=== PATIENT | female | born 1960 | race Caucasian/White ===

== ENCOUNTER 2016-09-13 13:18 | Inpatient (IN) | payer OTHER ==
[2016-09-13 14:16] VITALS: BMI 49.7
--- NOTE | 2016-09-13 15:18 | HP ---
Admission [facility] - [facility] Chief Complaint: mY PO mandated me to come to rehab for drinking beer . Allergies/Adverse Reactions: Allergies Allergy/AdvReac Type Severity Reaction Status Date / Time No Known Allergies Allergy Verified 09/13/16 14:47 History of Present Illness: 56 y/o f pt on MMTP has h/o chronic alcoholism and cocaine abuse seeking rehab. Exam Limitations: No Limitations - Ebola screening Have you traveled outside of the country in the last 21 days: No Have you had contact with anyone from an Ebola affected area: Yes Have you been sick,other than usual withdrawal symptoms: No - Review of Systems Constitutional: No Symptoms Reported EENT: reports: Other (hoarseness) Respiratory: reports: Shortness of Breath Cardiac: reports: No Symptoms Reported GI: reports: No Symptoms Reported : reports: Frequency Musculoskeletal: reports: Back Pain, Muscle Pain, Other (ambulates with a cane 2nd to back pain) Integumentary: reports: No Symptoms Reported Neuro: reports: Seizure (last sz . 5 m ago) Endocrine: reports: Intolerance to Cold, Intolerance to Heat, Increased Thirst, Increased Urine, Unexplained Weight Gain Psychiatric: reports: Agitated, Depressed Other Systems: Reviewed and Negative Patient History - Patient Medical History Hx Anemia: No Hx Asthma: Yes Hx Chronic Obstructive Pulmonary Disease (COPD): Yes Hx Cancer: No Hx Cardiac Disorders: No Hx Congestive Heart Failure: No Hx Hypertension: Yes Hx Hypercholesterolemia: Yes Hx Pacemaker: No HX Cerebrovascular Accident: No Hx Seizures: Yes Hx Dementia: No Hx Diabetes: Yes Hx Gastrointestinal Disorders: No Hx Liver Disease: No Hx Genitourinary Disorders: No Hx Sexually Transmitted Disorders: No Hx Renal Disease (ESRD): No Hx Thyroid Disease: Yes Hx Human Immunodeficiency Virus (HIV): No Hx Hepatitis C: Yes Hx Depression: Yes Hx Suicide Attempt: Yes (1994) Hx Bipolar Disorder: Yes Hx Schizophrenia: No - Patient Surgical History Past Surgical History: Yes - PPD History Documented Results: Negative w/o proof PPD to be Administered?: Yes - Reproductive History Patient is a Female of Child Bearing Age (11 -55 yrs old): Yes Last Menstrual Period: 07/04/10 Patient : No - Smoking Cessation Smoking history: Current every day smoker Have you smoked in the past 12 months: Yes Aproximately how many cigarettes per day: 5 Cigars Per Day: 0 Hx Chewing Tobacco Use: No Initiated information on smoking cessation: Yes 'Breaking Loose' booklet given: 09/13/16 - Substance & Tx. History Hx Alcohol Use: Yes Substance Use Type: Alcohol, Cocaine - Substances Abused Alcohol Route: Oral Amount used: beer 2- 16 oz/d Age of first use: 21 Date of Last Use: 09/13/16 Cocaine Frequency: 1-2 times per week Amount used: $10./d Age of first use: 22 Date of Last Use: 09/10/16 Family Disease History - Family Disease History Family Disease History: Diabetes: Brother, Heart Disease: Mother (HTN, colon cancer), Brother, CA: Mother, Other: Sister (drug) Admission Physical Exam [facility] - Vital Signs Vital Signs: Vital Signs - 24 hr 09/13/16 14:12 Temperature 96.8 F L Pulse Rate 80 Respiratory 18 Rate Blood Pressure 105/75 obese f. pt aox3 with mild sob ,cooperative with exam ambulating with cane - Physical General Appearance: Yes: Disheveled, Obese HEENTM: Yes: EOMI, Hearing grossly Normal, Normocephalic, Normal Voice, CALLY, Muffled/Hoarse Voice Respiratory: Yes: Wheezing Neck: Yes: Supple, Trachea in good position Breast: Yes: Breast Exam Deferred Cardiology: Yes: Regular Rhythm, Regular Rate, S1, S2 Abdominal: Yes: Non Tender, Soft, Increased Bowel Sounds, Protuberent Genitourinary: Yes: Frequency Back: Yes: Decreased Range of Motion Musculoskeletal: Yes: Back pain Extremities: Yes: Swelling (pedal edema +1 ave.) Neurological: 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: 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 NML intact, Fully Oriented, Alert, Normal Response Integumentary: Yes: Moist Lymphatic: Yes: Within Normal Limits - Diagnostic (1) Alcohol abuse Current Visit: Yes Status: Chronic (2) Bipolar 1 disorder Current Visit: No Status: Chronic Comment: on meds, psych at [facility] (3) Chronic low back pain Current Visit: No Status: Chronic Comment: followed by pain mgmtJudy NP (4) Diabetes Current Visit: Yes Status: Chronic Qualifiers: Diabetes mellitus type: type 2 Comment: on meds, f/u with pcp (5) Essential hypertension Current Visit: Yes Status: Chronic Comment: on meds, stable, sees primary (6) Hepatitis C carrier Current Visit: Yes Status: Chronic Comment: Draw labs to day, RTC in 4 weeks (7) Methadone maintenance therapy patient Current Visit: Yes Status: Chronic Comment: meds counted in program, graduated new focus (8) Nicotine dependence Current Visit: Yes Status: Chronic Qualifiers: Nicotine product type: cigarettes Substance use status: uncomplicated Qualified Code(s): F17.210 - Nicotine dependence, cigarettes, uncomplicated Comment: smoking cessation advised (9) Obesity, Class III, BMI 40-49.9 (morbid obesity) Current Visit: Yes Status: Chronic Comment: considering bariatric surgery - plans gastric sleeve - [facility] - in process of clearance using meal replacement shakes (10) Osteoarthritis Current Visit: Yes Status: Chronic Comment: antiinflammatory diet, counseled wt loss, gentle ROM (11) Seizure disorder Current Visit: Yes Status: Chronic Comment: on meds, stable Cleared for Admission [facility] - Detox or Rehab Claeared for Rehab Admission: Yes [facility] Breath Alcohol Content Breath Alcohol Content: 0 Urine Pregancy Test - Result Urine Test Results: Negative- NO Line Present Urine Drug Screen - Results Drug Screen Negative: No Urine Drug Screen Results: KAREN-Cocaine, OPI-Opiates, MTD-Methadone
[2016-09-13] MEDS ORDERED: guaiFENesin/D-METHORPHAN HB 10 ML UNIT-DOSE CUPS PO PRN (15:38)
[2016-09-13] MEDS ORDERED: MAGNESIUM HYDROX 2400MG/30ML ORAL SUSPENSION 30 ML CUP PO PRN (15:38)
[2016-09-13] MEDS ORDERED: MAG HYDROX/AL HYDROX/SIMETH 30 ML UNIT-DOSE CUP PO PRN (15:38)
[2016-09-13] MEDS ORDERED: LOPERAMIDE HCL 2 MG CAPSULE PO PRN (15:38)
[2016-09-13] MEDS ORDERED: diphenhydrAMINE HCL 50 MG CAPSULE PO PRN (15:38)
[2016-09-13] MEDS ORDERED: NICOTINE POLACRILEX 4 MG GUM BUC PRN (15:38)
[2016-09-13] MEDS ORDERED: P-EPHED 60MG/TRIPROLIDI 2.5MG TABLET PO PRN (15:38)
[2016-09-13] MEDS ORDERED: ACETAMINOPHEN 325 MG TABLET (FP) PO PRN (15:38)
[2016-09-13] MEDS ORDERED: MAGNESIUM CITRATE 300 ML BOTTLE PO PRN (15:38)
[2016-09-13] MEDS ORDERED: IBUPROFEN 400 MG TABLET (FP) PO PRN (15:38)
[2016-09-13] MEDS ORDERED: ALBUTEROL SO4 6.7 GM HFA INHALER IH PRN (15:40)
[2016-09-13] MEDS ORDERED: ALBUTEROL SO4 2.5/IPRATROPIUM 0.5 INH SOL 3 ML VIAL.NEB. NEB PRN (15:52)
[2016-09-13] MEDS: metFORMIN HCL 500 MG TABLET (FP) PO SCH (18:35)
[2016-09-13] MEDS: GABAPENTIN 300 MG CAPSULE (FP) PO SCH ×2 (18:35→23:10)
[2016-09-13] MEDS: INSULIN SLIDING SCALE (NOVOLOG) 1 VIAL SQ SCH (18:36)
[2016-09-13] MEDS ORDERED: PT OWN MED DRAWER 7, Y5N ONE (22:54)
[2016-09-13] MEDS ORDERED: INSULIN (NOVOLOG) ASPART 100 UNITS/ML 10ML VIAL ONE (22:57)
[2016-09-13 23:09] LABS: URINE APPEARANCE CLEAR; URINE BILIRUBIN NEGATIVE (NEGATIVE); URINE BLOOD NEGATIVE (NEGATIVE); URINE COLOR LTYELLOW; URINE GLUCOSE (UA) NEGATIVE (NEGATIVE); URINE KETONE NEGATIVE (NEGATIVE); URINE NITRITE NEGATIVE (NEGATIVE); URINE PROTEIN NEGATIVE (NEGATIVE); URINE UROBILINOGEN NEGATIVE E.U./dl (0.2-1.0)
[2016-09-13] MEDS: ATORVASTATIN CA 20 MG TABLET (FP) PO SCH (23:10)
[2016-09-13] MEDS: DIVALPROEX SODIUM 500 MG TABLET E.C. PO SCH (23:10)
[2016-09-13] MEDS: THIAMINE HCL 100 MG TABLET (FP) PO SCH (23:11)
[2016-09-13] MEDS: ACLIDINIUM BROMIDE 400 MCG/INH AERO.POWD IH SCH (23:11)
[2016-09-13] MEDS: MONTELUKAST NA 10 MG TABLET PO SCH (23:11)
[2016-09-13] MEDS: LIRAGLUTIDE 0.6 MG/0.1 ML PEN.INJCTR SQ SCH (23:11)
[2016-09-13 23:16] LABS: URINE LEUK ESTERASE TRACE (NEGATIVE)
[2016-09-13 23:27] LABS: URINE BACTERIA RARE /hpf (NONE SEEN); URINE MUCUS RARE; URINE RBC <1 /hpf (0-3); URINE WBC <1 /hpf (3-5)
[2016-09-14] MEDS ORDERED: METHADONE HCL 40 MG DISPERSABLE TABLET PO SCH (06:30)
[2016-09-14] MEDS ORDERED: METHADONE HCL 40 MG DISPERSABLE TABLET ONE (06:37)
[2016-09-14] MEDS ORDERED: METHADONE HCL 10 MG TABLET ONE (06:37)
[2016-09-14] MEDS: METHADONE 80 MG, METHADONE 10 MG PO SCH (06:59)
[2016-09-14] MEDS: INSULIN SLIDING SCALE (NOVOLOG) 1 VIAL SQ SCH ×2 (07:00→17:02)
[2016-09-14] MEDS: GABAPENTIN 300 MG CAPSULE (FP) PO SCH ×3 (07:00→21:52)
[2016-09-14] MEDS: metFORMIN HCL 500 MG TABLET (FP) PO SCH ×2 (07:01→17:01)
[2016-09-14] MEDS ORDERED: PT OWN MED DRAWER 7, Y5N ONE ×5 (09:35→22:07)
[2016-09-14] MEDS ORDERED: ERGOCALCIFEROL (VITAMIN D2) 50,000 UNIT CAPSULE (FP) PO SCH (10:00)
[2016-09-14] MEDS: PRENATAL VITAMINS W/ FOLIC ACID TABLET (FP) PO SCH (10:24)
[2016-09-14] MEDS: DIVALPROEX SODIUM 500 MG TABLET E.C. PO SCH ×2 (10:24→21:52)
[2016-09-14] MEDS: ASPIRIN COATED 81 MG TABLET.EC PO SCH (10:24)
[2016-09-14] MEDS: HYDROCHLOROTHIAZIDE 12.5 MG CAPSULE (FP) PO SCH (10:24)
[2016-09-14] MEDS: NICOTINE 14 MG/24 HOURS TOPICAL PATCH TD SCH (10:25)
[2016-09-14] MEDS: ACLIDINIUM BROMIDE 400 MCG/INH AERO.POWD IH SCH ×2 (10:25→21:53)
[2016-09-14] MEDS: SERTRALINE HCL 25 MG TABLET (FP) PO SCH (10:26)
[2016-09-14] MEDS: LOSARTAN POTASSIUM 50 MG TABLET (FP) PO SCH (10:28)
[2016-09-14 11:53] LABS: HIV 1 & 2 AB NEGATIVE; HIV 1 AGp24 NEGATIVE
--- NOTE | 2016-09-14 17:16 | EKG ---
Test Reason : Blood Pressure : / mmHG Vent. Rate : 081 BPM Atrial Rate : 081 BPM P-R Int : 172 ms QRS Dur : 084 ms QT Int : 398 ms P-R-T Axes : 059 045 055 degrees QTc Int : 462 ms NORMAL SINUS RHYTHM NORMAL ECG WHEN COMPARED WITH ECG OF 08-DEC-2008 10:47, NO SIGNIFICANT CHANGE WAS FOUND Confirmed by DENZEL ALVAREZ MD ([id number]) on 09/14/2016 5:16:17 PM Referred By: Confirmed By:DENZEL ALVAREZ MD
[2016-09-14] MEDS: ATORVASTATIN CA 20 MG TABLET (FP) PO SCH (21:52)
[2016-09-14] MEDS: MONTELUKAST NA 10 MG TABLET PO SCH (21:52)
[2016-09-14] MEDS: THIAMINE HCL 100 MG TABLET (FP) PO SCH (21:52)
[2016-09-14] MEDS: LIRAGLUTIDE 0.6 MG/0.1 ML PEN.INJCTR SQ SCH (21:57)
[2016-09-14] MEDS ORDERED: INSULIN (NOVOLOG) ASPART 100 UNITS/ML 10ML VIAL ONE (22:06)
[2016-09-14] MEDS ORDERED: TUBERCULIN PPD 5 TU/0.1ML VIAL ID ONE (22:07)
[2016-09-15] MEDS ORDERED: METHADONE HCL 40 MG DISPERSABLE TABLET ONE (06:04)
[2016-09-15] MEDS ORDERED: METHADONE HCL 10 MG TABLET ONE (06:04)
[2016-09-15] MEDS: METHADONE 80 MG, METHADONE 10 MG PO SCH (06:28)
[2016-09-15] MEDS: metFORMIN HCL 500 MG TABLET (FP) PO SCH ×2 (06:28→17:08)
[2016-09-15] MEDS: GABAPENTIN 300 MG CAPSULE (FP) PO SCH ×3 (06:28→21:49)
[2016-09-15] MEDS: INSULIN SLIDING SCALE (NOVOLOG) 1 VIAL SQ SCH ×2 (06:30→17:08)
[2016-09-15] MEDS ORDERED: PT OWN MED DRAWER 7, Y5N ONE (08:46)
[2016-09-15] MEDS: NICOTINE 14 MG/24 HOURS TOPICAL PATCH TD SCH (10:31)
[2016-09-15] MEDS: PRENATAL VITAMINS W/ FOLIC ACID TABLET (FP) PO SCH (10:32)
[2016-09-15] MEDS: DIVALPROEX SODIUM 500 MG TABLET E.C. PO SCH ×2 (10:33→21:49)
[2016-09-15] MEDS: LOSARTAN POTASSIUM 50 MG TABLET (FP) PO SCH (10:33)
[2016-09-15] MEDS: HYDROCHLOROTHIAZIDE 12.5 MG CAPSULE (FP) PO SCH (10:33)
[2016-09-15] MEDS: ASPIRIN COATED 81 MG TABLET.EC PO SCH (10:33)
[2016-09-15] MEDS: SERTRALINE HCL 25 MG TABLET (FP) PO SCH (10:34)
[2016-09-15] MEDS: ACLIDINIUM BROMIDE 400 MCG/INH AERO.POWD IH SCH ×2 (10:34→21:50)
--- NOTE | 2016-09-15 14:31 | HP ---
Psychiatrist Admission - Data Date of interview: 09/15/16 Admission source: [facility] Identifying data: This is the first admission to [address] [place] [address] for this 56 years old H mother of 3 adult children,resides with her sister,supported by [facility]. Medical History: Significant for HTN,DM,Seizure disorder,Hypothyroidism,BA, Chronic arthritis,COPD. Psychiatric History: See psychiatrist since 1996 after DOD when she was admitted to the hospital in [facility].Patient was dx with Bipolar disorder and placed on medications. No more psych admissions,no suicidal attempts after that.Patient sees psychiatrist on and off.She was on Zoloft 25 mg po daily and Xanax prn prescribed by psychiatrist at [facility].Patient stopped taking meds and didnt attend the office for about 5 months. Physical/Sexual Abuse/Trauma History: denies Vital Signs: Vital Signs - 24 hr 09/15/16 09/15/16 09/15/16 00:30 03:30 07:40 Temperature 97.2 F L Pulse Rate 83 Respiratory 18 18 18 Rate Blood Pressure 132/80 09/15/16 10:38 Temperature Pulse Rate 97 H Respiratory 18 Rate Blood Pressure 127/86 Allergies/Adverse Reactions: Allergies Allergy/AdvReac Type Severity Reaction Status Date / Time No Known Allergies Allergy Verified 09/13/16 14:47 Date of last physical exam: 09/13/16 Concur with the findings of this exam: Yes - Substance Abuse/Tx History Hx Alcohol Use: Yes (reports drinking since 22 yo, 2 beers daily) Hx Substance Use: Yes (heroin since 40 IV,MMTP 90 mg,cocaine since 22 yo) Substance Use Type: Alcohol, Heroin Hx Substance Use Treatment: Yes (this is her first inpatient rehab treatment) - Admission Criteria Previous failed treatment: Yes Poor recovery environment: Yes Comorbidities: Yes Lacks judgement: Yes Mental Status Exam - Mental Status Exam Alert and Oriented to: Time, Place, Person Cognitive Function: Grossly Intact Patient Appearance: Unkempt Mood: Sad Affect: Mood Congruent, Labile Patient Behavior: Cooperative Speech Pattern: Clear Voice Loudness: Normal Thought Process: Goal Oriented Thought Disorder: Not Present Hallucinations: Denies Suicidal Ideation: Denies Homicidal Ideation: Denies Insight/Judgement: Fair Sleep: Difficulty falling asleep Appetite: Good, Weight gain Muscle strength/Tone: Normal Gait/Station: Normal Psychiatric Findings - Problem List ([place] 1, 2,3) (1) Diabetes Current Visit: Yes Status: Chronic Qualifiers: Diabetes mellitus type: type 2 Comment: on meds, f/u with pcp (2) Essential hypertension Current Visit: Yes Status: Chronic Comment: on meds, stable, sees primary (3) Hepatitis C carrier Current Visit: Yes Status: Chronic Comment: Draw labs to day, RTC in 4 weeks (4) Methadone maintenance therapy patient Current Visit: Yes Status: Chronic Comment: meds counted in program, graduated new focus (5) Nicotine dependence Current Visit: Yes Status: Chronic Qualifiers: Nicotine product type: cigarettes Substance use status: uncomplicated Qualified Code(s): F17.210 - Nicotine dependence, cigarettes, uncomplicated Comment: smoking cessation advised (6) Obesity, Class III, BMI 40-49.9 (morbid obesity) Current Visit: Yes Status: Chronic Comment: considering bariatric surgery - plans gastric sleeve - [facility] - in process of clearance using meal replacement shakes (7) Osteoarthritis Current Visit: Yes Status: Chronic Comment: antiinflammatory diet, counseled wt loss, gentle ROM - Initial Treatment Plan Initial Treatment Plan: Restart Zoloft 25 mg po daily.Will monitor progress.
[2016-09-15] MEDS: LIRAGLUTIDE 0.6 MG/0.1 ML PEN.INJCTR SQ SCH (20:50)
[2016-09-15] MEDS: THIAMINE HCL 100 MG TABLET (FP) PO SCH (21:49)
[2016-09-15] MEDS: MONTELUKAST NA 10 MG TABLET PO SCH (21:49)
[2016-09-15] MEDS: ATORVASTATIN CA 20 MG TABLET (FP) PO SCH (21:49)
[2016-09-16] MEDS ORDERED: METHADONE HCL 10 MG TABLET ONE (03:18)
[2016-09-16] MEDS ORDERED: METHADONE HCL 40 MG DISPERSABLE TABLET ONE (03:19)
[2016-09-16] MEDS: METHADONE 80 MG, METHADONE 10 MG PO SCH (06:45)
[2016-09-16] MEDS: metFORMIN HCL 500 MG TABLET (FP) PO SCH ×2 (06:46→17:08)
[2016-09-16] MEDS: INSULIN SLIDING SCALE (NOVOLOG) 1 VIAL SQ SCH ×2 (06:46→17:09)
[2016-09-16] MEDS: GABAPENTIN 300 MG CAPSULE (FP) PO SCH ×3 (06:46→21:40)
[2016-09-16] MEDS ORDERED: PT OWN MED DRAWER 7, Y5N ONE ×2 (09:09→20:07)
[2016-09-16] MEDS: ACLIDINIUM BROMIDE 400 MCG/INH AERO.POWD IH SCH ×2 (10:29→21:40)
[2016-09-16] MEDS: NICOTINE 14 MG/24 HOURS TOPICAL PATCH TD SCH (10:30)
[2016-09-16] MEDS: PRENATAL VITAMINS W/ FOLIC ACID TABLET (FP) PO SCH (10:30)
[2016-09-16] MEDS: SERTRALINE HCL 25 MG TABLET (FP) PO SCH (10:30)
[2016-09-16] MEDS: HYDROCHLOROTHIAZIDE 12.5 MG CAPSULE (FP) PO SCH (10:30)
[2016-09-16] MEDS: DIVALPROEX SODIUM 500 MG TABLET E.C. PO SCH ×2 (10:31→21:40)
[2016-09-16] MEDS: LOSARTAN POTASSIUM 50 MG TABLET (FP) PO SCH (10:31)
[2016-09-16] MEDS: ASPIRIN COATED 81 MG TABLET.EC PO SCH (10:31)
[2016-09-16] MEDS: MENTHOL/PHENOL 1 EACH UD MM PRN (14:50)
[2016-09-16] MEDS: LIRAGLUTIDE 0.6 MG/0.1 ML PEN.INJCTR SQ SCH (20:14)
[2016-09-16] MEDS: THIAMINE HCL 100 MG TABLET (FP) PO SCH (21:40)
[2016-09-16] MEDS: MONTELUKAST NA 10 MG TABLET PO SCH (21:40)
[2016-09-16] MEDS: ATORVASTATIN CA 20 MG TABLET (FP) PO SCH (21:40)
[2016-09-17] MEDS ORDERED: METHADONE HCL 10 MG TABLET ONE (03:10)
[2016-09-17] MEDS ORDERED: METHADONE HCL 40 MG DISPERSABLE TABLET ONE (03:11)
[2016-09-17] MEDS: METHADONE 80 MG, METHADONE 10 MG PO SCH (06:39)
[2016-09-17] MEDS: metFORMIN HCL 500 MG TABLET (FP) PO SCH ×2 (06:40→17:01)
[2016-09-17] MEDS: GABAPENTIN 300 MG CAPSULE (FP) PO SCH ×3 (06:40→21:40)
[2016-09-17] MEDS: INSULIN SLIDING SCALE (NOVOLOG) 1 VIAL SQ SCH ×2 (06:41→17:08)
[2016-09-17] MEDS: NICOTINE 14 MG/24 HOURS TOPICAL PATCH TD SCH (10:32)
[2016-09-17] MEDS: DIVALPROEX SODIUM 500 MG TABLET E.C. PO SCH ×2 (10:33→21:39)
[2016-09-17] MEDS: ASPIRIN COATED 81 MG TABLET.EC PO SCH (10:33)
[2016-09-17] MEDS: PRENATAL VITAMINS W/ FOLIC ACID TABLET (FP) PO SCH (10:33)
[2016-09-17] MEDS: HYDROCHLOROTHIAZIDE 12.5 MG CAPSULE (FP) PO SCH (10:33)
[2016-09-17] MEDS: LOSARTAN POTASSIUM 50 MG TABLET (FP) PO SCH (10:33)
[2016-09-17] MEDS: ACLIDINIUM BROMIDE 400 MCG/INH AERO.POWD IH SCH ×2 (10:34→21:39)
[2016-09-17] MEDS: SERTRALINE HCL 25 MG TABLET (FP) PO SCH (10:34)
[2016-09-17] MEDS ORDERED: INSULIN (NOVOLOG) ASPART 100 UNITS/ML 10ML VIAL ONE (17:05)
[2016-09-17] MEDS ORDERED: PT OWN MED DRAWER 7, Y5N ONE (19:58)
[2016-09-17] MEDS: LIRAGLUTIDE 0.6 MG/0.1 ML PEN.INJCTR SQ SCH (20:23)
[2016-09-17] MEDS: THIAMINE HCL 100 MG TABLET (FP) PO SCH (21:39)
[2016-09-17] MEDS: ATORVASTATIN CA 20 MG TABLET (FP) PO SCH (21:39)
[2016-09-17] MEDS: MONTELUKAST NA 10 MG TABLET PO SCH (21:39)
[2016-09-18] MEDS ORDERED: METHADONE HCL 10 MG TABLET ONE (03:40)
[2016-09-18] MEDS ORDERED: METHADONE HCL 40 MG DISPERSABLE TABLET ONE (03:40)
[2016-09-18] MEDS: METHADONE 80 MG, METHADONE 10 MG PO SCH (06:53)
[2016-09-18] MEDS: metFORMIN HCL 500 MG TABLET (FP) PO SCH ×2 (06:54→17:17)
[2016-09-18] MEDS: INSULIN SLIDING SCALE (NOVOLOG) 1 VIAL SQ SCH ×2 (06:54→17:18)
[2016-09-18] MEDS: GABAPENTIN 300 MG CAPSULE (FP) PO SCH ×3 (06:54→21:43)
[2016-09-18] MEDS ORDERED: PT OWN MED DRAWER 7, Y5N ONE ×2 (08:59→21:41)
[2016-09-18] MEDS: PRENATAL VITAMINS W/ FOLIC ACID TABLET (FP) PO SCH (10:31)
[2016-09-18] MEDS: LOSARTAN POTASSIUM 50 MG TABLET (FP) PO SCH (10:31)
[2016-09-18] MEDS: DIVALPROEX SODIUM 500 MG TABLET E.C. PO SCH ×2 (10:31→21:43)
[2016-09-18] MEDS: ASPIRIN COATED 81 MG TABLET.EC PO SCH (10:31)
[2016-09-18] MEDS: HYDROCHLOROTHIAZIDE 12.5 MG CAPSULE (FP) PO SCH (10:31)
[2016-09-18] MEDS: ACLIDINIUM BROMIDE 400 MCG/INH AERO.POWD IH SCH ×2 (10:32→22:04)
[2016-09-18] MEDS: SERTRALINE HCL 25 MG TABLET (FP) PO SCH (10:32)
[2016-09-18] MEDS: NICOTINE 14 MG/24 HOURS TOPICAL PATCH TD SCH (10:32)
[2016-09-18] MEDS: MENTHOL/PHENOL 1 EACH UD MM PRN (10:35)
[2016-09-18] MEDS: THIAMINE HCL 100 MG TABLET (FP) PO SCH (21:43)
[2016-09-18] MEDS: ATORVASTATIN CA 20 MG TABLET (FP) PO SCH (21:43)
[2016-09-18] MEDS: MONTELUKAST NA 10 MG TABLET PO SCH (21:43)
[2016-09-18] MEDS: LIRAGLUTIDE 0.6 MG/0.1 ML PEN.INJCTR SQ SCH (21:49)
[2016-09-19 01:22] VITALS: BP 102/71; PULSE 120; TEMP 101.6
--- NOTE | 2016-09-19 01:31 | PN ---
[facility] Progress Note Note: Vital Signs 09/18/16 09/19/16 23:47 00:35 Temperature 1102.3 F H 101.6 F H Pulse Rate 95 H 120 H Respiratory 18 22 Rate Blood Pressure 126/75 102/71 Pt. c/o SOB. She is diaphoretic, tachypneic with b/l expiratory and inspiratory wheezing noted. Her SaO2 ranges from 88-90%. Pt. continues with fever after Tylenol was administered at 2327. She is on 2L of O2 via nc. Pt. transferred to the ER for further evaluation. Report given to Dr. Salmon.
[2016-09-19] MEDS: METHADONE 80 MG, METHADONE 10 MG PO SCH (07:27)
[2016-09-19] MEDS: GABAPENTIN 300 MG CAPSULE (FP) PO SCH (07:28)
[2016-09-19] MEDS: metFORMIN HCL 500 MG TABLET (FP) PO SCH (07:28)
[2016-09-19] MEDS: INSULIN SLIDING SCALE (NOVOLOG) 1 VIAL SQ SCH (07:29)
[2016-09-19] MEDS: HYDROCHLOROTHIAZIDE 12.5 MG CAPSULE (FP) PO SCH (10:28)
[2016-09-19] MEDS: ASPIRIN COATED 81 MG TABLET.EC PO SCH (10:28)
[2016-09-19] MEDS: DIVALPROEX SODIUM 500 MG TABLET E.C. PO SCH (10:28)
[2016-09-19] MEDS: LOSARTAN POTASSIUM 50 MG TABLET (FP) PO SCH (10:28)
[2016-09-19] MEDS: PRENATAL VITAMINS W/ FOLIC ACID TABLET (FP) PO SCH (10:29)
[2016-09-19] MEDS: ACLIDINIUM BROMIDE 400 MCG/INH AERO.POWD IH SCH (10:29)
[2016-09-19] MEDS: SERTRALINE HCL 25 MG TABLET (FP) PO SCH (10:29)
[2016-09-19] MEDS: NICOTINE 14 MG/24 HOURS TOPICAL PATCH TD SCH (10:29)
== END 2016-09-19 11:12 | disposition short-term general hospital (02) | DRG 772 ==
LOC: YASAS 13:18 → Y3E 16:10
PROVIDERS: ADMIT Psychiatry & Neurology Psychiatry; ATTEND Psychiatry & Neurology Psychiatry
PROC: HZ42ZZZ Group Counseling for Substance Abuse Treatment, Cognitive-Behavioral (ICD-10-PCS; principal; 2016-09-19)
DX: F11.20 Opioid dependence, uncomplicated (principal); F10.10 Alcohol abuse, uncomplicated; F17.210 Nicotine dependence, cigarettes, uncomplicated; F31.89 Other bipolar disorder; B18.2 Chronic viral hepatitis C; I10 Essential (primary) hypertension; Z86.69 Personal history of other diseases of the nervous system and sense organs; E11.9 Type 2 diabetes mellitus without complications; M54.5 Low back pain; E66.09 Other obesity due to excess calories; Z68.41 Body mass index [BMI] 40.0-44.9, adult; M19.90 Unspecified osteoarthritis, unspecified site
CPT/HCPCS: 36415; 81003; 81015; 87389; 93005; 93010; 94640

== ENCOUNTER 2016-09-19 01:59 | Inpatient (IN) | payer OTHER ==
--- NOTE | 2016-09-19 03:44 | PDOC ---
[id number] a 56 year old female with significant medical hx of asthma, COPD, IDDM, HTN, HLD, seizures, ETOH abuse and cocaine use who has been sent to the ED from [facility] for low O2Sat and fever. The patient complains of three days of shortness of breath, dry cough, and fever. She was found to have an O2Sat of 88% on room air at [facility]. She was also found to have a fever of 102.3. Denies any nausea, vomiting, diarrhea, chest pain, diaphoresis, headache, or urinary symptoms. PMD: Rancho Joseph MD <Lexy Wyatt - Last Filed: 09/19/16 06:06> <Will Cruz - Last Filed: 10/10/16 02:02> - General Chief Complaint: Cold Symptoms Stated Complaint: FEVER Past History <Lexy Wyatt - Last Filed: 09/19/16 06:06> - Past Medical History Anemia: No Asthma: Yes Cancer: No Cardiac Disorders: No CVA: No COPD: Yes CHF: No Dementia: No Diabetes: Yes GI Disorders: No Disorders: No HTN: Yes (ON MEDS.) Hypercholesterolemia: Yes Kidney Stones: No Liver Disease: No Suicide Attempt (Hx): Yes (X1) Seizures: Yes (ON MEDICATION) Thyroid Disease: Yes - Reproductive History PID: No - Psycho/Social/Smoking Cessation Hx Anxiety: Yes Suicidal Ideation: No Smoking History: Current every day smoker Have you smoked in the past 12 months: No Number of Cigarettes Smoked Daily: 20 Cigars Per Day: 0 Information on smoking cessation initiated: No 'Breaking Loose' booklet given: 09/13/16 Hx Alcohol Use: Yes Drug/Substance Use Hx: Yes Substance Use Type: Alcohol, Heroin Hx Substance Use Treatment: Yes (this is her first inpatient rehab treatment) <Will Cruz - Last Filed: 10/10/16 02:02> - Past Medical History Allergies/Adverse Reactions: Allergies Allergy/AdvReac Type Severity Reaction Status Date / Time No Known Allergies Allergy Verified 09/19/16 02:11 Home Medications: Ambulatory Orders Albuterol Sulfate Inhaler - [Ventolin HFA Inhaler -] 2 inh PO Q4H PRN 03/17/14 Azilsartan Medoxomil [Edarbi] 40 mg PO DAILY 03/17/14 Divalproex [Depakote -] 500 mg PO BID 03/17/14 Ergocalciferol [Drisdol -] 50,000 unit PO WEEKLY 03/17/14 Methadone HCl 90 mg PO DAILY 03/17/14 Zolpidem Tartrate [Ambien] 10 mg PO HS PRN 03/17/14 Sertraline HCl [Zoloft -] 25 mg PO DAILY 06/30/14 Tiotropium [place] [Spiriva] 1 inh PO DAILY 01/05/15 Gabapentin [Neurontin -] 300 mg PO Q8H 10/22/15 Mometasone/Formoterol [Dulera 200 Mcg/5 Mcg Inhaler] 2 inh IH BID 10/22/15 Hydrocodone/Acetaminophen [[place] 10-325 Tablet] 1 each PO BID PRN #60 tablet MDD 2 10/25/15 Aspirin [Aspirin EC] 81 mg PO DAILY 09/13/16 Liraglutide [Victoza -] 1.2 mg SQ DAILY@199909/13/16 Losartan/Hydrochlorothiazide [Losartan-Hctz 100-12.5 mg Tab] 1 each PO DAILY Metformin HCl 500 mg PO BID 09/13/16 Montelukast Na [Singulair -] 10 mg PO HS 09/13/16 Simvastatin [Zocor -] 20 mg PO DAILY 09/13/16 Acetaminophen [Tylenol .Regular Strength -] 650 mg PO Q6H PRN #0 tablet Albuterol 2.5/Ipratropium 0.5 [Duoneb -] 1 amp NEB Q6H PRN #4 amp 09/22/16 Atorvastatin Ca [Lipitor] 20 mg PO HS tablet 09/22/16 Azithromycin [Zithromax 250mg Tablets -] 250 mg PO DAILY #5 tablet 09/22/16 Hydrochlorothiazide [Hctz -] 25 mg PO DAILY tablet 09/22/16 Losartan Potassium [Cozaar -] 100 mg PO DAILY tablet 09/22/16 Metformin HCl [Glucophage -] 500 mg PO BID@0700,1630 tablet 09/22/16 Methadone [Dolophine -] 90 mg PO DAILY@0600 tablet MDD 1 09/22/16 Montelukast Na [Singulair -] 10 mg PO HS tablet 09/22/16 Nicotine Patch [Nicoderm Patch -] 21 mg TD DAILY #30 patch 09/22/16 Oxycodone HCl [Roxicodone -] 10 mg PO Q6H PRN #0 tablet MDD 4 09/22/16 Prednisone [Deltasone -] 30 mg PO DAILY #6 tablet 09/22/16 Sertraline HCl [Zoloft -] 50 mg PO HS tablet 09/22/16 Zolpidem Tartrate [Ambien] 5 mg PO HS PRN #0 tablet MDD 1 09/22/16 Review of Systems - Review of Systems Comments:: 09/19/16 06:12 GENERAL/CONSTITUTIONAL: Fever. No chills. No weakness. HEAD, EYES, EARS, NOSE AND THROAT: No change in vision. No ear pain or discharge. No sore throat. CARDIOVASCULAR: Shortness of breath. No chest pain. RESPIRATORY: Dry cough. No wheezing, or hemoptysis. GASTROINTESTINAL: No nausea, vomiting, diarrhea or constipation. GENITOURINARY: No dysuria, frequency, or change in urination. MUSCULOSKELETAL: No joint or muscle swelling or pain. No neck or back pain. SKIN: No rash NEUROLOGIC: No headache, vertigo, loss of consciousness, or change in strength/ sensation. <Lexy Wyatt - Last Filed: 09/19/16 06:06> *Physical Exam - Vital Signs Last Vital Signs Temp Pulse Resp BP Pulse Ox 99.2 F 113 H 16 122/65 96 09/19/16 02:11 09/19/16 02:11 09/19/16 02:11 09/19/16 02:11 09/19/16 02:11 - Physical Exam Comments: 09/19/16 06:14 GENERAL: Awake, alert, and fully oriented, in no acute distress HEAD: No signs of trauma EYES: PERRLA, EOMI, sclera anicteric, conjunctiva clear ENT: Auricles normal inspection, hearing grossly normal, nares patent, oropharynx clear without exudates. Moist mucosa NECK: Normal ROM, supple, no lymphadenopathy, JVD, or masses LUNGS: Diffusely wheezing, mild rhonchi. HEART: Regular rate and rhythm, normal S1 and S2, no murmurs, rubs or gallops ABDOMEN: Soft, nontender, normoactive bowel sounds. No guarding, no rebound. No masses EXTREMITIES: Normal range of motion, no edema. No clubbing or cyanosis. No cords, erythema, or tenderness NEUROLOGICAL: Cranial nerves II through XII grossly intact. Normal speech, normal gait SKIN: Warm, Dry, normal turgor, no rashes or lesions noted. ENDOCRINE: No increased thirst. No abnormal weight change. HEMATOLOGIC/LYMPHATIC: No anemia, easy bleeding, or history of blood clots. ALLERGIC/IMMUNOLOGIC: No hives or skin allergy. <Lexy Wyatt - Last Filed: 09/19/16 06:06> - Vital Signs Last Vital Signs Temp Pulse Resp BP Pulse Ox 99.2 F 113 H 16 122/65 96 09/19/16 02:11 09/19/16 02:11 09/19/16 02:11 09/19/16 02:11 09/19/16 02:11 <Will Cruz - Last Filed: 10/10/16 02:02> ED Treatment Course - LABORATORY CBC & Chemistry Diagram: 09/19/16 04:15 09/19/16 04:15 - ADDITIONAL ORDERS Additional order review: Laboratory Results 09/19/16 09/19/16 09/19/16 04:15 04:15 04:15 INR 1.12 Sodium 141 Potassium 4.8 Chloride 96 L Carbon Dioxide 34 H D Anion Gap 11 BUN 17 D Creatinine 1.1 H D Creat Clearance w eGFR 51.57 Random Glucose 145 H D Lactic Acid 2.843 H* Calcium 9.1 Phosphorus 4.4 Magnesium 1.6 L Total Bilirubin 0.8 D AST 15 D ALT 26 Alkaline Phosphatase 63 B-Natriuretic Peptide 161.23 H Total Protein 7.1 Albumin 3.1 L Lipase 90 09/19/16 04:15 RBC 4.79 MCV 87.4 MCHC 32.3 RDW 13.6 MPV 8.6 Neutrophils % Y Lymphocytes % Y - Medications Given in the ED: ED Medications Discontinued Medications Generic Name Dose Route Start Last Admin Trade Name Freq PRN Reason Stop Dose Admin Sodium Chloride 1,000 ml 09/19/16 05:24 09/19/16 05:36 Normal Saline - IV 09/19/16 05:25 1,000 ml ONCE ONE Administration <Lexy Wyatt - Last Filed: 09/19/16 06:06> - LABORATORY CBC & Chemistry Diagram: 09/20/16 06:50 09/22/16 05:40 <Will Cruz - Last Filed: 10/10/16 02:02> Medical Decision Making - Medical Decision Making 09/19/16 06:22 This is a 56yo F with a few days of low grade fever, mild dyspnea and cough. She has COPD exacerbation and looks slightly pale. She has a negative evaluation other than the wheezing and ronchi; she will require admission for COPD exacerbation. She has a normal Hb; WBC is very elevated at 25k. Lactate is elevated; she is hydrated with 30cc/kg, triple antibiotic therapy, nonnarcotic analgesia 10/10/16 01:59 <Will Cruz - Last Filed: 10/10/16 02:02> *DC/Admit/Observation/Transfer - Attestations Scribe Attestion: 09/19/16 06:15 Documentation prepared by Lexy Wyatt, acting as medical services assistant for Will Cruz MD. <Lexy Wyatt - Last Filed: 09/19/16 06:06> <Will Cruz - Last Filed: 10/10/16 02:02> - Discharge Dispostion Disposition: HOME Condition at time of disposition: Improved - Prescriptions - Referrals
[2016-09-19 04:39] LABS: MCH 28.2 pg (25.7-33.7); MCHC 32.3 g/dl (32.0-36.0); MEAN CELL VOLUME 87.4 fl (80-96); MEAN PLT VOLUME 8.6 fl (7.5-11.1); PLATELET COUNT 228 K/MM3 (134-434); RDW 13.6 % (11.6-15.6); WHITE BLOOD COUNT 25.4 K/mm3 (4.0-10.0)
[2016-09-19 04:52] LABS: INR 1.12 (0.82-1.09); PROTHROMBIN TIME (PATIENT) 12.4 SEC (9.98-11.88)
[2016-09-19 05:03] LABS: ALBUMIN 3.1 g/dl (3.4-5.0); BILIRUBIN,TOTAL 0.8 mg/dL (0.2-1.0); CALCIUM 9.1 mg/dL (8.5-10.1); CREATININE 1.1 mg/dL (0.55-1.02); MAGNESIUM 1.6 mg/dL (1.8-2.4); PHOSPHOROUS 4.4 mg/dL (2.5-4.9); TOT PROT 7.1 g/dl (6.4-8.2)
[2016-09-19] MEDS ORDERED: SODIUM CHLORIDE 0.9% 500 ML INFUS.BAG IV ONE ×2 (05:24→05:50)
[2016-09-19] MEDS ORDERED: AZITHROMYCIN IVPB 500 MG in DEXTROSE 5%-WATER - 250 ML IVPB ONE (05:51)
[2016-09-19] MEDS ORDERED: VANCOMYCIN 1,000 MG in DEXTROSE 5%-WATER - 250 ML IVPB ONE (05:51)
[2016-09-19] MEDS ORDERED: LEVOFLOXACIN 750 MG IVPB 150 ML IVPB ONE ×2 (05:51→05:58)
[2016-09-19] MEDS ORDERED: ALBUTEROL SO4 2.5/IPRATROPIUM 0.5 INH SOL 3 ML VIAL.NEB. NEB ONE ×2 (05:52→06:05)
[2016-09-19] MEDS ORDERED: MAGNESIUM SULF 50% (8.12 MEQ/2 ML-1 GM VIAL) IVPB ONE (05:52)
[2016-09-19] MEDS ORDERED: MAGNESIUM SULF 50% (8.12 MEQ/2 ML-1 GM VIAL) ONE ×2 (05:58→06:03)
[2016-09-19] MEDS ORDERED: VANCOMYCIN 1 GRAM (PRE-DOCKED) 250 ML IVPB ONE (06:12)
[2016-09-19] MEDS ORDERED: ALBUTEROL SO4 2.5/IPRATROPIUM 0.5 INH SOL 3 ML VIAL.NEB. NEB PRN (07:58)
[2016-09-19] MEDS ORDERED: METHADONE HCL 10 MG TABLET PO SCH (08:00)
[2016-09-19] MEDS ORDERED: methylPREDNISolone NA SUCC 40 MG/1 ML VIAL IVPB SCH (09:00)
[2016-09-19 09:20] LABS: PLATELET ESTIMATE ADEQUATE (NORMAL)
[2016-09-19] MEDS ORDERED: LOSARTAN 50MG/HCTZ 12.5MG 1 TAB (FP) PO SCH (10:00)
[2016-09-19] MEDS ORDERED: ERGOCALCIFEROL (VITAMIN D2) 50,000 UNIT CAPSULE (FP) PO SCH (10:00)
[2016-09-19] MEDS ORDERED: HYDROCHLOROTHIAZIDE 25 MG TABLET (FP) ONE (11:05)
[2016-09-19] MEDS ORDERED: ASPIRIN COATED 81 MG TABLET.EC ONE (11:05)
[2016-09-19] MEDS ORDERED: DOCUSATE SODIUM 100 MG CAPSULE (FP) PO ONE (11:06)
[2016-09-19] MEDS ORDERED: LOSARTAN POTASSIUM 25 MG TABLET ONE (11:06)
[2016-09-19] MEDS: ASPIRIN COATED 81 MG TABLET.EC PO SCH (11:15)
[2016-09-19] MEDS: DIVALPROEX SODIUM 500 MG TABLET E.C. PO SCH ×2 (11:15→23:35)
[2016-09-19] MEDS: HYDROCHLOROTHIAZIDE 25 MG TABLET (FP) PO SCH (11:15)
[2016-09-19] MEDS: LOSARTAN POTASSIUM 50 MG TABLET (FP) PO SCH (11:15)
[2016-09-19] MEDS: DOCUSATE SODIUM 100 MG CAPSULE (FP) PO SCH (11:15)
[2016-09-19 12:15] LABS: URINE APPEARANCE SLCLOUDY; URINE BILIRUBIN NEGATIVE (NEGATIVE); URINE BLOOD NEGATIVE (NEGATIVE); URINE COLOR YELLOW; URINE GLUCOSE (UA) NEGATIVE (NEGATIVE); URINE KETONE NEGATIVE (NEGATIVE); URINE NITRITE NEGATIVE (NEGATIVE); URINE PROTEIN NEGATIVE (NEGATIVE); URINE UROBILINOGEN 2.0 E.U/dl E.U./dl (0.2-1.0)
[2016-09-19 12:36] LABS: URINE LEUK ESTERASE TRACE (NEGATIVE)
[2016-09-19 12:44] LABS: URINE BACTERIA RARE /hpf (NONE SEEN); URINE HYALINE CAST 15 /lpf; URINE MUCUS RARE; URINE RBC 1 /hpf (0-3); URINE WBC 2 /hpf (3-5)
[2016-09-19] MEDS ORDERED: GABAPENTIN 100 MG CAPSULE (FP) ONE (14:26)
[2016-09-19] MEDS: GABAPENTIN 300 MG CAPSULE (FP) PO SCH ×2 (14:29→21:42)
[2016-09-19 14:36] VITALS: BMI 47.5
[2016-09-19] MEDS ORDERED: METHADONE HCL 40 MG DISPERSABLE TABLET ONE (15:53)
[2016-09-19] MEDS ORDERED: METHADONE HCL 10 MG TABLET ONE (15:53)
[2016-09-19] MEDS: METHADONE 80 MG, METHADONE 10 MG PO SCH (15:55)
--- NOTE | 2016-09-19 16:42 | CON.PULM ---
Consult Consult Specialty:: PULM/CCM Referred by:: SLOAN Reason for Consultation:: SOB - History of Present Illness Chief Complaint: SOB History of Present Illness: 56 F, asthma (never intubated, not steroid dependent, unknown PEF), COPD and active smoker, IDDM, HTN, HLD, seizures, ETOH abuse and cocaine use, currently on Methadone maintenance program. Reports of a few weeks of congested cough and SOB. Reports that she was given oral ABX (cannot remember the name) about 2 weeks ago. No travel history. Reports that her sister had URI symptoms. Found to have an O2 saturation of 88% on room air and fever of 102.3. Reports intermittent hemoptysis (blood tinged sputum). CXR: No acute process - History Source History Provided By: Patient Limitations to Obtaining History: No Limitations - Past Medical History Pulmonary: Yes: Asthma, Bronchitis, COPD, Pneumonia, Other (Probable sleep apnea ). No: O2 Dependent, Previously Intubated, Pulmonary Embolus ...LMP: 07/04/10 - Alcohol/Substance Use Hx Alcohol Use: Yes - Smoking History Smoking history: Current every day smoker Have you smoked in the past 12 months: No Aproximately how many cigarettes per day: 20 Home Medications - Allergies Allergies/Adverse Reactions: Allergies Allergy/AdvReac Type Severity Reaction Status Date / Time No Known Allergies Allergy Verified 09/19/16 02:11 - Home Medications Home Medications: Ambulatory Orders Albuterol Sulfate Inhaler - [Ventolin HFA Inhaler -] 2 inh PO Q4H PRN 03/17/14 Azilsartan Medoxomil [Edarbi] 40 mg PO DAILY 03/17/14 Divalproex [Depakote -] 500 mg PO BID 03/17/14 Ergocalciferol [Drisdol -] 50,000 unit PO WEEKLY 03/17/14 Methadone HCl 90 mg PO DAILY 03/17/14 Zolpidem Tartrate [Ambien] 10 mg PO HS PRN 03/17/14 Sertraline HCl [Zoloft -] 25 mg PO DAILY 06/30/14 Tiotropium [place] [Spiriva -] 1 inh PO DAILY 01/05/15 Gabapentin [Neurontin -] 300 mg PO Q8H 10/22/15 Mometasone/Formoterol [Dulera 200 Mcg/5 Mcg Inhaler] 2 inh IH BID 10/22/15 Hydrocodone/Acetaminophen [[place] 10-325 Tablet] 1 each PO BID PRN #60 tablet MDD 2 10/25/15 Aspirin [Aspirin EC] 81 mg PO DAILY 09/13/16 Liraglutide [Victoza -] 1.2 mg SQ DAILY@199909/13/16 Losartan/Hydrochlorothiazide [Losartan-Hctz 100-12.5 mg Tab] 1 each PO DAILY Metformin HCl 500 mg PO BID 09/13/16 Montelukast Na [Singulair -] 10 mg PO HS 09/13/16 Simvastatin [Zocor -] 20 mg PO DAILY 09/13/16 Family Disease History - Family Disease History Family Disease History: Diabetes: Brother, Heart Disease: Mother (HTN, colon cancer), Brother, [place]: Mother, Other: Sister (drug) Review of Systems - Review of Systems Constitutional: reports: Fever, Malaise, Weakness. denies: Chills, Night Sweats , Unintentional Wgt. Loss Eyes: reports: No Symptoms HENT: reports: No Symptoms Neck: reports: No Symptoms Cardiovascular: reports: Shortness of Breath. denies: Chest Pain, Edema, Palpitations Respiratory: reports: Cough, Hemoptysis, Snoring, SOB, SOB on Exertion, Wheezing Gastrointestinal: reports: No Symptoms Genitourinary: reports: No Symptoms Breasts: reports: No Symptoms Reported Musculoskeletal: reports: Back Pain Integumentary: reports: No Symptoms Neurological: reports: No Symptoms Endocrine: reports: No Symptoms Hematology/Lymphatic: reports: No Symptoms Psychiatric: reports: No Symptoms Physical Exam Vital Sings: Vital Signs Temperature 98.5 F 09/19/16 16:11 Pulse Rate 82 09/19/16 16:11 Respiratory Rate 20 09/19/16 16:11 Blood Pressure 122/60 09/19/16 16:11 O2 Sat by Pulse Oximetry (%) 96 09/19/16 16:06 Constitutional: Yes: No Distress, Obese Eyes: Yes: Conjunctiva Clear, EOM Intact HENT: Yes: Atraumatic, Normocephalic Neck: Yes: Supple, Trachea Midline Cardiovascular: Yes: Regular Rate and Rhythm Respiratory: Yes: Cough, Diminished, On Nasal O2, Rhonchi, SOB, Tachypnea, Wheezes. No: Accessory Muscle Use, Stridor ...Inspection: Yes: WNL ...Clubbing: No Gastrointestinal: Yes: Normal Bowel Sounds, Soft, Abdomen, Obese Renal/: Yes: WNL Musculoskeletal: Yes: WNL Extremities: Yes: WNL Edema: No Peripheral Pulses WNL: Yes Integumentary: Yes: WNL Neurological: Yes: Alert, Oriented ...Motor Strength: WNL Psychiatric: Yes: WNL, Alert, Oriented Imaging - Results Chest X-ray: Report Reviewed, Image Reviewed Problem List - Problems (1) Alcohol abuse Code(s): F10.10 - ALCOHOL ABUSE, UNCOMPLICATED (2) Bipolar 1 disorder Code(s): F31.9 - BIPOLAR DISORDER, UNSPECIFIED (3) COPD (chronic obstructive pulmonary disease) Code(s): J44.9 - CHRONIC OBSTRUCTIVE PULMONARY DISEASE, UNSPECIFIED (4) Chronic low back pain Code(s): M54.5 - LOW BACK PAIN G89.29 - OTHER CHRONIC PAIN (5) Chronic use of opiate drugs therapeutic purposes Code(s): Z79.899 - OTHER [employer]UST[employer]AL [employer]DSKEEPER (CURRENT) DRUG THERAPY (6) Diabetes Code(s): E11.9 - TYPE 2 DIABETES MELLITUS WITHOUT COMPLICATIONS Qualifiers: Diabetes mellitus type: type 2 (7) Essential hypertension Code(s): I10 - ESSENTIAL (PRIMARY) HYPERTENSION (8) Methadone maintenance therapy patient Code(s): F11.20 - OPIOID DEPENDENCE, UNCOMPLICATED (9) Obesity, Class III, BMI 40-49.9 (morbid obesity) Code(s): E66.01 - MORBID (SEVERE) OBESITY DUE TO EXCESS CALORIES (10) Osteoarthritis Code(s): M19.90 - UNSPECIFIED OSTEOARTHRITIS, UNSPECIFIED SITE (11) Seizure disorder Code(s): G40.909 - EPILEPSY, UNSP, NOT INTRACTABLE, WITHOUT STATUS EPILEPTICUS (12) Acute bronchitis Code(s): J20.9 - ACUTE BRONCHITIS, UNSPECIFIED (13) Hemoptysis Code(s): R04.2 - HEMOPTYSIS Assessment/Plan PLAN: Medrol BD TX Rocephin Flu swab -> If positive Tamiflu for 5 days Sputum is mildly blood tinged -> if persistent or worsens -> CT chest (will need screening CT at some point) Cultures O2 as needed VTE prophylaxis No smoking discussed Lactic acidosis likely due to a combination of infectious process and WOB -> repeat ordered Will follow Thank you. Dr High
--- NOTE | 2016-09-19 17:40 | HP ---
Admitting History and Physical - Primary Care Physician PCP: Maxwell Rose - Admission Chief Complaint: DYSPNEA/ACUTE RESP DISTRESS History of Present Illness: Patient is a 56 year old female with significant medical hx of asthma, COPD, IDDM, HTN, HLD, seizures, ETOH abuse and cocaine use who has been sent to the ED from [facility] for low O2Sat and fever. The patient complains of three days of shortness of breath, dry cough, and fever. She was found to have an O2Sat of 88% on room air at [facility]. She was also found to have a fever of 102.3. Denies any nausea, vomiting, diarrhea, chest pain, diaphoresis, headache, or urinary symptoms. History Source: Patient Limitations to Obtaining History: No Limitations - Past Medical History Pulmonary: Yes: Asthma, Bronchitis, COPD, Pneumonia, Other (Probable sleep apnea ). No: O2 Dependent, Previously Intubated, Pulmonary Embolus ...LMP: 07/04/10 - Smoking History Smoking history: Current every day smoker Have you smoked in the past 12 months: No Aproximately how many cigarettes per day: 20 - Alcohol/Substance Use Hx Alcohol Use: Yes Home Medications - Allergies Allergies/Adverse Reactions: Allergies Allergy/AdvReac Type Severity Reaction Status Date / Time No Known Allergies Allergy Verified 09/19/16 02:11 - Home Medications Home Medications: Ambulatory Orders Albuterol Sulfate Inhaler - [Ventolin HFA Inhaler -] 2 inh PO Q4H PRN 03/17/14 Azilsartan Medoxomil [Edarbi] 40 mg PO DAILY 03/17/14 Divalproex [Depakote -] 500 mg PO BID 03/17/14 Ergocalciferol [Drisdol -] 50,000 unit PO WEEKLY 03/17/14 Methadone HCl 90 mg PO DAILY 03/17/14 Zolpidem Tartrate [Ambien] 10 mg PO HS PRN 03/17/14 Sertraline HCl [Zoloft -] 25 mg PO DAILY 06/30/14 Tiotropium Leslie [Spiriva -] 1 inh PO DAILY 01/05/15 Gabapentin [Neurontin -] 300 mg PO Q8H 10/22/15 Mometasone/Formoterol [Dulera 200 Mcg/5 Mcg Inhaler] 2 inh IH BID 10/22/15 Hydrocodone/Acetaminophen [Colona 10-325 Tablet] 1 each PO BID PRN #60 tablet MDD 2 10/25/15 Aspirin [Aspirin EC] 81 mg PO DAILY 09/13/16 Liraglutide [Victoza -] 1.2 mg SQ DAILY@199909/13/16 Losartan/Hydrochlorothiazide [Losartan-Hctz 100-12.5 mg Tab] 1 each PO DAILY Metformin HCl 500 mg PO BID 09/13/16 Montelukast Na [Singulair -] 10 mg PO HS 09/13/16 Simvastatin [Zocor -] 20 mg PO DAILY 09/13/16 Family Disease History - Family Disease History Family Disease History: Diabetes: Brother, Heart Disease: Mother (HTN, colon cancer), Brother, CA: Mother, Other: Sister (drug) Review of Systems - Review of Systems Constitutional: reports: Weakness Eyes: reports: No Symptoms HENT: reports: No Symptoms Neck: reports: No Symptoms Cardiovascular: reports: Shortness of Breath Respiratory: reports: Exercise Intolerance, Orthopnea, SOB, SOB on Exertion Musculoskeletal: reports: No Symptoms Integumentary: reports: No Symptoms Neurological: reports: No Symptoms Endocrine: reports: No Symptoms Hematology/Lymphatic: reports: No Symptoms Psychiatric: reports: No Symptoms Physical Examination Vital Signs: Vital Signs Temperature 98.5 F 09/19/16 16:11 Pulse Rate 82 09/19/16 16:11 Respiratory Rate 20 09/19/16 16:11 Blood Pressure 122/60 09/19/16 16:11 O2 Sat by Pulse Oximetry (%) 96 09/19/16 16:06 Constitutional: Yes: Moderate Distress Eyes: Yes: WNL HENT: Yes: WNL Neck: Yes: WNL Cardiovascular: Yes: WNL Respiratory: Yes: Cough, Poor Air Entry, SOB, SOB on Exertion Gastrointestinal: Yes: WNL Renal/: Yes: WNL Musculoskeletal: Yes: Muscle Weakness Extremities: Yes: WNL Edema: No Peripheral Pulses WNL: Yes Integumentary: Yes: WNL Wound/Incision: Yes: Clean/Dry Neurological: Yes: WNL ...Motor Strength: WNL Psychiatric: Yes: WNL Imaging - Results Chest X-ray: Report Reviewed Problem List - Problems (1) Acute bronchitis Code(s): J20.9 - ACUTE BRONCHITIS, UNSPECIFIED (2) Hemoptysis Code(s): R04.2 - HEMOPTYSIS (3) Alcohol abuse Code(s): F10.10 - ALCOHOL ABUSE, UNCOMPLICATED (4) COPD (chronic obstructive pulmonary disease) Code(s): J44.9 - CHRONIC OBSTRUCTIVE PULMONARY DISEASE, UNSPECIFIED (5) Chronic low back pain Code(s): M54.5 - LOW BACK PAIN G89.29 - OTHER CHRONIC PAIN (6) Chronic use of opiate drugs therapeutic purposes Code(s): Z79.899 - OTHER [employer] MEMBER (CURRENT) DRUG THERAPY (7) Diabetes Code(s): E11.9 - TYPE 2 DIABETES MELLITUS WITHOUT COMPLICATIONS Qualifiers: Diabetes mellitus type: type 2 (8) Hepatitis C carrier Code(s): Z22.52 - (9) Methadone maintenance therapy patient Code(s): F11.20 - OPIOID DEPENDENCE, UNCOMPLICATED (10) Nicotine dependence Code(s): F17.200 - NICOTINE DEPENDENCE, UNSPECIFIED, UNCOMPLICATED Qualifiers : Nicotine product type: cigarettes Substance use status: uncomplicated Qualified Code(s): F17.210 - Nicotine dependence, cigarettes, uncomplicated (11) Seizure disorder Code(s): G40.909 - EPILEPSY, UNSP, NOT INTRACTABLE, WITHOUT STATUS EPILEPTICUS Assessment/Plan IV STEROIDS NEBS OOB TO CHAIR NICOTINE PATCH PULM EVAL FLU SWAB ID EVAL IV ABX WITH HEMOPTYSIS R/O TB
[2016-09-19] MEDS: metFORMIN HCL 500 MG TABLET (FP) PO SCH (17:54)
[2016-09-19] MEDS: methylPREDNISolone NA SUCC 125 MG/2 ML VIAL IVPB SCH (17:55)
[2016-09-19] MEDS: CEFTRIAXONE 50 ML IVPB SCH (18:11)
[2016-09-19] MEDS ORDERED: PT OWN MED DRAWER 7, Y5N ONE (21:34)
[2016-09-19] MEDS: SERTRALINE HCL 50 MG TABLET (FP) PO SCH (21:42)
[2016-09-19] MEDS: MONTELUKAST NA 10 MG TABLET PO SCH (21:42)
[2016-09-19] MEDS: ATORVASTATIN CA 20 MG TABLET (FP) PO SCH (21:42)
[2016-09-19] MEDS: ZOLPIDEM TARTRATE 5 MG TABLET PO PRN (21:42)
[2016-09-19] MEDS: oxyCODONE HCL 5 MG TABLET PO PRN (21:44)
[2016-09-19] MEDS: ACETAMINOPHEN 325 MG TABLET (FP) PO PRN (21:45)
[2016-09-19] MEDS: ARFORMOTEROL TARTRATE 15 MCG/2 ML VIAL NEB SCH (23:10)
[2016-09-19] MEDS: INSULIN SLIDING SCALE (NOVOLOG) 1 VIAL SQ SCH (23:36)
[2016-09-20] MEDS: methylPREDNISolone NA SUCC 125 MG/2 ML VIAL IVPB SCH ×2 (02:11→09:31)
[2016-09-20] MEDS ORDERED: METHADONE HCL 40 MG DISPERSABLE TABLET ONE (06:32)
[2016-09-20] MEDS ORDERED: METHADONE HCL 10 MG TABLET ONE (06:32)
[2016-09-20] MEDS: metFORMIN HCL 500 MG TABLET (FP) PO SCH ×2 (06:34→17:03)
[2016-09-20] MEDS: GABAPENTIN 300 MG CAPSULE (FP) PO SCH ×3 (06:34→21:29)
[2016-09-20] MEDS: METHADONE 80 MG, METHADONE 10 MG PO SCH (06:34)
[2016-09-20] MEDS: INSULIN SLIDING SCALE (NOVOLOG) 1 VIAL SQ SCH ×4 (06:35→21:32)
[2016-09-20 08:02] LABS: ALBUMIN 3.1 g/dl (3.4-5.0); ALK PHOS 58 U/L (45-117); ANION GAP 10 (8-16); BILIRUBIN,TOTAL 0.4 mg/dL (0.2-1.0); CALCIUM 9.2 mg/dL (8.5-10.1); CO2 32 mmol/L (21-32); CREATININE 0.7 mg/dL (0.55-1.02); GLUCOSE,RANDOM 184 mg/dL (74-106); SGOT/AST 12 U/L (15-37); SGPT/ALT 24 U/L (12-78); TOT PROT 7.1 g/dl (6.4-8.2)
[2016-09-20 08:11] LABS: MCH 28.7 pg (25.7-33.7); MCHC 32.2 g/dl (32.0-36.0); MEAN CELL VOLUME 89.1 fl (80-96); MEAN PLT VOLUME 8.6 fl (7.5-11.1); PLATELET COUNT 204 K/MM3 (134-434); RDW 13.9 % (11.6-15.6); WHITE BLOOD COUNT 15.8 K/mm3 (4.0-10.0)
[2016-09-20] MEDS: CEFTRIAXONE 50 ML IVPB SCH (09:30)
[2016-09-20] MEDS: ASPIRIN COATED 81 MG TABLET.EC PO SCH (09:33)
[2016-09-20] MEDS: LOSARTAN POTASSIUM 50 MG TABLET (FP) PO SCH (09:34)
[2016-09-20] MEDS: DIVALPROEX SODIUM 500 MG TABLET E.C. PO SCH ×2 (09:34→21:28)
[2016-09-20] MEDS: DOCUSATE SODIUM 100 MG CAPSULE (FP) PO SCH (09:34)
[2016-09-20] MEDS: HYDROCHLOROTHIAZIDE 25 MG TABLET (FP) PO SCH (09:34)
--- NOTE | 2016-09-20 10:40 | PN ---
Progress Note, Physician Chief Complaint: AWAKE ALERT CT CHEST COMPLETE FEELING BETTER STILL COUGHING WITH DYSPNEA - Current Medication List Current Medications: Active Medications Acetaminophen (Tylenol -) 650 mg PO Q6H PRN PRN Reason: FEVER OR PAIN Last Admin: 09/19/16 21:45 Dose: 325 mg Albuterol/Ipratropium (Duoneb -) 1 amp NEB Q6H PRN PRN Reason: SHORTNESS OF BREATH Arformoterol Tartrate (Brovana (Restricted To Pulmonology/Resp) -) 1 amp NEB BID [facility] Last Admin: 09/19/16 23:10 Dose: 1 amp Aspirin (Ecotrin -) 81 mg PO DAILY [facility] Last Admin: 09/20/16 09:33 Dose: 81 mg Atorvastatin Calcium (Lipitor -) 20 mg PO HS [facility] Last Admin: 09/19/16 21:42 Dose: 20 mg Divalproex Sodium (Depakote -) 500 mg PO BID [facility] Last Admin: 09/20/16 09:34 Dose: 500 mg Docusate Sodium (Colace -) 100 mg PO DAILY [facility] Last Admin: 09/20/16 09:34 Dose: 100 mg Ergocalciferol (Drisdol -) 50,000 unit PO Q7D@1000 [facility] Last Admin: 09/19/16 11:15 Dose: 50,000 unit Gabapentin (Neurontin -) 300 mg PO TID [facility] Last Admin: 09/20/16 06:34 Dose: 300 mg Hydrochlorothiazide (Hctz -) 25 mg PO DAILY [facility] Last Admin: 09/20/16 09:34 Dose: 25 mg Ceftriaxone Sodium (Rocephin 1gm Ivpb (Pre-Docked)) 50 mls @ 100 mls/hr IVPB DAILY [facility] Last Admin: 09/20/16 09:30 Dose: 100 mls/hr Insulin Aspart (Novolog Vial Sliding Scale -) 1 vial SQ ACHS [facility] PRN Reason: Protocol Last Admin: 09/20/16 06:35 Dose: Not Given Losartan Potassium (Cozaar -) 100 mg PO DAILY [facility] Last Admin: 09/20/16 09:34 Dose: 100 mg Metformin HCl (Glucophage -) 500 mg PO BID@0700,1630 [facility] Last Admin: 09/20/16 06:34 Dose: 500 mg Methadone HCl 80 mg/ Methadone (HCl 10 mg) 90 mg PO DAILY@0600 [facility] Last Admin: 03/29/17 06:34 Dose: 90 mg Methylprednisolone Sodium Succinate (Solu-Medrol -) 60 mg IVPB Q8H-IV [facility] Last Admin: 09/20/16 09:31 Dose: 60 mg Montelukast Sodium (Singulair -) 10 mg PO HS [facility] Last Admin: 09/19/16 21:42 Dose: 10 mg Oxycodone HCl (Roxicodone -) 10 mg PO Q6H PRN PRN Reason: PAIN Last Admin: 09/19/16 21:44 Dose: 10 mg Sertraline HCl (Zoloft -) 50 mg PO HS [facility] Last Admin: 09/19/16 21:42 Dose: 50 mg Zolpidem Tartrate (Ambien -) 5 mg PO HS PRN PRN Reason: INSOMNIA Last Admin: 09/19/16 21:42 Dose: 5 mg - Objective Vital Signs: Vital Signs Temperature 98.5 F 09/20/16 09:41 Pulse Rate 83 09/20/16 09:41 Respiratory Rate 20 09/20/16 09:41 Blood Pressure 143/65 09/20/16 09:41 O2 Sat by Pulse Oximetry (%) 90 L 09/20/16 09:42 Constitutional: Yes: Mild Distress Eyes: Yes: WNL HENT: Yes: WNL Neck: Yes: WNL Cardiovascular: Yes: WNL Respiratory: Yes: On Nasal O2, Poor Air Entry, Wheezes Gastrointestinal: Yes: WNL Musculoskeletal: Yes: Muscle Weakness Extremities: Yes: WNL Edema: Yes Edema: LLE: 1+, RLE: 1+ Peripheral Pulses WNL: Yes Integumentary: Yes: WNL Neurological: Yes: WNL ...Motor Strength: WNL Psychiatric: Yes: WNL Labs: CBC, BMP 09/20/16 06:50 09/20/16 06:50 INR, PTT INR 1.12 (0.82-1.09) 09/19/16 04:15 Problem List - Problems (1) Acute bronchitis Code(s): J20.9 - ACUTE BRONCHITIS, UNSPECIFIED (2) Hemoptysis Code(s): R04.2 - HEMOPTYSIS (3) Alcohol abuse Code(s): F10.10 - ALCOHOL ABUSE, UNCOMPLICATED (4) COPD (chronic obstructive pulmonary disease) Code(s): J44.9 - CHRONIC OBSTRUCTIVE PULMONARY DISEASE, UNSPECIFIED (5) Chronic low back pain Code(s): M54.5 - LOW BACK PAIN G89.29 - OTHER CHRONIC PAIN (6) Chronic use of opiate drugs therapeutic purposes Code(s): Z79.899 - OTHER SNF (CURRENT) DRUG THERAPY (7) Diabetes Code(s): E11.9 - TYPE 2 DIABETES MELLITUS WITHOUT COMPLICATIONS Qualifiers: Diabetes mellitus type: type 2 (8) Hepatitis C carrier Code(s): Z22.52 - (9) Methadone maintenance therapy patient Code(s): F11.20 - OPIOID DEPENDENCE, UNCOMPLICATED (10) Nicotine dependence Code(s): F17.200 - NICOTINE DEPENDENCE, UNSPECIFIED, UNCOMPLICATED Qualifiers : Nicotine product type: cigarettes Substance use status: uncomplicated Qualified Code(s): F17.210 - Nicotine dependence, cigarettes, uncomplicated (11) Seizure disorder Code(s): G40.909 - EPILEPSY, UNSP, NOT INTRACTABLE, WITHOUT STATUS EPILEPTICUS Assessment/Plan CT CHEST DONE AWAIT OFFICIAL LIA HEMOPTYSIS HAS RESOLVED SOLUMEDROL IV NEBS PULM AND ID F/U IV ABX DVT PROPHYLAXIS
[2016-09-20] MEDS: ARFORMOTEROL TARTRATE 15 MCG/2 ML VIAL NEB SCH ×2 (10:52→22:32)
--- NOTE | 2016-09-20 11:53 | PN ---
Progress Note (short form) - Note Progress Note: ID Consult dictated Acute exacerbation COPD Community acquired v. atypical pneumonia Hx polysubstance abuse Await c/s Empiric zithromax/ ceftriaxone Steroids/bronchodilators
[2016-09-20] MEDS: NICOTINE 21 MG/24 HOURS TOPICAL PATCH TD SCH (13:38)
--- NOTE | 2016-09-20 14:28 | PN ---
Progress Note, Physician History of Present Illness: PULMONARY ALERT,FEELING BETTER,LESS DYSPNEIC,LESS HEMOPTYSIS (DARK HEME) - Current Medication List Current Medications: Active Medications Acetaminophen (Tylenol -) 650 mg PO Q6H PRN PRN Reason: FEVER OR PAIN Last Admin: 09/19/16 21:45 Dose: 325 mg Albuterol/Ipratropium (Duoneb -) 1 amp NEB Q6H PRN PRN Reason: SHORTNESS OF BREATH Arformoterol Tartrate (Brovana (Restricted To Pulmonology/Resp) -) 1 amp NEB BID [facility] Last Admin: 09/20/16 10:52 Dose: 1 amp Aspirin (Ecotrin -) 81 mg PO DAILY [facility] Last Admin: 09/20/16 09:33 Dose: 81 mg Atorvastatin Calcium (Lipitor -) 20 mg PO HS [facility] Last Admin: 09/19/16 21:42 Dose: 20 mg Divalproex Sodium (Depakote -) 500 mg PO BID [facility] Last Admin: 09/20/16 09:34 Dose: 500 mg Docusate Sodium (Colace -) 100 mg PO DAILY [facility] Last Admin: 09/20/16 09:34 Dose: 100 mg Ergocalciferol (Drisdol -) 50,000 unit PO Q7D@1000 [facility] Last Admin: 09/19/16 11:15 Dose: 50,000 unit Gabapentin (Neurontin -) 300 mg PO TID [facility] Last Admin: 09/20/16 13:39 Dose: 300 mg Hydrochlorothiazide (Hctz -) 25 mg PO DAILY [facility] Last Admin: 09/20/16 09:34 Dose: 25 mg Ceftriaxone Sodium (Rocephin 1gm Ivpb (Pre-Docked)) 50 mls @ 100 mls/hr IVPB DAILY [facility] Last Admin: 09/20/16 09:30 Dose: 100 mls/hr Azithromycin (Zithromax 500mg Ivpb (Pre-Docked)) 250 mls @ 250 mls/hr IVPB DAILY [facility] Insulin Aspart (Novolog Vial Sliding Scale -) 1 vial SQ ACHS [facility] PRN Reason: Protocol Last Admin: 09/20/16 12:18 Dose: 2 units Losartan Potassium (Cozaar -) 100 mg PO DAILY [facility] Last Admin: 09/20/16 09:34 Dose: 100 mg Metformin HCl (Glucophage -) 500 mg PO BID@0700,1630 [facility] Last Admin: 09/20/16 06:34 Dose: 500 mg Methadone HCl 80 mg/ Methadone (HCl 10 mg) 90 mg PO DAILY@0600 [facility] Last Admin: 09/20/16 06:34 Dose: 90 mg Methylprednisolone Sodium Succinate (Solu-Medrol -) 60 mg IVPB Q8H-IV [facility] Last Admin: 09/20/16 09:31 Dose: 60 mg Montelukast Sodium (Singulair -) 10 mg PO HS [facility] Last Admin: 09/19/16 21:42 Dose: 10 mg Nicotine (Nicoderm Patch -) 21 mg TD DAILY [facility] Last Admin: 09/20/16 13:38 Dose: 21 mg Oxycodone HCl (Roxicodone -) 10 mg PO Q6H PRN PRN Reason: PAIN Last Admin: 09/19/16 21:44 Dose: 10 mg Sertraline HCl (Zoloft -) 50 mg PO HS [facility] Last Admin: 09/19/16 21:42 Dose: 50 mg Zolpidem Tartrate (Ambien -) 5 mg PO HS PRN PRN Reason: INSOMNIA Last Admin: 09/19/16 21:42 Dose: 5 mg - Objective Vital Signs: Vital Signs Temperature 98.5 F 09/20/16 09:41 Pulse Rate 89 09/20/16 12:27 Respiratory Rate 20 09/20/16 09:41 Blood Pressure 143/65 09/20/16 09:41 O2 Sat by Pulse Oximetry (%) 94 L 09/20/16 12:27 Constitutional: Yes: Well Nourished, Calm Eyes: Yes: WNL HENT: Yes: WNL Neck: Yes: WNL Cardiovascular: Yes: Regular Rate and Rhythm, S1, S2 Respiratory: Yes: Diminished Gastrointestinal: Yes: WNL Extremities: Yes: WNL Edema: No Labs: CBC, BMP 09/20/16 06:50 09/20/16 06:50 INR, PTT INR 1.12 (0.82-1.09) 09/19/16 04:15 - ....Imaging Cat Scan: Image Reviewed (LLL infiltrate) Assessment/Plan Problem List - Problems (1) Alcohol abuse Code(s): F10.10 - ALCOHOL ABUSE, UNCOMPLICATED (2) Bipolar 1 disorder Code(s): F31.9 - BIPOLAR DISORDER, UNSPECIFIED (3) COPD (chronic obstructive pulmonary disease) Code(s): J44.9 - CHRONIC OBSTRUCTIVE PULMONARY DISEASE, UNSPECIFIED (4) Chronic low back pain Code(s): M54.5 - LOW BACK PAIN G89.29 - OTHER CHRONIC PAIN (5) Chronic use of opiate drugs therapeutic purposes Code(s): Z79.899 - OTHER GROUP HOME (CURRENT) DRUG THERAPY (6) Diabetes Code(s): E11.9 - TYPE 2 DIABETES MELLITUS WITHOUT COMPLICATIONS Qualifiers: Diabetes mellitus type: type 2 (7) Essential hypertension Code(s): I10 - ESSENTIAL (PRIMARY) HYPERTENSION (8) Methadone maintenance therapy patient Code(s): F11.20 - OPIOID DEPENDENCE, UNCOMPLICATED (9) Obesity, Class III, BMI 40-49.9 (morbid obesity) Code(s): E66.01 - MORBID (SEVERE) OBESITY DUE TO EXCESS CALORIES (10) Osteoarthritis Code(s): M19.90 - UNSPECIFIED OSTEOARTHRITIS, UNSPECIFIED SITE (11) Seizure disorder Code(s): G40.909 - EPILEPSY, UNSP, NOT INTRACTABLE, WITHOUT STATUS EPILEPTICUS (12) Acute bronchitis Code(s): J20.9 - ACUTE BRONCHITIS, UNSPECIFIED (13) Hemoptysis Code(s): R04.2 - HEMOPTYSIS Assessment/Plan Medrol taper BD TX Rocephin O2 prn VTE prophylaxis No smoking discussed DR LY
--- NOTE | 2016-09-20 15:08 | CONS ---
INFECTIOUS DISEASE CONSULTATION DATE OF CONSULTATION: DATE OF DICTATION: 09/20/2016 DICTATED BY: Kanwal Eden MD HISTORY OF PRESENT ILLNESS: 56-year-old female, history of polysubstance abuse, active tobacco use evaluated for fever, cough and dyspnea. The patient was in rehab at [facility] for alcohol abuse. She was referred to the emergency room with worsening shortness of breath, dry cough and fever. Her O2 saturation was noted to be 88% and temperature 102.3. She was evaluated at the emergency room where she was admitted with an acute exacerbation COPD. CAT scan of the chest was done. It is not officially read; however, there appears to be increased markings at the left base. She reports having ill contacts with respiratory tract symptoms. She is HIV negative. She continues to smoke 5 cigarettes per day. PAST MEDICAL HISTORY: Positive for COPD, asthma, diabetes mellitus, hypertension, hyperlipidemia, hepatitis C. No known allergies. SOCIAL HISTORY: Positive for tobacco use, polysubstance abuse including alcohol, heroine and cocaine. LABORATORY DATA: White count on admission 25.4, presently 15.8, hematocrit 40.3, platelet count 204, creatinine 0.7. Urinalysis: 2 white cells. Cultures pending. PHYSICAL EXAMINATION: General: She is awake and alert. She is slightly short of breath at rest. Morbidly obese. Vital signs: Temperature 98.4. T-max 101.6. Blood pressure 143/65, pulse 63/regular, respirations 22 per minute. HEENT: Sclera anicteric. Heart sounds: S1, S2. Lungs: Scattered rhonchi. Abdomen: Abdomen is obese, soft, nontender. Extremities: Positive for edema. IMPRESSION: 1. Acute exacerbation chronic obstructive pulmonary disease. 2. Possible left lower lobe community-acquired versus atypical pneumonia. 3. History of polysubstance abuse. RECOMMENDATIONS: 1. Await cultures. 2. Obtain sputum culture, Legionella and pneumococcal antigens. 3. Empiric antibiotic coverage with Zithromax and Ceftriaxone. 4. Continue intravenous corticosteroids, inhaled bronchodilators. Thank you for the kind referral. KANWAL EDEN M.D. [id number]
[2016-09-20] MEDS: methylPREDNISolone NA SUCC 40 MG/1 ML VIAL IVPB SCH (17:03)
[2016-09-20] MEDS ORDERED: INSULIN (NOVOLOG) ASPART 100 UNITS/ML 10ML VIAL ONE (20:10)
[2016-09-20] MEDS ORDERED: PT OWN MED DRAWER 7, Y5N ONE (20:12)
[2016-09-20] MEDS: ATORVASTATIN CA 20 MG TABLET (FP) PO SCH (21:29)
[2016-09-20] MEDS: MONTELUKAST NA 10 MG TABLET PO SCH (21:33)
[2016-09-20] MEDS: SERTRALINE HCL 50 MG TABLET (FP) PO SCH (21:33)
[2016-09-20] MEDS: ZOLPIDEM TARTRATE 5 MG TABLET PO PRN (21:34)
[2016-09-20] MEDS: oxyCODONE HCL 5 MG TABLET PO PRN (21:34)
[2016-09-20] MEDS: ACETAMINOPHEN 325 MG TABLET (FP) PO PRN (21:35)
[2016-09-21] MEDS: methylPREDNISolone NA SUCC 40 MG/1 ML VIAL IVPB SCH ×3 (02:32→17:41)
[2016-09-21] MEDS ORDERED: METHADONE HCL 40 MG DISPERSABLE TABLET ONE (06:16)
[2016-09-21] MEDS ORDERED: METHADONE HCL 10 MG TABLET ONE (06:17)
[2016-09-21] MEDS: METHADONE 80 MG, METHADONE 10 MG PO SCH (06:29)
[2016-09-21] MEDS: GABAPENTIN 300 MG CAPSULE (FP) PO SCH ×3 (06:30→22:24)
[2016-09-21] MEDS: metFORMIN HCL 500 MG TABLET (FP) PO SCH ×2 (06:30→17:24)
[2016-09-21] MEDS: INSULIN SLIDING SCALE (NOVOLOG) 1 VIAL SQ SCH ×4 (06:31→22:25)
[2016-09-21] MEDS: oxyCODONE HCL 5 MG TABLET PO PRN ×3 (07:52→22:28)
[2016-09-21] MEDS: ACETAMINOPHEN 325 MG TABLET (FP) PO PRN ×3 (07:52→22:30)
[2016-09-21] MEDS ORDERED: PT OWN MED DRAWER 7, Y5N ONE ×3 (09:35→20:04)
[2016-09-21] MEDS: DOCUSATE SODIUM 100 MG CAPSULE (FP) PO SCH (09:41)
[2016-09-21] MEDS: LOSARTAN POTASSIUM 50 MG TABLET (FP) PO SCH (09:41)
[2016-09-21] MEDS: HYDROCHLOROTHIAZIDE 25 MG TABLET (FP) PO SCH (09:41)
[2016-09-21] MEDS: ASPIRIN COATED 81 MG TABLET.EC PO SCH (09:41)
[2016-09-21] MEDS: NICOTINE 21 MG/24 HOURS TOPICAL PATCH TD SCH (09:43)
[2016-09-21] MEDS: DIVALPROEX SODIUM 500 MG TABLET E.C. PO SCH ×2 (09:43→22:24)
[2016-09-21] MEDS ORDERED: AZITHROMYCIN IVPB 250 ML IVPB SCH (10:00)
[2016-09-21] MEDS: CEFTRIAXONE 50 ML IVPB SCH (10:11)
[2016-09-21] MEDS: ARFORMOTEROL TARTRATE 15 MCG/2 ML VIAL NEB SCH ×2 (10:50→22:40)
--- NOTE | 2016-09-21 12:10 | PN ---
Progress Note (short form) - Note Progress Note: PULMONARY Still coughing with dark blood. No fevers or chills. Last Vital Signs Temp Pulse Resp BP Pulse Ox 98.2 F 65 20 149/77 95 09/21/16 09:51 09/21/16 09:51 09/21/16 09:51 09/21/16 09:51 09/21/16 09:00 Gen: NAD at rest Heart: RRR Lung: distant breath sounds Abd: soft, nontender Ext: no edema CBC, BMP 09/20/16 06:50 09/20/16 06:50 Active Medications Acetaminophen (Tylenol -) 650 mg PO Q6H PRN PRN Reason: FEVER OR PAIN Last Admin: 09/21/16 07:52 Dose: 650 mg Albuterol/Ipratropium (Duoneb -) 1 amp NEB Q6H PRN PRN Reason: SHORTNESS OF BREATH Last Admin: 09/20/16 17:15 Dose: 1 amp Arformoterol Tartrate (Brovana (Restricted To Pulmonology/Resp) -) 1 amp NEB BID [facility] Last Admin: 09/21/16 10:50 Dose: 1 amp Aspirin (Ecotrin -) 81 mg PO DAILY [facility] Last Admin: 09/21/16 09:41 Dose: 81 mg Atorvastatin Calcium (Lipitor -) 20 mg PO HS [facility] Last Admin: 09/20/16 21:29 Dose: 20 mg Divalproex Sodium (Depakote -) 500 mg PO BID [facility] Last Admin: 09/21/16 09:43 Dose: 500 mg Docusate Sodium (Colace -) 100 mg PO DAILY [facility] Last Admin: 09/21/16 09:41 Dose: 100 mg Ergocalciferol (Drisdol -) 50,000 unit PO Q7D@1000 [facility] Last Admin: 09/19/16 11:15 Dose: 50,000 unit Gabapentin (Neurontin -) 300 mg PO TID [facility] Last Admin: 09/21/16 06:30 Dose: 300 mg Hydrochlorothiazide (Hctz -) 25 mg PO DAILY [facility] Last Admin: 09/21/16 09:41 Dose: 25 mg Ceftriaxone Sodium (Rocephin 1gm Ivpb (Pre-Docked)) 50 mls @ 100 mls/hr IVPB DAILY [facility] Last Admin: 09/21/16 10:11 Dose: 100 mls/hr Azithromycin (Zithromax 500mg Ivpb (Pre-Docked)) 250 mls @ 250 mls/hr IVPB DAILY [facility] Last Admin: 09/21/16 11:01 Dose: 250 mls/hr Insulin Aspart (Novolog Vial Sliding Scale -) 1 vial SQ ACHS [facility] PRN Reason: Protocol Last Admin: 09/21/16 11:37 Dose: Not Given Losartan Potassium (Cozaar -) 100 mg PO DAILY [facility] Last Admin: 09/21/16 09:41 Dose: 100 mg Metformin HCl (Glucophage -) 500 mg PO BID@0700,1630 [facility] Last Admin: 09/21/16 06:30 Dose: 500 mg Methadone HCl 80 mg/ Methadone (HCl 10 mg) 90 mg PO DAILY@0600 [facility] Last Admin: 09/21/16 06:29 Dose: 90 mg Methylprednisolone Sodium Succinate (Solu-Medrol -) 40 mg IVPB Q8H-IV [facility] Last Admin: 09/21/16 09:43 Dose: 40 mg Montelukast Sodium (Singulair -) 10 mg PO HS [facility] Last Admin: 09/20/16 21:33 Dose: 10 mg Nicotine (Nicoderm Patch -) 21 mg TD DAILY [facility] Last Admin: 09/21/16 09:43 Dose: 21 mg Oxycodone HCl (Roxicodone -) 10 mg PO Q6H PRN PRN Reason: PAIN Last Admin: 09/21/16 07:52 Dose: 10 mg Sertraline HCl (Zoloft -) 50 mg PO HS [facility] Last Admin: 09/20/16 21:33 Dose: 50 mg Zolpidem Tartrate (Ambien -) 5 mg PO HS PRN PRN Reason: INSOMNIA Last Admin: 09/20/16 21:34 Dose: 5 mg A/P Hemoptysis Pneumonia vs Acute Bronchitis COPD Exacerbation DM Smoker - continue antibiotics - f/u cultures - monitor hemoptysis - inhaled bronchodilators - medrol taper - smoking cessation - will need outpt f/u of chest imaging to ensure resolution of infiltrate - DVT prophylaxis
--- NOTE | 2016-09-21 14:25 | PN ---
Progress Note, Physician History of Present Illness: Reports less labored breathing Temps down + influenza B exposure (roommate) - Current Medication List Current Medications: Active Medications Acetaminophen (Tylenol -) 650 mg PO Q6H PRN PRN Reason: FEVER OR PAIN Last Admin: 09/21/16 07:52 Dose: 650 mg Albuterol/Ipratropium (Duoneb -) 1 amp NEB Q6H PRN PRN Reason: SHORTNESS OF BREATH Last Admin: 09/20/16 17:15 Dose: 1 amp Arformoterol Tartrate (Brovana (Restricted To Pulmonology/Resp) -) 1 amp NEB BID [facility] Last Admin: 09/21/16 10:50 Dose: 1 amp Aspirin (Ecotrin -) 81 mg PO DAILY [facility] Last Admin: 09/21/16 09:41 Dose: 81 mg Atorvastatin Calcium (Lipitor -) 20 mg PO HS [facility] Last Admin: 09/20/16 21:29 Dose: 20 mg Divalproex Sodium (Depakote -) 500 mg PO BID [facility] Last Admin: 09/21/16 09:43 Dose: 500 mg Docusate Sodium (Colace -) 100 mg PO DAILY [facility] Last Admin: 09/21/16 09:41 Dose: 100 mg Ergocalciferol (Drisdol -) 50,000 unit PO Q7D@1000 [facility] Last Admin: 09/19/16 11:15 Dose: 50,000 unit Gabapentin (Neurontin -) 300 mg PO TID [facility] Last Admin: 09/21/16 06:30 Dose: 300 mg Hydrochlorothiazide (Hctz -) 25 mg PO DAILY [facility] Last Admin: 09/21/16 09:41 Dose: 25 mg Ceftriaxone Sodium (Rocephin 1gm Ivpb (Pre-Docked)) 50 mls @ 100 mls/hr IVPB DAILY [facility] Last Admin: 09/21/16 10:11 Dose: 100 mls/hr Azithromycin (Zithromax 500mg Ivpb (Pre-Docked)) 250 mls @ 250 mls/hr IVPB DAILY [facility] Last Admin: 09/21/16 11:01 Dose: 250 mls/hr Insulin Aspart (Novolog Vial Sliding Scale -) 1 vial SQ ACHS [facility] PRN Reason: Protocol Last Admin: 09/21/16 11:37 Dose: Not Given Losartan Potassium (Cozaar -) 100 mg PO DAILY [facility] Last Admin: 09/21/16 09:41 Dose: 100 mg Metformin HCl (Glucophage -) 500 mg PO BID@0700,1630 [facility] Last Admin: 09/21/16 06:30 Dose: 500 mg Methadone HCl 80 mg/ Methadone (HCl 10 mg) 90 mg PO DAILY@0600 [facility] Last Admin: 09/21/16 06:29 Dose: 90 mg Methylprednisolone Sodium Succinate (Solu-Medrol -) 40 mg IVPB Q8H-IV [facility] Last Admin: 09/21/16 09:43 Dose: 40 mg Montelukast Sodium (Singulair -) 10 mg PO HS [facility] Last Admin: 09/20/16 21:33 Dose: 10 mg Nicotine (Nicoderm Patch -) 21 mg TD DAILY [facility] Last Admin: 09/21/16 09:43 Dose: 21 mg Oseltamivir Phosphate (Tamiflu -) 75 mg PO DAILY [facility] Stop: 09/26/16 13:59 Oxycodone HCl (Roxicodone -) 10 mg PO Q6H PRN PRN Reason: PAIN Last Admin: 09/21/16 07:52 Dose: 10 mg Sertraline HCl (Zoloft -) 50 mg PO HS [facility] Last Admin: 09/20/16 21:33 Dose: 50 mg Zolpidem Tartrate (Ambien -) 5 mg PO HS PRN PRN Reason: INSOMNIA Last Admin: 09/20/16 21:34 Dose: 5 mg - Objective Vital Signs: Vital Signs Temperature 98.2 F 09/21/16 09:51 Pulse Rate 65 09/21/16 09:51 Respiratory Rate 20 09/21/16 09:51 Blood Pressure 149/77 09/21/16 09:51 O2 Sat by Pulse Oximetry (%) 95 09/21/16 09:00 Constitutional: Yes: Obese Eyes: Yes: Conjunctiva Clear Cardiovascular: Yes: Regular Rate and Rhythm, S1, S2 Respiratory: Yes: Rhonchi Gastrointestinal: Yes: Normal Bowel Sounds, Soft, Abdomen, Obese. No: Tenderness Labs: CBC, BMP 09/20/16 06:50 09/20/16 06:50 INR, PTT INR 1.12 (0.82-1.09) 09/19/16 04:15 Assessment/Plan Acute exacerbation COPD LLL pneumonia Influenza exposure Continue zithromax/ ceftriaxone Tamiflu prophylaxis
[2016-09-21] MEDS: OSELTAMIVIR PHOSPHATE 75 MG CAPSULE PO SCH (15:12)
--- NOTE | 2016-09-21 21:43 | PN ---
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 +SOB + COUGH - Current Medication List Current Medications: Active Medications Acetaminophen (Tylenol -) 650 mg PO Q6H PRN PRN Reason: FEVER OR PAIN Last Admin: 09/21/16 15:16 Dose: 650 mg Albuterol/Ipratropium (Duoneb -) 1 amp NEB Q6H PRN PRN Reason: SHORTNESS OF BREATH Last Admin: 09/20/16 17:15 Dose: 1 amp Arformoterol Tartrate (Brovana (Restricted To Pulmonology/Resp) -) 1 amp NEB BID [facility] Last Admin: 09/21/16 10:50 Dose: 1 amp Aspirin (Ecotrin -) 81 mg PO DAILY [facility] Last Admin: 09/21/16 09:41 Dose: 81 mg Atorvastatin Calcium (Lipitor -) 20 mg PO HS [facility] Last Admin: 09/20/16 21:29 Dose: 20 mg Divalproex Sodium (Depakote -) 500 mg PO BID [facility] Last Admin: 09/21/16 09:43 Dose: 500 mg Docusate Sodium (Colace -) 100 mg PO DAILY [facility] Last Admin: 09/21/16 09:41 Dose: 100 mg Ergocalciferol (Drisdol -) 50,000 unit PO Q7D@1000 [facility] Last Admin: 09/19/16 11:15 Dose: 50,000 unit Gabapentin (Neurontin -) 300 mg PO TID [facility] Last Admin: 09/21/16 15:12 Dose: 300 mg Hydrochlorothiazide (Hctz -) 25 mg PO DAILY [facility] Last Admin: 09/21/16 09:41 Dose: 25 mg Ceftriaxone Sodium (Rocephin 1gm Ivpb (Pre-Docked)) 50 mls @ 100 mls/hr IVPB DAILY [facility] Last Admin: 09/21/16 10:11 Dose: 100 mls/hr Azithromycin (Zithromax 500mg Ivpb (Pre-Docked)) 250 mls @ 250 mls/hr IVPB DAILY [facility] Last Admin: 09/21/16 11:01 Dose: 250 mls/hr Insulin Aspart (Novolog Vial Sliding Scale -) 1 vial SQ ACHS [place] PRN Reason: Protocol Last Admin: 09/21/16 16:58 Dose: Not Given Losartan Potassium (Cozaar -) 100 mg PO DAILY [facility] Last Admin: 09/21/16 09:41 Dose: 100 mg Metformin HCl (Glucophage -) 500 mg PO BID@0700,1630 [facility] Last Admin: 09/21/16 17:24 Dose: 500 mg Methadone HCl 80 mg/ Methadone (HCl 10 mg) 90 mg PO DAILY@0600 [facility] Last Admin: 09/21/16 06:29 Dose: 90 mg Methylprednisolone Sodium Succinate (Solu-Medrol -) 40 mg IVPB Q8H-IV [facility] Last Admin: 09/21/16 17:41 Dose: 40 mg Montelukast Sodium (Singulair -) 10 mg PO HS [facility] Last Admin: 09/20/16 21:33 Dose: 10 mg Nicotine (Nicoderm Patch -) 21 mg TD DAILY [facility] Last Admin: 09/21/16 09:43 Dose: 21 mg Oseltamivir Phosphate (Tamiflu -) 75 mg PO DAILY [facility] Stop: 09/26/16 13:59 Last Admin: 09/21/16 15:12 Dose: 75 mg Oxycodone HCl (Roxicodone -) 10 mg PO Q6H PRN PRN Reason: PAIN Last Admin: 09/21/16 15:16 Dose: 10 mg Sertraline HCl (Zoloft -) 50 mg PO HS [facility] Last Admin: 09/20/16 21:33 Dose: 50 mg Zolpidem Tartrate (Ambien -) 5 mg PO HS PRN PRN Reason: INSOMNIA Last Admin: 09/20/16 21:34 Dose: 5 mg - Objective Vital Signs: Vital Signs Temperature 98.0 F 09/21/16 18:00 Pulse Rate 69 09/21/16 18:00 Respiratory Rate 20 09/21/16 18:00 Blood Pressure 153/72 09/21/16 18:00 O2 Sat by Pulse Oximetry (%) 93 L 09/21/16 13:40 Constitutional: Yes: Mild Distress Eyes: Yes: WNL HENT: Yes: WNL Neck: Yes: WNL Cardiovascular: Yes: WNL Respiratory: Yes: Cough, Wheezes Gastrointestinal: Yes: WNL Genitourinary: Yes: WNL Musculoskeletal: Yes: WNL Extremities: Yes: WNL Edema: No Peripheral Pulses WNL: Yes Integumentary: Yes: WNL Wound/Incision: Yes: Clean/Dry Neurological: Yes: WNL ...Motor Strength: WNL Psychiatric: Yes: WNL Labs: CBC, BMP 09/20/16 06:50 09/20/16 06:50 INR, PTT INR 1.12 (0.82-1.09) 09/19/16 04:15 Problem List - Problems (1) Acute bronchitis Code(s): J20.9 - ACUTE BRONCHITIS, UNSPECIFIED (2) Hemoptysis Code(s): R04.2 - HEMOPTYSIS (3) Alcohol abuse Code(s): F10.10 - ALCOHOL ABUSE, UNCOMPLICATED (4) COPD (chronic obstructive pulmonary disease) Code(s): J44.9 - CHRONIC OBSTRUCTIVE PULMONARY DISEASE, UNSPECIFIED (5) Chronic low back pain Code(s): M54.5 - LOW BACK PAIN G89.29 - OTHER CHRONIC PAIN (6) Chronic use of opiate drugs therapeutic purposes Code(s): Z79.899 - OTHER REMITTANCE CLERK (CURRENT) DRUG THERAPY (7) Diabetes Code(s): E11.9 - TYPE 2 DIABETES MELLITUS WITHOUT COMPLICATIONS Qualifiers: Diabetes mellitus type: type 2 (8) Hepatitis C carrier Code(s): Z22.52 - (9) Methadone maintenance therapy patient Code(s): F11.20 - OPIOID DEPENDENCE, UNCOMPLICATED (10) Nicotine dependence Code(s): F17.200 - NICOTINE DEPENDENCE, UNSPECIFIED, UNCOMPLICATED Qualifiers : Nicotine product type: cigarettes Substance use status: uncomplicated Qualified Code(s): F17.210 - Nicotine dependence, cigarettes, uncomplicated (11) Seizure disorder Code(s): G40.909 - EPILEPSY, UNSP, NOT INTRACTABLE, WITHOUT STATUS EPILEPTICUS Assessment/Plan CT CHEST DONE, + CHRONIC CHANGES WITH INFILTRATE HEMOPTYSIS HAS RESOLVING SLOWLY SOLUMEDROL IV Q 8HRS NEBS PULM AND ID F/U IV ABX DVT PROPHYLAXIS METHADONE PAIN CONTROL
[2016-09-21] MEDS: ATORVASTATIN CA 20 MG TABLET (FP) PO SCH (22:24)
[2016-09-21] MEDS: SERTRALINE HCL 50 MG TABLET (FP) PO SCH (22:26)
[2016-09-21] MEDS: MONTELUKAST NA 10 MG TABLET PO SCH (22:26)
[2016-09-21] MEDS: ZOLPIDEM TARTRATE 5 MG TABLET PO PRN (22:27)
[2016-09-22] MEDS: methylPREDNISolone NA SUCC 40 MG/1 ML VIAL IVPB SCH (02:18)
[2016-09-22] MEDS ORDERED: METHADONE HCL 40 MG DISPERSABLE TABLET ONE (06:03)
[2016-09-22] MEDS ORDERED: METHADONE HCL 10 MG TABLET ONE (06:04)
[2016-09-22] MEDS: METHADONE 80 MG, METHADONE 10 MG PO SCH (06:13)
[2016-09-22] MEDS: GABAPENTIN 300 MG CAPSULE (FP) PO SCH (06:14)
[2016-09-22] MEDS: INSULIN SLIDING SCALE (NOVOLOG) 1 VIAL SQ SCH ×2 (06:14→11:54)
[2016-09-22] MEDS: metFORMIN HCL 500 MG TABLET (FP) PO SCH (06:14)
[2016-09-22 08:34] LABS: CALCIUM 9.3 mg/dL (8.5-10.1)
[2016-09-22 08:35] LABS: CREATININE 0.8 mg/dL (0.55-1.02)
[2016-09-22] MEDS: ARFORMOTEROL TARTRATE 15 MCG/2 ML VIAL NEB SCH (09:30)
[2016-09-22] MEDS ORDERED: PT OWN MED DRAWER 7, Y5N ONE (09:32)
[2016-09-22] MEDS: HYDROCHLOROTHIAZIDE 25 MG TABLET (FP) PO SCH (09:38)
[2016-09-22] MEDS: DOCUSATE SODIUM 100 MG CAPSULE (FP) PO SCH (09:38)
[2016-09-22] MEDS: CEFTRIAXONE 50 ML IVPB SCH (09:38)
[2016-09-22] MEDS: ASPIRIN COATED 81 MG TABLET.EC PO SCH (09:38)
[2016-09-22] MEDS: LOSARTAN POTASSIUM 50 MG TABLET (FP) PO SCH (09:38)
[2016-09-22] MEDS: DIVALPROEX SODIUM 500 MG TABLET E.C. PO SCH (09:38)
[2016-09-22] MEDS: OSELTAMIVIR PHOSPHATE 75 MG CAPSULE PO SCH (09:38)
[2016-09-22] MEDS: NICOTINE 21 MG/24 HOURS TOPICAL PATCH TD SCH (09:38)
[2016-09-22] MEDS: oxyCODONE HCL 5 MG TABLET PO PRN (09:49)
[2016-09-22] MEDS ORDERED: predniSONE 10 MG TABLET (UD) PO SCH (10:00)
--- NOTE | 2016-09-22 10:05 | DS ---
Physical Examination Vital Signs: Vital Signs Temperature 97.7 F 09/22/16 06:17 Pulse Rate 56 L 09/22/16 06:17 Respiratory Rate 18 09/22/16 06:17 Blood Pressure 123/76 09/22/16 06:17 O2 Sat by Pulse Oximetry (%) 95 09/21/16 21:00 Constitutional: Yes: No Distress Eyes: Yes: WNL HENT: Yes: WNL Neck: Yes: WNL Cardiovascular: Yes: WNL Respiratory: Yes: CTA Bilaterally, Wheezes Gastrointestinal: Yes: WNL Renal/: Yes: WNL Musculoskeletal: Yes: WNL Extremities: Yes: WNL Edema: No Integumentary: Yes: WNL Wound/Incision: Yes: Clean/Dry Neurological: Yes: WNL ...Motor Strength: WNL Psychiatric: Yes: WNL Labs: CBC, BMP 09/20/16 06:50 09/22/16 05:40 Discharge Summary Reason For Visit: COPD,SIRS,FEVER Current Active Problems Acute bronchitis (Acute) Hemoptysis (Acute) Procedures: Principal: ct chest Other Procedures: labs, cultures Hospital Course: admitted acute resp distress and found to have hemoptysis, cultures negative, given iv abx, steroids, doing well today, repeat ct chest in 6 months with pulmonary follow up. Condition: Improved - Instructions Diet, Activity, Other Instructions: low fat/sodium Referrals: [facility] [Primary Care Provider] - Disposition: HOME - Home Medications Comprehensive Discharge Medication List: Ambulatory Orders Albuterol Sulfate Inhaler - [Ventolin HFA Inhaler -] 2 inh PO Q4H PRN 03/17/14 Azilsartan Medoxomil [Edarbi] 40 mg PO DAILY 03/17/14 Divalproex [Depakote -] 500 mg PO BID 03/17/14 Ergocalciferol [Drisdol -] 50,000 unit PO WEEKLY 03/17/14 Methadone HCl 90 mg PO DAILY 03/17/14 Zolpidem Tartrate [Ambien] 10 mg PO HS PRN 03/17/14 Sertraline HCl [Zoloft -] 25 mg PO DAILY 06/30/14 Tiotropium [place] [Spiriva -] 1 inh PO DAILY 01/05/15 Gabapentin [Neurontin -] 300 mg PO Q8H 10/22/15 Mometasone/Formoterol [Dulera 200 Mcg/5 Mcg Inhaler] 2 inh IH BID 10/22/15 Hydrocodone/Acetaminophen [[place] 10-325 Tablet] 1 each PO BID PRN #60 tablet MDD 2 10/25/15 Aspirin [Aspirin EC] 81 mg PO DAILY 09/13/16 Liraglutide [Victoza -] 1.2 mg SQ DAILY@199909/13/16 Losartan/Hydrochlorothiazide [Losartan-Hctz 100-12.5 mg Tab] 1 each PO DAILY Metformin HCl 500 mg PO BID 09/13/16 Montelukast Na [Singulair -] 10 mg PO HS 09/13/16 Simvastatin [Zocor -] 20 mg PO DAILY 09/13/16
[2016-09-22] MEDS ORDERED: AZITHROMYCIN 250 MG TABLET (FP) PO SCH (10:15)
[2016-09-22 10:59] VITALS: PULSE 80
[2016-09-22 12:18] VITALS: BP 143/96; TEMP 98.2
--- NOTE | 2016-09-29 16:06 | PN ---
S Progress Note Note: Patient was transferred to ER due to respiratory distress for further evaluation and treatment.
== END 2016-09-22 13:06 | disposition home or self-care (01) | DRG 140 ==
LOC: JER 01:59 → JERBED 06:15 → J5S 15:20
PROVIDERS: ADMIT Family Medicine; ATTEND Family Medicine
DX: J44.1 Chronic obstructive pulmonary disease with (acute) exacerbation (principal); E11.9 Type 2 diabetes mellitus without complications; Z79.4 Long term (current) use of insulin; I10 Essential (primary) hypertension; E78.5 Hyperlipidemia, unspecified; F14.10 Cocaine abuse, uncomplicated; F10.10 Alcohol abuse, uncomplicated; F17.200 Nicotine dependence, unspecified, uncomplicated; F31.9 Bipolar disorder, unspecified; E66.01 Morbid (severe) obesity due to excess calories; J20.9 Acute bronchitis, unspecified; R04.2 Hemoptysis; M19.90 Unspecified osteoarthritis, unspecified site; J18.9 Pneumonia, unspecified organism
CPT/HCPCS: 36415; 71010-TC; 71250-TC; 80048; 80053; 81003; 81015; 83605; 83690; 83735; 83880; 84100; 85025; 85027; 85610; 87040; 87070; 87205; 87254; 87804; 87899; 94640; 94761; 99285-25

== ENCOUNTER 2017-02-13 12:08 | Emergency (ER) | payer OTHER ==
[2017-02-13 12:19] VITALS: BMI 37.2
--- NOTE | 2017-02-13 12:34 | PDOC ---
History of Present Illness - General History Source: Patient Exam Limitations: No Limitations - History of Present Illness Initial Comments: 02/13/17 12:45 The patient is a 56 year old female, with a significant past medical history of asthma, COPD on O2 at home at night, IDDM, HTN, HLD, seizures, prior EtOH and cocaine abuse who presents to the emergency department with chest pain since yesterday. The patient reports having acute onset of left sided chest pain that has been intermittent since its original onset. The patient notes having episodes of chest pain that often last about one hour, describing her pain as stabbing. She denies recent shortness of breath during these episodes. She also notes having LUE numbness and tingling occasionally during these episodes of chest pain. She also notes having 5-6 episodes of diarrhea yesterday that was nonbloody. She also arrives with complaints of dysuria, headaches, nausea, and abdominal pain. She reports having her urine checked recently, which was negative for a UTI or any other pathology. She denies recent fevers, chills, or dizziness. She denies recent vomit. Allergies: NKA Past surgical history: None reported. Social history: See HPI <Eduardo Lipscomb - Last Filed: 02/13/17 12:54> <Fanny Benton - Last Filed: 02/13/17 16:32> - General Chief Complaint: Chest Pain Stated Complaint: CHEST PAIN Time Seen by Provider: 02/13/17 12:33 Past History <Eduardo Lipscomb - Last Filed: 02/13/17 12:54> - Past Medical History Anemia: No Asthma: Yes Cancer: No Cardiac Disorders: No CVA: No COPD: Yes CHF: No Dementia: No Diabetes: Yes GI Disorders: No Disorders: No HTN: Yes (ON MEDS.) Hypercholesterolemia: Yes Kidney Stones: No Liver Disease: No Suicide Attempt (Hx): Yes (X1) Seizures: Yes (ON MEDICATION) Thyroid Disease: Yes - Reproductive History PID: No - Psycho/Social/Smoking Cessation Hx Anxiety: Yes Suicidal Ideation: No Smoking History: Current every day smoker Have you smoked in the past 12 months: No Number of Cigarettes Smoked Daily: 20 Cigars Per Day: 0 Information on smoking cessation initiated: No 'Breaking Loose' booklet given: 09/13/16 Hx Alcohol Use: Yes Drug/Substance Use Hx: Yes Substance Use Type: Alcohol, Heroin Hx Substance Use Treatment: Yes (this is her first inpatient rehab treatment) <Fanny Benton - Last Filed: 02/13/17 16:32> - Past Medical History Allergies/Adverse Reactions: Allergies Allergy/AdvReac Type Severity Reaction Status Date / Time No Known Allergies Allergy Verified 09/19/16 02:11 Home Medications: Ambulatory Orders Albuterol Sulfate Inhaler - [Ventolin HFA Inhaler -] 2 inh PO Q4H PRN 03/17/14 Azilsartan Medoxomil [Edarbi] 40 mg PO DAILY 03/17/14 Divalproex [Depakote -] 500 mg PO BID 03/17/14 Ergocalciferol [Drisdol -] 50,000 unit PO WEEKLY 03/17/14 Methadone HCl 90 mg PO DAILY 03/17/14 Zolpidem Tartrate [Ambien] 10 mg PO HS PRN 03/17/14 Sertraline HCl [Zoloft -] 25 mg PO DAILY 06/30/14 Tiotropium [place] [Spiriva] 1 inh PO DAILY 01/05/15 Gabapentin [Neurontin -] 300 mg PO Q8H 10/22/15 Mometasone/Formoterol [Dulera 200 Mcg/5 Mcg Inhaler] 2 inh IH BID 10/22/15 Hydrocodone/Acetaminophen [[place] 10-325 Tablet] 1 each PO BID PRN #60 tablet MDD 2 10/25/15 Aspirin [Aspirin EC] 81 mg PO DAILY 09/13/16 Liraglutide [Victoza -] 1.2 mg SQ DAILY@199909/13/16 Losartan/Hydrochlorothiazide [Losartan-Hctz 100-12.5 mg Tab] 1 each PO DAILY Metformin HCl 500 mg PO BID 09/13/16 Montelukast Na [Singulair -] 10 mg PO HS 09/13/16 Simvastatin [Zocor -] 20 mg PO DAILY 09/13/16 Acetaminophen [Tylenol .Regular Strength -] 650 mg PO Q6H PRN #0 tablet Albuterol 2.5/Ipratropium 0.5 [Duoneb -] 1 amp NEB Q6H PRN #4 amp 09/22/16 Atorvastatin Ca [Lipitor] 20 mg PO HS tablet 09/22/16 Azithromycin [Zithromax 250mg Tablets -] 250 mg PO DAILY #5 tablet 09/22/16 Hydrochlorothiazide [Hctz -] 25 mg PO DAILY tablet 09/22/16 Losartan Potassium [Cozaar -] 100 mg PO DAILY tablet 09/22/16 Metformin HCl [Glucophage -] 500 mg PO BID@0700,1630 tablet 09/22/16 Methadone [Dolophine -] 90 mg PO DAILY@0600 tablet MDD 1 09/22/16 Montelukast Na [Singulair -] 10 mg PO HS tablet 09/22/16 Nicotine Patch [Nicoderm Patch -] 21 mg TD DAILY #30 patch 09/22/16 Oxycodone HCl [Roxicodone -] 10 mg PO Q6H PRN #0 tablet MDD 4 09/22/16 Prednisone [Deltasone -] 30 mg PO DAILY #6 tablet 09/22/16 Sertraline HCl [Zoloft -] 50 mg PO HS tablet 09/22/16 Zolpidem Tartrate [Ambien] 5 mg PO HS PRN #0 tablet MDD 1 09/22/16 Review of Systems - Review of Systems Able to Perform ROS?: Yes Comments:: 02/13/17 12:45 GENERAL/CONSTITUTIONAL: No fever or chills. No weakness. HEAD, EYES, EARS, NOSE AND THROAT: No change in vision. No ear pain or discharge. No sore throat. CARDIOVASCULAR: +chest pain. No shortness of breath. RESPIRATORY: No cough, wheezing, or hemoptysis. GASTROINTESTINAL: +abdominal pain, nausea, and diarrhea. No constipation. GENITOURINARY: +dysuria. No frequency, or change in urination. MUSCULOSKELETAL: No joint or muscle swelling or pain. No neck or back pain. SKIN: No rash NEUROLOGIC: +headache No vertigo, loss of consciousness, or change in strength/ sensation. ENDOCRINE: No increased thirst. No abnormal weight change. HEMATOLOGIC/LYMPHATIC: No anemia, easy bleeding, or history of blood clots. ALLERGIC/IMMUNOLOGIC: No hives or skin allergy. <Eduardo Lipscomb - Last Filed: 02/13/17 12:54> *Physical Exam - Vital Signs Last Vital Signs Temp Pulse Resp BP Pulse Ox 98.5 F 79 18 136/72 93 L 02/13/17 12:15 02/13/17 12:15 02/13/17 12:15 02/13/17 12:15 02/13/17 12:15 - Physical Exam Comments: 02/13/17 12:54 GENERAL: Awake, alert, and fully oriented, in no acute distress. Obese HEAD: No signs of trauma EYES: PERRLA, EOMI, sclera anicteric, conjunctiva clear ENT: Auricles normal inspection, hearing grossly normal, nares patent, oropharynx clear without exudates. Moist mucosa NECK: Normal ROM, supple, no lymphadenopathy, JVD, or masses LUNGS: Scattered wheezing with good air entry. Mild diffuse tenderness with deep palpation. No crackles HEART: Regular rate and rhythm, normal S1 and S2, no murmurs, rubs or gallops ABDOMEN: Soft, nontender, normoactive bowel sounds. No guarding, no rebound. No masses EXTREMITIES: Normal range of motion, no edema. No clubbing or cyanosis. No cords, erythema, or tenderness. Posterior cast on RLE. NEUROLOGICAL: Cranial nerves II through XII grossly intact. Normal speech, normal gait SKIN: Warm, Dry, normal turgor, no rashes or lesions noted. <Eduardo Lipscomb - Last Filed: 02/13/17 12:54> - Vital Signs Last Vital Signs Temp Pulse Resp BP Pulse Ox 98.5 F 79 18 136/72 93 L 02/13/17 12:15 02/13/17 12:15 02/13/17 12:15 02/13/17 12:15 02/13/17 12:15 <Fanny Benton - Last Filed: 02/13/17 16:32> ED Treatment Course - LABORATORY CBC & Chemistry Diagram: 02/13/17 13:21 02/13/17 13:21 <Fanny Benton - Last Filed: 02/13/17 16:32> Medical Decision Making - Medical Decision Making 02/13/17 16:24 Pt presents to the ED complaining of a one week history of pleuritic chest pain and diffuse abdominal pain. Denies fevers, nausea or vomiting. History of COPD , chronically on home O2, states that her cough and shortness of breath are unchanged from chronic. Abdomen is very mildly tender to diffuse palpation on my exam. Differential included PNA, less likely CHF/ACS, biliary disease. Labs are unremarkable and patient feels improved after duonebs. CXR is negative. Will discharge home. <Fanny Benton - Last Filed: 02/13/17 16:32> *DC/Admit/Observation/Transfer - Attestations Scribe Attestion: 02/13/17 12:45 Documentation prepared by Eduardo Lipscomb, acting as medical administrative specialist for Fanny Benton MD. <Eduardo Lipscomb - Last Filed: 02/13/17 12:54> <Fanny Benton - Last Filed: 02/13/17 16:32> Diagnosis at time of Disposition: Chest pain Qualifiers: Chest pain type: unspecified Qualified Code(s): R07.9 - Chest pain, unspecified - Discharge Dispostion Disposition: HOME Condition at time of disposition: Good - Patient Instructions Printed Discharge Instructions: DI for Atypical Chest Pain Additional Instructions: return to the ED for new or changing symptoms, severe chest pain or shortness of breath. severe abdominal pain, fevers, severe nausea and vomiting.
[2017-02-13] MEDS ORDERED: ALBUTEROL SO4 2.5/IPRATROPIUM 0.5 INH SOL 3 ML VIAL.NEB. NEB ONE ×2 (12:55→13:08)
[2017-02-13 13:29] LABS: BASOPHIL 0.5 % (0-2.0); EOSINOPHIL 1.9 % (0-4.5); MCH 27.7 pg (25.7-33.7); MCHC 31.8 g/dl (32.0-36.0); MEAN CELL VOLUME 87.3 fl (80-96); MEAN PLT VOLUME 7.9 fl (7.5-11.1); PLATELET COUNT 219 K/MM3 (134-434); WHITE BLOOD COUNT 9.1 K/mm3 (4.0-10.0)
[2017-02-13 13:31] LABS: URINE APPEARANCE SLCLOUDY; URINE BILIRUBIN NEGATIVE (NEGATIVE); URINE BLOOD NEGATIVE (NEGATIVE); URINE COLOR YELLOW; URINE GLUCOSE (UA) NEGATIVE (NEGATIVE); URINE KETONE NEGATIVE (NEGATIVE); URINE LEUK ESTERASE NEGATIVE (NEGATIVE); URINE NITRITE NEGATIVE (NEGATIVE); URINE PROTEIN NEGATIVE (NEGATIVE)
[2017-02-13 13:52] LABS: ALBUMIN 3.5 g/dl (3.4-5.0); ANION GAP 6 (8-16); BILIRUBIN,TOTAL 0.4 mg/dL (0.2-1.0); CALCIUM 9.1 mg/dL (8.5-10.1); CO2 33 mmol/L (21-32); CREATININE 0.7 mg/dL (0.55-1.02); GLUCOSE,RANDOM 100 mg/dL (74-106); SGOT/AST 12 U/L (15-37); SGPT/ALT 27 U/L (12-78)
[2017-02-13 13:55] LABS: ALK PHOS 69 U/L (45-117); CPK 77 IU/L (26-192); TROPONIN I < 0.02 ng/ml (0.00-0.05)
[2017-02-13 16:57] VITALS: BP 128/68; PULSE 75; TEMP 97.8
--- NOTE | 2017-02-14 11:17 | EKG ---
Test Reason : Blood Pressure : / mmHG Vent. Rate : 072 BPM Atrial Rate : 072 BPM P-R Int : 142 ms QRS Dur : 088 ms QT Int : 410 ms P-R-T Axes : 001 050 042 degrees QTc Int : 448 ms NORMAL SINUS RHYTHM NORMAL ECG WHEN COMPARED WITH ECG OF 13-SEP-2016 19:56, NO SIGNIFICANT CHANGE WAS FOUND Confirmed by PAGE VICK MD ([id number]) on 02/14/2017 11:16:53 AM Referred By: Confirmed By:PAGE VICK MD
== END 2017-02-13 16:56 | disposition home or self-care (01) ==
LOC: JER 12:08
PROC: 3E0F7GC Introduction of Other Therapeutic Substance into Respiratory Tract, Via Natural or Artificial Opening (ICD-10-PCS; principal; 2017-02-13)
DX: R07.9 Chest pain, unspecified (principal); I10 Essential (primary) hypertension; E78.00 Pure hypercholesterolemia, unspecified; E11.9 Type 2 diabetes mellitus without complications; Z79.4 Long term (current) use of insulin; Z79.84 Long term (current) use of oral hypoglycemic drugs; J44.9 Chronic obstructive pulmonary disease, unspecified; J45.909 Unspecified asthma, uncomplicated; Z86.69 Personal history of other diseases of the nervous system and sense organs; F17.210 Nicotine dependence, cigarettes, uncomplicated
CPT/HCPCS: 36415; 71020-TC; 80053; 81003; 84484; 85025; 93005; 93010; 94640; 99283-25

== ENCOUNTER 2019-01-07 11:31 | Inpatient (IN) | payer OTHER ==
--- NOTE | 2019-01-07 12:07 | PDOC ---
History of Present Illness <Rebecca Larkin - Last Filed: 01/07/19 15:45> - History of Present Illness Initial Comments: 01/07/19 13:43 HPI: 58 y/o F hx of COPD on chronic home O2 (2.5L while sleeping), IDDM, HTN, HLD, epilepsy, alcohol and cocaine/heroin abuse (non-IVDU), recurrent abscesses s/p multiple I&Ds presenting with right forearm swelling and pain. Patient reports swelling started about 1-2 weeks ago, however, over has significantly worsened over the past couple days extending from her fingers to her elbow. The pain started 3-4 days ago, is intermittent and burning in nature, and was an 8/10 at its worst. No interventions or meds have been attempted at home. Yesterday, she noted redness on her forearm with a focal area of swelling that she said "will pop soon." Since this morning, the erythema has progressed to include that opposing side of her forearm and is now present on her lateral elbow. She also has increased warmth in her right forearm. She also reports subjective fever and chills 3-5 days ago which has since resolved as well as nausea and vomiting. She also reports last using snorting cocaine and heroine 3 days ago. Patient denies HERNANDEZ, vision change, palpitations, CP, change in home O2 requirements, urinary complaints, diarrhea, constipation, lightheadedness, weakness, sensory changes. PMHx: as noted above ROS: as noted SHx: 1/2 ppd x40 yrs; no recent alcohol use but with alcohol abuse hx; cocaine and heroine last used 3 days ago, with hx of cocaine/heroin abuse and has tried IVDU 20+yrs ago Allergies: NKDA <Markel Brown - Last Filed: 01/07/19 17:59> - General Chief Complaint: Edema Stated Complaint: EDEMA Time Seen by Provider: 01/07/19 12:07 Past History <Rebecca Larkin - Last Filed: 01/07/19 15:45> - Past Medical History Anemia: No Asthma: Yes Cancer: No Cardiac Disorders: No CVA: No COPD: Yes CHF: No Dementia: No Diabetes: Yes GI Disorders: No Disorders: No HTN: Yes (ON MEDS.) Hypercholesterolemia: Yes Kidney Stones: No Liver Disease: No Seizures: Yes (ON MEDICATION) Thyroid Disease: Yes - Reproductive History PID: No - Immunization History Immunization Up to Date: Yes - Suicide/Smoking/Psychosocial Hx Smoking History: Never smoked Have you smoked in the past 12 months: No Number of Cigarettes Smoked Daily: 20 Cigars Per Day: 0 Information on smoking cessation initiated: No 'Breaking Loose' booklet given: 09/13/16 Hx Alcohol Use: No Drug/Substance Use Hx: Yes (COCAINE/ HEROIN) Substance Use Type: Alcohol, Heroin Hx Substance Use Treatment: Yes (this is her first inpatient rehab treatment) <Markel Brown - Last Filed: 01/07/19 17:59> - Past Medical History Allergies/Adverse Reactions: Allergies Allergy/AdvReac Type Severity Reaction Status Date / Time No Known Allergies Allergy Verified 01/07/19 11:39 Home Medications: Ambulatory Orders Albuterol Sulfate Inhaler - [Ventolin HFA Inhaler -] 2 inh PO Q4H PRN 03/17/14 Azilsartan Medox[place] [Edarbi] 40 mg PO DAILY 03/17/14 Divalproex [Depakote -] 500 mg PO BID 03/17/14 Ergocalciferol [Vitamin D2] 50,000 unit PO WEEKLY 03/17/14 Sertraline HCl [Zoloft -] 25 mg PO DAILY 06/30/14 Tiotropium [place] [Spiriva] 1 inh PO DAILY 01/05/15 Gabapentin [Neurontin -] 300 mg PO Q8H 10/22/15 Mometasone/Formoterol [Dulera 200 Mcg/5 Mcg Inhaler] 2 inh IH BID 10/22/15 Aspirin [Aspirin EC] 81 mg PO DAILY 09/13/16 Liraglutide [Victoza -] 1.2 mg SQ DAILY@199909/13/16 Losartan/Hydrochlorothiazide [Losartan-Hctz 100-12.5 mg Tab] 1 each PO DAILY Simvastatin [Zocor -] 20 mg PO DAILY 09/13/16 Acetaminophen [Tylenol .Regular Strength -] 650 mg PO Q6H PRN #0 tablet Albuterol 2.5/Ipratropium 0.5 [Duoneb -] 1 amp NEB Q6H PRN #4 amp 09/22/16 Atorvastatin Ca [Lipitor] 20 mg PO HS tablet 09/22/16 Zolpidem Tartrate [Ambien] 5 mg PO HS PRN #0 tablet MDD 1 09/22/16 metFORMIN HCL [Glucophage -] 500 mg PO BID@0700,1630 tablet 09/22/16 oxyCODONE HCL [Roxicodone -] 10 mg PO Q6H PRN #0 tablet MDD 4 09/22/16 predniSONE [Deltasone -] 30 mg PO DAILY #6 tablet 09/22/16 Review of Systems - Review of Systems Comments:: 01/07/19 14:21 GENERAL/CONSTITUTIONAL: + fever and chills. No weakness. HEAD, EYES, EARS, NOSE AND THROAT: No change in vision. No ear pain or discharge. No sore throat. CARDIOVASCULAR: No chest pain or shortness of breath or change in home O2 RESPIRATORY: No cough, wheezing, or hemoptysis. GASTROINTESTINAL: + nausea, vomiting; no diarrhea or constipation. GENITOURINARY: No dysuria, frequency, or change in urination. MUSCULOSKELETAL: + arm pain SKIN: + rash NEUROLOGIC: No headache, vertigo, loss of consciousness, or change in strength/ sensation. ENDOCRINE: No increased thirst. No abnormal weight change HEMATOLOGIC/LYMPHATIC: No anemia, easy bleeding, or history of blood clots. ALLERGIC/IMMUNOLOGIC: No hives or skin allergy. <Markel Brown - Last Filed: 01/07/19 17:59> *Physical Exam - Vital Signs Last Vital Signs Temp Pulse Resp BP Pulse Ox 98.2 F 90 16 152/78 100 01/07/19 11:43 01/07/19 11:43 01/07/19 11:39 01/07/19 11:43 01/07/19 11:43 <Rebecca Larkin - Last Filed: 01/07/19 15:45> - Vital Signs Last Vital Signs Temp Pulse Resp BP Pulse Ox 98.5 F 102 H 16 120/80 100 01/07/19 11:39 01/07/19 11:39 01/07/19 11:39 01/07/19 11:39 01/07/19 11:39 - Physical Exam Comments: 01/07/19 14:22 GENERAL: Awake, alert, and fully oriented, mild acute distress HEAD: No signs of trauma, normocephalic, atraumatic EYES: EOMI, sclera anicteric, conjunctiva clear ENT: Auricles normal inspection, hearing grossly normal, nares patent, oropharynx clear without exudates. Moist mucosa NECK: Normal ROM, supple, no lymphadenopathy, JVD, or masses LUNGS: No distress, speaks full sentences, clear to auscultation bilaterally HEART: Tachycardic and regular rhythm, normal S1 and S2, no murmurs, rubs or gallops, peripheral pulses normal and equal bilaterally. ABDOMEN: Soft, nontender, normoactive bowel sounds. Small reducible umbilical hernia with no tenderness. No guarding, no rebound. No masses EXTREMITIES : edema of the right forearm from fingers to elbow with decreased ROM of hand due to edema NEUROLOGICAL: Cranial nerves II through XII grossly intact. Normal speech, normal gait. sensation intact. right hand decreased ROM and 4/[address] limited by edema SKIN: right forearm with 5x4 cm area of erythema with 2x2cm fluctuance, warmth to palpation as well as tenderness throughout <Markel Brown - Last Filed: 01/07/19 17:59> Procedures - Incision and Drainage I&D Site: Right: Arm (right posterior forearm) Betadine cleansed: No Anesthesia: 1% Lidocaine Volume(ml): 50 (purulent drainage and blood) Blade Size: 15 Attempts: 1 Dressing: Yes (4x4 gauze with silk tape) <Markel Brown - Last Filed: 01/07/19 17:59> ED Treatment Course - LABORATORY CBC & Chemistry Diagram: 01/07/19 13:32 01/07/19 12:47 - ADDITIONAL ORDERS Additional order review: Laboratory Results 01/07/19 01/07/19 01/07/19 13:32 13:32 12:57 PT with INR 13.40 H INR 1.13 H Sodium Potassium Chloride Carbon Dioxide Anion Gap BUN Creatinine Est GFR (CKD-EPI)AfAm Est GFR (CKD-EPI)NonAf Random Glucose Lactic Acid 1.8 Calcium Total Bilirubin AST ALT Alkaline Phosphatase Troponin I < 0.02 Total Protein Albumin 01/07/19 12:47 PT with INR INR Sodium 131 L Potassium 4.5 Chloride 94 L Carbon Dioxide 29 Anion Gap 8 BUN 9.5 Creatinine 0.7 Est GFR (CKD-EPI)AfAm 111.47 Est GFR (CKD-EPI)NonAf 96.18 Random Glucose 315 H* Lactic Acid Calcium 9.0 Total Bilirubin 0.7 AST 16 ALT 17 Alkaline Phosphatase 95 Troponin I Total Protein 7.8 Albumin 3.1 L 01/07/19 13:32 RBC 5.47 H MCV 83.9 MCHC 32.9 RDW 13.6 MPV 8.6 Neutrophils % 69.4 D Lymphocytes % 19.0 D Monocytes % 9.8 Eosinophils % 1.1 Basophils % 0.7 - Medications Given in the ED: ED Medications Discontinued Medications Generic Name Dose Route Start Last Admin Trade Name Freq PRN Reason Stop Dose Admin Sodium Chloride 1,000 mls @ 1,000 mls/hr 01/07/19 12:47 01/07/19 14:26 Normal Saline - IV 01/07/19 13:46 1,000 mls/hr ASDIR STA Administration Piperacillin Sod/Tazobactam 50 mls @ 100 mls/hr 01/07/19 12:47 01/07/19 14:26 Sod 2.25 gm/ Dextrose IVPB 01/07/19 13:16 100 mls/hr ONCE ONE Administration Protocol Insulin Human Regular 4 units 01/07/19 15:04 01/07/19 15:16 Novolin R Vial *For Ivpush Or Iv Drip Only* SQ 01/07/19 15:05 4 units ONCE ONE Administration Vancomycin HCl 1,000 mg 01/07/19 12:47 01/07/19 14:26 Vancomycin (Pre-Docked) IVPB 01/07/19 12:48 1,000 mg ONCE ONE Administration Protocol <Rebecca Larkin - Last Filed: 01/07/19 15:45> - LABORATORY CBC & Chemistry Diagram: 01/07/19 13:32 01/07/19 12:47 <Markel Brown - Last Filed: 01/07/19 17:59> Medical Decision Making - Medical Decision Making 01/07/19 14:28 58 y/o F hx of COPD on chronic home O2 (2.5L while sleeping), IDDM, HTN, HLD, epilepsy, alcohol and cocaine/heroin abuse (last used 3 days ago), recurrent abscesses s/p multiple I&Ds presenting with right forearm abscess and overlying cellulitis. Physical exam notable for area of fluctuance with bedside ultrasound further demonstrating fluid collection. Labs notable for WBC 11.2 and lactate 1.8 -CBC, CMP, blood cultures x2, trop, coags -CXR, EKG, right arm XR -will begin IVF and treat empirically with vanc/zosyn 01/07/19 14:35 bedside I&D performed with ~50cc blood and purulent drainage; see procedure note 01/07/19 15:11 Glucose 300; will administer 4units insulin 01/07/19 15:43 Patient endorsed to Adis West NP from Dr Flanagan and Milton's team ID consulted for evaluation of cellulitis Surgery consulted for evaluation for further debridement/washout given extent of infection 01/07/19 15:58 Surgery consult initially placed for Dr Lopez but consult was refused Dr Henry was called and accepted surgical consult Dr Brothers accepted ID consult Awaiting bed placement 01/07/19 17:59 Patient febrile and received 1g IV tylenol Patient transferred to floors <Markel Brown - Last Filed: 01/07/19 17:59> *DC/Admit/Observation/Transfer - Discharge Dispostion Decision to Admit order: Yes <Rebecca Larkin - Last Filed: 01/07/19 15:45> <Markel Brown - Last Filed: 01/07/19 17:59> Diagnosis at time of Disposition: Cellulitis and abscess of upper arm and forearm, Diabetes type 2, uncontrolled
[2019-01-07] MEDS ORDERED: SODIUM CHLORIDE 1,000 ML IV STA (12:47)
[2019-01-07] MEDS ORDERED: VANCOMYCIN 1 GM in D5W (PRE-DOCKED) 1,000 MG/250 ML IVPB ONE (12:47)
[2019-01-07] MEDS ORDERED: PIPERACILLIN/TAZOB 2.25 GM 2.25 GM in DEXTROSE 5%-WATER - 50 ML IVPB ONE (12:47)
--- NOTE | 2019-01-07 13:34 | PDOC ---
Documentation entered by Chan Perkins SCRIBE, acting as scribe for Rebecca Larkin MD. Rebecca Larkin MD: This documentation has been prepared by the tressaeGregorio Elijah, SCRIBE, under my direction and personally reviewed by me in its entirety. I confirm that the documentation accurately reflects all work, treatment, procedures, and medical decision making performed by me. Attending Attestation - Resident Resident Name: Markel Brown - ED Attending Attestation I have performed the following: I have examined & evaluated the patient, The case was reviewed & discussed with the resident, I agree w/resident's findings & plan, Exceptions are as noted - HPI HPI: 01/07/19 13:28 Patient is a 58 year old female with a significant past medical history of asthma, COPD on O2 at home at night, IDDM, HTN, HLD, seizures, prior EtOH and cocaine abuse who presents to the ED with the top of the R Forearm swelling that has lasted for x2 weeks and pain that has begun x3 days ago. Patient notes that the swelling has progressed this morning, from her forearm, up the rest of her arm towards the elbow and underneath the Forearm prompting her visit to the ED. Allergies: NKA Social History: Tobacco Use, Cocaine, Heroin use PCP: Dr. Joseph - Physicial Exam PE: GENERAL: Awake, alert, and fully oriented, in no acute distress HEAD: No signs of trauma EYES: PERRLA, EOMI, sclera anicteric, conjunctiva clear ENT: Auricles normal inspection, hearing grossly normal, nares patent, oropharynx clear without exudates. Moist mucosa NECK: Normal ROM, supple, no lymphadenopathy, JVD, or masses LUNGS: Breath sounds equal, clear to auscultation bilaterally. No wheezes, and no crackles HEART: Regular rate and rhythm, normal S1 and S2, no murmurs, rubs or gallops ABDOMEN: Soft, nontender, normoactive bowel sounds. No guarding, no rebound. No masses EXTREMITIES: R forearm with significant nonpitting edema, erythema to the dorsal surface, with lymphatic streaking to the volar surface. +Small fluctuant area in the center of the dorsal lesion. +Tenderness, warmth, induration. Remainder of extremities with normal range of motion, no edema. No clubbing or cyanosis. No cords, erythema, or tenderness NEUROLOGICAL: Cranial nerves II through XII grossly intact. Normal speech, normal gait. Motor and sensation intact SKIN: Warm, dry, normal turgor, no rashes or lesions noted. - Medical Decision Making Fluctuant area was incised and drained in ED. Will contact general surgery, as there is induration on the dorsal surface, but lymphatic streaking on the volar surface, suggesting the infection may be through and through. Will admit for IV abx.
[2019-01-07] MEDS ORDERED: PIPERACILLIN/TAZOB 2.25 GM 2.25 GM/50 ML BAG IVPB ONE (13:56)
[2019-01-07] MEDS ORDERED: VANCOMYCIN 1 GRAM (PRE-DOCKED) 1,000 MG/250 ML BAG IVPB ONE (13:56)
[2019-01-07 14:12] LABS: BASO % 0.7 % (0-2.0); EOS % 1.1 % (0-4.5); HEMATOCRIT 45.9 % (32.4-45.2); HEMOGLOBIN 15.1 GM/dL (10.7-15.3); MCH 27.6 pg (25.7-33.7); MCHC 32.9 g/dl (32.0-36.0); MEAN CELL VOLUME 83.9 fl (80-96); MEAN PLT VOLUME 8.6 fl (7.5-11.1); MONO % 9.8 % (3.8-10.2); NEUT % 69.4 % (42.8-82.8); PLATELET COUNT 274 K/MM3 (134-434); RBC 5.47 M/mm3 (3.60-5.2); RDW 13.6 % (11.6-15.6); WHITE BLOOD COUNT 11.2 K/mm3 (4.0-10.0)
[2019-01-07 14:21] LABS: INR 1.13 (0.83-1.09); PROTHROMBIN TIME (PATIENT) 13.4 SEC (9.7-13.0)
[2019-01-07 14:30] LABS: ALBUMIN 3.1 g/dl (3.4-5.0); BILIRUBIN,TOTAL 0.7 mg/dL (0.2-1); BLOOD UREA NITROGEN 9.5 mg/dL (7-18); CREATININE 0.7 mg/dL (0.55-1.3); POTASSIUM 4.5 mmol/L (3.5-5.1); TOT PROT 7.8 g/dl (6.4-8.2)
[2019-01-07] MEDS ORDERED: INSULIN REGULAR HUMAN 100 UNITS/ML *VIAL SQ ONE (15:04)
[2019-01-07] MEDS ORDERED: INSULIN REGULAR HUMAN 100 UNITS/ML *VIAL ONE (15:18)
--- NOTE | 2019-01-07 15:50 | HP ---
Admitting History and Physical - Primary Care Physician PCP: [facility] - Admission Chief Complaint: Swelling Right lower forearm History of Present Illness: Patient is a 58 y/o female with past medical history asthma, COPD, IDDM, HTN, HLD, seizures, ETOH and cocaine abuse. Patient presented to ER today for swelling to right lower forearm. Patient states that 1 week ago she noted swelling to her right lower forearm andit progressively got worse. Three days ago she began experiencing subjective fevers at home and the area was warm to touch. Today she noted that her swelling was beginning to form "a head" and that prompter her to come to ER. Patient is poorly compliant with following up with PCP and medication regimen. Called listed pharmacy to get updated medication list and last time medication filled was 2017. History Source: Patient Limitations to Obtaining History: No Limitations - Past Medical History Pulmonary: Yes: Asthma, Bronchitis, COPD, Pneumonia, Other (Probable sleep apnea ). No: O2 Dependent, Previously Intubated, Pulmonary Embolus ...LMP: 07/04/10 - Smoking History Smoking history: Never smoked Have you smoked in the past 12 months: No Aproximately how many cigarettes per day: 20 - Alcohol/Substance Use Hx Alcohol Use: No Home Medications - Allergies Allergies/Adverse Reactions: Allergies Allergy/AdvReac Type Severity Reaction Status Date / Time No Known Allergies Allergy Verified 01/07/19 11:39 - Home Medications Home Medications: Ambulatory Orders Albuterol Sulfate Inhaler - [Ventolin HFA Inhaler -] 2 inh PO Q4H PRN 03/17/14 Azilsartan Medoxomil [Edarbi] 40 mg PO DAILY 03/17/14 Divalproex [Depakote -] 500 mg PO BID 03/17/14 Ergocalciferol [Vitamin D2] 50,000 unit PO WEEKLY 03/17/14 Sertraline HCl [Zoloft -] 25 mg PO DAILY 06/30/14 Tiotropium [place] [Spiriva] 1 inh PO DAILY 01/05/15 Gabapentin [Neurontin -] 300 mg PO Q8H 10/22/15 Mometasone/Formoterol [Dulera 200 Mcg/5 Mcg Inhaler] 2 inh IH BID 10/22/15 Aspirin [Aspirin EC] 81 mg PO DAILY 09/13/16 Liraglutide [Victoza -] 1.2 mg SQ DAILY@199909/13/16 Losartan/Hydrochlorothiazide [Losartan-Hctz 100-12.5 mg Tab] 1 each PO DAILY Simvastatin [Zocor -] 20 mg PO DAILY 09/13/16 Acetaminophen [Tylenol .Regular Strength -] 650 mg PO Q6H PRN #0 tablet Albuterol 2.5/Ipratropium 0.5 [Duoneb -] 1 amp NEB Q6H PRN #4 amp 09/22/16 Atorvastatin Ca [Lipitor] 20 mg PO HS tablet 09/22/16 Zolpidem Tartrate [Ambien] 5 mg PO HS PRN #0 tablet MDD 1 09/22/16 metFORMIN HCL [Glucophage -] 500 mg PO BID@0700,1630 tablet 09/22/16 oxyCODONE HCL [Roxicodone -] 10 mg PO Q6H PRN #0 tablet MDD 4 09/22/16 predniSONE [Deltasone -] 30 mg PO DAILY #6 tablet 09/22/16 Acetaminophen [Tylenol .Regular Strength -] 650 mg PO Q4H PRN tablet 01/10/19 Albuterol 2.5/Ipratropium 0.5 [Duoneb -] 1 amp NEB RQID #0 amp 01/10/19 Divalproex [Depakote -] 750 mg PO BID #60 tablet.ec 01/10/19 Gabapentin [Neurontin -] 400 mg PO TID #90 capsule 01/10/19 Insulin (Levemir) [Levemir Vial] 25 units SQ HS #1 vial 01/10/19 Insulin (Levemir) [Levemir Vial] 40 units SQ AM #1 vial 01/10/19 Sulfamethoxazole/Trimethoprim [Bactrim Ds -] 1 tab PO BID #14 tablet 01/10/19 metFORMIN HCL [Glucophage -] 500 mg PO BID@0700,1630 #60 tablet 01/10/19 Family Disease History - Family Disease History Family Disease History: Diabetes: Brother, Heart Disease: Mother (HTN, colon cancer), Brother, CA: Mother, Sister (drug; d. metastatic cancer), Other: Sister Review of Systems - Review of Systems Constitutional: reports: Loss of Appetite, Weakness Eyes: reports: Blurred Vision HENT: reports: Difficult Swallowing Neck: reports: No Symptoms Cardiovascular: reports: No Symptoms Respiratory: reports: Cough Gastrointestinal: reports: Abdominal Pain, Diarrhea, Nausea, Vomiting Genitourinary: reports: No Symptoms Breasts: reports: No Symptoms Reported Musculoskeletal: reports: Muscle Weakness Integumentary: reports: Erythema, Other (pain, edema) Neurological: reports: No Symptoms Endocrine: reports: No Symptoms Hematology/Lymphatic: reports: No Symptoms Psychiatric: reports: No Symptoms Physical Examination Vital Signs: Vital Signs Temperature 98.2 F 01/07/19 11:43 Pulse Rate 90 01/07/19 11:43 Respiratory Rate 16 01/07/19 11:39 Blood Pressure 152/78 01/07/19 11:43 O2 Sat by Pulse Oximetry (%) 100 01/07/19 11:43 Constitutional: Yes: No Distress, Calm Eyes: Yes: Conjunctiva Clear HENT: Yes: Atraumatic Neck: Yes: Supple Cardiovascular: Yes: Regular Rate and Rhythm Respiratory: Yes: Regular, CTA Bilaterally Gastrointestinal: Yes: Normal Bowel Sounds, Soft, Tenderness Musculoskeletal: Yes: Muscle Weakness Extremities: Yes: WNL, Erythema (RUE) Edema: Yes (RUE) Integumentary: Yes: Erythema, Other (Edema, warm to touch) Wound/Incision: Yes: Draining, Reddened, Other (dressing intact) Neurological: Yes: Alert, Oriented Psychiatric: Yes: Alert, Oriented Labs: CBC, BMP 01/07/19 13:32 01/07/19 12:47 Problem List - Problems (1) Cellulitis and abscess of upper arm and forearm Assessment/Plan: -ID and Surgery consult -Vancomycin and Zosyn in ER -WBC 11.2 -wound culture and BC -afebrile -I&D performed in ER with 50cc output of blood/pus mixture Code(s): [id number] - (2) Diabetes type 2, uncontrolled Assessment/Plan: -Endocrinology consult -ISS -HgA1c -diabetic diet Code(s): E11.65 - TYPE 2 DIABETES MELLITUS WITH HYPERGLYCEMIA Qualifiers: Glycemic state: with hyperglycemia Qualified Code(s): E11.65 - Type 2 diabetes mellitus with hyperglycemia (3) COPD (chronic obstructive pulmonary disease) Assessment/Plan: -Pulm consult -bronchodilators -O2 via [place] -keep SpO2 >90% Code(s): J44.9 - CHRONIC OBSTRUCTIVE PULMONARY DISEASE, UNSPECIFIED (4) Essential hypertension Assessment/Plan: -no current medication regimen, last rx filled 2017, poor compliance -monitor BP and will start medication as needed -low Na diet Code(s): I10 - ESSENTIAL (PRIMARY) HYPERTENSION (5) Seizure disorder Assessment/Plan: -unknown of current medication dose, poorly compliant -neurology consult -seizure precaution Code(s): G40.909 - EPILEPSY, UNSP, NOT INTRACTABLE, WITHOUT STATUS EPILEPTICUS
--- NOTE | 2019-01-07 16:12 | CON.ID ---
Consult - Past Medical History Pulmonary: Yes: Asthma, Bronchitis, COPD, Pneumonia, Other (Probable sleep apnea ). No: O2 Dependent, Previously Intubated, Pulmonary Embolus ...LMP: 07/04/10 - Alcohol/Substance Use Hx Alcohol Use: No - Smoking History Smoking history: Never smoked Have you smoked in the past 12 months: No Aproximately how many cigarettes per day: 20 Home Medications - Allergies Allergies/Adverse Reactions: Allergies Allergy/AdvReac Type Severity Reaction Status Date / Time No Known Allergies Allergy Verified 01/07/19 11:39 - Home Medications Home Medications: Ambulatory Orders Albuterol Sulfate Inhaler - [Ventolin HFA Inhaler -] 2 inh PO Q4H PRN 03/17/14 Azilsartan Medoxomil [Edarbi] 40 mg PO DAILY 03/17/14 Divalproex [Depakote -] 500 mg PO BID 03/17/14 Ergocalciferol [Vitamin D2] 50,000 unit PO WEEKLY 03/17/14 Sertraline HCl [Zoloft -] 25 mg PO DAILY 06/30/14 Tiotropium [place] [Spiriva] 1 inh PO DAILY 01/05/15 Gabapentin [Neurontin -] 300 mg PO Q8H 10/22/15 Mometasone/Formoterol [Dulera 200 Mcg/5 Mcg Inhaler] 2 inh IH BID 10/22/15 Aspirin [Aspirin EC] 81 mg PO DAILY 09/13/16 Liraglutide [Victoza -] 1.2 mg SQ DAILY@199909/13/16 Losartan/Hydrochlorothiazide [Losartan-Hctz 100-12.5 mg Tab] 1 each PO DAILY Simvastatin [Zocor -] 20 mg PO DAILY 09/13/16 Acetaminophen [Tylenol .Regular Strength -] 650 mg PO Q6H PRN #0 tablet Albuterol 2.5/Ipratropium 0.5 [Duoneb -] 1 amp NEB Q6H PRN #4 amp 09/22/16 Atorvastatin Ca [Lipitor] 20 mg PO HS tablet 09/22/16 Zolpidem Tartrate [Ambien] 5 mg PO HS PRN #0 tablet MDD 1 09/22/16 metFORMIN HCL [Glucophage -] 500 mg PO BID@0700,1630 tablet 09/22/16 oxyCODONE HCL [Roxicodone -] 10 mg PO Q6H PRN #0 tablet MDD 4 09/22/16 predniSONE [Deltasone -] 30 mg PO DAILY #6 tablet 09/22/16 Family Disease History - Family Disease History Family Disease History: Diabetes: Brother, Heart Disease: Mother (HTN, colon cancer), Brother, [place]: Mother, Sister (drug; d. metastatic cancer), Other: Sister Physical Exam Vital Signs: Vital Signs Temperature 98.2 F 01/07/19 11:43 Pulse Rate 90 01/07/19 11:43 Respiratory Rate 16 01/07/19 11:39 Blood Pressure 152/78 01/07/19 11:43 O2 Sat by Pulse Oximetry (%) 100 01/07/19 11:43 Labs: CBC, BMP 01/07/19 13:32 01/07/19 12:47
[2019-01-07] MEDS ORDERED: VANCOMYCIN 1,000 MG in DEXTROSE 5%-WATER - 250 ML IVPB SCH (17:00)
[2019-01-07] MEDS ORDERED: ACETAMINOPHEN 1000 MG/100 ML VIAL (NON FORMULARY) IVPB ONE (17:05)
[2019-01-07] MEDS ORDERED: ACETAMINOPHEN INJECTION 100 ML IVPB ONE (17:08)
--- NOTE | 2019-01-07 17:19 | CONSULT ---
Consult Consult Specialty:: Hand and Microsurgery Reason for Consultation:: arm cellulitis - History of Present Illness History of Present Illness: 58 yo RHD female with PMH asthma, COPD, IDDM, HTN, HLD, seizures, ETOH and cocaine abuse. Patient presented to ER today for swelling to right lower forearm. Patient states that 1 week ago she noted swelling to her right lower forearm andit progressively got worse. Three days ago she began experiencing subjective fevers at home and the area was warm to touch. Today she noted that her swelling was beginning to form "a head" and that prompter her to come to ER. Dr. Lopez was not available to see this consult per report by ED. I was called while not electron gun inspector to evaluate. - History Source History Provided By: Patient, Medical Record Limitations to Obtaining History: No Limitations - Past Medical History Pulmonary: Yes: Asthma, Bronchitis, COPD, Pneumonia, Other (Probable sleep apnea ). No: O2 Dependent, Previously Intubated, Pulmonary Embolus ...LMP: 07/04/10 - Alcohol/Substance Use Hx Alcohol Use: No - Smoking History Smoking history: Never smoked Have you smoked in the past 12 months: No Aproximately how many cigarettes per day: 20 Home Medications - Allergies Allergies/Adverse Reactions: Allergies Allergy/AdvReac Type Severity Reaction Status Date / Time No Known Allergies Allergy Verified 01/07/19 11:39 - Home Medications Home Medications: Ambulatory Orders Albuterol Sulfate Inhaler - [Ventolin HFA Inhaler -] 2 inh PO Q4H PRN 03/17/14 Azilsartan Medoxomil [Edarbi] 40 mg PO DAILY 03/17/14 Divalproex [Depakote -] 500 mg PO BID 03/17/14 Ergocalciferol [Vitamin D2] 50,000 unit PO WEEKLY 03/17/14 Sertraline HCl [Zoloft -] 25 mg PO DAILY 06/30/14 Tiotropium Edison [Spiriva] 1 inh PO DAILY 01/05/15 Gabapentin [Neurontin -] 300 mg PO Q8H 10/22/15 Mometasone/Formoterol [Dulera 200 Mcg/5 Mcg Inhaler] 2 inh IH BID 10/22/15 Aspirin [Aspirin EC] 81 mg PO DAILY 09/13/16 Liraglutide [Victoza -] 1.2 mg SQ DAILY@199909/13/16 Losartan/Hydrochlorothiazide [Losartan-Hctz 100-12.5 mg Tab] 1 each PO DAILY Simvastatin [Zocor -] 20 mg PO DAILY 09/13/16 Acetaminophen [Tylenol .Regular Strength -] 650 mg PO Q6H PRN #0 tablet Albuterol 2.5/Ipratropium 0.5 [Duoneb -] 1 amp NEB Q6H PRN #4 amp 09/22/16 Atorvastatin Ca [Lipitor] 20 mg PO HS tablet 09/22/16 Zolpidem Tartrate [Ambien] 5 mg PO HS PRN #0 tablet MDD 1 09/22/16 metFORMIN HCL [Glucophage -] 500 mg PO BID@0700,1630 tablet 09/22/16 oxyCODONE HCL [Roxicodone -] 10 mg PO Q6H PRN #0 tablet MDD 4 09/22/16 predniSONE [Deltasone -] 30 mg PO DAILY #6 tablet 09/22/16 Family Disease History - Family Disease History Family Disease History: Diabetes: Brother, Heart Disease: Mother (HTN, colon cancer), Brother, CA: Mother, Sister (drug; d. metastatic cancer), Other: Sister Review of Systems - Review of Systems Constitutional: reports: Fever. denies: Chills Eyes: denies: Blind Spots, Recent Change in Vision, Other HENT: denies: Difficult Swallowing, Ear Discharge, Throat Pain Neck: denies: Decreased ROM, Tenderness Cardiovascular: denies: Chest Pain, Palpitations Respiratory: denies: Cough, SOB Gastrointestinal: denies: Abdominal Pain, Bloating, Constipation Genitourinary: denies: Burning, Discharge, Dysuria Breasts: reports: No Symptoms Reported. denies: Pain Musculoskeletal: reports: Extremity Pain (Right forearm) Integumentary: reports: Erythema (Right forearem). denies: Lesions, Rash Neurological: denies: Seizure, Syncope, Tremors Endocrine: denies: Unexplained Weight Gain, Unexplained Weight Loss Hematology/Lymphatic: denies: Easily Bruised, Excessive Bleeding Psychiatric: denies: Anxiety, Depression Physical Exam Vital Signs: Vital Signs Temperature 101.7 F H 01/07/19 17:04 Pulse Rate 92 H 01/07/19 17:04 Respiratory Rate 16 01/07/19 17:04 Blood Pressure 123/79 01/07/19 17:04 O2 Sat by Pulse Oximetry (%) 95 01/07/19 17:04 Constitutional: Yes: Well Nourished, No Distress, Calm, Obese Eyes: Yes: Conjunctiva Clear, EOM Intact HENT: Yes: Atraumatic, Normocephalic Neck: Yes: Supple, Trachea Midline Cardiovascular: Yes: Regular Rate and Rhythm, S1, S2 Respiratory: Yes: Regular, CTA Bilaterally Gastrointestinal: Yes: Normal Bowel Sounds, Soft, Abdomen, Obese. No: Tenderness, Other ...Rectal Exam: Yes: Deferred Renal/: No: CVA Tenderness - Left, CVA Tenderness - Right Musculoskeletal: Yes: Other (Right forearm swelling) Extremities: No: Cool, Cyanosis Edema: Yes Edema: RUE: 3+ Neurological: Yes: Alert, Oriented, Numbness (Right arm) Psychiatric: Yes: Alert, Oriented Labs: CBC, BMP 01/07/19 13:32 01/07/19 12:47 Imaging - Results X-ray: Report Reviewed, Image Reviewed (No gas) Problem List - Problems (1) Cellulitis and abscess of upper arm and forearm Assessment/Plan: 58yo female MMP with right arm infection , No acute surgical intervention Medical management glycemic control ID consult for antibiotics management NPO and IVF hydration Broad spectrum IV antibiotiotics f/u cultures Suspended elevation of right arm above heart level Thank you for the opportunity to participate in the care of this patient. Code(s): [id number] - (2) Diabetes type 2, uncontrolled Code(s): E11.65 - TYPE 2 DIABETES MELLITUS WITH HYPERGLYCEMIA Qualifiers: Glycemic state: with hyperglycemia Qualified Code(s): E11.65 - Type 2 diabetes mellitus with hyperglycemia (3) Acute bronchitis Code(s): J20.9 - ACUTE BRONCHITIS, UNSPECIFIED (4) Alcohol abuse Code(s): F10.10 - ALCOHOL ABUSE, UNCOMPLICATED (5) Bipolar 1 disorder Code(s): F31.9 - BIPOLAR DISORDER, UNSPECIFIED (6) Diabetes Code(s): E11.9 - TYPE 2 DIABETES MELLITUS WITHOUT COMPLICATIONS Qualifiers: Diabetes mellitus type: type 2 (7) Essential hypertension Code(s): I10 - ESSENTIAL (PRIMARY) HYPERTENSION (8) Hepatitis C carrier Code(s): Z22.52 - (9) Osteoarthritis Code(s): M19.90 - UNSPECIFIED OSTEOARTHRITIS, UNSPECIFIED SITE
[2019-01-07] MEDS ORDERED: PIPERACILLIN/TAZOB 2.25 GM 2.25 GM in DEXTROSE 5%-WATER - 50 ML IVPB SCH (18:00)
[2019-01-07] MEDS ORDERED: ALBUTEROL SO4 2.5/IPRATROPIUM 0.5 INH SOL 3 ML VIAL.NEB. NEB PRN (18:09)
[2019-01-07] MEDS ORDERED: ERGOCALCIFEROL (VIT D2) 50,000 UNIT (1.25 MG) CAPSULE PO SCH (18:15)
[2019-01-07] MEDS ORDERED: DIVALPROEX SODIUM 500 MG TABLET E.C. PO SCH (22:00)
[2019-01-07] MEDS ORDERED: ATORVASTATIN CA 20 MG TABLET (FP) PO SCH (22:00)
[2019-01-07] MEDS: HEPARIN NA (PORCINE) 5,000 UNITS/ML 1ML VIAL SQ SCH (22:49)
[2019-01-07] MEDS: INSULIN SLIDING SCALE (NOVOLOG) 1 VIAL SQ SCH (22:51)
[2019-01-08] MEDS ORDERED: PIPERACILLIN/TAZOBACTAM 2.25 GM VIAL IVPB ONE ×3 (01:11→17:24)
[2019-01-08] MEDS ORDERED: DEXTROSE 5%-WATER - 50 ML IVPB ONE ×3 (01:11→17:25)
[2019-01-08] MEDS: VANCOMYCIN 1 GRAM (PRE-DOCKED) 1,000 MG/250 ML BAG IVPB SCH ×2 (01:18→13:48)
[2019-01-08] MEDS: PIPERACILLIN/TAZOB 2.25 GM 2.25 GM in DEXTROSE 5%-WATER - 50 ML IVPB SCH ×3 (01:18→17:30)
[2019-01-08 07:48] LABS: BASO % 0.5 % (0-2.0); EOS % 2.6 % (0-4.5); HEMATOCRIT 40.4 % (32.4-45.2); HEMOGLOBIN 13.1 GM/dL (10.7-15.3); LYMPH % 23.6 % (8-40); MCH 27.5 pg (25.7-33.7); MCHC 32.4 g/dl (32.0-36.0); MEAN CELL VOLUME 84.9 fl (80-96); MEAN PLT VOLUME 8.5 fl (7.5-11.1); MONO % 10.7 % (3.8-10.2); NEUT % 62.6 % (42.8-82.8); PLATELET COUNT 294 K/MM3 (134-434); RBC 4.76 M/mm3 (3.60-5.2); RDW 13.2 % (11.6-15.6); WHITE BLOOD COUNT 11.6 K/mm3 (4.0-10.0)
[2019-01-08 08:28] LABS: ALBUMIN 2.3 g/dl (3.4-5.0); BILIRUBIN,TOTAL 0.4 mg/dL (0.2-1); CALCIUM 8.4 mg/dL (8.5-10.1); CREATININE 0.6 mg/dL (0.55-1.3); MAGNESIUM 2.1 mg/dL (1.8-2.4); PHOSPHOROUS 3.2 mg/dL (2.5-4.9); POTASSIUM 4.6 mmol/L (3.5-5.1)
[2019-01-08] MEDS: HEPARIN NA (PORCINE) 5,000 UNITS/ML 1ML VIAL SQ SCH ×2 (10:17→22:11)
[2019-01-08] MEDS: ASPIRIN COATED 81 MG TABLET.EC PO SCH (10:17)
--- NOTE | 2019-01-08 10:52 | CONSULT ---
Consult - text type - Consultation Consultation Note: NEUROLOGY CONSULT GREATLY APPRECIATED: This 58 yo RH single woman is unemployed. Ambulates with cane. PMHX: COPD, HTN, DM, HLD, depression, seizures dx at 17, nicotine dependence, cocaine/heroin abuse, (last snorted 01/04, former IVDU), previous ETOH use. On: albuterol, azlisartan, depakote 500 BID, sertraline 25 mg qd, tiotropium, gabapentin 300 Q8, ASA 81, victoza, losartan/hctz, simvastatin, ambien, metformin, oxycodone, prednisone. Admitted after recurrent abscess in R forearm - now empirically started on IV Vanco and Zoysn. Asked to assess patient's current seizure regimen. Pt reports last seizure was 2 months ago and maintained on both depakote and gabapentin. She recalls previously being on dilantin, phenobarbitol and tegretol with limited success and has not seen a neurologist for "many years." She describes witnesses have told her her eyes "roll back" followed by "twitching of the mouth" and her arms get "tight." She loses consciousness for a few minutes and sometimes has urinary incontinence. She then has post-ictal confusion. Seizures can be provoked by "excessive stress and anxiety." Review of systems sig for constant "twisting" low back pain attributed to "2 herniated discs," especially worse in the evening hours and interrupting sleep. She finds that "rocking back and forth" alleviates the symptoms. She previously was followed by pain management for this. +FH seizures in daughter and grandson A1c- 12.9; TSH 2.01; Mg 2.1; WBC= 11.6 ; MCV= 84.9 MARÍA ELENA: T 99.1. P80s. Cor reg. No bruit. Sl reduced neck ROM. Neg SLR. Wheezing. Old scars noted to forearms. R arm wrapped in sling and elevated, appears indurated, swollen, warm and erythematous. NEURO: Mentation/Speech: Ox "[facility]" December 2018. TRUMP. CNII-CNXII: EOM's full. Pupils dilated and sluggish to light. Full head appreciated. No facial. Gag ok. Motor: No drift or tremor. Strength normal except for Isolated weakness of R bicep, wrist extensors, APB and grasp due to pain. Reflexes reduced throughout. Absent AJ's. Plantars silent. Coordination: No FTN dystaxia Sensation: Reduced vibration in toes. Romberg +/- Gait: Wide-based. Can walk on heels and toes. Impression: Seizure disorder by history Polysubstance abuse Peripheral Neuropathy (c/w diabetes, nutritional, ETOH?) Worsened by Toxic-Metabolic Encephalopathy (? abscess vs. bacteremia) R/O Cervical epidural abscess Suggest: Continue antibiotics and hydration per ID MRI of cervical spine (C-), MRI of brain (C-) Increase Depakote to 750 mg Q12H and gabapentin to 400 mg Q8H for seizures Thiamine 250 mg IVP Q8H x 3 days Check B12, Fe++, TIBC, Ferritin and Await urine tox and BAL Endocrinology consult for glycemic control Thank you very much, Nakul Granados MD
[2019-01-08] MEDS: INSULIN SLIDING SCALE (NOVOLOG) 1 VIAL SQ SCH ×3 (13:43→21:40)
[2019-01-08] MEDS: THIAMINE HCL 200 MG/2 ML VIAL IVPB SCH ×2 (13:48→22:11)
--- NOTE | 2019-01-08 14:00 | PN ---
Progress Note, Physician History of Present Illness: patient wound still draining hand still swollen - Current Medication List Current Medications: Active Medications Acetaminophen (Tylenol -) 650 mg PO Q4H PRN PRN Reason: PAIN LEVEL 6-10 Albuterol/Ipratropium (Duoneb -) 1 amp NEB Q6H PRN PRN Reason: SHORTNESS OF BREATH Aspirin (Ecotrin -) 81 mg PO DAILY [facility] Last Admin: 01/08/19 10:17 Dose: 81 mg Heparin Sodium (Porcine) (Heparin -) 5,000 unit SQ BID [facility] Last Admin: 01/08/19 10:17 Dose: 5,000 unit Vancomycin HCl (Vancomycin (Pre-Docked)) 1,000 mg in 250 mls @ 166.667 mls/hr IVPB Q12H [facility]; Protocol Last Admin: 01/08/19 13:48 Dose: 166.667 mls/hr Piperacillin Sod/Tazobactam (Sod 2.25 gm/ Dextrose) 50 mls @ 100 mls/hr IVPB Q8H-IV [facility]; Protocol Last Admin: 01/08/19 10:17 Dose: 100 mls/hr Insulin Aspart (Novolog Vial Sliding Scale -) 0 vial SQ ACHS [facility]; Protocol Last Admin: 01/08/19 13:43 Dose: Not Given Thiamine HCl (Vitamin B1 Injection -) 250 mg IVPB TID [facility] Stop: 01/11/19 13:59 Last Admin: 01/08/19 13:48 Dose: 250 mg - Objective Vital Signs: Vital Signs Temperature 99.1 F 01/08/19 10:00 Pulse Rate 92 H 01/08/19 10:00 Respiratory Rate 18 01/08/19 10:00 Blood Pressure 132/62 01/08/19 10:00 O2 Sat by Pulse Oximetry (%) 93 L 01/07/19 22:00 Constitutional: Yes: Calm, Mild Distress Cardiovascular: Yes: Regular Rate and Rhythm Respiratory: Yes: Regular, CTA Bilaterally Gastrointestinal: Yes: Normal Bowel Sounds, Soft Musculoskeletal: Yes: Other Extremities: Yes: Other Wound/Incision: Yes: Dressing Dry and Intact Neurological: Yes: Alert, Oriented Psychiatric: Yes: Alert, Oriented Labs: CBC, BMP 01/08/19 06:30 01/08/19 06:30 INR, PTT INR 1.13 (0.83-1.09) H 01/07/19 13:32 Assessment/Plan Problem List - Problems (1) Cellulitis and abscess of upper arm and forearm Code(s): [id number] - (2) Diabetes type 2, uncontrolled Code(s): E11.65 - TYPE 2 DIABETES MELLITUS WITH HYPERGLYCEMIA Qualifiers: Glycemic state: with hyperglycemia Qualified Code(s): E11.65 - Type 2 diabetes mellitus with hyperglycemia (3) Acute bronchitis Code(s): J20.9 - ACUTE BRONCHITIS, UNSPECIFIED (4) Alcohol abuse Code(s): F10.10 - ALCOHOL ABUSE, UNCOMPLICATED (5) Bipolar 1 disorder Code(s): F31.9 - BIPOLAR DISORDER, UNSPECIFIED (6) Diabetes Code(s): E11.9 - TYPE 2 DIABETES MELLITUS WITHOUT COMPLICATIONS Qualifiers: Diabetes mellitus type: type 2 (7) Essential hypertension Code(s): I10 - ESSENTIAL (PRIMARY) HYPERTENSION (8) Hepatitis C carrier Code(s): Z22.52 - (9) Osteoarthritis Code(s): M19.90 - UNSPECIFIED OSTEOARTHRITIS, UNSPECIFIED SITE plan continue current mgmt abx elevation of the arm surgery on case wound care awaiting wound cx report
--- NOTE | 2019-01-08 16:37 | PN ---
Progress Note, Physician History of Present Illness: 58 yo RHD female with PMH asthma, COPD, IDDM, HTN, HLD, seizures, ETOH and cocaine abuse. Patient presented to ER today for swelling to right lower forearm. She has been draining from the site since I&D. - Current Medication List Current Medications: Active Medications Acetaminophen (Tylenol -) 650 mg PO Q4H PRN PRN Reason: PAIN LEVEL 6-10 Albuterol/Ipratropium (Duoneb -) 1 amp NEB Q6H PRN PRN Reason: SHORTNESS OF BREATH Aspirin (Ecotrin -) 81 mg PO DAILY [facility] Last Admin: 01/08/19 10:17 Dose: 81 mg Heparin Sodium (Porcine) (Heparin -) 5,000 unit SQ BID [facility] Last Admin: 01/08/19 10:17 Dose: 5,000 unit Vancomycin HCl (Vancomycin (Pre-Docked)) 1,000 mg in 250 mls @ 166.667 mls/hr IVPB Q12H [facility]; Protocol Last Admin: 01/08/19 13:48 Dose: 166.667 mls/hr Piperacillin Sod/Tazobactam (Sod 2.25 gm/ Dextrose) 50 mls @ 100 mls/hr IVPB Q8H-IV [facility]; Protocol Last Admin: 01/08/19 10:17 Dose: 100 mls/hr Insulin Aspart (Novolog Vial Sliding Scale -) 0 vial SQ ACHS [facility]; Protocol Last Admin: 01/08/19 13:43 Dose: Not Given Thiamine HCl (Vitamin B1 Injection -) 250 mg IVPB TID [facility] Stop: 01/11/19 13:59 Last Admin: 01/08/19 13:48 Dose: 250 mg - Objective Vital Signs: Vital Signs Temperature 98.9 F 01/08/19 13:59 Pulse Rate 86 01/08/19 13:59 Respiratory Rate 18 01/08/19 13:59 Blood Pressure 112/64 01/08/19 13:59 O2 Sat by Pulse Oximetry (%) 93 L 01/07/19 22:00 Vital Signs Period Temp Pulse Resp BP Sys/[place] Pulse Ox Last 24 Hr 98.7 F-101.7 F 78-92 16-20 112-132/62-79 91-95 Constitutional: Yes: Well Nourished, No Distress, Calm, Obese Eyes: Yes: Conjunctiva Clear, EOM Intact HENT: Yes: Atraumatic, Normocephalic Neck: Yes: Supple, Trachea Midline Cardiovascular: Yes: Regular Rate and Rhythm, S1, S2 Respiratory: Yes: Regular, CTA Bilaterally Gastrointestinal: Yes: Normal Bowel Sounds, Soft, Abdomen, Obese ...Rectal Exam: Yes: Deferred Genitourinary: No: CVA Tenderness - Left, CVA Tenderness - Right Breast(s): No: Mass, Skin Changes Extremities: Yes: Erythema (right forearm) Edema: Yes Edema: RUE: 2+ Peripheral Pulses WNL: Yes Peripheral Pulses: Left Radial: 2+, Right Radial: 2+, Left Doralis Pedis: 2+, Right Dorsalis Pedis: 2+, Left Femoral: 2+, Right Femoral: 2+ Wound/Incision: Yes: Draining, Reddened Neurological: Yes: Alert, Oriented Psychiatric: Yes: Alert, Oriented Labs: CBC, BMP 01/08/19 06:30 01/08/19 06:30 INR, PTT INR 1.13 (0.83-1.09) H 01/07/19 13:32 Problem List - Problems (1) Cellulitis and abscess of upper arm and forearm Assessment/Plan: 58yo female MMP with right arm cellulitis with abscess continues to drain, patien is non-compliant continues to disturb the wound and denies any injection in the area. glycemic control NPO and IVF hydration Broad spectrum IV antibiotiotics per ID f/u cultures Suspended elevation of right arm above heart level OR for formal I&D of right forearm abscess Discussed with patient risks, benefits and alternatives of aforementioned procedure, including but not limited to bleeding, infection, injury to adjacent structures, amputation, loss of fucntion need for further procedures, ; alternatives include antibiotics, delayed or no surgery - risks of this include failure of nonoperative therapy, sepsis, recurrence, . Patient desires to proceed with operation - will take to OR for above. Informed consent signed for same. Code(s): [id number] - (2) Diabetes type 2, uncontrolled Code(s): E11.65 - TYPE 2 DIABETES MELLITUS WITH HYPERGLYCEMIA Qualifiers: Glycemic state: with hyperglycemia Qualified Code(s): E11.65 - Type 2 diabetes mellitus with hyperglycemia (3) Acute bronchitis Code(s): J20.9 - ACUTE BRONCHITIS, UNSPECIFIED (4) Alcohol abuse Code(s): F10.10 - ALCOHOL ABUSE, UNCOMPLICATED (5) Bipolar 1 disorder Code(s): F31.9 - BIPOLAR DISORDER, UNSPECIFIED (6) Diabetes Code(s): E11.9 - TYPE 2 DIABETES MELLITUS WITHOUT COMPLICATIONS Qualifiers: Diabetes mellitus type: type 2 (7) Essential hypertension Code(s): I10 - ESSENTIAL (PRIMARY) HYPERTENSION (8) Hepatitis C carrier Code(s): Z22.52 - (9) Osteoarthritis Code(s): M19.90 - UNSPECIFIED OSTEOARTHRITIS, UNSPECIFIED SITE
--- NOTE | 2019-01-08 17:32 | PN ---
Progress Note (short form) - Note Progress Note: PULMONARY CONSULTATION DICTATED 01/08/19 IMP ASTHMA/COPD MILD EXACERBATION RUE CELLULITIS/ABSCESS IDDM HTN SEIZURE DISORDER H/O SUBSTANCE ABUSE TOBACCO ABUSE PLAN INHALED BRONCHODILATORS ABX PER ID MEDROL PRE-PP SUPPLEMENTAL O2 PFTS OUTPATIENT CHEST CT LOW DOSEFOR LUNG CANCER SCREENING SMOKING CESSATION COUNSELED I+D IN AM DR LY Problem List - Problems (1) Asthma-COPD overlap syndrome Code(s): J44.9 - CHRONIC OBSTRUCTIVE PULMONARY DISEASE, UNSPECIFIED (2) Cellulitis and abscess of upper arm and forearm Code(s): [id number] - (3) Diabetes type 2, uncontrolled Code(s): E11.65 - TYPE 2 DIABETES MELLITUS WITH HYPERGLYCEMIA Qualifiers: Glycemic state: with hyperglycemia Qualified Code(s): E11.65 - Type 2 diabetes mellitus with hyperglycemia (4) Acute bronchitis Code(s): J20.9 - ACUTE BRONCHITIS, UNSPECIFIED (5) COPD (chronic obstructive pulmonary disease) Code(s): J44.9 - CHRONIC OBSTRUCTIVE PULMONARY DISEASE, UNSPECIFIED (6) Diabetes Code(s): E11.9 - TYPE 2 DIABETES MELLITUS WITHOUT COMPLICATIONS Qualifiers: Diabetes mellitus type: type 2 (7) Essential hypertension Code(s): I10 - ESSENTIAL (PRIMARY) HYPERTENSION (8) Nicotine dependence Code(s): F17.200 - NICOTINE DEPENDENCE, UNSPECIFIED, UNCOMPLICATED Qualifiers: Nicotine product type: cigarettes Substance use status: uncomplicated Qualified Code(s): F17.210 - Nicotine dependence, cigarettes, uncomplicated (9) Seizure disorder Code(s): G40.909 - EPILEPSY, UNSP, NOT INTRACTABLE, WITHOUT STATUS EPILEPTICUS
--- NOTE | 2019-01-08 18:07 | PN ---
Progress Note, Physician Chief Complaint: Cellulitis History of Present Illness: Previous notes and events reviewed awake and alert NAD no complaints of pain wound oozing serosanguinous output for OR in AM for formal I&D right lower forearm less edematous and less erythema noted - Current Medication List Current Medications: Active Medications Acetaminophen (Tylenol -) 650 mg PO Q4H PRN PRN Reason: PAIN LEVEL 6-10 Albuterol/Ipratropium (Duoneb -) 1 amp NEB Q6H PRN PRN Reason: SHORTNESS OF BREATH Aspirin (Ecotrin -) 81 mg PO DAILY [facility] Last Admin: 01/08/19 10:17 Dose: 81 mg Divalproex Sodium (Depakote -) 500 mg PO BID [facility] Gabapentin (Neurontin -) 300 mg PO TID [facility] Heparin Sodium (Porcine) (Heparin -) 5,000 unit SQ BID [facility] Last Admin: 01/08/19 10:17 Dose: 5,000 unit Vancomycin HCl (Vancomycin (Pre-Docked)) 1,000 mg in 250 mls @ 166.667 mls/hr IVPB Q12H [facility]; Protocol Last Admin: 01/08/19 13:48 Dose: 166.667 mls/hr Piperacillin Sod/Tazobactam (Sod 2.25 gm/ Dextrose) 50 mls @ 100 mls/hr IVPB Q8H-IV [facility]; Protocol Last Admin: 01/08/19 17:30 Dose: 100 mls/hr Insulin Aspart (Novolog Vial Sliding Scale -) 0 vial SQ ACHS [facility]; Protocol Last Admin: 01/08/19 16:43 Dose: 6 units Thiamine HCl (Vitamin B1 Injection -) 250 mg IVPB TID [facility] Stop: 01/11/19 13:59 Last Admin: 01/08/19 13:48 Dose: 250 mg - Objective Vital Signs: Vital Signs Temperature 98.9 F 01/08/19 13:59 Pulse Rate 86 01/08/19 13:59 Respiratory Rate 18 01/08/19 13:59 Blood Pressure 112/64 01/08/19 13:59 O2 Sat by Pulse Oximetry (%) 93 L 01/07/19 22:00 Constitutional: Yes: No Distress, Calm Eyes: Yes: Conjunctiva Clear HENT: Yes: Atraumatic Cardiovascular: Yes: Regular Rate and Rhythm Respiratory: Yes: Regular, Wheezes Gastrointestinal: Yes: Normal Bowel Sounds, Soft, Abdomen, Obese Musculoskeletal: Yes: WNL Extremities: Yes: WNL Edema: No Integumentary: Yes: Other (erythema and edema RUE forearm) Wound/Incision: Yes: Other (dressing noted with serosanguinous drainage) Neurological: Yes: Alert, Oriented Psychiatric: Yes: Alert, Oriented Labs: CBC, BMP 01/08/19 06:30 01/08/19 06:30 INR, PTT INR 1.13 (0.83-1.09) H 01/07/19 13:32 Microbiology 01/07/19 14:09 Abscess Gram Stain - Final 01/07/19 13:40 Blood - Peripheral Venous Blood Culture - Preliminary NO GROWTH OBTAINED AFTER 24 HOURS, INCUBATION TO CONTINUE FOR 4 DAYS. 01/07/19 13:32 Blood - Peripheral Venous Blood Culture - Preliminary NO GROWTH OBTAINED AFTER 24 HOURS, INCUBATION TO CONTINUE FOR 4 DAYS. Problem List - Problems (1) Cellulitis and abscess of upper arm and forearm Assessment/Plan: -ID and Surgery on board -Vancomycin and Zosyn -WBC 11.6 -wound culture pending and -BC negative -afebrile -I&D performed in ER with 50cc output of blood/pus mixture -patient for OR in AM for formal I&D of RUE forearm Code(s): [id number] - (2) Diabetes type 2, uncontrolled Code(s): E11.65 - TYPE 2 DIABETES MELLITUS WITH HYPERGLYCEMIA Qualifiers: Glycemic state: with hyperglycemia Qualified Code(s): E11.65 - Type 2 diabetes mellitus with hyperglycemia (3) COPD (chronic obstructive pulmonary disease) Assessment/Plan: -Pulm consult -bronchodilators -O2 via NC -keep SpO2 >90% -Solumedrol q8h Code(s): J44.9 - CHRONIC OBSTRUCTIVE PULMONARY DISEASE, UNSPECIFIED (4) Essential hypertension Assessment/Plan: -no current medication regimen, last rx filled 2017, poor compliance -monitor BP and will start medication as needed -low Na diet Code(s): I10 - ESSENTIAL (PRIMARY) HYPERTENSION (5) Seizure disorder Assessment/Plan: -unknown of current medication dose, poorly compliant -neurology on board -Depakote and Gabapentin -Brain and Cervical MRI results pending -seizure precaution Code(s): G40.909 - EPILEPSY, UNSP, NOT INTRACTABLE, WITHOUT STATUS EPILEPTICUS Assessment/Plan see problem list dvt ppx
[2019-01-08] MEDS ORDERED: ALBUTEROL SO4 2.5/IPRATROPIUM 0.5 INH SOL 3 ML VIAL.NEB. NEB PRN (18:09)
[2019-01-08] MEDS: methylPREDNISolone NA SUCC 40 MG/1 ML VIAL IVPB SCH (18:31)
--- NOTE | 2019-01-08 18:56 | CONS ---
PULMONARY CONSULTATION DATE OF CONSULTATION: 01/08/2019 REFERRING PHYSICIAN: Arina Flanagan MD The patient is a 58-year-old white female with extensive past medical history that includes asthma/COPD overlap syndrome, patient maintained on O2 at night; hyperlipidemia; insulin-dependent diabetes mellitus; hypertension; seizures; history of EtOH and cocaine abuse, last snorted heroin and cocaine 2 nights prior to this admission; longstanding history of tobacco use, currently still smoking; admitted to [facility] with complaint of right forearm swelling for approximately 2 weeks and pain. Patient noted the above. On admission, she was noted to have a right upper extremity cellulitis and abscess. Patient is scheduled to undergo an I&D tomorrow in the a.m. Patient, as stated before, has history of COPD. She complains of shortness of breath with exertion, has a chronic cough. Denies any hemoptysis. Denies any recent travel. There is no history of respiratory failure in the past or chronic ventilatory support. She states that she wakes up occasionally at nighttime short of breath and has chronic wheezing. She states she uses an inhaler, but unsure of the name and states that she is compliant. PAST MEDICAL HISTORY: Again includes asthma/COPD overlap syndrome, currently on O2 at night; insulin-dependent diabetes mellitus; hypertension; hyperlipidemia; seizures; history of EtOH; history of cocaine and heroin abuse; and tobacco abuse. REVIEW OF SYSTEMS: Positive shortness of breath with exertion. Positive dyspnea. Positive cough. Positive bronchospasm. No chest pain. No palpitations. No hemoptysis. Positive right upper extremity cellulitis and pain. CURRENT MEDICATIONS: Include Solu-Medrol 40 q.6, piperacillin, vancomycin, heparin, Depakote, Neurontin, DuoNeb, NovoLog, Ecotrin, and vitamin. PHYSICAL EXAMINATION: General: The patient is a well-developed, well-nourished female, awake, alert, currently in no acute distress. Vital Signs: She is currently afebrile, temperature 98.9. Blood pressure is 112/64. Respiratory rate is 18. O2 saturation 93 on room air. HEENT: Normocephalic, atraumatic. Neck: Supple. Heart: Regular. S1, S2. Chest: Bilateral wheezes. Abdomen: Soft. Bowel sounds positive. Extremities: Right upper extremity forearm has erythema and is edematous. Chest x-ray: No infiltrates and no effusions. LABORATORY DATA: BUN is 5, creatinine 0.6. WBC is 11.6, hemoglobin 13.1, hematocrit 40.4, with a platelet count of 294,000. IMPRESSION: 1. [id number] asthma/chronic obstructive pulmonary disease overlap syndrome with mild exacerbation. 2. Right upper extremity cellulitis and abscess. 3. Insulin-dependent diabetes mellitus. 4. Hypertension. 5. Seizure disorder. 6. History of substance abuse. 7. Tobacco abuse. PLAN: Inhaled bronchodilators, short course of steroids prior to surgery, antibiotics as per Infectious Disease, supplemental O2, PFT as outpatient; also, low-dose screening chest CT in view of longstanding history of tobacco use. Smoking cessation counseled. I&D in the a.. BRIDGER LY M.D. JAYJAY/[id number] MTDD
[2019-01-08] MEDS: ALBUTEROL SO4 2.5/IPRATROPIUM 0.5 INH SOL 3 ML VIAL.NEB. NEB SCH (20:50)
[2019-01-08] MEDS ORDERED: INSULIN (NOVOLOG) ASPART 100 UNITS/ML 10ML VIAL ONE (21:36)
[2019-01-08] MEDS ORDERED: PT OWN MED DRAWER 7, Y5N ONE (21:37)
[2019-01-08] MEDS ORDERED: DIVALPROEX SODIUM 500 MG TABLET E.C. PO SCH (22:00)
--- NOTE | 2019-01-08 22:06 | CONSULT ---
Consult Consult Specialty:: endocrine Referred by:: blas malone Reason for Consultation:: diabetes mellitus type 2 - History of Present Illness Chief Complaint: high sugars History of Present Illness: 58 y/o female with past medical history DM2,asthma, COPD,HTN, HLD, seizures, ETOH and cocaine abuse. Patient presented to ER today for swelling to right lower forearm. Patient states that 1 week ago she noted swelling to her right lower forearm andit progressively got worse.she has noted high sugars numbness feet and hands,frequent urination,and nausea,no vomiting cough . - Past Medical History Pulmonary: Yes: Asthma, Bronchitis, COPD, Pneumonia, Other (Probable sleep apnea ). No: O2 Dependent, Previously Intubated, Pulmonary Embolus ...LMP: 07/04/10 ...: No - Alcohol/Substance Use Hx Alcohol Use: No - Smoking History Smoking history: Never smoked Have you smoked in the past 12 months: No Aproximately how many cigarettes per day: 20 Home Medications - Allergies Allergies/Adverse Reactions: Allergies Allergy/AdvReac Type Severity Reaction Status Date / Time No Known Allergies Allergy Verified 01/07/19 11:39 - Home Medications Home Medications: Ambulatory Orders Albuterol Sulfate Inhaler - [Ventolin HFA Inhaler -] 2 inh PO Q4H PRN 03/17/14 Azilsartan Medoxomil [Edarbi] 40 mg PO DAILY 03/17/14 Divalproex [Depakote -] 500 mg PO BID 03/17/14 Ergocalciferol [Vitamin D2] 50,000 unit PO WEEKLY 03/17/14 Sertraline HCl [Zoloft -] 25 mg PO DAILY 06/30/14 Tiotropium Amidon [Spiriva] 1 inh PO DAILY 01/05/15 Gabapentin [Neurontin -] 300 mg PO Q8H 10/22/15 Mometasone/Formoterol [Dulera 200 Mcg/5 Mcg Inhaler] 2 inh IH BID 10/22/15 Aspirin [Aspirin EC] 81 mg PO DAILY 09/13/16 Liraglutide [Victoza -] 1.2 mg SQ DAILY@199909/13/16 Losartan/Hydrochlorothiazide [Losartan-Hctz 100-12.5 mg Tab] 1 each PO DAILY Simvastatin [Zocor -] 20 mg PO DAILY 09/13/16 Acetaminophen [Tylenol .Regular Strength -] 650 mg PO Q6H PRN #0 tablet Albuterol 2.5/Ipratropium 0.5 [Duoneb -] 1 amp NEB Q6H PRN #4 amp 09/22/16 Atorvastatin Ca [Lipitor] 20 mg PO HS tablet 09/22/16 Zolpidem Tartrate [Ambien] 5 mg PO HS PRN #0 tablet MDD 1 09/22/16 metFORMIN HCL [Glucophage -] 500 mg PO BID@0700,1630 tablet 09/22/16 oxyCODONE HCL [Roxicodone -] 10 mg PO Q6H PRN #0 tablet MDD 4 09/22/16 predniSONE [Deltasone -] 30 mg PO DAILY #6 tablet 09/22/16 Family Disease History - Family Disease History Family Disease History: Diabetes: Brother, Heart Disease: Mother (HTN, colon cancer), Brother, CA: Mother, Sister (drug; d. metastatic cancer), Other: Sister Review of Systems - Review of Systems Constitutional: reports: Loss of Appetite Eyes: reports: Blurred Vision HENT: reports: No Symptoms Neck: reports: No Symptoms Cardiovascular: reports: Shortness of Breath Respiratory: reports: Exercise Intolerance, SOB on Exertion Gastrointestinal: reports: Bloating Genitourinary: reports: No Symptoms Musculoskeletal: reports: No Symptoms Integumentary: reports: Erythema, Rash Neurological: reports: Weakness Endocrine: reports: Unexplained Weight Loss Physical Exam Vital Signs: Vital Signs Temperature 98.9 F 01/08/19 13:59 Pulse Rate 86 01/08/19 13:59 Respiratory Rate 18 01/08/19 13:59 Blood Pressure 112/64 01/08/19 13:59 O2 Sat by Pulse Oximetry (%) 93 L 01/07/19 22:00 Constitutional: Yes: Anxious Eyes: Yes: EOM Intact HENT: Yes: Normocephalic Neck: Yes: Trachea Midline Cardiovascular: Yes: Regular Rate and Rhythm Respiratory: Yes: CTA Bilaterally Gastrointestinal: Yes: Normal Bowel Sounds ...Rectal Exam: Yes: Deferred Musculoskeletal: Yes: WNL Extremities: Yes: Delayed Capillary Refill, Erythema Edema: RUE: 2+ Wound/Incision: Yes: Dressing Removed, Draining, Reddened Neurological: Yes: Alert, Oriented Labs: CBC, BMP 01/08/19 06:30 01/08/19 06:30 Problem List - Problems (1) Type 2 diabetes mellitus with hyperosmolarity without nonketotic hyperglycemic-hyperosmolar coma ([facility]) Code(s): E11.00 - TYPE 2 DIAB W HYPROSM W/O NONKET HYPRGLY-HYPROS COMA ([facility]) (2) Cellulitis and abscess of upper arm and forearm Code(s): [id number] - (3) Diabetes type 2, uncontrolled Code(s): E11.65 - TYPE 2 DIABETES MELLITUS WITH HYPERGLYCEMIA Qualifiers: Glycemic state: with hyperglycemia Qualified Code(s): E11.65 - Type 2 diabetes mellitus with hyperglycemia (4) H/O abnormal mammogram Code(s): Z87.898 - PERSONAL HISTORY OF OTHER SPECIFIED CONDITIONS (5) Hemoptysis Code(s): R04.2 - HEMOPTYSIS Assessment/Plan Current Active Problems Asthma-COPD overlap syndrome (Acute) Cellulitis and abscess of upper arm and forearm (Acute) Diabetes type 2, uncontrolled (Acute) Abnormal Lab Results 01/08/19 01/08/19 01/08/19 06:30 06:30 07:15 WBC 11.6 H Monocytes % 10.7 H Anion Gap 4 L BUN 5.0 L Random Glucose 207 H Hemoglobin A1c % 12.9 H Calcium 8.4 L AST 7 L Total Protein 6.0 L Albumin 2.3 L Laboratory Results - last 24 hr 01/07/19 01/08/19 01/08/19 22:50 05:48 06:30 WBC 11.6 H RBC 4.76 Hgb 13.1 Hct 40.4 MCV 84.9 MCH 27.5 MCHC 32.4 RDW 13.2 Plt Count 294 MPV 8.5 Absolute Neuts (auto) 7.3 Neutrophils % 62.6 Lymphocytes % 23.6 D Monocytes % 10.7 H Eosinophils % 2.6 D Basophils % 0.5 Nucleated RBC % 0 Sodium Potassium Chloride Carbon Dioxide Anion Gap BUN Creatinine Est GFR (CKD-EPI)AfAm Est GFR (CKD-EPI)NonAf POC Glucometer 305 205 Random Glucose Hemoglobin A1c % Calcium Phosphorus Magnesium Total Bilirubin AST ALT Alkaline Phosphatase Total Protein Albumin TSH Alcohol, Quantitative 01/08/19 01/08/19 01/08/19 06:30 07:15 11:15 WBC RBC Hgb Hct MCV MCH MCHC RDW Plt Count MPV Absolute Neuts (auto) Neutrophils % Lymphocytes % Monocytes % Eosinophils % Basophils % Nucleated RBC % Sodium 138 Potassium 4.6 Chloride 103 Carbon Dioxide 31 Anion Gap 4 L BUN 5.0 L Creatinine 0.6 Est GFR (CKD-EPI)AfAm 117.27 Est GFR (CKD-EPI)NonAf 101.18 POC Glucometer 186 Random Glucose 207 H Hemoglobin A1c % 12.9 H Calcium 8.4 L Phosphorus 3.2 Magnesium 2.1 Total Bilirubin 0.4 AST 7 L ALT 14 Alkaline Phosphatase 71 Total Protein 6.0 L Albumin 2.3 L TSH 2.01 Alcohol, Quantitative 01/08/19 01/08/19 01/08/19 11:52 16:30 21:30 WBC RBC Hgb Hct MCV MCH MCHC RDW Plt Count MPV Absolute Neuts (auto) Neutrophils % Lymphocytes % Monocytes % Eosinophils % Basophils % Nucleated RBC % Sodium Potassium Chloride Carbon Dioxide Anion Gap BUN Creatinine Est GFR (CKD-EPI)AfAm Est GFR (CKD-EPI)NonAf POC Glucometer 322 409 Random Glucose Hemoglobin A1c % Calcium Phosphorus Magnesium Total Bilirubin AST ALT Alkaline Phosphatase Total Protein Albumin TSH Alcohol, Quantitative < 3.0 plan; bgm qid novolog scale levemir 25 units am levemir 15 units hs metformin 500mg bid
[2019-01-08] MEDS: GABAPENTIN 300 MG CAPSULE (FP) PO SCH (22:11)
[2019-01-09] MEDS ORDERED: PT OWN MED DRAWER 7, Y5N ONE ×3 (00:09→22:48)
[2019-01-09] MEDS: methylPREDNISolone NA SUCC 40 MG/1 ML VIAL IVPB SCH ×3 (00:15→12:34)
[2019-01-09] MEDS ORDERED: DEXTROSE 5%-WATER - 50 ML IVPB ONE ×2 (00:50→12:14)
[2019-01-09] MEDS ORDERED: PIPERACILLIN/TAZOBACTAM 2.25 GM VIAL IVPB ONE ×2 (00:50→12:13)
[2019-01-09] MEDS: PIPERACILLIN/TAZOB 2.25 GM 2.25 GM in DEXTROSE 5%-WATER - 50 ML IVPB SCH ×2 (01:55→13:01)
[2019-01-09] MEDS: VANCOMYCIN 1 GRAM (PRE-DOCKED) 1,000 MG/250 ML BAG IVPB SCH ×2 (02:05→15:42)
[2019-01-09] MEDS: GABAPENTIN 300 MG CAPSULE (FP) PO SCH (05:58)
[2019-01-09] MEDS: metFORMIN HCL 500 MG TABLET (FP) PO SCH ×2 (05:59→16:59)
[2019-01-09] MEDS: INSULIN SLIDING SCALE (NOVOLOG) 1 VIAL SQ SCH ×4 (06:02→23:01)
[2019-01-09] MEDS ORDERED: INSULIN (LEVEMIR) 100 UNITS/ML UNITS SQ SCH ×2 (07:00→22:00)
[2019-01-09] MEDS: ALBUTEROL SO4 2.5/IPRATROPIUM 0.5 INH SOL 3 ML VIAL.NEB. NEB SCH ×4 (07:15→20:00)
--- NOTE | 2019-01-09 07:49 | OP ---
Operative Note - Note: Operative Date: 01/09/19 Pre-Operative Diagnosis: Right dorsal forearm abscess Operation: Incision and drainage of right forearm abscess Findings: purulent drainage of right dorsal forearm Post-Operative Diagnosis: Same as Pre-op Surgeon: Drew Henry Anesthesiologist/HEALTH INFORMATION TECHNICIAN: Gerry Yanez Anesthesia: Local (Axiallary Block), MAC Specimens Removed: deep wound culture forearm Estimated Blood Loss (mls): 1 Fluid Volume Replaced (mls): 200 Operative Report Dictated: Yes
[2019-01-09] MEDS ORDERED: PROMETHAZINE HCL 25 MG/1 ML VIAL IVPUSH PRN (08:05)
[2019-01-09 08:06] LABS: SERUM IRON SATURATION 13 % (15-55); TOTAL IRON BINDING CAPACITY 202 ug/dL (250-450)
[2019-01-09] MEDS ORDERED: INSULIN REGULAR HUMAN 100 UNITS/ML *VIAL SQ ONE ×2 (08:06→08:44)
[2019-01-09] MEDS ORDERED: LACTATED RINGERS SOLUTION 1,000 ML IV SCH (08:15)
[2019-01-09] MEDS ORDERED: ROPIVACAINE HCL 0.5% 30ML VIAL ONE (08:16)
[2019-01-09] MEDS ORDERED: MIDAZOLAM HCL 2 MG/2 ML SINGLE DOSE VIAL ONE ×2 (08:16)
[2019-01-09 08:18] LABS: HEMATOCRIT 42.1 % (32.4-45.2); HEMOGLOBIN 13.8 GM/dL (10.7-15.3); MCH 27.7 pg (25.7-33.7); MCHC 32.8 g/dl (32.0-36.0); MEAN CELL VOLUME 84.4 fl (80-96); MEAN PLT VOLUME 8.8 fl (7.5-11.1); RBC 4.98 M/mm3 (3.60-5.2); RDW 13.2 % (11.6-15.6); WHITE BLOOD COUNT 7.9 K/mm3 (4.0-10.0)
[2019-01-09 08:55] LABS: ALBUMIN 2.6 g/dl (3.4-5.0); BILIRUBIN,TOTAL 0.3 mg/dL (0.2-1); BLOOD UREA NITROGEN 10.9 mg/dL (7-18); CALCIUM 9.3 mg/dL (8.5-10.1); CREATININE 0.6 mg/dL (0.55-1.3); POTASSIUM 5.1 mmol/L (3.5-5.1); TOT PROT 6.9 g/dl (6.4-8.2)
[2019-01-09 09:04] LABS: PLATELET COUNT 311 K/MM3 (134-434)
[2019-01-09] MEDS ORDERED: DIVALPROEX SODIUM 500 MG TABLET E.C. PO SCH (10:18)
--- NOTE | 2019-01-09 12:10 | PN ---
Progress Note (short form) - Note Progress Note: NEUROLOGY PROGRESS: Events reviewed and discussed with staff. Endocrinology and surgical consults read and appreciated. Now S/P I & D of abscess R forearm. Now in soft cast with sling. Remains on IV Vanco and Zoysn. Wound culture presumptive MSSA. Admits she stopped taking all medications 2 years ago after the of her sister. Only notes one seizure 2 months ago despite stopping AEDs. However, pt notes ongoing "shooting" pains from neck with developing into headaches with associated photophobia, phonophobia and kinesiophobia. This started approximately 1 1/2 years ago. Still with ongoing back pains, relived by "rocking back and forth in bed" WBC= 11.2 -> 7.9. Iron 26, MOHB=608, Iron sat= 13%; B12= 1008 pg% MRI of C spine (reviewed): Some motion artifact. Marrow edema R C3/C4, L C4/C5 facet joints. Disc bulge C5/C6, HNP at C6/C7 with chronic cord compression and possible myelomalacia at C6C7 MARÍA ELENA: T 97.9. p 60s. BP supine 141/74, sitting 112/64. Sl reduced neck ROM. Neg SLR. R forearm in sling with fingers exposed. NEURO: Mentation/Speech: Normal. CNII-CNXII: EOM's full. Pupils dilated and sluggishly reactive. Full head. Motor: Normal grasp on L. Reflexes reduced throughout Sensation: Reduced vibration in toes. Romberg +/- Gait: Wide-based Impression: Seizure disorder by history Probable Migraine Headaches Chronic cord compression from moderate C6/C7 HNP Peripheral Neuropathy (c/w diabetes, ETOH) with associated dysautonomia (orthostatic hypotension) Possible Restless Limbs Syndrome (RLS) Worsened by Toxic-Metabolic Encephalopathy (? abscess vs. bacteremia) Suggest: Continue antibiotics and hydration per ID MRI of brain (C-) Continue Depakote (750 mg Q12H) for seizures and migraines and gabapentin (400 mg Q8H) for seizures and RLS Add FeSO4 325 mg po daily for iron deficiency anemia Monitor BS while on Medrol PT eval Thank you very much, Nakul Granados MD
[2019-01-09] MEDS: ASPIRIN COATED 81 MG TABLET.EC PO SCH (12:44)
[2019-01-09] MEDS: ACETAMINOPHEN 325 MG TABLET (FP) PO PRN (12:44)
[2019-01-09] MEDS: HEPARIN NA (PORCINE) 5,000 UNITS/ML 1ML VIAL SQ SCH ×2 (12:45→22:54)
[2019-01-09] MEDS: THIAMINE HCL 200 MG/2 ML VIAL IVPB SCH ×3 (13:00→23:02)
--- NOTE | 2019-01-09 13:40 | PN ---
Progress Note, Physician History of Present Illness: stable doing well post op hand in dressing - Current Medication List Current Medications: Active Medications Acetaminophen (Tylenol -) 650 mg PO Q4H PRN PRN Reason: PAIN LEVEL 6-10 Last Admin: 01/09/19 12:44 Dose: 650 mg Albuterol/Ipratropium (Duoneb -) 1 amp NEB RQID ON LICENSE OF [facility] Last Admin: 01/09/19 11:00 Dose: Not Given Albuterol/Ipratropium (Duoneb -) 1 amp NEB Q4H PRN PRN Reason: SHORTNESS OF BREATH Aspirin (Ecotrin -) 81 mg PO DAILY ON LICENSE OF [facility] Last Admin: 01/09/19 12:44 Dose: 81 mg Divalproex Sodium 500 mg/ (Divalproex Sodium 250 mg) 750 mg PO BID ON LICENSE OF [facility] Fentanyl (Sublimaze Injection -) 50 mcg IVPUSH [id number] PRN PRN Reason: PAIN-PACU ORDER X 4 DOSES ONLY Gabapentin (Neurontin -) 400 mg PO TID ON LICENSE OF [facility] Heparin Sodium (Porcine) (Heparin -) 5,000 unit SQ BID ON LICENSE OF [facility] Last Admin: 01/09/19 12:45 Dose: 5,000 unit Vancomycin HCl (Vancomycin (Pre-Docked)) 1,000 mg in 250 mls @ 166.667 mls/hr IVPB Q12H ON LICENSE OF [facility]; Protocol Last Admin: 01/09/19 02:05 Dose: 166.667 mls/hr Insulin Aspart (Novolog Vial Sliding Scale -) 0 vial SQ ACHS ON LICENSE OF [facility]; Protocol Last Admin: 01/09/19 13:03 Dose: 8 units Insulin Detemir (Levemir Vial) 15 units SQ HS ON LICENSE OF [facility] Insulin Detemir (Levemir Vial) 25 units SQ AM ON LICENSE OF [facility] Last Admin: 01/09/19 06:01 Dose: Not Given Metformin HCl (Glucophage -) 500 mg PO BID@0700,1630 ON LICENSE OF [facility] Last Admin: 01/09/19 05:59 Dose: Not Given Methylprednisolone Sodium Succinate (Solu-Medrol -) 40 mg IVPB Q6H ON LICENSE OF [facility] Last Admin: 01/09/19 12:34 Dose: 40 mg Promethazine HCl (Phenergan Injection -) 12.5 mg IVPUSH Q6H PRN PRN Reason: NAUSEA-FOR RESCUE AFTER 15 MIN Thiamine HCl (Vitamin B1 Injection -) 250 mg IVPB TID ON LICENSE OF [facility] Stop: 01/11/19 13:59 Last Admin: 01/09/19 13:00 Dose: Not Given - Objective Vital Signs: Vital Signs Temperature 97.5 F L 01/09/19 11:00 Pulse Rate 59 L 01/09/19 11:00 Respiratory Rate 18 01/09/19 11:00 Blood Pressure 145/80 01/09/19 11:00 O2 Sat by Pulse Oximetry (%) 95 01/09/19 11:00 Constitutional: Yes: No Distress, Calm Cardiovascular: Yes: S1, S2 Respiratory: Yes: Regular, CTA Bilaterally Gastrointestinal: Yes: Normal Bowel Sounds, Soft Musculoskeletal: Yes: WNL Extremities: Yes: Other Wound/Incision: Yes: Dressing Dry and Intact Neurological: Yes: Alert, Oriented Labs: CBC, BMP 01/09/19 06:51 01/09/19 06:51 INR, PTT INR 1.13 (0.83-1.09) H 01/07/19 13:32 Assessment/Plan Problem List - Problems (1) Cellulitis and abscess of upper arm and forearm Code(s): [id number] - (2) Diabetes type 2, uncontrolled Code(s): E11.65 - TYPE 2 DIABETES MELLITUS WITH HYPERGLYCEMIA Qualifiers: Glycemic state: with hyperglycemia Qualified Code(s): E11.65 - Type 2 diabetes mellitus with hyperglycemia (3) Acute bronchitis Code(s): J20.9 - ACUTE BRONCHITIS, UNSPECIFIED (4) Alcohol abuse Code(s): F10.10 - ALCOHOL ABUSE, UNCOMPLICATED (5) Bipolar 1 disorder Code(s): F31.9 - BIPOLAR DISORDER, UNSPECIFIED (6) Diabetes Code(s): E11.9 - TYPE 2 DIABETES MELLITUS WITHOUT COMPLICATIONS Qualifiers: Diabetes mellitus type: type 2 (7) Essential hypertension Code(s): I10 - ESSENTIAL (PRIMARY) HYPERTENSION (8) Hepatitis C carrier Code(s): Z22.52 - (9) Osteoarthritis Code(s): M19.90 - UNSPECIFIED OSTEOARTHRITIS, UNSPECIFIED SITE plan continue current mgmt will stop zosyn wound care rest as per the team
--- NOTE | 2019-01-09 13:53 | PN ---
Progress Note, Physician Chief Complaint: Cellulitis History of Present Illness: Previous notes and events reviewed awake and alert NAD no complaints of pain POD #0 I&D right forearm arm in sling Wound culture prelim positive - Current Medication List Current Medications: Active Medications Acetaminophen (Tylenol -) 650 mg PO Q4H PRN PRN Reason: PAIN LEVEL 6-10 Last Admin: 01/09/19 12:44 Dose: 650 mg Albuterol/Ipratropium (Duoneb -) 1 amp NEB RQID [facility] Last Admin: 01/09/19 11:00 Dose: Not Given Albuterol/Ipratropium (Duoneb -) 1 amp NEB Q4H PRN PRN Reason: SHORTNESS OF BREATH Aspirin (Ecotrin -) 81 mg PO DAILY [facility] Last Admin: 01/09/19 12:44 Dose: 81 mg Divalproex Sodium 500 mg/ (Divalproex Sodium 250 mg) 750 mg PO BID [facility] Fentanyl (Sublimaze Injection -) 50 mcg IVPUSH [id number] PRN PRN Reason: PAIN-PACU ORDER X 4 DOSES ONLY Gabapentin (Neurontin -) 400 mg PO TID [facility] Heparin Sodium (Porcine) (Heparin -) 5,000 unit SQ BID [facility] Last Admin: 01/09/19 12:45 Dose: 5,000 unit Vancomycin HCl (Vancomycin (Pre-Docked)) 1,000 mg in 250 mls @ 166.667 mls/hr IVPB Q12H [facility]; Protocol Last Admin: 01/09/19 02:05 Dose: 166.667 mls/hr Insulin Aspart (Novolog Vial Sliding Scale -) 0 vial SQ ACHS [facility]; Protocol Last Admin: 01/09/19 13:03 Dose: 8 units Insulin Detemir (Levemir Vial) 15 units SQ HS [facility] Insulin Detemir (Levemir Vial) 25 units SQ AM [facility] Last Admin: 01/09/19 06:01 Dose: Not Given Metformin HCl (Glucophage -) 500 mg PO BID@0700,1630 [facility] Last Admin: 01/09/19 05:59 Dose: Not Given Methylprednisolone Sodium Succinate (Solu-Medrol -) 40 mg IVPB Q6H [facility] Last Admin: 01/09/19 12:34 Dose: 40 mg Promethazine HCl (Phenergan Injection -) 12.5 mg IVPUSH Q6H PRN PRN Reason: NAUSEA-FOR RESCUE AFTER 15 MIN Thiamine HCl (Vitamin B1 Injection -) 250 mg IVPB TID [facility] Stop: 01/11/19 13:59 Last Admin: 01/09/19 13:00 Dose: Not Given - Objective Vital Signs: Vital Signs Temperature 97.5 F L 01/09/19 11:00 Pulse Rate 59 L 01/09/19 11:00 Respiratory Rate 18 01/09/19 11:00 Blood Pressure 145/80 01/09/19 11:00 O2 Sat by Pulse Oximetry (%) 95 01/09/19 11:00 Constitutional: Yes: No Distress, Calm Eyes: Yes: Conjunctiva Clear HENT: Yes: Atraumatic Cardiovascular: Yes: Regular Rate and Rhythm Respiratory: Yes: Regular, Wheezes Gastrointestinal: Yes: Normal Bowel Sounds, Soft, Abdomen, Obese Musculoskeletal: Yes: WNL Extremities: Yes: WNL Edema: No Wound/Incision: Yes: Other (Cast right forearm) Neurological: Yes: Alert, Oriented Psychiatric: Yes: Alert, Oriented Labs: CBC, BMP 01/09/19 06:51 01/09/19 06:51 INR, PTT INR 1.13 (0.83-1.09) H 01/07/19 13:32 Microbiology 01/07/19 13:40 Blood - Peripheral Venous Blood Culture - Preliminary NO GROWTH OBTAINED AFTER 48 HOURS, INCUBATION TO CONTINUE FOR 3 DAYS. 01/07/19 13:32 Blood - Peripheral Venous Blood Culture - Preliminary NO GROWTH OBTAINED AFTER 48 HOURS, INCUBATION TO CONTINUE FOR 3 DAYS. 01/07/19 14:09 Abscess Gram Stain - Final 01/07/19 14:09 Abscess Wound Culture - Preliminary Presumptive Mssa (Pbp2a Neg) Problem List - Problems (1) Cellulitis and abscess of upper arm and forearm Assessment/Plan: -ID and Surgery on board -Vancomycin and -WBC 7.9 -wound culture prelim positive -BC negative -afebrile -POD #0 I&D right forearm Code(s): [id number] - (2) Diabetes type 2, uncontrolled Assessment/Plan: -Endocrinology consult -ISS -HgA1c 12.9 -diabetic diet -Levemir 25U QAM and 15U QHS -Metformin Code(s): E11.65 - TYPE 2 DIABETES MELLITUS WITH HYPERGLYCEMIA Qualifiers: Glycemic state: with hyperglycemia Qualified Code(s): E11.65 - Type 2 diabetes mellitus with hyperglycemia (3) COPD (chronic obstructive pulmonary disease) Assessment/Plan: -Pulm consult -bronchodilators -O2 via NC -keep SpO2 >90% Code(s): J44.9 - CHRONIC OBSTRUCTIVE PULMONARY DISEASE, UNSPECIFIED (4) Essential hypertension Assessment/Plan: -no current medication regimen, last rx filled 2017, poor compliance -monitor BP and will start medication as needed -low Na diet Code(s): I10 - ESSENTIAL (PRIMARY) HYPERTENSION (5) Seizure disorder Assessment/Plan: -unknown of current medication dose, poorly compliant -neurology on board -Depakote and Gabapentin -Brain and Cervical MRI results pending -seizure precaution Code(s): G40.909 - EPILEPSY, UNSP, NOT INTRACTABLE, WITHOUT STATUS EPILEPTICUS Assessment/Plan see problem list dvt ppx
--- NOTE | 2019-01-09 14:27 | PN ---
Progress Note (short form) - Note Progress Note: PULMONARY s/p I&D. States breathing improved. Mild cough and wheezing. Vital Signs Period Temp Pulse Resp BP Sys/[place] Pulse Ox Last 24 Hr 97.5 F-98.8 F 59-84 17-25 127-158/62-98 94-95 Gen: NAD at rest Heart: RRR Lung: scattered rhonchi, wheezes Abd: soft, nontender Ext: no edema CBC, BMP 01/09/19 06:51 01/09/19 06:51 Active Medications Acetaminophen (Tylenol -) 650 mg PO Q4H PRN PRN Reason: PAIN LEVEL 6-10 Last Admin: 01/09/19 12:44 Dose: 650 mg Albuterol/Ipratropium (Duoneb -) 1 amp NEB RQID COUNT [facility]CLUDES [facility] Last Admin: 01/09/19 11:00 Dose: Not Given Albuterol/Ipratropium (Duoneb -) 1 amp NEB Q4H PRN PRN Reason: SHORTNESS OF BREATH Aspirin (Ecotrin -) 81 mg PO DAILY COUNT [facility]CLUDES [facility] Last Admin: 01/09/19 12:44 Dose: 81 mg Divalproex Sodium 500 mg/ (Divalproex Sodium 250 mg) 750 mg PO BID COUNT INCLUDES [facility] Fentanyl (Sublimaze Injection -) 50 mcg IVPUSH [id number] PRN PRN Reason: PAIN-PACU ORDER X 4 DOSES ONLY Gabapentin (Neurontin -) 400 mg PO TID COUNT INCLUDES [facility] Heparin Sodium (Porcine) (Heparin -) 5,000 unit SQ BID COUNT [facility]CLUDES [facility] Last Admin: 01/09/19 12:45 Dose: 5,000 unit Vancomycin HCl (Vancomycin (Pre-Docked)) 1,000 mg in 250 mls @ 166.667 mls/hr IVPB Q12H COUNT [facility]CLUDES [facility]; Protocol Last Admin: 01/09/19 02:05 Dose: 166.667 mls/hr Insulin Aspart (Novolog Vial Sliding Scale -) 0 vial SQ ACHS [facility]CLUD[facility]; Protocol Last Admin: 01/09/19 13:03 Dose: 8 units Insulin Detemir (Levemir Vial) 15 units SQ HS COUNT [facility]CLUDES [facility] Insulin Detemir (Levemir Vial) 25 units SQ AM COUNT [facility]CLUD[facility] Last Admin: 01/09/19 06:01 Dose: Not Given Metformin HCl (Glucophage -) 500 mg PO BID@0700,1630 COUNT [facility]CLUDES [facility] Last Admin: 01/09/19 05:59 Dose: Not Given Methylprednisolone Sodium Succinate (Solu-Medrol -) 40 mg IVPB Q6H [facility] Last Admin: 01/09/19 12:34 Dose: 40 mg Promethazine HCl (Phenergan Injection -) 12.5 mg IVPUSH Q6H PRN PRN Reason: NAUSEA-FOR RESCUE AFTER 15 MIN Thiamine HCl (Vitamin B1 Injection -) 250 mg IVPB TID [facility] Stop: 01/11/19 13:59 Last Admin: 01/09/19 13:00 Dose: Not Given A/P RUE Abscess s/p I&D Acute COPD Exacerbation HTN DM Seizure Disorder Smoker - continue antibiotics - f/u cultures - can d/c medrol - inhaled bronchodilators - DVT prophylaxis - smoking cessation - outpt PFTs
[2019-01-09 14:59] VITALS: BMI 34.3
[2019-01-09] MEDS: GABAPENTIN 400 MG CAPSULE (FP) PO SCH ×2 (15:42→22:58)
--- NOTE | 2019-01-09 22:02 | PN ---
Progress Note, Physician Chief Complaint: high sugars pain around skin irritation forearm infection - Current Medication List Current Medications: Active Medications Acetaminophen (Tylenol -) 650 mg PO Q4H PRN PRN Reason: PAIN LEVEL 6-10 Last Admin: 01/09/19 12:44 Dose: 650 mg Albuterol/Ipratropium (Duoneb -) 1 amp NEB RQID [facility] Last Admin: 01/09/19 20:00 Dose: 1 amp Albuterol/Ipratropium (Duoneb -) 1 amp NEB Q4H PRN PRN Reason: SHORTNESS OF BREATH Aspirin (Ecotrin -) 81 mg PO DAILY [facility] Last Admin: 01/09/19 12:44 Dose: 81 mg Divalproex Sodium 500 mg/ (Divalproex Sodium 250 mg) 750 mg PO BID [facility] Fentanyl (Sublimaze Injection -) 50 mcg IVPUSH [id number] PRN PRN Reason: PAIN-PACU ORDER X 4 DOSES ONLY Gabapentin (Neurontin -) 400 mg PO TID [facility] Last Admin: 01/09/19 15:42 Dose: 400 mg Heparin Sodium (Porcine) (Heparin -) 5,000 unit SQ BID [facility] Last Admin: 01/09/19 12:45 Dose: 5,000 unit Vancomycin HCl (Vancomycin (Pre-Docked)) 1,000 mg in 250 mls @ 166.667 mls/hr IVPB Q12H [facility]; Protocol Last Admin: 01/09/19 15:42 Dose: 166.667 mls/hr Insulin Aspart (Novolog Vial Sliding Scale -) 0 vial SQ Q4H [facility]; Protocol Insulin Detemir (Levemir Vial) 40 units SQ AM [facility] Insulin Detemir (Levemir Vial) 25 units SQ HS [facility] Promethazine HCl (Phenergan Injection -) 12.5 mg IVPUSH Q6H PRN PRN Reason: NAUSEA-FOR RESCUE AFTER 15 MIN Thiamine HCl (Vitamin B1 Injection -) 250 mg IVPB TID [facility] Stop: 01/11/19 13:59 Last Admin: 01/09/19 15:41 Dose: 250 mg - Objective Vital Signs: Vital Signs Temperature 97.9 F 01/09/19 18:00 Pulse Rate 75 01/09/19 18:00 Respiratory Rate 20 01/09/19 18:00 Blood Pressure 119/64 01/09/19 18:00 O2 Sat by Pulse Oximetry (%) 96 01/09/19 12:57 Constitutional: Yes: Anxious Eyes: Yes: EOM Intact HENT: Yes: Normocephalic Neck: Yes: Trachea Midline Cardiovascular: Yes: Regular Rate and Rhythm Respiratory: Yes: CTA Bilaterally Gastrointestinal: Yes: Normal Bowel Sounds ...Rectal Exam: Yes: Deferred Genitourinary: Yes: WNL Musculoskeletal: Yes: Joint Swelling, Muscle Weakness Extremities: Yes: Erythema Edema: Yes Edema: RUE: 1+ Wound/Incision: Yes: Draining Neurological: Yes: Alert, Oriented Labs: CBC, BMP 01/09/19 06:51 INR, PTT INR 1.13 (0.83-1.09) H 01/07/19 13:32 Problem List - Problems (1) Type 2 diabetes mellitus with hyperosmolarity without nonketotic hyperglycemic-hyperosmolar coma ([facility]) Code(s): E11.00 - TYPE 2 DIAB W HYPROSM W/O NONKET HYPRGLY-HYPROS COMA ([facility]) (2) Cellulitis and abscess of upper arm and forearm Code(s): [id number] - (3) Diabetes type 2, uncontrolled Code(s): E11.65 - TYPE 2 DIABETES MELLITUS WITH HYPERGLYCEMIA Qualifiers: Glycemic state: with hyperglycemia Qualified Code(s): E11.65 - Type 2 diabetes mellitus with hyperglycemia (4) H/O abnormal mammogram Code(s): Z87.898 - PERSONAL HISTORY OF OTHER SPECIFIED CONDITIONS (5) Hemoptysis Code(s): R04.2 - HEMOPTYSIS Assessment/Plan Current Active Problems Asthma-COPD overlap syndrome (Acute) Cellulitis and abscess of upper arm and forearm (Acute) Diabetes type 2, uncontrolled (Acute) Type 2 diabetes mellitus with hyperosmolarity without nonketotic hyperglycemic- hyperosmolar coma ([facility]) (Acute) Abnormal Lab Results 01/08/19 01/09/19 01/09/19 11:52 06:51 18:35 Anion Gap 6 L Random Glucose 402 H* 588 H* Iron 26 L TIBC 202 L Iron Saturation 13 L AST 4 L Albumin 2.6 L Vitamin B12 1008 H Laboratory Results - last 24 hr 01/08/19 01/09/19 01/09/19 11:52 05:57 06:51 WBC RBC Hgb Hct MCV MCH MCHC RDW Plt Count MPV Sodium 136 Potassium 5.1 Chloride 101 Carbon Dioxide 29 Anion Gap 6 L BUN 10.9 Creatinine 0.6 Est GFR (CKD-EPI)AfAm 117.27 Est GFR (CKD-EPI)NonAf 101.18 POC Glucometer 398 Random Glucose 402 H* Calcium 9.3 Iron 26 L TIBC 202 L Iron Saturation 13 L Unsaturated IBC 176 Total Bilirubin 0.3 AST 4 L ALT 14 Alkaline Phosphatase 78 Total Protein 6.9 Albumin 2.6 L Vitamin B12 1008 H 01/09/19 01/09/19 01/09/19 06:51 08:04 12:04 WBC 7.9 RBC 4.98 Hgb 13.8 Hct 42.1 MCV 84.4 MCH 27.7 MCHC 32.8 RDW 13.2 Plt Count 311 MPV 8.8 Sodium Potassium Chloride Carbon Dioxide Anion Gap BUN Creatinine Est GFR (CKD-EPI)AfAm Est GFR (CKD-EPI)NonAf POC Glucometer 364 319 Random Glucose Calcium Iron TIBC Iron Saturation Unsaturated IBC Total Bilirubin AST ALT Alkaline Phosphatase Total Protein Albumin Vitamin B12 01/09/19 01/09/19 01/09/19 16:54 18:35 20:49 WBC RBC Hgb Hct MCV MCH MCHC RDW Plt Count MPV Sodium Potassium Chloride Carbon Dioxide Anion Gap BUN Creatinine Est GFR (CKD-EPI)AfAm Est GFR (CKD-EPI)NonAf POC Glucometer 531 > 600 Random Glucose 588 H* Calcium Iron TIBC Iron Saturation Unsaturated IBC Total Bilirubin AST ALT Alkaline Phosphatase Total Protein Albumin Vitamin B12 plan: hyperglycemia stress related bgm q4h novolog scale higher doses as needed levemir 40 units am levemir 25 hs wound debrided
[2019-01-09] MEDS: DIVALPROEX 500 MG, DIVALPROEX 250 MG PO SCH (22:58)
[2019-01-09] MEDS: INSULIN (LEVEMIR) 100 UNITS/ML UNITS SQ SCH (22:59)
[2019-01-10] MEDS: VANCOMYCIN 1 GRAM (PRE-DOCKED) 1,000 MG/250 ML BAG IVPB SCH ×2 (01:57→13:32)
[2019-01-10] MEDS: INSULIN SLIDING SCALE (NOVOLOG) 1 VIAL SQ SCH ×6 (02:00→21:30)
[2019-01-10] MEDS ORDERED: KETOROLAC TROMETHAMINE 30 MG/1 ML VIAL IVPUSH ONE (05:54)
--- NOTE | 2019-01-10 06:02 | PN ---
Progress Note, Physician History of Present Illness: 58 yo RHD female with PMH asthma, COPD, IDDM, HTN, HLD, seizures, ETOH and cocaine abuse. Patient presented to ER today for swelling to right lower forearm. She has been draining from the site since I&D. stable since surgery. - Current Medication List Current Medications: Active Medications Acetaminophen (Tylenol -) 650 mg PO Q4H PRN PRN Reason: PAIN LEVEL 6-10 Last Admin: 01/09/19 12:44 Dose: 650 mg Albuterol/Ipratropium (Duoneb -) 1 amp NEB RQID [facility] Last Admin: 01/09/19 20:00 Dose: 1 amp Albuterol/Ipratropium (Duoneb -) 1 amp NEB Q4H PRN PRN Reason: SHORTNESS OF BREATH Aspirin (Ecotrin -) 81 mg PO DAILY [facility] Last Admin: 01/09/19 12:44 Dose: 81 mg Divalproex Sodium 500 mg/ (Divalproex Sodium 250 mg) 750 mg PO BID [facility] Last Admin: 01/09/19 22:58 Dose: 750 mg Fentanyl (Sublimaze Injection -) 50 mcg IVPUSH [id number] PRN PRN Reason: PAIN-PACU ORDER X 4 DOSES ONLY Gabapentin (Neurontin -) 400 mg PO TID [facility] Last Admin: 01/09/19 22:58 Dose: 400 mg Heparin Sodium (Porcine) (Heparin -) 5,000 unit SQ BID [facility] Last Admin: 01/09/19 22:54 Dose: 5,000 unit Vancomycin HCl (Vancomycin (Pre-Docked)) 1,000 mg in 250 mls @ 166.667 mls/hr IVPB Q12H [facility]; Protocol Last Admin: 01/10/19 01:57 Dose: 166.667 mls/hr Insulin Aspart (Novolog Vial Sliding Scale -) 0 vial SQ Q4H [facility]; Protocol Last Admin: 01/10/19 02:00 Dose: 12 units Insulin Detemir (Levemir Vial) 40 units SQ AM [facility] Insulin Detemir (Levemir Vial) 25 units SQ HS [facility] Last Admin: 01/09/19 22:59 Dose: 25 units Ketorolac Tromethamine (Toradol Injection -) 30 mg IVPUSH ONCE ONE Stop: 01/10/19 05:55 Promethazine HCl (Phenergan Injection -) 12.5 mg IVPUSH Q6H PRN PRN Reason: NAUSEA-FOR RESCUE AFTER 15 MIN Thiamine HCl (Vitamin B1 Injection -) 250 mg IVPB TID [facility] Stop: 01/11/19 13:59 Last Admin: 01/09/19 23:02 Dose: 250 mg - Objective Vital Signs: Vital Signs Temperature 97.7 F 01/10/19 02:00 Pulse Rate 58 L 01/10/19 02:00 Respiratory Rate 20 01/10/19 02:00 Blood Pressure 134/70 01/10/19 02:00 O2 Sat by Pulse Oximetry (%) 95 01/09/19 21:00 Vital Signs Period Temp Pulse Resp BP Sys/[place] Pulse Ox Last 24 Hr 97.5 F-98.5 F 58-83 17-25 119-158/42-98 94-96 Constitutional: Yes: No Distress, Calm, Obese Eyes: Yes: Conjunctiva Clear, EOM Intact HENT: Yes: Atraumatic, Normocephalic Neck: Yes: Supple, Trachea Midline Cardiovascular: Yes: Regular Rate and Rhythm, S1, S2 Respiratory: Yes: Regular, CTA Bilaterally Gastrointestinal: Yes: Normal Bowel Sounds, Soft. No: Tenderness ...Rectal Exam: Yes: Deferred Genitourinary: No: CVA Tenderness - Left, CVA Tenderness - Right Breast(s): No: Mass, Skin Changes Musculoskeletal: Yes: Muscle Weakness. No: Muscle Pain Extremities: No: Cool, Cyanosis Edema: Yes Edema: RUE: 2+ Peripheral Pulses WNL: Yes Peripheral Pulses: Left Radial: 2+, Right Radial: 2+, Left Doralis Pedis: 2+, Right Dorsalis Pedis: 2+, Left Femoral: 2+, Right Femoral: 2+ Integumentary: Yes: Tattoos. No: Jaundice, Rash Wound/Incision: Yes: Clean/Dry, Dressing Removed, Draining, Reddened, Unapproximated Neurological: Yes: Alert, Oriented Psychiatric: Yes: Alert, Oriented Labs: CBC, BMP 01/09/19 06:51 01/09/19 20:53 INR, PTT INR 1.13 (0.83-1.09) H 01/07/19 13:32 Microbiology 01/09/19 08:00 Arm - Right Forearm Gram Stain - Final 01/07/19 13:40 Blood - Peripheral Venous Blood Culture - Preliminary NO GROWTH OBTAINED AFTER 48 HOURS, INCUBATION TO CONTINUE FOR 3 DAYS. 01/07/19 13:32 Blood - Peripheral Venous Blood Culture - Preliminary NO GROWTH OBTAINED AFTER 48 HOURS, INCUBATION TO CONTINUE FOR 3 DAYS. 01/07/19 14:09 Abscess Gram Stain - Final 01/07/19 14:09 Abscess Wound Culture - Preliminary Presumptive Mssa (Pbp2a Neg) Problem List - Problems (1) Cellulitis and abscess of upper arm and forearm Assessment/Plan: 58yo female MMP with right arm cellulitis with abscess POD#1 s/p incision and drainage of right forearm abscess, now afebrile and leukocytosis has resolved. Erythema is improving. Dressing by RN glycemic control Diet as tlerated antibiotiotics per ID f/u cultures Suspended elevation of right arm above heart level discharge at the discretion of the primary team Code(s): [id number] - (2) Diabetes type 2, uncontrolled Code(s): E11.65 - TYPE 2 DIABETES MELLITUS WITH HYPERGLYCEMIA Qualifiers: Glycemic state: with hyperglycemia Qualified Code(s): E11.65 - Type 2 diabetes mellitus with hyperglycemia (3) Acute bronchitis Code(s): J20.9 - ACUTE BRONCHITIS, UNSPECIFIED (4) Alcohol abuse Code(s): F10.10 - ALCOHOL ABUSE, UNCOMPLICATED (5) Bipolar 1 disorder Code(s): F31.9 - BIPOLAR DISORDER, UNSPECIFIED (6) Diabetes Code(s): E11.9 - TYPE 2 DIABETES MELLITUS WITHOUT COMPLICATIONS Qualifiers: Diabetes mellitus type: type 2 (7) Essential hypertension Code(s): I10 - ESSENTIAL (PRIMARY) HYPERTENSION (8) Hepatitis C carrier Code(s): Z22.52 - (9) Osteoarthritis Code(s): M19.90 - UNSPECIFIED OSTEOARTHRITIS, UNSPECIFIED SITE
[2019-01-10] MEDS ORDERED: PT OWN MED DRAWER 7, Y5N ONE (06:04)
[2019-01-10] MEDS: GABAPENTIN 400 MG CAPSULE (FP) PO SCH ×3 (06:08→21:27)
[2019-01-10] MEDS: INSULIN (LEVEMIR) 100 UNITS/ML UNITS SQ SCH ×2 (06:10→21:30)
[2019-01-10] MEDS: THIAMINE HCL 200 MG/2 ML VIAL IVPB SCH ×3 (06:11→21:31)
[2019-01-10] MEDS: ALBUTEROL SO4 2.5/IPRATROPIUM 0.5 INH SOL 3 ML VIAL.NEB. NEB SCH ×4 (07:35→20:10)
[2019-01-10] MEDS: ASPIRIN COATED 81 MG TABLET.EC PO SCH (10:02)
[2019-01-10] MEDS: HEPARIN NA (PORCINE) 5,000 UNITS/ML 1ML VIAL SQ SCH ×2 (10:02→21:27)
[2019-01-10] MEDS: DIVALPROEX 500 MG, DIVALPROEX 250 MG PO SCH ×2 (10:04→21:27)
[2019-01-10 11:14] LABS: HEMATOCRIT 42.1 % (32.4-45.2); HEMOGLOBIN 14.1 GM/dL (10.7-15.3); MCH 27.6 pg (25.7-33.7); MCHC 33.5 g/dl (32.0-36.0); MEAN CELL VOLUME 82.4 fl (80-96); PLATELET COUNT 375 K/MM3 (134-434); RBC 5.11 M/mm3 (3.60-5.2); RDW 13.3 % (11.6-15.6); WHITE BLOOD COUNT 9.8 K/mm3 (4.0-10.0)
[2019-01-10 11:42] LABS: ALBUMIN 2.8 g/dl (3.4-5.0); BILIRUBIN,TOTAL 0.2 mg/dL (0.2-1); BLOOD UREA NITROGEN 16.6 mg/dL (7-18); CALCIUM 9.8 mg/dL (8.5-10.1); CREATININE 0.8 mg/dL (0.55-1.3); POTASSIUM 4.6 mmol/L (3.5-5.1); TOT PROT 7.1 g/dl (6.4-8.2)
--- NOTE | 2019-01-10 14:59 | PN ---
Progress Note, Physician History of Present Illness: pulmonary alert,no distress,-cp,-sob,-cough - Current Medication List Current Medications: Active Medications Acetaminophen (Tylenol -) 650 mg PO Q4H PRN PRN Reason: PAIN LEVEL 6-10 Last Admin: 01/09/19 12:44 Dose: 650 mg Albuterol/Ipratropium (Duoneb -) 1 amp NEB RQID [facility] Last Admin: 01/10/19 13:01 Dose: 1 amp Albuterol/Ipratropium (Duoneb -) 1 amp NEB Q4H PRN PRN Reason: SHORTNESS OF BREATH Aspirin (Ecotrin -) 81 mg PO DAILY [facility] Last Admin: 01/10/19 10:02 Dose: 81 mg Divalproex Sodium 500 mg/ (Divalproex Sodium 250 mg) 750 mg PO BID [facility] Last Admin: 01/10/19 10:04 Dose: 750 mg Fentanyl (Sublimaze Injection -) 50 mcg IVPUSH [id number] PRN PRN Reason: PAIN-PACU ORDER X 4 DOSES ONLY Gabapentin (Neurontin -) 400 mg PO TID [facility] Last Admin: 01/10/19 13:32 Dose: 400 mg Heparin Sodium (Porcine) (Heparin -) 5,000 unit SQ BID [facility] Last Admin: 01/10/19 10:02 Dose: 5,000 unit Vancomycin HCl (Vancomycin (Pre-Docked)) 1,000 mg in 250 mls @ 166.667 mls/hr IVPB Q12H [facility]; Protocol Last Admin: 01/10/19 13:32 Dose: 166.667 mls/hr Insulin Aspart (Novolog Vial Sliding Scale -) 0 vial SQ Q4H [facility]; Protocol Last Admin: 01/10/19 14:03 Dose: 6 units Insulin Detemir (Levemir Vial) 40 units SQ AM [facility] Last Admin: 01/10/19 06:10 Dose: 40 units Insulin Detemir (Levemir Vial) 25 units SQ HS [facility] Last Admin: 01/09/19 22:59 Dose: 25 units Promethazine HCl (Phenergan Injection -) 12.5 mg IVPUSH Q6H PRN PRN Reason: NAUSEA-FOR RESCUE AFTER 15 MIN Thiamine HCl (Vitamin B1 Injection -) 250 mg IVPB TID [facility] Stop: 01/11/19 13:59 Last Admin: 01/10/19 13:33 Dose: 250 mg - Objective Vital Signs: Vital Signs Temperature 97.9 F 01/10/19 14:39 Pulse Rate 84 01/10/19 14:39 Respiratory Rate 20 01/10/19 14:39 Blood Pressure 139/80 01/10/19 14:39 O2 Sat by Pulse Oximetry (%) 95 01/10/19 09:00 Constitutional: Yes: Well Nourished, Calm Eyes: Yes: WNL HENT: Yes: WNL Neck: Yes: WNL Cardiovascular: Yes: Regular Rate and Rhythm, S1, S2 Respiratory: Yes: Wheezes (few scattered ave wheezes) Gastrointestinal: Yes: Normal Bowel Sounds, Soft Extremities: Yes: Other (rue wrapped) Edema: No Labs: CBC, BMP 01/10/19 10:55 01/10/19 10:55 INR, PTT INR 1.13 (0.83-1.09) H 01/07/19 13:32 Problem List - Problems (1) Asthma-COPD overlap syndrome Code(s): J44.9 - CHRONIC OBSTRUCTIVE PULMONARY DISEASE, UNSPECIFIED (2) Cellulitis and abscess of upper arm and forearm Code(s): [id number] - (3) Diabetes type 2, uncontrolled Code(s): E11.65 - TYPE 2 DIABETES MELLITUS WITH HYPERGLYCEMIA Qualifiers: Glycemic state: with hyperglycemia Qualified Code(s): E11.65 - Type 2 diabetes mellitus with hyperglycemia (4) Acute bronchitis Code(s): J20.9 - ACUTE BRONCHITIS, UNSPECIFIED (5) COPD (chronic obstructive pulmonary disease) Code(s): J44.9 - CHRONIC OBSTRUCTIVE PULMONARY DISEASE, UNSPECIFIED (6) Diabetes Code(s): E11.9 - TYPE 2 DIABETES MELLITUS WITHOUT COMPLICATIONS Qualifiers: Diabetes mellitus type: type 2 (7) Essential hypertension Code(s): I10 - ESSENTIAL (PRIMARY) HYPERTENSION (8) Nicotine dependence Code(s): F17.200 - NICOTINE DEPENDENCE, UNSPECIFIED, UNCOMPLICATED Qualifiers: Nicotine product type: cigarettes Substance use status: uncomplicated Qualified Code(s): F17.210 - Nicotine dependence, cigarettes, uncomplicated (9) Seizure disorder Code(s): G40.909 - EPILEPSY, UNSP, NOT INTRACTABLE, WITHOUT STATUS EPILEPTICUS Assessment/Plan IMP ASTHMA/COPD MILD EXACERBATION IMPROVED RUE CELLULITIS/ABSCESS IDDM HTN SEIZURE DISORDER H/O SUBSTANCE ABUSE TOBACCO ABUSE PLAN INHALED BRONCHODILATORS ABX PER ID SUPPLEMENTAL O2 PFTS OUTPATIENT SMOKING CESSATION COUNSELED OUTPATIENT LOW DOSE CHEST CT FOR LUNG CANCER SCREENING DR LY Problem List - Problems (1) Asthma-COPD overlap syndrome Code(s): J44.9 - CHRONIC OBSTRUCTIVE PULMONARY DISEASE, UNSPECIFIED (2) Cellulitis and abscess of upper arm and forearm Code(s): [id number] - (3) Diabetes type 2, uncontrolled Code(s): E11.65 - TYPE 2 DIABETES MELLITUS WITH HYPERGLYCEMIA Qualifiers: Glycemic state: with hyperglycemia Qualified Code(s): E11.65 - Type 2 diabetes mellitus with hyperglycemia (4) Acute bronchitis Code(s): J20.9 - ACUTE BRONCHITIS, UNSPECIFIED (5) COPD (chronic obstructive pulmonary disease) Code(s): J44.9 - CHRONIC OBSTRUCTIVE PULMONARY DISEASE, UNSPECIFIED (6) Diabetes Code(s): E11.9 - TYPE 2 DIABETES MELLITUS WITHOUT COMPLICATIONS Qualifiers: Diabetes mellitus type: type 2 (7) Essential hypertension Code(s): I10 - ESSENTIAL (PRIMARY) HYPERTENSION (8) Nicotine dependence Code(s): F17.200 - NICOTINE DEPENDENCE, UNSPECIFIED, UNCOMPLICATED Qualifiers: Nicotine product type: cigarettes Substance use status: uncomplicated Qualified Code(s): F17.210 - Nicotine dependence, cigarettes, uncomplicated (9) Seizure disorder Code(s): G40.909 - EPILEPSY, UNSP, NOT INTRACTABLE, WITHOUT STATUS EPILEPTICUS
--- NOTE | 2019-01-10 17:46 | DS ---
Physical Examination Vital Signs: Vital Signs Temperature 97.9 F 01/10/19 14:39 Pulse Rate 84 01/10/19 14:39 Respiratory Rate 20 01/10/19 14:39 Blood Pressure 139/80 01/10/19 14:39 O2 Sat by Pulse Oximetry (%) 95 01/10/19 09:00 Findings/Remarks: Patient is a 58 y/o female with past medical history asthma, COPD, IDDM, HTN, HLD, seizures, ETOH and cocaine abuse. Patient presented to ER today for swelling to right lower forearm. Patient states that 1 week ago she noted swelling to her right lower forearm andit progressively got worse. Three days ago she began experiencing subjective fevers at home and the area was warm to touch. Today she noted that her swelling was beginning to form "a head" and that prompter her to come to ER. Patient is poorly compliant with following up with PCP and medication regimen. Called listed pharmacy to get updated medication list and last time medication filled was 2017. Constitutional: Yes: No Distress, Calm Eyes: Yes: Conjunctiva Clear HENT: Yes: Atraumatic Cardiovascular: Yes: Regular Rate and Rhythm Respiratory: Yes: Regular, CTA Bilaterally Gastrointestinal: Yes: Normal Bowel Sounds, Soft Musculoskeletal: Yes: WNL Extremities: Yes: WNL Edema: No Wound/Incision: Yes: Dressing Dry and Intact Neurological: Yes: Alert, Oriented Psychiatric: Yes: Alert, Oriented Labs: CBC, BMP 01/10/19 10:55 01/10/19 10:55 Discharge Summary Reason For Visit: UNCONTROLLED TYPE 2 DM CELLULITIS ABSCESS Current Active Problems Asthma-COPD overlap syndrome (Acute) Cellulitis and abscess of upper arm and forearm (Acute) Diabetes type 2, uncontrolled (Acute) Type 2 diabetes mellitus with hyperosmolarity without nonketotic hyperglycemic- hyperosmolar coma ([facility]) (Acute) Procedures: Principal: I&D R lower forearm Hospital Course: see progress notes Laboratory Tests 01/07/19 01/07/19 01/07/19 12:47 12:57 13:32 WBC 11.2 H RBC 5.47 H Hgb 15.1 Hct 45.9 H MCV 83.9 MCH 27.6 MCHC 32.9 RDW 13.6 Plt Count 274 MPV 8.6 Absolute Neuts (auto) 7.8 Neutrophils % 69.4 D Lymphocytes % 19.0 D Monocytes % 9.8 Eosinophils % 1.1 Basophils % 0.7 Nucleated RBC % 0 PT with INR INR PTT (Actin FS) Sodium 131 L Potassium 4.5 Chloride 94 L Carbon Dioxide 29 Anion Gap 8 BUN 9.5 Creatinine 0.7 Est GFR (CKD-EPI)AfAm 111.47 Est GFR (CKD-EPI)NonAf 96.18 POC Glucometer Random Glucose 315 H* Hemoglobin A1c % Lactic Acid Calcium 9.0 Phosphorus Magnesium Iron TIBC Iron Saturation Unsaturated IBC Total Bilirubin 0.7 AST 16 ALT 17 Alkaline Phosphatase 95 Troponin I < 0.02 Total Protein 7.8 Albumin 3.1 L Vitamin B12 TSH Alcohol, Quantitative 01/07/19 01/07/19 01/07/19 13:32 13:32 13:32 WBC RBC Hgb Hct MCV MCH MCHC RDW Plt Count MPV Absolute Neuts (auto) Neutrophils % Lymphocytes % Monocytes % Eosinophils % Basophils % Nucleated RBC % PT with INR 13.40 H INR 1.13 H PTT (Actin FS) 29.3 Sodium Potassium Chloride Carbon Dioxide Anion Gap BUN Creatinine Est GFR (CKD-EPI)AfAm Est GFR (CKD-EPI)NonAf POC Glucometer Random Glucose Hemoglobin A1c % Lactic Acid 1.8 Calcium Phosphorus Magnesium Iron TIBC Iron Saturation Unsaturated IBC Total Bilirubin AST ALT Alkaline Phosphatase Troponin I Total Protein Albumin Vitamin B12 TSH Alcohol, Quantitative 01/07/19 01/08/19 01/08/19 22:50 05:48 06:30 WBC 11.6 H RBC 4.76 Hgb 13.1 Hct 40.4 MCV 84.9 MCH 27.5 MCHC 32.4 RDW 13.2 Plt Count 294 MPV 8.5 Absolute Neuts (auto) 7.3 Neutrophils % 62.6 Lymphocytes % 23.6 D Monocytes % 10.7 H Eosinophils % 2.6 D Basophils % 0.5 Nucleated RBC % 0 PT with INR INR PTT (Actin FS) Sodium Potassium Chloride Carbon Dioxide Anion Gap BUN Creatinine Est GFR (CKD-EPI)AfAm Est GFR (CKD-EPI)NonAf POC Glucometer 305 205 Random Glucose Hemoglobin A1c % Lactic Acid Calcium Phosphorus Magnesium Iron TIBC Iron Saturation Unsaturated IBC Total Bilirubin AST ALT Alkaline Phosphatase Troponin I Total Protein Albumin Vitamin B12 TSH Alcohol, Quantitative 01/08/19 01/08/19 01/08/19 06:30 07:15 11:15 WBC RBC Hgb Hct MCV MCH MCHC RDW Plt Count MPV Absolute Neuts (auto) Neutrophils % Lymphocytes % Monocytes % Eosinophils % Basophils % Nucleated RBC % PT with INR INR PTT (Actin FS) Sodium 138 Potassium 4.6 Chloride 103 Carbon Dioxide 31 Anion Gap 4 L BUN 5.0 L Creatinine 0.6 Est GFR (CKD-EPI)AfAm 117.27 Est GFR (CKD-EPI)NonAf 101.18 POC Glucometer 186 Random Glucose 207 H Hemoglobin A1c % 12.9 H Lactic Acid Calcium 8.4 L Phosphorus 3.2 Magnesium 2.1 Iron TIBC Iron Saturation Unsaturated IBC Total Bilirubin 0.4 AST 7 L ALT 14 Alkaline Phosphatase 71 Troponin I Total Protein 6.0 L Albumin 2.3 L Vitamin B12 TSH 2.01 Alcohol, Quantitative 01/08/19 01/08/19 01/08/19 11:52 11:52 16:30 WBC RBC Hgb Hct MCV MCH MCHC RDW Plt Count MPV Absolute Neuts (auto) Neutrophils % Lymphocytes % Monocytes % Eosinophils % Basophils % Nucleated RBC % PT with INR INR PTT (Actin FS) Sodium Potassium Chloride Carbon Dioxide Anion Gap BUN Creatinine Est GFR (CKD-EPI)AfAm Est GFR (CKD-EPI)NonAf POC Glucometer 322 Random Glucose Hemoglobin A1c % Lactic Acid Calcium Phosphorus Magnesium Iron 26 L TIBC 202 L Iron Saturation 13 L Unsaturated IBC 176 Total Bilirubin AST ALT Alkaline Phosphatase Troponin I Total Protein Albumin Vitamin B12 TSH Alcohol, Quantitative < 3.0 01/08/19 01/09/19 01/09/19 21:30 05:57 06:51 WBC RBC Hgb Hct MCV MCH MCHC RDW Plt Count MPV Absolute Neuts (auto) Neutrophils % Lymphocytes % Monocytes % Eosinophils % Basophils % Nucleated RBC % PT with INR INR PTT (Actin FS) Sodium 136 Potassium 5.1 Chloride 101 Carbon Dioxide 29 Anion Gap 6 L BUN 10.9 Creatinine 0.6 Est GFR (CKD-EPI)AfAm 117.27 Est GFR (CKD-EPI)NonAf 101.18 POC Glucometer 409 398 Random Glucose 402 H* Hemoglobin A1c % Lactic Acid Calcium 9.3 Phosphorus Magnesium Iron TIBC Iron Saturation Unsaturated IBC Total Bilirubin 0.3 AST 4 L ALT 14 Alkaline Phosphatase 78 Troponin I Total Protein 6.9 Albumin 2.6 L Vitamin B12 1008 H TSH Alcohol, Quantitative 01/09/19 01/09/19 01/09/19 06:51 08:04 09:49 WBC 7.9 RBC 4.98 Hgb 13.8 Hct 42.1 MCV 84.4 MCH 27.7 MCHC 32.8 RDW 13.2 Plt Count 311 MPV 8.8 Absolute Neuts (auto) Neutrophils % Lymphocytes % Monocytes % Eosinophils % Basophils % Nucleated RBC % PT with INR INR PTT (Actin FS) Sodium Potassium Chloride Carbon Dioxide Anion Gap BUN Creatinine Est GFR (CKD-EPI)AfAm Est GFR (CKD-EPI)NonAf POC Glucometer 364 336 Random Glucose Hemoglobin A1c % Lactic Acid Calcium Phosphorus Magnesium Iron TIBC Iron Saturation Unsaturated IBC Total Bilirubin AST ALT Alkaline Phosphatase Troponin I Total Protein Albumin Vitamin B12 TSH Alcohol, Quantitative 01/09/19 01/09/19 01/09/19 12:04 16:54 18:35 WBC RBC Hgb Hct MCV MCH MCHC RDW Plt Count MPV Absolute Neuts (auto) Neutrophils % Lymphocytes % Monocytes % Eosinophils % Basophils % Nucleated RBC % PT with INR INR PTT (Actin FS) Sodium Potassium Chloride Carbon Dioxide Anion Gap BUN Creatinine Est GFR (CKD-EPI)AfAm Est GFR (CKD-EPI)NonAf POC Glucometer 319 531 Random Glucose 588 H* Hemoglobin A1c % Lactic Acid Calcium Phosphorus Magnesium Iron TIBC Iron Saturation Unsaturated IBC Total Bilirubin AST ALT Alkaline Phosphatase Troponin I Total Protein Albumin Vitamin B12 TSH Alcohol, Quantitative 01/09/19 01/09/19 01/10/19 20:49 20:53 01:58 WBC RBC Hgb Hct MCV MCH MCHC RDW Plt Count MPV Absolute Neuts (auto) Neutrophils % Lymphocytes % Monocytes % Eosinophils % Basophils % Nucleated RBC % PT with INR INR PTT (Actin FS) Sodium Potassium Chloride Carbon Dioxide Anion Gap BUN Creatinine Est GFR (CKD-EPI)AfAm Est GFR (CKD-EPI)NonAf POC Glucometer > 600 403 Random Glucose 624 H* Hemoglobin A1c % Lactic Acid Calcium Phosphorus Magnesium Iron TIBC Iron Saturation Unsaturated IBC Total Bilirubin AST ALT Alkaline Phosphatase Troponin I Total Protein Albumin Vitamin B12 TSH Alcohol, Quantitative 01/10/19 01/10/19 01/10/19 05:44 09:55 10:55 WBC 9.8 RBC 5.11 Hgb 14.1 Hct 42.1 MCV 82.4 MCH 27.6 MCHC 33.5 RDW 13.3 Plt Count 375 D MPV 8.0 Absolute Neuts (auto) Neutrophils % Lymphocytes % Monocytes % Eosinophils % Basophils % Nucleated RBC % PT with INR INR PTT (Actin FS) Sodium Potassium Chloride Carbon Dioxide Anion Gap BUN Creatinine Est GFR (CKD-EPI)AfAm Est GFR (CKD-EPI)NonAf POC Glucometer 352 211 Random Glucose Hemoglobin A1c % Lactic Acid Calcium Phosphorus Magnesium Iron TIBC Iron Saturation Unsaturated IBC Total Bilirubin AST ALT Alkaline Phosphatase Troponin I Total Protein Albumin Vitamin B12 TSH Alcohol, Quantitative 01/10/19 01/10/19 10:55 13:58 WBC RBC Hgb Hct MCV MCH MCHC RDW Plt Count MPV Absolute Neuts (auto) Neutrophils % Lymphocytes % Monocytes % Eosinophils % Basophils % Nucleated RBC % PT with INR INR PTT (Actin FS) Sodium 138 Potassium 4.6 Chloride 98 Carbon Dioxide 34 H Anion Gap 6 L BUN 16.6 Creatinine 0.8 Est GFR (CKD-EPI)AfAm 94.85 Est GFR (CKD-EPI)NonAf 81.84 POC Glucometer 216 Random Glucose 174 H Hemoglobin A1c % Lactic Acid Calcium 9.8 Phosphorus Magnesium Iron TIBC Iron Saturation Unsaturated IBC Total Bilirubin 0.2 AST 12 L ALT 17 Alkaline Phosphatase 74 Troponin I Total Protein 7.1 Albumin 2.8 L Vitamin B12 TSH Alcohol, Quantitative Active Medications Generic Name Dose Route Start Last Admin Trade Name Freq PRN Reason Stop Dose Admin Acetaminophen 650 mg 01/07/19 18:03 01/09/19 12:44 Tylenol - PO 650 mg Q4H PRN Administration PAIN LEVEL 6-10 Albuterol/Ipratropium 1 amp 01/08/19 20:00 01/10/19 16:23 Duoneb - NEB Not Given RQID GONSALO Albuterol/Ipratropium 1 amp 01/08/19 18:09 Duoneb - NEB Q4H PRN SHORTNESS OF BREATH Aspirin 81 mg 01/08/19 10:00 01/10/19 10:02 Ecotrin - PO 81 mg DAILY GONSALO Administration Divalproex Sodium 500 mg/ 750 mg 01/09/19 22:00 01/10/19 10:04 Divalproex Sodium 250 mg PO 750 mg BID GONSALO Administration Fentanyl 50 mcg 01/09/19 08:05 Sublimaze Injection - IVPUSH [id number] PRN PAIN-PACU ORDER X 4 DOSES ONLY Gabapentin 400 mg 01/09/19 10:18 01/10/19 13:32 Neurontin - PO 400 mg TID GONSALO Administration Heparin Sodium (Porcine) 5,000 unit 07/16/19 22:00 01/10/19 10:02 Heparin - SQ 5,000 unit BID GONSALO Administration Vancomycin HCl 1,000 mg in 250 mls @ 166.667 mls/hr 01/08/19 02:00 01/10/19 13:32 Vancomycin (Pre-Docked) IVPB 166.667 mls/hr Q12H GONSALO Administration Protocol Insulin Aspart 0 vial 01/09/19 22:00 01/10/19 14:03 Novolog Vial Sliding Scale - SQ 6 units Q4H GONSALO Administration Protocol Insulin Detemir 40 units 01/10/19 07:00 01/10/19 06:10 Levemir Vial SQ 40 units AM GONSALO Administration Insulin Detemir 25 units 01/09/19 22:00 01/09/19 22:59 Levemir Vial SQ 25 units HS GONSALO Administration Promethazine HCl 12.5 mg 01/09/19 08:05 Phenergan Injection - IVPUSH Q6H PRN NAUSEA-FOR RESCUE AFTER 15 MIN Thiamine HCl 250 mg 01/08/19 14:00 01/10/19 13:33 Vitamin B1 Injection - IVPB 01/11/19 13:59 250 mg TID GONSALO Administration Microbiology 01/07/19 13:40 Blood - Peripheral Venous Blood Culture - Preliminary NO GROWTH OBTAINED AFTER 72 HOURS, INCUBATION TO CONTINUE FOR 2 DAYS. 01/07/19 13:32 Blood - Peripheral Venous Blood Culture - Preliminary NO GROWTH OBTAINED AFTER 72 HOURS, INCUBATION TO CONTINUE FOR 2 DAYS. 01/07/19 14:09 Abscess Gram Stain - Final 01/07/19 14:09 Abscess Wound Culture - Final Staphylococcus Aureus 01/09/19 08:00 Arm - Right Forearm Gram Stain - Final 01/09/19 08:00 Arm - Right Forearm Wound Culture - Preliminary Staphylococcus Latex Coag Pos Condition: Stable - Instructions Diet, Activity, Other Instructions: Postoperative instructions: You had a Incsion and Drainge of Right forearm on by Dr. Drew Henry of [facility]. Wound Care: Location: right forearm dorsal aspect Size: 2X2X0.5cm cruciate Instructions: 1/" iodoform packing, 4X4 gauze, kerlex and tape. Frequency: Three times per week upon discharge Activity: Resume your usual activities gradually, but no heavy exertion or lifting more than 10-15 pounds for 4-6 weeks. Eat lightly at first, but advance to your usual diet as tolerated. Pain: For pain, you may use and alternate Tylenol (acetaminophen) 1-2 pills and/ or ibuprofen 200 mg (1-3 pills) every 6 hours each as needed; this means that you can take one OR the other at 3-hour intervals. If you are prescribed a Tylenol/narcotic combination for severe pain, use it instead of plain Tylenol as needed and switch back when your pain starts decreasing. Do not take more than 4000 mg of acetaminophen in a day. Take medications as prescribed or indicated on the labeling. Follow-up: Call Dr. Henry' office at [phone] to make your postop appointment (Sunday in approximately 1 weeks after surgery as advised). Clinic is held in the [facility] on the fifth floor of [facility]. Call the office if you have: * increasing pain not responsive to pain medication * fever of 101F or higher * unusual or increasing bleeding or drainage from wounds * increasing redness or swelling at wound sites Also, see your primary medical doctor within 1-2 weeks. Patient will have [facility] services for dressing changes follow up with PMD in 1 week of discharge follow up with Dr Henry 1 week after discharge for post surgical wound check follow up with Dr Lew for diabetes management follow up with Dr Granados for seizure management continue with antibiotics as scheduled continue with medication regimen as prescribed return to ER if fever, altered mental status, respiratory distress, chest pain Referrals: Nakul Granados MD [Staff Physician] - [place] [Primary Care Provider] - Drew Henry MD [Staff Physician] - Clarence Lew MD [Staff Physician] - Disposition: HOME - Home Medications Comprehensive Discharge Medication List: Ambulatory Orders Albuterol Sulfate Inhaler - [Ventolin HFA Inhaler -] 2 inh PO Q4H PRN 03/17/14 Azilsartan Medoxomil [Edarbi] 40 mg PO DAILY 03/17/14 Divalproex [Depakote -] 500 mg PO BID 03/17/14 Ergocalciferol [Vitamin D2] 50,000 unit PO WEEKLY 03/17/14 Sertraline HCl [Zoloft -] 25 mg PO DAILY 06/30/14 Tiotropium [place] [Spiriva] 1 inh PO DAILY 01/05/15 Gabapentin [Neurontin -] 300 mg PO Q8H 10/22/15 Mometasone/Formoterol [Dulera 200 Mcg/5 Mcg Inhaler] 2 inh IH BID 10/22/15 Aspirin [Aspirin EC] 81 mg PO DAILY 09/13/16 Liraglutide [Victoza -] 1.2 mg SQ DAILY@2000 09/13/16 Losartan/Hydrochlorothiazide [Losartan-Hctz 100-12.5 mg Tab] 1 each PO DAILY Simvastatin [Zocor -] 20 mg PO DAILY 09/13/16 Acetaminophen [Tylenol .Regular Strength -] 650 mg PO Q6H PRN #0 tablet Albuterol 2.5/Ipratropium 0.5 [Duoneb -] 1 amp NEB Q6H PRN #4 amp 09/22/16 Atorvastatin Ca [Lipitor] 20 mg PO HS tablet 09/22/16 Zolpidem Tartrate [Ambien] 5 mg PO HS PRN #0 tablet MDD 1 09/22/16 metFORMIN HCL [Glucophage -] 500 mg PO BID@0700,1630 tablet 09/22/16 oxyCODONE HCL [Roxicodone -] 10 mg PO Q6H PRN #0 tablet MDD 4 09/22/16 predniSONE [Deltasone -] 30 mg PO DAILY #6 tablet 09/22/16 Acetaminophen [Tylenol .Regular Strength -] 650 mg PO Q4H PRN tablet 01/10/19 Albuterol 2.5/Ipratropium 0.5 [Duoneb -] 1 amp NEB RQID #0 amp 01/10/19 Divalproex [Depakote -] 750 mg PO BID #60 tablet.ec 01/10/19 Gabapentin [Neurontin -] 400 mg PO TID #90 capsule 01/10/19 Insulin (Levemir) [Levemir Vial] 25 units SQ HS #1 vial 01/10/19 Insulin (Levemir) [Levemir Vial] 40 units SQ AM #1 vial 01/10/19 Sulfamethoxazole/Trimethoprim [Bactrim Ds -] 1 tab PO BID #14 tablet 01/10/19 metFORMIN HCL [Glucophage -] 500 mg PO BID@0700,1630 #60 tablet 01/10/19
--- NOTE | 2019-01-10 19:41 | PN ---
Progress Note, Physician History of Present Illness: Pt seen and examined. Events noted. She is afebrile today, without distress. No new complaints. - Current Medication List Current Medications: Active Medications Acetaminophen (Tylenol -) 650 mg PO Q4H PRN PRN Reason: PAIN LEVEL 6-10 Last Admin: 01/09/19 12:44 Dose: 650 mg Albuterol/Ipratropium (Duoneb -) 1 amp NEB RQID [facility] Last Admin: 01/10/19 16:23 Dose: Not Given Albuterol/Ipratropium (Duoneb -) 1 amp NEB Q4H PRN PRN Reason: SHORTNESS OF BREATH Aspirin (Ecotrin -) 81 mg PO DAILY [facility] Last Admin: 01/10/19 10:02 Dose: 81 mg Divalproex Sodium 500 mg/ (Divalproex Sodium 250 mg) 750 mg PO BID [facility] Last Admin: 01/10/19 10:04 Dose: 750 mg Fentanyl (Sublimaze Injection -) 50 mcg IVPUSH [id number] PRN PRN Reason: PAIN-PACU ORDER X 4 DOSES ONLY Gabapentin (Neurontin -) 400 mg PO TID [facility] Last Admin: 01/10/19 13:32 Dose: 400 mg Heparin Sodium (Porcine) (Heparin -) 5,000 unit SQ BID [facility] Last Admin: 01/10/19 10:02 Dose: 5,000 unit Vancomycin HCl (Vancomycin (Pre-Docked)) 1,000 mg in 250 mls @ 166.667 mls/hr IVPB Q12H [facility]; Protocol Last Admin: 01/10/19 13:32 Dose: 166.667 mls/hr Insulin Aspart (Novolog Vial Sliding Scale -) 0 vial SQ Q4H [facility]; Protocol Last Admin: 01/10/19 18:09 Dose: 12 units Insulin Detemir (Levemir Vial) 40 units SQ AM [facility] Last Admin: 01/10/19 06:10 Dose: 40 units Insulin Detemir (Levemir Vial) 25 units SQ HS [facility] Last Admin: 01/09/19 22:59 Dose: 25 units Promethazine HCl (Phenergan Injection -) 12.5 mg IVPUSH Q6H PRN PRN Reason: NAUSEA-FOR RESCUE AFTER 15 MIN Thiamine HCl (Vitamin B1 Injection -) 250 mg IVPB TID [facility] Stop: 01/11/19 13:59 Last Admin: 01/10/19 13:33 Dose: 250 mg - Objective Vital Signs: Vital Signs Temperature 97.9 F 01/10/19 14:39 Pulse Rate 84 01/10/19 14:39 Respiratory Rate 20 01/10/19 14:39 Blood Pressure 139/80 01/10/19 14:39 O2 Sat by Pulse Oximetry (%) 95 01/10/19 09:00 Constitutional: Yes: No Distress, Calm Cardiovascular: Yes: Regular Rate and Rhythm Respiratory: Yes: Regular Gastrointestinal: Yes: Normal Bowel Sounds, Soft Wound/Incision: Yes: Dressing Dry and Intact (Rt forearm dressing intact, mild tenderness) Neurological: Yes: Alert, Oriented Labs: CBC, BMP 01/10/19 10:55 01/10/19 10:55 INR, PTT INR 1.13 (0.83-1.09) H 01/07/19 13:32 Microbiology 01/07/19 13:40 Blood - Peripheral Venous Blood Culture - Preliminary NO GROWTH OBTAINED AFTER 72 HOURS, INCUBATION TO CONTINUE FOR 2 DAYS. 01/07/19 13:32 Blood - Peripheral Venous Blood Culture - Preliminary NO GROWTH OBTAINED AFTER 72 HOURS, INCUBATION TO CONTINUE FOR 2 DAYS. 01/07/19 14:09 Abscess Gram Stain - Final 01/07/19 14:09 Abscess Wound Culture - Final Staphylococcus Aureus 01/09/19 08:00 Arm - Right Forearm Gram Stain - Final 01/09/19 08:00 Arm - Right Forearm Wound Culture - Preliminary Staphylococcus Latex Coag Pos - ....Imaging X-ray: Report Reviewed Problem List - Problems (1) Cellulitis and abscess of upper arm and forearm Code(s): GHC2728 - (2) Diabetes type 2, uncontrolled Code(s): E11.65 - TYPE 2 DIABETES MELLITUS WITH HYPERGLYCEMIA Qualifiers: Glycemic state: with hyperglycemia Qualified Code(s): E11.65 - Type 2 diabetes mellitus with hyperglycemia (3) Acute bronchitis Code(s): J20.9 - ACUTE BRONCHITIS, UNSPECIFIED (4) COPD (chronic obstructive pulmonary disease) Code(s): J44.9 - CHRONIC OBSTRUCTIVE PULMONARY DISEASE, UNSPECIFIED (5) Essential hypertension Code(s): I10 - ESSENTIAL (PRIMARY) HYPERTENSION (6) Hepatitis C carrier Code(s): Z22.52 - (7) Obesity, Class III, BMI 40-49.9 (morbid obesity) Code(s): E66.01 - MORBID (SEVERE) OBESITY DUE TO EXCESS CALORIES (8) Seizure disorder Code(s): G40.909 - EPILEPSY, UNSP, NOT INTRACTABLE, WITHOUT STATUS EPILEPTICUS Assessment/Plan Rt forearm cellulitis/abscess s/p I+D Fever Leukocytosis -- f/u OR culture results -- continue IV antibiotics for now -- pt afebrile today, wbc normal
[2019-01-10] MEDS ORDERED: INSULIN (NOVOLOG) ASPART 100 UNITS/ML 10ML VIAL ONE (21:08)
[2019-01-10] MEDS: ACETAMINOPHEN 325 MG TABLET (FP) PO PRN (21:35)
[2019-01-11] MEDS: INSULIN SLIDING SCALE (NOVOLOG) 1 VIAL SQ SCH ×2 (01:58→06:24)
[2019-01-11] MEDS: VANCOMYCIN 1 GRAM (PRE-DOCKED) 1,000 MG/250 ML BAG IVPB SCH (01:58)
[2019-01-11 06:03] VITALS: BP 135/79; PULSE 72; TEMP 97.5
[2019-01-11] MEDS: INSULIN (LEVEMIR) 100 UNITS/ML UNITS SQ SCH (06:24)
[2019-01-11] MEDS: THIAMINE HCL 200 MG/2 ML VIAL IVPB SCH (06:26)
[2019-01-11] MEDS: GABAPENTIN 400 MG CAPSULE (FP) PO SCH (06:26)
[2019-01-11] MEDS ORDERED: ACETAMINOPHEN 325 MG TABLET (FP) PO PRN (07:13)
[2019-01-11] MEDS ORDERED: ALBUTEROL SO4 2.5/IPRATROPIUM 0.5 INH SOL 3 ML VIAL.NEB. NEB PRN (07:13)
[2019-01-11] MEDS: ALBUTEROL SO4 2.5/IPRATROPIUM 0.5 INH SOL 3 ML VIAL.NEB. NEB SCH ×2 (07:49→11:30)
[2019-01-11] MEDS: DIVALPROEX 500 MG, DIVALPROEX 250 MG PO SCH (09:55)
[2019-01-11] MEDS ORDERED: ASPIRIN COATED 81 MG TABLET.EC PO SCH (10:00)
[2019-01-11] MEDS ORDERED: HEPARIN NA (PORCINE) 5,000 UNITS/ML 1ML VIAL SQ SCH (10:00)
[2019-01-11] MEDS ORDERED: THIAMINE HCL 200 MG/2 ML VIAL IVPB SCH (14:00)
[2019-01-11] MEDS ORDERED: VANCOMYCIN 1 GRAM (PRE-DOCKED) 1,000 MG/250 ML BAG IVPB SCH (14:00)
--- NOTE | 2019-01-16 18:41 | OP ---
DATE OF OPERATION: 01/09/2019 PREOPERATIVE DIAGNOSIS: Right dorsal forearm abscess. POSTOPERATIVE DIAGNOSIS: Right dorsal forearm abscess. PROCEDURE: Incision and drainage of right dorsal forearm abscess. ATTENDING SURGEON: Drew Henry M.D. SENIOR HEALTH CONSULTANT: None. ANESTHESIOLOGIST: Gerry Yanez CRNA ANESTHESIA: Local in the form of an axillary block with MAC. SPECIMEN: Deep wound culture. ESTIMATED BLOOD LOSS: 1 mL TOURNIQUET PRESSURE: 250 mmHg TOURNIQUET TIME: 21 minutes INTRAVENOUS FLUID ADMINISTERED: 200 mL crystalloid BRIEF FINDINGS: Patient had purulent drainage dorsum of right forearm approximately 10 mL. INDICATION: Patient is a 58-year-old female uncontrolled diabetic presented with a puncture of unknown origin resulting in an abscess dorsum left forearm. She was decompressed in the ED but continued to have purulent drainage and significant cellulitis. She was counseled regarding risks, benefits, and alternatives of formal incision and drainage. She signed informed consent, and was taken for procedure. DESCRIPTION OF PROCEDURE: Patient is brought to the operating room, placed in the supine position on the operating table. The right arm extended at 90 degrees perpendicular body midline axis to shoulder. Arm was prepped and draped into the standard surgical field. She had SCDs on lower extremities. She was induced under general anesthesia, endotracheally intubated, at which point we began with a formal timeout, identifying the operative site and procedure. After completion of timeout with all parties in agreement began first with exsanguinating the arm, the right arm, inflating tourniquet to a pressure of 250 mmHg. After this was done, we began with a cruciate incision on the dorsum of the right forearm over the area of maximum fluctuance where there was already purulent drainage. This was incised and created a 2-cm x 2-cm cruciate which was then probed with the digit to break loculations. A Ray-Geeta was installed into the space to open any potential space. A culture was then sent from the deep wound. After completing the incision, we irrigated with approximately 0.5 L of sterile irrigation fluid and then obtained surgical hemostasis using Bovie cautery. After complete, the wound was then packed with 1/2-inch iodoform packing to attempt palpation of the skin, and a sterile dressing was placed. The patient was awoken from general anesthesia having tolerated procedure well, was stable throughout. She was returned to the room with plans for daily dressing changes. All instrument counts were correct. MD KAILA [id number]
== END 2019-01-11 12:17 | disposition home or self-care (01) | DRG 383 ==
LOC: JER 11:31 → JERBED 15:46 → J6S 18:27
PROVIDERS: ADMIT Family Medicine; ATTEND Family Medicine
PROC: 0J9J0ZX Drainage of Right Hand Subcutaneous Tissue and Fascia, Open Approach, Diagnostic (ICD-10-PCS; principal; 2019-01-09 08:30)
DX: L03.113 Cellulitis of right upper limb (principal); L02.413 Cutaneous abscess of right upper limb; I10 Essential (primary) hypertension; E78.5 Hyperlipidemia, unspecified; G40.909 Epilepsy, unspecified, not intractable, without status epilepticus; F10.10 Alcohol abuse, uncomplicated; G93.41 Metabolic encephalopathy; E11.42 Type 2 diabetes mellitus with diabetic polyneuropathy; J44.1 Chronic obstructive pulmonary disease with (acute) exacerbation; F14.10 Cocaine abuse, uncomplicated; E11.65 Type 2 diabetes mellitus with hyperglycemia; G25.81 Restless legs syndrome; G90.1 Familial dysautonomia [Riley-Day]; M19.90 Unspecified osteoarthritis, unspecified site; G95.29 Other cord compression; F19.10 Other psychoactive substance abuse, uncomplicated; D72.829 Elevated white blood cell count, unspecified; B95.7 Other staphylococcus as the cause of diseases classified elsewhere; G43.909 Migraine, unspecified, not intractable, without status migrainosus; F17.210 Nicotine dependence, cigarettes, uncomplicated; R50.9 Fever, unspecified; J20.9 Acute bronchitis, unspecified; E66.9 Obesity, unspecified; F31.9 Bipolar disorder, unspecified; Z79.4 Long term (current) use of insulin; Z99.81 Dependence on supplemental oxygen; Z68.34 Body mass index [BMI] 34.0-34.9, adult
CPT/HCPCS: 36415; 70551-TC; 71045-TC-FY; 72141-TC; 73090-TC-RT-FY; 80053; 80307; 82607; 82947; 82962; 83036; 83540; 83550; 83605; 83735; 84100; 84436; 84443; 84484; 85025; 85027; 85610; 85730; 87040; 87070; 87076; 87186; 87205; 94640; 94760; 97116-GP; 97161-GP; 99284-25; J0131; J1644; J7030

== ENCOUNTER 2019-07-30 21:02 | Inpatient (IN) | payer OTHER ==
[2019-07-30] MEDS ORDERED: ALBUTEROL SO4 2.5/IPRATROPIUM 0.5 INH SOL 3 ML VIAL.NEB. NEB ONE ×3 (21:10→22:59)
[2019-07-30] MEDS ORDERED: methylPREDNISolone NA SUCC 125 MG/2 ML VIAL IVPUSH ONE (21:11)
--- NOTE | 2019-07-30 21:13 | PDOC ---
Rapid Medical Evaluation Time Seen by Provider: 07/30/19 21:06 Medical Evaluation: Allergies Allergy/AdvReac Type Severity Reaction Status Date / Time No Known Allergies Allergy Verified 01/07/19 11:39 07/30/19 21:08 Pt presents for difficulty breathing for one day. Pt with COPD on home O2, did not bring her O2 to the hospital. Son states she was in her usual state of health this morning. Exam: lungs with wheezing, pt using accessory muscles to breath. O2 sat 88 Orders; labs, VBG, duonebs, steroids Pt to proceed to the ER for evaluation Discharge Disposition - Diagnosis Shortness of breath - Referrals - Patient Instructions - Post Discharge Activity
--- NOTE | 2019-07-30 21:26 | PDOC ---
Attending Attestation - Resident Resident Name: Bryan Abdul - ED Attending Attestation I have performed the following: I have examined & evaluated the patient, The case was reviewed & discussed with the resident, I agree w/resident's findings & plan - HPI HPI: 07/30/19 22:21 see resident hpi - Physicial Exam PE: 07/30/19 22:21 agree with resident exam - Medical Decision Making 07/30/19 22:21 58-year-old female with history of COPD, opiate dependent with diffuse body aches cough and shortness of breath with hypoxia on arrival at 88% on room air Patient has increased expiratory phase with rhonchi and end expiratory wheezing bilaterally Duo nebs and Solu-Medrol administered Plan for admission to medical service for further management pending additional labs, chest x-ray and EKG
--- NOTE | 2019-07-30 21:32 | PDOC ---
History of Present Illness - General Chief Complaint: Respiratory Distress Stated Complaint: HEADACHE FEVER Time Seen by Provider: 07/30/19 21:06 - History of Present Illness Initial Comments: 07/30/19 21:32 Ms. Otoole is a 58 yo female w/ pmh of asthma, COPD (on home O2), IDDM, HTN, HLD , epilepsy, ETOH/cocaine abuse in past, on methadone who presents for evaluation of shortness of breath today. Patient reports she was in her normal state of health when she woke this AM however became very short of breath upon getting home from her methadone program today. Denies any drug use. Denies any other symptoms beyond shortness of breath. The patient denies chest pain, shortness of breath, headache and dizziness. Denies fever, chills, nausea, vomit, diarrhea and constipation. Denies dysuria, frequency, urgency and hematuria. Past History - Past Medical History Allergies/Adverse Reactions: Allergies Allergy/AdvReac Type Severity Reaction Status Date / Time No Known Allergies Allergy Verified 01/07/19 11:39 Home Medications: Ambulatory Orders Albuterol Sulfate Inhaler - [Ventolin HFA Inhaler -] 2 inh PO Q4H PRN 03/17/14 Azilsartan Medoxomil [Edarbi] 40 mg PO DAILY 03/17/14 Divalproex [Depakote -] 500 mg PO BID 03/17/14 Ergocalciferol [Vitamin D2] 50,000 unit PO WEEKLY 03/17/14 Sertraline HCl [Zoloft -] 25 mg PO DAILY 06/30/14 Tiotropium [place] [Spiriva] 1 inh PO DAILY 01/05/15 Gabapentin [Neurontin -] 300 mg PO Q8H 10/22/15 Mometasone/Formoterol [Dulera 200 Mcg/5 Mcg Inhaler] 2 inh IH BID 10/22/15 Aspirin [Aspirin EC] 81 mg PO DAILY 09/13/16 Liraglutide [Victoza -] 1.2 mg SQ DAILY@199909/13/16 Losartan/Hydrochlorothiazide [Losartan-Hctz 100-12.5 mg Tab] 1 each PO DAILY Simvastatin [Zocor -] 20 mg PO DAILY 09/13/16 Acetaminophen [Tylenol .Regular Strength -] 650 mg PO Q6H PRN #0 tablet Albuterol 2.5/Ipratropium 0.5 [Duoneb -] 1 amp NEB Q6H PRN #4 amp 09/22/16 Atorvastatin Ca [Lipitor] 20 mg PO HS tablet 09/22/16 Zolpidem Tartrate [Ambien] 5 mg PO HS PRN #0 tablet MDD 1 09/22/16 metFORMIN HCL [Glucophage -] 500 mg PO BID@0700,1630 tablet 09/22/16 oxyCODONE HCL [Roxicodone -] 10 mg PO Q6H PRN #0 tablet MDD 4 09/22/16 predniSONE [Deltasone -] 30 mg PO DAILY #6 tablet 09/22/16 Acetaminophen [Tylenol .Regular Strength -] 650 mg PO Q4H PRN tablet 01/10/19 Albuterol 2.5/Ipratropium 0.5 [Duoneb -] 1 amp NEB RQID #0 amp 01/10/19 Divalproex [Depakote -] 750 mg PO BID #60 tablet.ec 01/10/19 Gabapentin [Neurontin -] 400 mg PO TID #90 capsule 01/10/19 Insulin (Levemir) [Levemir Vial] 25 units SQ HS #1 vial 01/10/19 Insulin (Levemir) [Levemir Vial] 40 units SQ AM #1 vial 01/10/19 Sulfamethoxazole/Trimethoprim [Bactrim Ds -] 1 tab PO BID #14 tablet 01/10/19 metFORMIN HCL [Glucophage -] 500 mg PO BID@0700,1630 #60 tablet 01/10/19 Anemia: No Asthma: Yes Cancer: No Cardiac Disorders: No CVA: No COPD: Yes (Bronchitis) CHF: Yes Dementia: No Diabetes: Yes GI Disorders: No Disorders: No HTN: Yes Hypercholesterolemia: Yes Kidney Stones: No Liver Disease: No Seizures: Yes Thyroid Disease: Yes - Reproductive History PID: No - Immunization History Immunization Up to Date: Yes - Psycho Social/Smoking Cessation Hx Smoking History: Current every day smoker Have you smoked in the past 12 months: Yes Number of Cigarettes Smoked Daily: 30 Cigars Per Day: 0 Information on smoking cessation initiated: No 'Breaking Loose' booklet given: 09/13/16 Hx Alcohol Use: No Drug/Substance Use Hx: No Substance Use Type: Alcohol, Cocaine, Heroin Hx Substance Use Treatment: No Review of Systems - Review of Systems Comments:: 07/30/19 21:34 GENERAL/CONSTITUTIONAL: No fever or chills. No weakness. HEAD, EYES, EARS, NOSE AND THROAT: No change in vision. No ear pain or discharge. No sore throat. CARDIOVASCULAR: +SOB x1 day only. No chest pain RESPIRATORY: No cough, wheezing, or hemoptysis. GASTROINTESTINAL: No nausea, vomiting, diarrhea or constipation. GENITOURINARY: No dysuria, frequency, or change in urination. MUSCULOSKELETAL: No joint or muscle swelling or pain. No neck or back pain. SKIN: No rash NEUROLOGIC: No headache, vertigo, loss of consciousness, or change in strength/ sensation. ENDOCRINE: No increased thirst. No abnormal weight change HEMATOLOGIC/LYMPHATIC: No anemia, easy bleeding, or history of blood clots. ALLERGIC/IMMUNOLOGIC: No hives or skin allergy. *Physical Exam - Vital Signs Last Vital Signs Temp Pulse Resp BP Pulse Ox 99.3 F 110 H 32 H 130/61 88 L 07/30/19 21:08 07/30/19 21:08 07/30/19 21:08 07/30/19 21:08 07/30/19 21:08 - Physical Exam 07/30/19 21:34 GENERAL: Awake, alert, and fully oriented, in no acute distress HEAD: No signs of trauma, normocephalic, atraumatic EYES: PERRLA, EOMI, sclera anicteric, conjunctiva clear ENT: Auricles normal inspection, hearing grossly normal, nares patent, oropharynx clear without exudates. Moist mucosa NECK: Normal ROM, supple, no lymphadenopathy, JVD, or masses LUNGS: +Diffuse wheezes appreciated. Patient on non-rebreather. HEART: Regular rate and rhythm, normal S1 and S2, no murmurs, rubs or gallops, peripheral pulses normal and equal bilaterally. ABDOMEN: Soft, nontender, normoactive bowel sounds. No guarding, no rebound. No masses EXTREMITIES: Normal inspection, Normal range of motion, no edema. No clubbing or cyanosis. NEUROLOGICAL: Cranial nerves II through XII grossly intact. Normal speech, normal gait, no focal sensorimotor deficits SKIN: Warm, Dry, normal turgor, no rashes or lesions noted. ED Treatment Course - LABORATORY CBC & Chemistry Diagram: 07/30/19 21:25 07/30/19 21:25 Medical Decision Making - Medical Decision Making 07/30/19 22:56 is a 58 yo female w/ pmh as described who presents for evaluation of symptoms c/w COPD exacerbation vs. pneumonia vs. fluid overload. Patient placed on BiPAP for respiratory support and workup started for further elucidation of symptoms. EKG normal sinus rate/rhythm, normal access, normal intervals, no ST elevations or depressions. CXR negative for collection. Patient will be admitted for COPD exacerbation. Laboratory Results - last 24 hr 07/30/19 07/30/19 07/30/19 21:25 21:25 21:25 WBC 19.8 H RBC 5.31 H Hgb 14.1 Hct 43.9 MCV 82.6 MCH 26.5 MCHC 32.1 RDW 15.6 Plt Count 267 D MPV 8.1 Absolute Neuts (auto) 14.9 H Neutrophils % 75.2 D Lymphocytes % 15.3 D Monocytes % 7.9 Eosinophils % 1.3 Basophils % 0.3 Nucleated RBC % 0 PT with INR 13.30 H INR 1.13 H Anticoagulation Therapy Puncture Site ABG pH ABG pCO2 at Pt Temp ABG pO2 at Pt Temp ABG HCO3 ABG O2 Sat (Measured) ABG O2 Content ABG Base Excess Ricardo Test Carboxyhemoglobin Methemoglobin O2 Delivery Device Oxygen Flow Rate Vent Mode Vent Rate Mechanical Rate Pressure Support Vent Sodium Potassium Chloride Carbon Dioxide Anion Gap BUN Creatinine Est GFR (CKD-EPI)AfAm Est GFR (CKD-EPI)NonAf Random Glucose Lactic Acid Calcium Total Bilirubin AST ALT Alkaline Phosphatase Creatine Kinase 38 Troponin I < 0.02 B-Natriuretic Peptide 50.9 Total Protein Albumin 07/30/19 07/30/19 07/30/19 21:25 21:42 21:50 WBC RBC Hgb Hct MCV MCH MCHC RDW Plt Count MPV Absolute Neuts (auto) Neutrophils % Lymphocytes % Monocytes % Eosinophils % Basophils % Nucleated RBC % PT with INR INR Anticoagulation Therapy No Result Required. Puncture Site Left radial ABG pH 7.37 ABG pCO2 at Pt Temp 51.5 H ABG pO2 at Pt Temp 129 H ABG HCO3 29.3 H ABG O2 Sat (Measured) 98.2 H ABG O2 Content 19.4 ABG Base Excess 3.5 H Ricardo Test Positive Carboxyhemoglobin 1.7 Methemoglobin 1.0 O2 Delivery Device Bipap Oxygen Flow Rate 60 Vent Mode S/t Vent Rate 14 Mechanical Rate No Result Required. Pressure Support Vent 10/5 Sodium 135 L Potassium 4.5 Chloride 99 Carbon Dioxide 28 Anion Gap 8 BUN 13.6 Creatinine 0.8 Est GFR (CKD-EPI)AfAm 94.85 Est GFR (CKD-EPI)NonAf 81.84 Random Glucose 110 H Lactic Acid 0.9 Calcium 9.2 Total Bilirubin 0.8 AST 15 ALT 21 Alkaline Phosphatase 98 Creatine Kinase Troponin I B-Natriuretic Peptide Total Protein 8.0 Albumin 3.7 Discharge - Discharge Information Problems reviewed: Yes Clinical Impression/Diagnosis: Shortness of breath, COPD exacerbation - Admission Yes - Follow up/Referral Referrals: Rancho Joseph [Primary Care Provider] - - Patient Discharge Instructions - Post Discharge Activity
[2019-07-30] MEDS ORDERED: methylPREDNISolone NA SUCC 125 MG/2 ML VIAL ONE (21:51)
[2019-07-30 22:06] LABS: ARTERIAL BLD GAS O2 SATURATION 98.2 % (95-98); ARTERIAL BLOOD GAS BASE EXCESS 3.5 meq/l (-2-2); ARTERIAL BLOOD GAS PCO2 51.5 mmHg (35-45); ARTERIAL BLOOD GAS PO2 129 mmHg (80-100); ARTERIAL BLOOD GAS pH 7.37 (7.35-7.45); CARBOXYHEMOGLOBIN 1.7 % (0-2)
[2019-07-30] MEDS: ALBUTEROL SO4 2.5/IPRATROPIUM 0.5 INH SOL 3 ML VIAL.NEB. NEB SCH ×3 (22:08→23:02)
[2019-07-30 22:10] LABS: ALLENS TEST POSITIVE
[2019-07-30 22:18] LABS: BASO % 0.3 % (0-2.0); EOS % 1.3 % (0-4.5); HEMATOCRIT 43.9 % (32.4-45.2); HEMOGLOBIN 14.1 GM/dL (10.7-15.3); LYMPH % 15.3 % (8-40); MCH 26.5 pg (25.7-33.7); MCHC 32.1 g/dl (32.0-36.0); MEAN CELL VOLUME 82.6 fl (80-96); MEAN PLT VOLUME 8.1 fl (7.5-11.1); MONO % 7.9 % (3.8-10.2); NEUT % 75.2 % (42.8-82.8); PLATELET COUNT 267 K/MM3 (134-434); RBC 5.31 M/mm3 (3.60-5.2); RDW 15.6 % (11.6-15.6); WHITE BLOOD COUNT 19.8 K/mm3 (4.0-10.0)
[2019-07-30 22:36] LABS: INR 1.13 (0.83-1.09); PROTHROMBIN TIME (PATIENT) 13.3 SEC (9.7-13.0)
[2019-07-30 22:48] LABS: N-TERMINAL BNP 50.9 pg/ml (5-125)
[2019-07-30 22:53] LABS: ALBUMIN 3.7 g/dl (3.4-5.0); BILIRUBIN,TOTAL 0.8 mg/dL (0.2-1); BLOOD UREA NITROGEN 13.6 mg/dL (7-18); CALCIUM 9.2 mg/dL (8.5-10.1); CREATININE 0.8 mg/dL (0.55-1.3); POTASSIUM 4.5 mmol/L (3.5-5.1)
[2019-07-30] MEDS ORDERED: PIPERACILLIN/TAZOB 4.5 GM 4.5 GM/100 ML BAG IVPB ONE (23:21)
[2019-07-30] MEDS ORDERED: ALBUTEROL SO4 2.5/IPRATROPIUM 0.5 INH SOL 3 ML VIAL.NEB. NEB PRN (23:21)
--- NOTE | 2019-07-30 23:25 | HP ---
Admitting History and Physical - Primary Care Physician PCP: Rancho Joseph - Admission Chief Complaint: SOB History of Present Illness: This is a 58 y/o woman with a PMHx of Asthma, COPD (on home O2), HTN, HLD, Epilepsy, IDDM, Former Polysubstance Abuse Alcohol, Cocaine, Heroin (on Methadone). Who presents to the ED with SOB, fever x today. Patient reports after getting home from the methadone clinic, she became SOB. She reports feeling non-ill in the am. Patient denies dizziness, HERNANDEZ, CP, palpitations, AP, N /V/D, constipation, dysuria. Patient denies recent sick contact or travel. History Source: Patient Limitations to Obtaining History: No Limitations - Past Medical History Pulmonary: Yes: Asthma, Bronchitis, COPD, Pneumonia, Other (Probable sleep apnea ). No: O2 Dependent, Previously Intubated, Pulmonary Embolus ...LMP: 07/04/10 - Smoking History Smoking history: Current every day smoker Have you smoked in the past 12 months: Yes Aproximately how many cigarettes per day: 30 - Alcohol/Substance Use Hx Alcohol Use: No History of Substance Use: reports: Cocaine, Heroin - Social History Usual Living Arrangement: Yes: Alone ADL: Independent History of Recent Travel: No Home Medications - Allergies Allergies/Adverse Reactions: Allergies Allergy/AdvReac Type Severity Reaction Status Date / Time No Known Allergies Allergy Verified 01/07/19 11:39 - Home Medications Home Medications: Ambulatory Orders Albuterol Sulfate Inhaler - [Ventolin HFA Inhaler -] 2 inh PO Q4H PRN 03/17/14 Azilsartan Medoxomil [Edarbi] 40 mg PO DAILY 03/17/14 Divalproex [Depakote -] 500 mg PO BID 03/17/14 Ergocalciferol [Vitamin D2] 50,000 unit PO WEEKLY 03/17/14 Sertraline HCl [Zoloft -] 25 mg PO DAILY 06/30/14 Tiotropium [place] [Spiriva] 1 inh PO DAILY 01/05/15 Gabapentin [Neurontin -] 300 mg PO Q8H 10/22/15 Mometasone/Formoterol [Dulera 200 Mcg/5 Mcg Inhaler] 2 inh IH BID 10/22/15 Aspirin [Aspirin EC] 81 mg PO DAILY 09/13/16 Liraglutide [Victoza -] 1.2 mg SQ DAILY@199909/13/16 Losartan/Hydrochlorothiazide [Losartan-Hctz 100-12.5 mg Tab] 1 each PO DAILY Simvastatin [Zocor -] 20 mg PO DAILY 09/13/16 Acetaminophen [Tylenol .Regular Strength -] 650 mg PO Q6H PRN #0 tablet Albuterol 2.5/Ipratropium 0.5 [Duoneb -] 1 amp NEB Q6H PRN #4 amp 09/22/16 Atorvastatin Ca [Lipitor] 20 mg PO HS tablet 09/22/16 Zolpidem Tartrate [Ambien] 5 mg PO HS PRN #0 tablet MDD 1 09/22/16 metFORMIN HCL [Glucophage -] 500 mg PO BID@0700,1630 tablet 09/22/16 oxyCODONE HCL [Roxicodone -] 10 mg PO Q6H PRN #0 tablet MDD 4 09/22/16 predniSONE [Deltasone -] 30 mg PO DAILY #6 tablet 09/22/16 Acetaminophen [Tylenol .Regular Strength -] 650 mg PO Q4H PRN tablet 01/10/19 Albuterol 2.5/Ipratropium 0.5 [Duoneb -] 1 amp NEB RQID #0 amp 01/10/19 Divalproex [Depakote -] 750 mg PO BID #60 tablet.ec 01/10/19 Gabapentin [Neurontin -] 400 mg PO TID #90 capsule 01/10/19 Insulin (Levemir) [Levemir Vial] 25 units SQ HS #1 vial 01/10/19 Insulin (Levemir) [Levemir Vial] 40 units SQ AM #1 vial 01/10/19 Sulfamethoxazole/Trimethoprim [Bactrim Ds -] 1 tab PO BID #14 tablet 01/10/19 metFORMIN HCL [Glucophage -] 500 mg PO BID@0700,1630 #60 tablet 01/10/19 Methadone (Detox) 100 mg PO DAILY 07/31/19 Family Medical History Family History: Unable to Obtain Review of Systems - Review of Systems Constitutional: reports: No Symptoms Eyes: reports: No Symptoms HENT: reports: No Symptoms Neck: reports: No Symptoms Cardiovascular: reports: Shortness of Breath Respiratory: reports: Cough, SOB, SOB on Exertion Gastrointestinal: reports: No Symptoms Genitourinary: reports: No Symptoms Breasts: reports: No Symptoms Reported Musculoskeletal: reports: No Symptoms Integumentary: reports: No Symptoms Neurological: reports: No Symptoms Endocrine: reports: No Symptoms Hematology/Lymphatic: reports: No Symptoms Psychiatric: reports: No Symptoms Pain Intensity: 0 Physical Examination Vital Signs: Vital Signs Temperature 99.3 F 07/30/19 21:08 Pulse Rate 110 H 07/30/19 21:08 Respiratory Rate 32 H 07/30/19 21:08 Blood Pressure 130/61 07/30/19 21:08 O2 Sat by Pulse Oximetry (%) 88 L 07/30/19 21:08 Constitutional: Yes: No Distress, Calm, Obese Eyes: Yes: WNL, Conjunctiva Clear, EOM Intact, PERRL HENT: Yes: WNL, Atraumatic, Normocephalic Neck: Yes: WNL, Supple, Trachea Midline Cardiovascular: Yes: Regular Rate and Rhythm, S1, S2 Respiratory: Yes: Diminished, On BiPap, SOB, Wheezes Gastrointestinal: Yes: WNL, Normal Bowel Sounds, Soft, Abdomen, Obese ...Rectal Exam: Yes: Deferred Renal/: Yes: WNL Breast(s): Yes: WNL Musculoskeletal: Yes: WNL Extremities: Yes: WNL Edema: No Peripheral Pulses WNL: Yes Integumentary: Yes: WNL Neurological: Yes: Lethargy ...Motor Strength: WNL Labs: CBC, BMP 07/30/19 21:25 07/30/19 21:25 Laboratory Results - last 24 hr 07/30/19 07/30/19 07/30/19 21:25 21:25 21:25 WBC 19.8 H RBC 5.31 H Hgb 14.1 Hct 43.9 MCV 82.6 MCH 26.5 MCHC 32.1 RDW 15.6 Plt Count 267 D MPV 8.1 Absolute Neuts (auto) 14.9 H Neutrophils % 75.2 D Lymphocytes % 15.3 D Monocytes % 7.9 Eosinophils % 1.3 Basophils % 0.3 Nucleated RBC % 0 PT with INR 13.30 H INR 1.13 H Anticoagulation Therapy Puncture Site ABG pH ABG pCO2 at Pt Temp ABG pO2 at Pt Temp ABG HCO3 ABG O2 Sat (Measured) ABG O2 Content ABG Base Excess Ricardo Test Carboxyhemoglobin Methemoglobin O2 Delivery Device Oxygen Flow Rate Vent Mode Vent Rate Mechanical Rate Pressure Support Vent Sodium Potassium Chloride Carbon Dioxide Anion Gap BUN Creatinine Est GFR (CKD-EPI)AfAm Est GFR (CKD-EPI)NonAf Random Glucose Lactic Acid Calcium Total Bilirubin AST ALT Alkaline Phosphatase Creatine Kinase 38 Troponin I < 0.02 B-Natriuretic Peptide 50.9 Total Protein Albumin Influenza A (Rapid) Influenza B (Rapid) 07/30/19 07/30/19 07/30/19 21:25 21:42 21:50 WBC RBC Hgb Hct MCV MCH MCHC RDW Plt Count MPV Absolute Neuts (auto) Neutrophils % Lymphocytes % Monocytes % Eosinophils % Basophils % Nucleated RBC % PT with INR INR Anticoagulation Therapy No Result Required. Puncture Site Left radial ABG pH 7.37 ABG pCO2 at Pt Temp 51.5 H ABG pO2 at Pt Temp 129 H ABG HCO3 29.3 H ABG O2 Sat (Measured) 98.2 H ABG O2 Content 19.4 ABG Base Excess 3.5 H Ricardo Test Positive Carboxyhemoglobin 1.7 Methemoglobin 1.0 O2 Delivery Device Bipap Oxygen Flow Rate 60 Vent Mode S/t Vent Rate 14 Mechanical Rate No Result Required. Pressure Support Vent 10/5 Sodium 135 L Potassium 4.5 Chloride 99 Carbon Dioxide 28 Anion Gap 8 BUN 13.6 Creatinine 0.8 Est GFR (CKD-EPI)AfAm 94.85 Est GFR (CKD-EPI)NonAf 81.84 Random Glucose 110 H Lactic Acid 0.9 Calcium 9.2 Total Bilirubin 0.8 AST 15 ALT 21 Alkaline Phosphatase 98 Creatine Kinase Troponin I B-Natriuretic Peptide Total Protein 8.0 Albumin 3.7 Influenza A (Rapid) Influenza B (Rapid) 07/30/19 23:00 WBC RBC Hgb Hct MCV MCH MCHC RDW Plt Count MPV Absolute Neuts (auto) Neutrophils % Lymphocytes % Monocytes % Eosinophils % Basophils % Nucleated RBC % PT with INR INR Anticoagulation Therapy Puncture Site ABG pH ABG pCO2 at Pt Temp ABG pO2 at Pt Temp ABG HCO3 ABG O2 Sat (Measured) ABG O2 Content ABG Base Excess Ricardo Test Carboxyhemoglobin Methemoglobin O2 Delivery Device Oxygen Flow Rate Vent Mode Vent Rate Mechanical Rate Pressure Support Vent Sodium Potassium Chloride Carbon Dioxide Anion Gap BUN Creatinine Est GFR (CKD-EPI)AfAm Est GFR (CKD-EPI)NonAf Random Glucose Lactic Acid Calcium Total Bilirubin AST ALT Alkaline Phosphatase Creatine Kinase Troponin I B-Natriuretic Peptide Total Protein Albumin Influenza A (Rapid) Negative Influenza B (Rapid) Negative Intake & Output 07/28/19 07/29/19 07/30/19 07/31/19 23:59 23:59 23:59 23:59 Weight 83.915 kg Imaging - Results Chest X-ray: Report Reviewed, Image Reviewed EKG: Image Reviewed Problem List - Problems (1) COPD exacerbation Assessment/Plan: Continue Bipap titrate with ABG Appreciate Pulm consult Chest Xray image reviewed- no infiltrate or effusion appreciated, awaiting official read WBC 19.8 Blood Cultures-pending Levofloxacin given in ED, will continue Monitor CBC, BMP Monitor vitals Duonebs Continue solumederol w/taper O2 Code(s): J44.1 - CHRONIC OBSTRUCTIVE PULMONARY DISEASE W (ACUTE) EXACERBATION (2) Shortness of breath Assessment/Plan: see above Code(s): R06.02 - SHORTNESS OF BREATH (3) Diabetes Assessment/Plan: stable BGMs ISS Monitor BMP Code(s): E11.9 - TYPE 2 DIABETES MELLITUS WITHOUT COMPLICATIONS Qualifiers: Diabetes mellitus type: type 2 (4) Essential hypertension Assessment/Plan: stable Monitor BP Continue home med Code(s): I10 - ESSENTIAL (PRIMARY) HYPERTENSION (5) Bipolar 1 disorder Assessment/Plan: stable Continue home med Code(s): F31.9 - BIPOLAR DISORDER, UNSPECIFIED (6) Seizure disorder Assessment/Plan: stable No seizure activity Continue home meds Depakote level in am Code(s): G40.909 - EPILEPSY, UNSP, NOT INTRACTABLE, WITHOUT STATUS EPILEPTICUS (7) Hepatitis C carrier Code(s): Z22.52 - (8) Methadone maintenance therapy patient Assessment/Plan: Continue methadone when verified at [facility] in the am Code(s): F11.20 - OPIOID DEPENDENCE, UNCOMPLICATED Assessment/Plan This is a 58 y/o woman with a PMHx of Asthma, COPD (on home O2), HTN, HLD, Epilepsy, IDDM, Former Polysubstance Abuse Alcohol, Cocaine, Heroin (on Methadone). Adimitted for Acute COPD Exacerbation for further evaluation of their emergent condition. Plan: See Problem List FEN Replete lytes prn Low Na, Diabetic Diet DVT ppx OOB SCDs Heparin SQ Dispo: Requires Inpatient Care Visit type - Emergency Visit Emergency Visit: Yes ED Registration Date: 07/30/19 Care time: The patient presented to the Emergency Department on the above date and was hospitalized for further evaluation of their emergent condition. - New Patient This patient is new to me today: Yes Date on this admission: 07/30/19 - Critical Care Critical Care patient: No
[2019-07-31] MEDS ORDERED: methylPREDNISolone NA SUCC 40 MG/1 ML VIAL ONE (01:47)
[2019-07-31] MEDS: methylPREDNISolone NA SUCC 40 MG/1 ML VIAL IVPUSH SCH ×3 (03:03→17:37)
[2019-07-31 05:29] VITALS: BMI 33.3
--- NOTE | 2019-07-31 09:35 | PN ---
Progress Note, Physician Chief Complaint: SOB COPD Exacerbation History of Present Illness: Previous notes and events reviewed awake and alert NAD sts her breathing is better but continue with SOB denies chest pain or dizziness BC pending Influenza neg - Current Medication List Current Medications: Active Medications Albuterol/Ipratropium (Duoneb -) 1 amp NEB Q6H PRN PRN Reason: SHORTNESS OF BREATH Aspirin (Ecotrin -) 81 mg PO DAILY [place] Atorvastatin Calcium (Lipitor -) 20 mg PO HS [place] Divalproex Sodium 500 mg/ (Divalproex Sodium 250 mg) 750 mg PO BID [place] Gabapentin (Neurontin -) 400 mg PO TID [place] Heparin Sodium (Porcine) (Heparin -) 5,000 unit SQ BID [place] Levofloxacin (Levaquin 500 Mg Premixed Ivpb -) 500 mg in 100 mls @ 100 mls/hr IVPB DAILY [facility]; Protocol Influenza Virus Vaccine Quadrival (Flulaval Quad ) 60 mcg IM .ONCE ONE Stop: 07/31/19 10:01 Methylprednisolone Sodium Succinate (Solu-Medrol -) 40 mg IVPUSH Q8H-IV GONSALO Last Admin: 07/31/19 03:03 Dose: 40 mg Non-Formulary Medication (Methadone (Detox)) 100 mg PO DAILY [place] Sertraline HCl (Zoloft -) 25 mg PO DAILY [facility] - Objective Vital Signs: Vital Signs Temperature 97.3 F L 07/31/19 05:20 Pulse Rate 58 L 07/31/19 05:20 Respiratory Rate 20 07/31/19 05:36 Blood Pressure 135/65 07/31/19 05:20 O2 Sat by Pulse Oximetry (%) 100 07/31/19 04:27 Constitutional: Yes: No Distress, Calm Eyes: Yes: Conjunctiva Clear HENT: Yes: Atraumatic Cardiovascular: Yes: Regular Rate and Rhythm Respiratory: Yes: Regular, Cough, Rhonchi, SOB Gastrointestinal: Yes: Normal Bowel Sounds, Soft Musculoskeletal: Yes: Muscle Weakness Extremities: Yes: WNL Edema: No Neurological: Yes: Alert, Oriented Psychiatric: Yes: Alert, Oriented Labs: CBC, BMP 07/30/19 21:25 07/30/19 21:25 INR, PTT INR 1.13 (0.83-1.09) H 07/30/19 21:25 Problem List - Problems (1) COPD exacerbation Assessment/Plan: -Pulmonary on board -bronchodilators -keep SpO2 >90% -O2 via NC prn -Bipap prn -IV Medrol -CXR shows no acute chest pathology Code(s): J44.1 - CHRONIC OBSTRUCTIVE PULMONARY DISEASE W (ACUTE) EXACERBATION (2) Bipolar 1 disorder Assessment/Plan: -Depakote, Zoloft Code(s): F31.9 - BIPOLAR DISORDER, UNSPECIFIED (3) Diabetes Assessment/Plan: -BGM ACHS -ISS -HgA1c Code(s): E11.9 - TYPE 2 DIABETES MELLITUS WITHOUT COMPLICATIONS Qualifiers: Diabetes mellitus type: type 2 (4) Essential hypertension Assessment/Plan: -low Na diet -Losartan/HCTZ Code(s): I10 - ESSENTIAL (PRIMARY) HYPERTENSION (5) Methadone maintenance therapy patient Assessment/Plan: -Methadone 100mg daily Code(s): F11.20 - OPIOID DEPENDENCE, UNCOMPLICATED (6) Seizure disorder Assessment/Plan: -Depakote Code(s): G40.909 - EPILEPSY, UNSP, NOT INTRACTABLE, WITHOUT STATUS EPILEPTICUS (7) Acute bronchitis Assessment/Plan: -ID consult -Pulmonary consult -leukocytosis -afebrile -discontinue Levaquin due to risk of lowering seizure threshold -bronchodilators -keep SpO2 >90% -O2 via NC -CXR shows no acute pathology -sputum culture -BC pending Code(s): J20.9 - ACUTE BRONCHITIS, UNSPECIFIED Assessment/Plan see problem list dvt ppx
--- NOTE | 2019-07-31 09:40 | CON.PULM ---
Consult Consult Specialty:: PULM/CCM Referred by:: SLOAN Reason for Consultation:: SOB - History of Present Illness Chief Complaint: SOB History of Present Illness: 58 F, questionable history of asthma but more likely COPD due to prolonged and active smoking history (now 1/2 PPD) (on home O2), HTN, HLD, Epilepsy, IDDM, Former Polysubstance Abuse (Alcohol, Cocaine, Heroin) now on Methadone maintenance. Admitted via the ER due to progressive cough, SOB, fever x 1 to 2 days. No travel history or sick contacts. No hemoptysis or night sweats. CXR: no acute findings - History Source History Provided By: Patient Limitations to Obtaining History: No Limitations - Past Medical History Pulmonary: Yes: Bronchitis, COPD, O2 Dependent, Pneumonia, Other (Probable sleep apnea ). No: Cancer, Previously Intubated, Pulmonary Embolus, Sleep Apnea ...LMP: 07/04/10 - Alcohol/Substance Use Hx Alcohol Use: No History of Substance Use: reports: Cocaine, Heroin - Smoking History Smoking history: Current every day smoker Have you smoked in the past 12 months: Yes Aproximately how many cigarettes per day: 30 - Social History ADL: Independent History of Recent Travel: No Home Medications - Allergies Allergies/Adverse Reactions: Allergies Allergy/AdvReac Type Severity Reaction Status Date / Time No Known Allergies Allergy Verified 01/07/19 11:39 - Home Medications Home Medications: Ambulatory Orders Albuterol Sulfate Inhaler - [Ventolin HFA Inhaler -] 2 inh PO Q4H PRN 03/17/14 Azilsartan Medoxomil [Edarbi] 40 mg PO DAILY 03/17/14 Divalproex [Depakote -] 500 mg PO BID 03/17/14 Ergocalciferol [Vitamin D2] 50,000 unit PO WEEKLY 03/17/14 Sertraline HCl [Zoloft -] 25 mg PO DAILY 06/30/14 Tiotropium [place] [Spiriva] 1 inh PO DAILY 01/05/15 Gabapentin [Neurontin -] 300 mg PO Q8H 10/22/15 Mometasone/Formoterol [Dulera 200 Mcg/5 Mcg Inhaler] 2 inh IH BID 10/22/15 Aspirin [Aspirin EC] 81 mg PO DAILY 09/13/16 Liraglutide [Victoza -] 1.2 mg SQ DAILY@199909/13/16 Losartan/Hydrochlorothiazide [Losartan-Hctz 100-12.5 mg Tab] 1 each PO DAILY Simvastatin [Zocor -] 20 mg PO DAILY 09/13/16 Acetaminophen [Tylenol .Regular Strength -] 650 mg PO Q6H PRN #0 tablet Albuterol 2.5/Ipratropium 0.5 [Duoneb -] 1 amp NEB Q6H PRN #4 amp 09/22/16 Atorvastatin Ca [Lipitor] 20 mg PO HS tablet 09/22/16 Zolpidem Tartrate [Ambien] 5 mg PO HS PRN #0 tablet MDD 1 09/22/16 metFORMIN HCL [Glucophage -] 500 mg PO BID@0700,1630 tablet 09/22/16 oxyCODONE HCL [Roxicodone -] 10 mg PO Q6H PRN #0 tablet MDD 4 09/22/16 predniSONE [Deltasone -] 30 mg PO DAILY #6 tablet 09/22/16 Acetaminophen [Tylenol .Regular Strength -] 650 mg PO Q4H PRN tablet 01/10/19 Albuterol 2.5/Ipratropium 0.5 [Duoneb -] 1 amp NEB RQID #0 amp 01/10/19 Divalproex [Depakote -] 750 mg PO BID #60 tablet.ec 01/10/19 Gabapentin [Neurontin -] 400 mg PO TID #90 capsule 01/10/19 Insulin (Levemir) [Levemir Vial] 25 units SQ HS #1 vial 01/10/19 Insulin (Levemir) [Levemir Vial] 40 units SQ AM #1 vial 01/10/19 Sulfamethoxazole/Trimethoprim [Bactrim Ds -] 1 tab PO BID #14 tablet 01/10/19 metFORMIN HCL [Glucophage -] 500 mg PO BID@0700,1630 #60 tablet 01/10/19 Methadone (Detox) 100 mg PO DAILY 07/31/19 Review of Systems - Review of Systems Constitutional: reports: Fever, Malaise, Weakness. denies: Night Sweats Eyes: reports: No Symptoms HENT: reports: No Symptoms Neck: reports: No Symptoms Cardiovascular: reports: Shortness of Breath. denies: Chest Pain, Edema, Palpitations Respiratory: reports: Cough, SOB, SOB on Exertion, Wheezing. denies: Hemoptysis , Orthopnea, PND, Snoring Gastrointestinal: reports: No Symptoms Genitourinary: reports: No Symptoms Breasts: reports: No Symptoms Reported Musculoskeletal: reports: No Symptoms Integumentary: reports: No Symptoms Neurological: reports: No Symptoms Endocrine: reports: No Symptoms Hematology/Lymphatic: reports: No Symptoms Psychiatric: reports: No Symptoms Physical Exam Vital Sings: Vital Signs Temperature 97.3 F L 07/31/19 05:20 Pulse Rate 58 L 07/31/19 05:20 Respiratory Rate 07/31/19 05:36 Blood Pressure 135/65 07/31/19 05:20 O2 Sat by Pulse Oximetry (%) 100 07/31/19 04:27 Constitutional: Yes: No Distress, Obese Eyes: Yes: Conjunctiva Clear, EOM Intact HENT: Yes: Atraumatic, Normocephalic Neck: Yes: Supple, Trachea Midline Cardiovascular: Yes: Regular Rate and Rhythm Respiratory: Yes: Cough, Diminished, On Nasal O2, Rhonchi, SOB, SOB on Exertion , Tachypnea, Wheezes. No: Accessory Muscle Use, Rales, Stridor ...Inspection: Yes: WNL ...Clubbing: No Gastrointestinal: Yes: Normal Bowel Sounds, Soft, Abdomen, Obese Renal/: Yes: WNL Musculoskeletal: Yes: WNL Extremities: Yes: WNL Edema: No Peripheral Pulses WNL: Yes Integumentary: Yes: WNL Neurological: Yes: WNL, Alert, Oriented ...Motor Strength: WNL Psychiatric: Yes: WNL, Alert, Oriented Labs: CBC, BMP 07/30/19 21:25 07/30/19 21:25 ABG Results ABG pH 7.37 (7.35-7.45) 07/30/19 21:50 ABG pCO2 at Pt Temp 51.5 mmHg (35-45) H 07/30/19 21:50 ABG pO2 at Pt Temp 129 mmHg (80-100) H 07/30/19 21:50 ABG HCO3 29.3 mmol/L (22-27) H 07/30/19 21:50 ABG O2 Sat (Measured) 98.2 % (95-98) H 07/30/19 21:50 ABG O2 Content 19.4 % vol 07/30/19 21:50 ABG Base Excess 3.5 meq/l (-2-2) H 07/30/19 21:50 Imaging - Results Chest X-ray: Report Reviewed, Image Reviewed Problem List - Problems (1) COPD exacerbation Code(s): J44.1 - CHRONIC OBSTRUCTIVE PULMONARY DISEASE W (ACUTE) EXACERBATION (2) Shortness of breath Code(s): R06.02 - SHORTNESS OF BREATH (3) Acute bronchitis Code(s): J20.9 - ACUTE BRONCHITIS, UNSPECIFIED (4) Bipolar 1 disorder Code(s): F31.9 - BIPOLAR DISORDER, UNSPECIFIED (5) COPD (chronic obstructive pulmonary disease) Code(s): J44.9 - CHRONIC OBSTRUCTIVE PULMONARY DISEASE, UNSPECIFIED (6) Chronic low back pain Code(s): M54.5 - LOW BACK PAIN; G89.29 - OTHER CHRONIC PAIN (7) Diabetes Code(s): E11.9 - TYPE 2 DIABETES MELLITUS WITHOUT COMPLICATIONS Qualifiers: Diabetes mellitus type: type 2 (8) Methadone maintenance therapy patient Code(s): F11.20 - OPIOID DEPENDENCE, UNCOMPLICATED (9) Nicotine dependence Code(s): F17.200 - NICOTINE DEPENDENCE, UNSPECIFIED, UNCOMPLICATED Qualifiers: Nicotine product type: cigarettes Substance use status: uncomplicated Qualified Code(s): F17.210 - Nicotine dependence, cigarettes, uncomplicated (10) Seizure disorder Code(s): G40.909 - EPILEPSY, UNSP, NOT INTRACTABLE, WITHOUT STATUS EPILEPTICUS Assessment/Plan Medrol NIPPV as needed BD TX standing and PRN No smoking was counseled Should have sleep screen as an outpatient LDCT Chest as an outpatient VTE prophylaxis Consider Rocephin rather than Levaquin due to seizure history Will follow Thank you. Dr High
[2019-07-31] MEDS ORDERED: METHADONE HCL 40 MG DISPERSABLE TABLET ONE (09:44)
[2019-07-31] MEDS ORDERED: METHADONE HCL 10 MG TABLET ONE (09:44)
[2019-07-31] MEDS ORDERED: ALBUTEROL SO4 0.083% IH SOL 2.5 MG/3 ML VIAL.NEB. NEB PRN (09:46)
[2019-07-31] MEDS: METHADONE 80 MG, METHADONE 20 MG PO SCH (09:46)
[2019-07-31] MEDS: SERTRALINE HCL 25 MG TABLET (FP) PO SCH (09:48)
[2019-07-31] MEDS: DIVALPROEX 500 MG, DIVALPROEX 250 MG PO SCH ×2 (09:49→23:24)
[2019-07-31] MEDS: ASPIRIN COATED 81 MG TABLET.EC PO SCH (09:49)
[2019-07-31] MEDS: GABAPENTIN 400 MG CAPSULE PO SCH ×3 (09:49→23:23)
[2019-07-31] MEDS ORDERED: DIVALPROEX SODIUM 500 MG TABLET E.C. PO SCH (10:00)
[2019-07-31] MEDS ORDERED: FLU VACCINE QUAD 60 MCG/0.5 ML (MDV 19-20) IM ONE (10:00)
[2019-07-31] MEDS ORDERED: METHADONE 100 MG PO SCH (10:00)
[2019-07-31] MEDS ORDERED: PATIENT'S OWN MEDICATION (NON-FORMULARY) (Simvastatin 20 MG) PO SCH (10:00)
[2019-07-31] MEDS: HEPARIN NA (PORCINE) 5,000 UNITS/ML 1ML VIAL SQ SCH ×2 (10:10→23:23)
[2019-07-31] MEDS: ALBUTEROL SO4 2.5/IPRATROPIUM 0.5 INH SOL 3 ML VIAL.NEB. NEB SCH ×3 (11:37→19:44)
[2019-07-31 12:00] LABS: BASO % 0.1 % (0-2.0); HEMATOCRIT 41.9 % (32.4-45.2); HEMOGLOBIN 13.6 GM/dL (10.7-15.3); LYMPH % 8.6 % (8-40); MCH 26.9 pg (25.7-33.7); MCHC 32.5 g/dl (32.0-36.0); MEAN CELL VOLUME 82.6 fl (80-96); MONO % 2.5 % (3.8-10.2); NEUT % 88.8 % (42.8-82.8); PLATELET COUNT 252 K/MM3 (134-434); RBC 5.07 M/mm3 (3.60-5.2); RDW 15.5 % (11.6-15.6); WHITE BLOOD COUNT 12.9 K/mm3 (4.0-10.0)
[2019-07-31 12:23] LABS: BLOOD UREA NITROGEN 18.7 mg/dL (7-18); CALCIUM 9.8 mg/dL (8.5-10.1); CREATININE 0.9 mg/dL (0.55-1.3); POTASSIUM 4.3 mmol/L (3.5-5.1)
--- NOTE | 2019-07-31 14:27 | EKG ---
Test Reason : Blood Pressure : / mmHG Vent. Rate : 092 BPM Atrial Rate : 092 BPM P-R Int : 144 ms QRS Dur : 082 ms QT Int : 374 ms P-R-T Axes : 053 055 060 degrees QTc Int : 462 ms NORMAL SINUS RHYTHM NORMAL ECG WHEN COMPARED WITH ECG OF 13-FEB-2017 12:19, NO SIGNIFICANT CHANGE WAS FOUND Confirmed by DENZEL ALVAREZ MD ([id number]) on 07/31/2019 2:26:44 PM Referred By: Confirmed By:DENZEL ALVAREZ MD
--- NOTE | 2019-07-31 15:32 | PN ---
Progress Note (short form) - Note Progress Note: ID consult dictated imp/reccd bronchitis copd exacerbation on home oxygen polysubstance use- on methadone ceftriaxone f/u blood cultures management of copd per pulmonary hiv negative per patient history of hep c- treated with Harvoni recheck influenza screen add tamiflu she didnot get influenza vaccine this year Problem List - Problems (1) Acute bronchitis Code(s): J20.9 - ACUTE BRONCHITIS, UNSPECIFIED (2) COPD exacerbation Code(s): J44.1 - CHRONIC OBSTRUCTIVE PULMONARY DISEASE W (ACUTE) EXACERBATION
--- NOTE | 2019-07-31 16:07 | CONS ---
INFECTIOUS DISEASE CONSULTATION DATE OF CONSULTATION: DATE OF DICTATION: 07/31/2019 HISTORY: A 58-year-old woman with a history of COPD. She is on home oxygen. She is also an active cigarette smoker. She smokes 1/2 pack per day. History of former polysubstance use including injection last about 3-4 months. She has now been in the methadone program since that time and has abstained. She reports she was tested recently in the methadone program for HIV and is HIV negative. She went to her methadone program yesterday, and after getting home, she took a nap. When she woke from her nap, she felt feverish, extremely tired and weak, and she became short of breath. She reports that she has had a cough productive of yellow-green sputum over the last 48 hours. She did not receive an influenza vaccine this year. She denies any sick contacts. She lives with her family at home. PAST MEDICAL HISTORY: Notable for COPD, hypertension, hyperlipidemia, seizure disorder, diabetes, substance use. Her PCP is / SOCIAL HISTORY: She smokes about 1/2 pack per day. She denies any recent substance use. ALLERGIES: She has no known drug allergies. MEDICATIONS: Include methadone, metformin, Spiriva, Bactrim, Zocor, Zoloft, losartan, Victoza, insulin, Neurontin, vitamin D, Depakote, Edarbi, Lipitor, aspirin, and DuoNebs. She denies any recent antibiotic use, although Bactrim is listed as her home medication. REVIEW OF SYSTEMS: Notable for 2 days of feeling unwell accompanied by shortness of breath and fever. PHYSICAL EXAMINATION: Vital Signs: Her temperature here maximum temperature is 99.3, current temperature is 97.5, pulse of 69, blood pressure 145/70, respiratory rate is 20. She is on nasal cannula oxygen. General: She has got a moist cough. HEENT: She is normocephalic. Her eyes are anicteric. She has no thrush. Neck: Supple. Lungs: She has bilateral wheezes on exam. Heart: Regular rate and rhythm. Abdomen: Soft, nontender. Extremities: Without edema. DIAGNOSTIC DATA: Her white count on admission was 19.8, this morning is 12.9, hemoglobin 13.6. BUN 18, creatinine 0.9. LFTs are normal. Blood cultures are negative. Chest x-ray is negative. Influenza test in the emergency room was negative. In summary, this is a 58-year-old woman admitted with a history of COPD on home oxygen, former substance use admitted from home with a cough syndrome consistent with a COPD exacerbation, bronchitis. Would agree with steroids. Would cover with ceftriaxone for possible bronchitis. Her chest x-ray is noted to be normal. Would continue management of COPD, per Pulmonary, and would treat her with antibiotics as well at this time. Further recommendations to follow. KENDRICK YANG M.D. [id number] RHODA
[2019-07-31] MEDS ORDERED: cefTRIAXone SODIUM 1 GM VIAL ONE (17:31)
[2019-07-31] MEDS ORDERED: DEXTROSE 5%-WATER - 50 ML IVPB ONE (17:31)
[2019-07-31] MEDS: CEFTRIAXONE 1 GM in DEXTROSE 5%-WATER - 50 ML IVPB SCH (17:37)
[2019-07-31] MEDS: BUDESONIDE/FORMETEROL FUMARATE 160/4.5 mcg INHALER IH SCH (22:32)
[2019-07-31] MEDS ORDERED: PT OWN MED DRAWER 7, Y5N ONE (23:20)
[2019-07-31] MEDS: ATORVASTATIN CA 20 MG TABLET (FP) PO SCH (23:23)
[2019-07-31] MEDS: INSULIN SLIDING SCALE (NOVOLOG) 1 VIAL SQ SCH (23:23)
[2019-07-31] MEDS: OSELTAMIVIR PHOSPHATE 75 MG CAPSULE PO SCH (23:24)
[2019-08-01] MEDS: methylPREDNISolone NA SUCC 40 MG/1 ML VIAL IVPUSH SCH ×3 (03:04→17:38)
[2019-08-01] MEDS: GABAPENTIN 400 MG CAPSULE PO SCH ×3 (07:02→22:38)
[2019-08-01] MEDS: INSULIN SLIDING SCALE (NOVOLOG) 1 VIAL SQ SCH ×4 (07:03→22:41)
[2019-08-01] MEDS: ALBUTEROL SO4 2.5/IPRATROPIUM 0.5 INH SOL 3 ML VIAL.NEB. NEB SCH ×4 (07:20→20:30)
--- NOTE | 2019-08-01 09:01 | PN ---
Progress Note, Physician Chief Complaint: SOB COPD Exacerbation History of Present Illness: Previous notes and events reviewed awake and alert NAD sts her breathing is better complain of productive cough denies chest pain or dizziness leukocytosis BC neg Influenza neg - Current Medication List Current Medications: Active Medications Albuterol Sulfate (Ventolin 0.083% Nebulizer Soln -) 1 amp NEB Q4H PRN PRN Reason: SHORT OF BREATH/WHEEZING Albuterol/Ipratropium (Duoneb -) 1 amp NEB RQID [facility] Last Admin: 08/01/19 07:20 Dose: 1 amp Aspirin (Ecotrin -) 81 mg PO DAILY [facility] Last Admin: 07/31/19 09:49 Dose: 81 mg Atorvastatin Calcium (Lipitor -) 20 mg PO HS [facility] Last Admin: 07/31/19 23:23 Dose: 20 mg Divalproex Sodium 500 mg/ (Divalproex Sodium 250 mg) 750 mg PO BID [facility] Last Admin: 07/31/19 23:24 Dose: Not Given Gabapentin (Neurontin -) 400 mg PO TID [facility] Last Admin: 08/01/19 07:02 Dose: 400 mg Heparin Sodium (Porcine) (Heparin -) 5,000 unit SQ BID [facility] Last Admin: 07/31/19 23:23 Dose: 5,000 unit Hydrochlorothiazide (Hctz -) 12.5 mg PO DAILY [facility] Ceftriaxone Sodium 1 gm/ (Dextrose) 50 mls @ 200 mls/hr IVPB DAILY [facility]; Protocol Last Admin: 07/31/19 17:37 Dose: 200 mls/hr Insulin Aspart (Novolog Vial Sliding Scale -) 1 vial SQ ACHS [facility]; Protocol Last Admin: 08/01/19 07:03 Dose: 4 units Losartan Potassium (Cozaar -) 100 mg PO DAILY [facility] Methadone HCl 80 mg/ Methadone (HCl 20 mg) 100 mg PO DAILY [facility] Last Admin: 07/31/19 09:46 Dose: 100 mg Methylprednisolone Sodium Succinate (Solu-Medrol -) 40 mg IVPUSH Q8H-IV [facility] Last Admin: 08/01/19 03:04 Dose: 40 mg Non-Formulary Medication (Mometasone/Formoterol [Dulera 200 Mcg/5 Mcg Inhaler]) 2 inh IH BID [facility] Oseltamivir Phosphate (Tamiflu -) 75 mg PO BID [facility] Stop: 08/05/19 21:59 Last Admin: 07/31/19 23:24 Dose: 75 mg Sertraline HCl (Zoloft -) 25 mg PO DAILY [facility] Last Admin: 07/31/19 09:48 Dose: 25 mg Tiotropium [place] (Spiriva Respimat) 2 puff IH DAILY [facility] - Objective Vital Signs: Vital Signs Temperature 97.8 F 08/01/19 06:00 Pulse Rate 58 L 08/01/19 06:00 Respiratory Rate 18 08/01/19 06:00 Blood Pressure 110/64 08/01/19 06:00 O2 Sat by Pulse Oximetry (%) 94 L 08/01/19 08:13 Constitutional: Yes: No Distress, Calm Eyes: Yes: Conjunctiva Clear HENT: Yes: Atraumatic Cardiovascular: Yes: Regular Rate and Rhythm Respiratory: Yes: Regular, CTA Bilaterally Gastrointestinal: Yes: Normal Bowel Sounds, Soft Musculoskeletal: Yes: WNL Extremities: Yes: WNL Edema: No Neurological: Yes: Alert, Oriented Psychiatric: Yes: Alert, Oriented Labs: CBC, BMP 07/31/19 11:03 07/31/19 11:03 INR, PTT INR 1.13 (0.83-1.09) H 07/30/19 21:25 Microbiology 07/30/19 21:25 Blood - Peripheral Venous Blood Culture - Preliminary NO GROWTH OBTAINED AFTER 24 HOURS, INCUBATION TO CONTINUE FOR 4 DAYS. 07/30/19 21:25 Blood - Peripheral Venous Blood Culture - Preliminary NO GROWTH OBTAINED AFTER 24 HOURS, INCUBATION TO CONTINUE FOR 4 DAYS. Problem List - Problems (1) COPD exacerbation Assessment/Plan: -Pulmonary on board -bronchodilators -keep SpO2 >90% -O2 via NC prn -Bipap prn -IV Medrol -CXR shows no acute chest pathology Code(s): J44.1 - CHRONIC OBSTRUCTIVE PULMONARY DISEASE W (ACUTE) EXACERBATION (2) Bipolar 1 disorder Assessment/Plan: -Depakote, Zoloft Code(s): F31.9 - BIPOLAR DISORDER, UNSPECIFIED (3) Diabetes Assessment/Plan: -BGM ACHS -ISS -HgA1c 6.7% -Metformin Code(s): E11.9 - TYPE 2 DIABETES MELLITUS WITHOUT COMPLICATIONS Qualifiers: Diabetes mellitus type: type 2 (4) Essential hypertension Assessment/Plan: -low Na diet -Losartan/HCTZ Code(s): I10 - ESSENTIAL (PRIMARY) HYPERTENSION (5) Methadone maintenance therapy patient Assessment/Plan: -Methadone 100mg daily Code(s): F11.20 - OPIOID DEPENDENCE, UNCOMPLICATED (6) Seizure disorder Assessment/Plan: -Depakote Code(s): G40.909 - EPILEPSY, UNSP, NOT INTRACTABLE, WITHOUT STATUS EPILEPTICUS (7) Acute bronchitis Assessment/Plan: -ID on board -Pulmonary on board -leukocytosis -afebrile -Ceftriaxone -bronchodilators -keep SpO2 >90% -O2 via NC -CXR shows no acute pathology -sputum culture -BC neg Code(s): J20.9 - ACUTE BRONCHITIS, UNSPECIFIED Assessment/Plan see problem list dvt ppx
[2019-08-01 09:25] LABS: HEMATOCRIT 44.2 % (32.4-45.2); HEMOGLOBIN 14.1 GM/dL (10.7-15.3); MCH 26.7 pg (25.7-33.7); MCHC 31.8 g/dl (32.0-36.0); MEAN CELL VOLUME 83.8 fl (80-96); MEAN PLT VOLUME 8.3 fl (7.5-11.1); PLATELET COUNT 283 K/MM3 (134-434); RBC 5.27 M/mm3 (3.60-5.2); RDW 15.4 % (11.6-15.6); WHITE BLOOD COUNT 16.7 K/mm3 (4.0-10.0)
[2019-08-01] MEDS ORDERED: METHADONE HCL 10 MG TABLET ONE (09:52)
[2019-08-01] MEDS ORDERED: METHADONE HCL 40 MG DISPERSABLE TABLET ONE (09:52)
[2019-08-01] MEDS ORDERED: PT OWN MED DRAWER 7, Y5N ONE ×2 (09:53→22:33)
[2019-08-01] MEDS ORDERED: DEXTROSE 5%-WATER - 50 ML IVPB ONE (09:54)
[2019-08-01] MEDS ORDERED: cefTRIAXone SODIUM 1 GM VIAL ONE (09:54)
[2019-08-01] MEDS: METHADONE 80 MG, METHADONE 20 MG PO SCH (09:56)
[2019-08-01] MEDS: CEFTRIAXONE 1 GM in DEXTROSE 5%-WATER - 50 ML IVPB SCH (09:56)
[2019-08-01] MEDS: HYDROCHLOROTHIAZIDE 12.5 MG CAPSULE (FP) PO SCH (09:57)
[2019-08-01] MEDS: SERTRALINE HCL 25 MG TABLET (FP) PO SCH (09:57)
[2019-08-01] MEDS: ASPIRIN COATED 81 MG TABLET.EC PO SCH (09:58)
[2019-08-01] MEDS: LOSARTAN POTASSIUM 50 MG TABLET (FP) PO SCH (09:58)
[2019-08-01] MEDS: HEPARIN NA (PORCINE) 5,000 UNITS/ML 1ML VIAL SQ SCH ×2 (09:58→22:39)
[2019-08-01] MEDS: DIVALPROEX 500 MG, DIVALPROEX 250 MG PO SCH ×2 (09:59→22:39)
[2019-08-01] MEDS: OSELTAMIVIR PHOSPHATE 75 MG CAPSULE PO SCH ×2 (09:59→22:38)
[2019-08-01] MEDS ORDERED: PATIENT'S OWN MEDICATION (NON-FORMULARY) (Tiotropium Bromide [Spiriva] 1 INH) PO SCH (10:00)
[2019-08-01] MEDS: TIOTROPIUM BROMIDE 2.5 MCG (SPIRIVA) RESPIMAT INHALER IH SCH (10:00)
[2019-08-01] MEDS ORDERED: PATIENT'S OWN MEDICATION (NON-FORMULARY) (Losartan/Hydrochlorothiazide [Losartan-Hctz 100- PO SCH (10:00)
[2019-08-01 10:03] LABS: ALBUMIN 3.3 g/dl (3.4-5.0); BILIRUBIN,TOTAL 0.5 mg/dL (0.2-1); BLOOD UREA NITROGEN 24.1 mg/dL (7-18); CALCIUM 9.7 mg/dL (8.5-10.1); CREATININE 0.9 mg/dL (0.55-1.3); POTASSIUM 4.7 mmol/L (3.5-5.1); TOT PROT 8.2 g/dl (6.4-8.2)
--- NOTE | 2019-08-01 14:49 | PN ---
Progress Note (short form) - Note Progress Note: PULMONARY VSS/AFEBRILE Constitutional: Yes: No Distress, Obese Eyes: Yes: Conjunctiva Clear, EOM Intact HENT: Yes: Atraumatic, Normocephalic Neck: Yes: Supple, Trachea Midline Cardiovascular: Yes: Regular Rate and Rhythm Respiratory: Yes: Cough, Diminished, On Nasal O2, Rhonchi, SOB, SOB on Exertion , Tachypnea, Wheezes. No: Accessory Muscle Use, Rales, Stridor ...Inspection: Yes: WNL ...Clubbing: No Gastrointestinal: Yes: Normal Bowel Sounds, Soft, Abdomen, Obese Renal/: Yes: WNL Musculoskeletal: Yes: WNL Extremities: Yes: WNL Edema: No Peripheral Pulses WNL: Yes Integumentary: Yes: WNL Neurological: Yes: WNL, Alert, Oriented ...Motor Strength: WNL Psychiatric: Yes: WNL, Alert, Oriented Labs: NOTED XRAYS REVIEWED Problem List - Problems (1) COPD exacerbation Code(s): J44.1 - CHRONIC OBSTRUCTIVE PULMONARY DISEASE W (ACUTE) EXACERBATION (2) Shortness of breath Code(s): R06.02 - SHORTNESS OF BREATH (3) Acute bronchitis Code(s): J20.9 - ACUTE BRONCHITIS, UNSPECIFIED (4) Bipolar 1 disorder Code(s): F31.9 - BIPOLAR DISORDER, UNSPECIFIED (5) COPD (chronic obstructive pulmonary disease) Code(s): J44.9 - CHRONIC OBSTRUCTIVE PULMONARY DISEASE, UNSPECIFIED (6) Chronic low back pain Code(s): M54.5 - LOW BACK PAIN; G89.29 - OTHER CHRONIC PAIN (7) Diabetes Code(s): E11.9 - TYPE 2 DIABETES MELLITUS WITHOUT COMPLICATIONS Qualifiers: Diabetes mellitus type: type 2 (8) Methadone maintenance therapy patient Code(s): F11.20 - OPIOID DEPENDENCE, UNCOMPLICATED (9) Nicotine dependence Code(s): F17.200 - NICOTINE DEPENDENCE, UNSPECIFIED, UNCOMPLICATED Qualifiers: Nicotine product type: cigarettes Substance use status: uncomplicated Qualified Code(s): F17.210 - Nicotine dependence, cigarettes, uncomplicated (10) Seizure disorder Code(s): G40.909 - EPILEPSY, UNSP, NOT INTRACTABLE, WITHOUT STATUS EPILEPTICUS Assessment/Plan Medrol NIPPV as needed BD TX standing and PRN No smoking was counseled Should have sleep screen as an outpatient LDCT Chest as an outpatient VTE prophylaxis Will follow Roberta MELGAR MD
--- NOTE | 2019-08-01 16:08 | PN ---
Progress Note (short form) - Note Progress Note: feels improved still wheezing not so weak Vital Signs Period Temp Pulse Resp BP Sys/[place] Pulse Ox Last 24 Hr 97.8 F-98.2 F 58-72 18-20 110-142/57-67 94-94 cor-rrr lungs bilateral wheezes abd soft,nt ext no edema CBC, BMP 08/01/19 09:00 08/01/19 09:00 Microbiology 07/30/19 21:25 Blood - Peripheral Venous Blood Culture - Preliminary NO GROWTH OBTAINED AFTER 24 HOURS, INCUBATION TO CONTINUE FOR 4 DAYS. 07/30/19 21:25 Blood - Peripheral Venous Blood Culture - Preliminary NO GROWTH OBTAINED AFTER 24 HOURS, INCUBATION TO CONTINUE FOR 4 DAYS. a/p bronchitis copd exacerbation on home oxygen polysubstance use- on methadone ceftriaxone f/u blood cultures management of copd per pulmonary hiv negative per patient history of hep c- treated with Harvoni check resp virus pcr -ordered add tamiflu as results of pcr take time she didnot get influenza vaccine this year
[2019-08-01] MEDS: metFORMIN HCL 500 MG TABLET (FP) PO SCH (16:33)
[2019-08-01] MEDS: BUDESONIDE/FORMETEROL FUMARATE 160/4.5 mcg INHALER IH SCH (22:35)
[2019-08-01] MEDS: ATORVASTATIN CA 20 MG TABLET (FP) PO SCH (22:38)
[2019-08-02] MEDS: methylPREDNISolone NA SUCC 40 MG/1 ML VIAL IVPUSH SCH ×4 (01:46→21:18)
[2019-08-02] MEDS: metFORMIN HCL 500 MG TABLET (FP) PO SCH ×2 (06:10→16:10)
[2019-08-02] MEDS: GABAPENTIN 400 MG CAPSULE PO SCH ×3 (06:10→21:18)
[2019-08-02] MEDS: INSULIN SLIDING SCALE (NOVOLOG) 1 VIAL SQ SCH ×4 (06:11→21:27)
[2019-08-02] MEDS: INSULIN (LEVEMIR) 100 UNITS/ML UNITS SQ SCH (06:12)
[2019-08-02] MEDS ORDERED: INSULIN (NOVOLOG) ASPART 100 UNITS/ML 10ML VIAL ONE ×3 (06:30→21:13)
[2019-08-02] MEDS: ALBUTEROL SO4 2.5/IPRATROPIUM 0.5 INH SOL 3 ML VIAL.NEB. NEB SCH ×4 (07:30→19:50)
[2019-08-02] MEDS ORDERED: METHADONE HCL 10 MG TABLET ONE (09:16)
[2019-08-02] MEDS ORDERED: METHADONE HCL 40 MG DISPERSABLE TABLET ONE (09:16)
[2019-08-02] MEDS ORDERED: cefTRIAXone SODIUM 1 GM VIAL ONE (09:17)
[2019-08-02] MEDS ORDERED: PT OWN MED DRAWER 7, Y5N ONE ×2 (09:17→21:14)
[2019-08-02] MEDS ORDERED: DEXTROSE 5%-WATER - 50 ML IVPB ONE (09:18)
[2019-08-02] MEDS: METHADONE 80 MG, METHADONE 20 MG PO SCH (09:19)
[2019-08-02] MEDS: HYDROCHLOROTHIAZIDE 12.5 MG CAPSULE (FP) PO SCH (09:26)
[2019-08-02] MEDS: SERTRALINE HCL 25 MG TABLET (FP) PO SCH (09:26)
[2019-08-02] MEDS: ASPIRIN COATED 81 MG TABLET.EC PO SCH (09:27)
[2019-08-02] MEDS: LOSARTAN POTASSIUM 50 MG TABLET (FP) PO SCH (09:27)
[2019-08-02] MEDS: HEPARIN NA (PORCINE) 5,000 UNITS/ML 1ML VIAL SQ SCH ×2 (09:28→21:18)
[2019-08-02] MEDS: DIVALPROEX 500 MG, DIVALPROEX 250 MG PO SCH ×2 (09:28→23:07)
[2019-08-02] MEDS: OSELTAMIVIR PHOSPHATE 75 MG CAPSULE PO SCH ×2 (09:29→23:07)
[2019-08-02] MEDS: BUDESONIDE/FORMETEROL FUMARATE 160/4.5 mcg INHALER IH SCH ×2 (09:29→21:35)
[2019-08-02] MEDS: TIOTROPIUM BROMIDE 2.5 MCG (SPIRIVA) RESPIMAT INHALER IH SCH (09:29)
[2019-08-02] MEDS: CEFTRIAXONE 1 GM in DEXTROSE 5%-WATER - 50 ML IVPB SCH (09:30)
[2019-08-02] MEDS ORDERED: ALBUTEROL SO4 0.083% IH SOL 2.5 MG/3 ML VIAL.NEB. NEB PRN (12:40)
--- NOTE | 2019-08-02 12:50 | PN ---
Progress Note (short form) - Note Progress Note: PULMONARY Wheezing continues VSS/AFEBRILE Constitutional: Yes: No Distress, Obese Eyes: Yes: Conjunctiva Clear, EOM Intact HENT: Yes: Atraumatic, Normocephalic Neck: Yes: Supple, Trachea Midline Cardiovascular: Yes: Regular Rate and Rhythm Respiratory: Yes: Cough, Diminished, On Nasal O2, Rhonchi, SOB, SOB on Exertion , Tachypnea, Wheezes. No: Accessory Muscle Use, Rales, Stridor ...Inspection: Yes: WNL ...Clubbing: No Gastrointestinal: Yes: Normal Bowel Sounds, Soft, Abdomen, Obese Renal/: Yes: WNL Musculoskeletal: Yes: WNL Extremities: Yes: WNL Edema: No Peripheral Pulses WNL: Yes Integumentary: Yes: WNL Neurological: Yes: WNL, Alert, Oriented ...Motor Strength: WNL Psychiatric: Yes: WNL, Alert, Oriented Labs: NOTED XRAYS REVIEWED Problem List - Problems (1) COPD exacerbation Code(s): J44.1 - CHRONIC OBSTRUCTIVE PULMONARY DISEASE W (ACUTE) EXACERBATION (2) Shortness of breath Code(s): R06.02 - SHORTNESS OF BREATH (3) Acute bronchitis Code(s): J20.9 - ACUTE BRONCHITIS, UNSPECIFIED (4) Bipolar 1 disorder Code(s): F31.9 - BIPOLAR DISORDER, UNSPECIFIED (5) COPD (chronic obstructive pulmonary disease) Code(s): J44.9 - CHRONIC OBSTRUCTIVE PULMONARY DISEASE, UNSPECIFIED (6) Chronic low back pain Code(s): M54.5 - LOW BACK PAIN; G89.29 - OTHER CHRONIC PAIN (7) Diabetes Code(s): E11.9 - TYPE 2 DIABETES MELLITUS WITHOUT COMPLICATIONS Qualifiers: Diabetes mellitus type: type 2 (8) Methadone maintenance therapy patient Code(s): F11.20 - OPIOID DEPENDENCE, UNCOMPLICATED (9) Nicotine dependence Code(s): F17.200 - NICOTINE DEPENDENCE, UNSPECIFIED, UNCOMPLICATED Qualifiers: Nicotine product type: cigarettes Substance use status: uncomplicated Qualified Code(s): F17.210 - Nicotine dependence, cigarettes, uncomplicated (10) Seizure disorder Code(s): G40.909 - EPILEPSY, UNSP, NOT INTRACTABLE, WITHOUT STATUS EPILEPTICUS Assessment/Plan Medrol to continue/increased to QQ6 hours NIPPV as needed BD TX standing and PRN No smoking was counseled Should have sleep screen as an outpatient LDCT Chest as an outpatient VTE prophylaxis Will follow Roberta MELGAR MD
--- NOTE | 2019-08-02 14:06 | PN ---
Progress Note, Physician Chief Complaint: SOB COPD exacerbation - Current Medication List Current Medications: Active Medications Albuterol Sulfate (Ventolin 0.083% Nebulizer Soln -) 1 amp NEB Q1H PRN PRN Reason: SHORT OF BREATH/WHEEZING Albuterol/Ipratropium (Duoneb -) 1 amp NEB RQID [facility] Last Admin: 08/02/19 11:34 Dose: 1 amp Aspirin (Ecotrin -) 81 mg PO DAILY [facility] Last Admin: 08/02/19 09:27 Dose: 81 mg Atorvastatin Calcium (Lipitor -) 20 mg PO HS [facility] Last Admin: 08/01/19 22:38 Dose: 20 mg Budesonide/Formoterol Fumarate (Symbicort 160/4.5mcg -) 2 puff IH BID [facility] Last Admin: 08/02/19 09:29 Dose: 2 puff Divalproex Sodium 500 mg/ (Divalproex Sodium 250 mg) 750 mg PO BID [facility] Last Admin: 08/02/19 09:28 Dose: 750 mg Gabapentin (Neurontin -) 400 mg PO TID [facility] Last Admin: 08/02/19 13:30 Dose: 400 mg Heparin Sodium (Porcine) (Heparin -) 5,000 unit SQ BID [facility] Last Admin: 08/02/19 09:28 Dose: 5,000 unit Hydrochlorothiazide (Hctz -) 12.5 mg PO DAILY [facility] Last Admin: 08/02/19 09:26 Dose: 12.5 mg Ceftriaxone Sodium 1 gm/ (Dextrose) 50 mls @ 200 mls/hr IVPB DAILY [facility]; Protocol Last Admin: 08/02/19 09:30 Dose: 200 mls/hr Insulin Aspart (Novolog Vial Sliding Scale -) 1 vial SQ ACHS [facility]; Protocol Last Admin: 08/02/19 11:24 Dose: 8 units Insulin Detemir (Levemir Vial) 10 units SQ AM [facility] Last Admin: 08/02/19 06:12 Dose: 10 units Losartan Potassium (Cozaar -) 100 mg PO DAILY [facility] Last Admin: 08/02/19 09:27 Dose: 100 mg Metformin HCl (Glucophage -) 500 mg PO BID@0700,1630 [facility] Last Admin: 08/02/19 06:10 Dose: 500 mg Methadone HCl 80 mg/ Methadone (HCl 20 mg) 100 mg PO DAILY [facility] Last Admin: 08/02/19 09:19 Dose: 100 mg Methylprednisolone Sodium Succinate (Solu-Medrol -) 40 mg IVPUSH Q6H-IV [facility] Oseltamivir Phosphate (Tamiflu -) 75 mg PO BID [facility] Stop: 08/05/19 21:59 Last Admin: 08/02/19 09:29 Dose: 75 mg Sertraline HCl (Zoloft -) 25 mg PO DAILY [facility] Last Admin: 08/02/19 09:26 Dose: 25 mg - Objective Vital Signs: Vital Signs Temperature 98.0 F 08/02/19 07:52 Pulse Rate 74 08/02/19 07:52 Respiratory Rate 16 08/02/19 07:52 Blood Pressure 138/78 08/02/19 07:52 O2 Sat by Pulse Oximetry (%) 97 08/02/19 09:00 Constitutional: Yes: Well Nourished, No Distress, Calm Cardiovascular: Yes: Regular Rate and Rhythm Respiratory: Yes: Regular, On Nasal O2, Rhonchi (diffuse), SOB Gastrointestinal: Yes: Normal Bowel Sounds, Soft Genitourinary: Yes: WNL Musculoskeletal: Yes: WNL Extremities: Yes: WNL Edema: No Peripheral Pulses WNL: Yes Neurological: Yes: Alert, Oriented Psychiatric: Yes: Alert, Oriented Labs: CBC, BMP 08/01/19 09:00 08/01/19 09:00 INR, PTT INR 1.13 (0.83-1.09) H 07/30/19 21:25 Assessment/Plan (1) COPD exacerbation Assessment/Plan: -Pulmonary on board -bronchodilators -keep SpO2 >90% -O2 via NC prn -Bipap prn -IV Medrol increased to Q6H -CXR shows no acute chest pathology Code(s): J44.1 - CHRONIC OBSTRUCTIVE PULMONARY DISEASE W (ACUTE) EXACERBATION (2) Bipolar 1 disorder Assessment/Plan: -Depakote, Zoloft Code(s): F31.9 - BIPOLAR DISORDER, UNSPECIFIED (3) Diabetes Assessment/Plan: -[facility] -[facility] -HgA1c 6.7% -Metformin -Diabetic low sodium diet Code(s): E11.9 - TYPE 2 DIABETES MELLITUS WITHOUT COMPLICATIONS Qualifiers: Diabetes mellitus type: type 2 (4) Essential hypertension Assessment/Plan: -low Na diet -Losartan/HCTZ Code(s): I10 - ESSENTIAL (PRIMARY) HYPERTENSION (5) Methadone maintenance therapy patient Assessment/Plan: -Methadone 100mg daily Code(s): F11.20 - OPIOID DEPENDENCE, UNCOMPLICATED (6) Seizure disorder Assessment/Plan: -Depakote Code(s): G40.909 - EPILEPSY, UNSP, NOT INTRACTABLE, WITHOUT STATUS EPILEPTICUS (7) Acute bronchitis Assessment/Plan: -ID on board -Pulmonary on board -leukocytosis -afebrile -Ceftriaxone -bronchodilators -keep SpO2 >90% -O2 via NC -CXR shows no acute pathology -sputum culture -BC neg Code(s): J20.9 - ACUTE BRONCHITIS, UNSPECIFIED Assessment/Plan see problem list dvt ppx
[2019-08-02] MEDS ORDERED: INSULIN (LEVEMIR) 100 UNITS/ML UNITS SQ ONE (21:13)
[2019-08-02] MEDS: ATORVASTATIN CA 20 MG TABLET (FP) PO SCH (21:18)
[2019-08-03] MEDS: methylPREDNISolone NA SUCC 40 MG/1 ML VIAL IVPUSH SCH ×4 (02:21→21:52)
[2019-08-03] MEDS: GABAPENTIN 400 MG CAPSULE PO SCH ×3 (05:58→21:52)
[2019-08-03] MEDS: INSULIN (LEVEMIR) 100 UNITS/ML UNITS SQ SCH (06:00)
[2019-08-03] MEDS: metFORMIN HCL 500 MG TABLET (FP) PO SCH ×2 (06:00→16:37)
[2019-08-03] MEDS: INSULIN SLIDING SCALE (NOVOLOG) 1 VIAL SQ SCH ×4 (06:00→22:01)
[2019-08-03] MEDS: ALBUTEROL SO4 2.5/IPRATROPIUM 0.5 INH SOL 3 ML VIAL.NEB. NEB SCH ×4 (07:20→19:40)
[2019-08-03] MEDS ORDERED: METHADONE HCL 40 MG DISPERSABLE TABLET ONE (10:02)
[2019-08-03] MEDS ORDERED: METHADONE HCL 10 MG TABLET ONE (10:02)
[2019-08-03] MEDS ORDERED: DEXTROSE 5%-WATER - 50 ML IVPB ONE (10:03)
[2019-08-03] MEDS ORDERED: PT OWN MED DRAWER 7, Y5N ONE (10:03)
[2019-08-03] MEDS ORDERED: cefTRIAXone SODIUM 1 GM VIAL ONE (10:03)
[2019-08-03] MEDS: METHADONE 80 MG, METHADONE 20 MG PO SCH (10:05)
[2019-08-03] MEDS: LOSARTAN POTASSIUM 50 MG TABLET (FP) PO SCH (10:09)
[2019-08-03] MEDS: ASPIRIN COATED 81 MG TABLET.EC PO SCH (10:10)
[2019-08-03] MEDS: HYDROCHLOROTHIAZIDE 12.5 MG CAPSULE (FP) PO SCH (10:10)
[2019-08-03] MEDS: SERTRALINE HCL 25 MG TABLET (FP) PO SCH (10:10)
[2019-08-03] MEDS: DIVALPROEX 500 MG, DIVALPROEX 250 MG PO SCH ×2 (10:11→22:56)
[2019-08-03] MEDS: OSELTAMIVIR PHOSPHATE 75 MG CAPSULE PO SCH ×2 (10:11→21:54)
[2019-08-03] MEDS: BUDESONIDE/FORMETEROL FUMARATE 160/4.5 mcg INHALER IH SCH ×2 (10:13→21:56)
[2019-08-03] MEDS: CEFTRIAXONE 1 GM in DEXTROSE 5%-WATER - 50 ML IVPB SCH (10:13)
[2019-08-03] MEDS: HEPARIN NA (PORCINE) 5,000 UNITS/ML 1ML VIAL SQ SCH ×2 (10:13→21:54)
[2019-08-03] MEDS ORDERED: INSULIN (NOVOLOG) ASPART 100 UNITS/ML 10ML VIAL ONE (11:09)
--- NOTE | 2019-08-03 11:40 | PN ---
Progress Note, Physician Chief Complaint: SOB COPD exacerbation History of Present Illness: NAD Denies SOB on exertion - Current Medication List Current Medications: Active Medications Albuterol Sulfate (Ventolin 0.083% Nebulizer Soln -) 1 amp NEB Q1H PRN PRN Reason: SHORT OF BREATH/WHEEZING Albuterol/Ipratropium (Duoneb -) 1 amp NEB RQID [facility] Last Admin: 08/03/19 07:20 Dose: 1 amp Aspirin (Ecotrin -) 81 mg PO DAILY [facility] Last Admin: 08/03/19 10:10 Dose: 81 mg Atorvastatin Calcium (Lipitor -) 20 mg PO HS [facility] Last Admin: 08/02/19 21:18 Dose: 20 mg Budesonide/Formoterol Fumarate (Symbicort 160/4.5mcg -) 2 puff IH BID [facility] Last Admin: 08/03/19 10:13 Dose: 2 puff Divalproex Sodium 500 mg/ (Divalproex Sodium 250 mg) 750 mg PO BID [facility] Last Admin: 08/03/19 10:11 Dose: 750 mg Gabapentin (Neurontin -) 400 mg PO TID [facility] Last Admin: 08/03/19 05:58 Dose: 400 mg Heparin Sodium (Porcine) (Heparin -) 5,000 unit SQ BID [facility] Last Admin: 08/03/19 10:13 Dose: 5,000 unit Hydrochlorothiazide (Hctz -) 12.5 mg PO DAILY [facility] Last Admin: 08/03/19 10:10 Dose: 12.5 mg Ceftriaxone Sodium 1 gm/ (Dextrose) 50 mls @ 200 mls/hr IVPB DAILY [facility]; Protocol Last Admin: 08/03/19 10:13 Dose: 200 mls/hr Insulin Aspart (Novolog Vial Sliding Scale -) 1 vial SQ ACHS [facility]; Protocol Last Admin: 08/03/19 11:09 Dose: 6 units Insulin Detemir (Levemir Vial) 10 units SQ AM [facility] Last Admin: 08/03/19 06:00 Dose: 10 units Losartan Potassium (Cozaar -) 100 mg PO DAILY [facility] Last Admin: 08/03/19 10:09 Dose: 100 mg Metformin HCl (Glucophage -) 500 mg PO BID@0700,1630 [facility] Last Admin: 08/03/19 06:00 Dose: 500 mg Methadone HCl 80 mg/ Methadone (HCl 20 mg) 100 mg PO DAILY [facility] Last Admin: 08/03/19 10:05 Dose: 100 mg Methylprednisolone Sodium Succinate (Solu-Medrol -) 40 mg IVPUSH Q6H-IV [facility] Last Admin: 08/03/19 10:13 Dose: 40 mg Oseltamivir Phosphate (Tamiflu -) 75 mg PO BID [facility] Stop: 08/05/19 21:59 Last Admin: 08/03/19 10:11 Dose: 75 mg Sertraline HCl (Zoloft -) 25 mg PO DAILY [facility] Last Admin: 08/03/19 10:10 Dose: 25 mg - Objective Vital Signs: Vital Signs Temperature 97.5 F L 08/03/19 07:53 Pulse Rate 74 08/03/19 07:53 Respiratory Rate 14 08/03/19 07:53 Blood Pressure 150/78 08/03/19 07:53 O2 Sat by Pulse Oximetry (%) 98 08/03/19 09:00 Constitutional: Yes: Well Nourished, No Distress, Calm Cardiovascular: Yes: Regular Rate and Rhythm Respiratory: Yes: Regular Gastrointestinal: Yes: Normal Bowel Sounds, Soft Genitourinary: Yes: WNL Musculoskeletal: Yes: WNL Extremities: Yes: WNL Edema: No Peripheral Pulses WNL: Yes Neurological: Yes: Alert, Oriented Psychiatric: Yes: Alert, Oriented Labs: CBC, BMP 08/01/19 09:00 08/01/19 09:00 INR, PTT INR 1.13 (0.83-1.09) H 07/30/19 21:25 Assessment/Plan (1) COPD exacerbation Assessment/Plan: -Pulmonary on board -bronchodilators -keep SpO2 >90% -O2 via NC prn -Bipap prn -IV Medrol increased to Q6H -CXR shows no acute chest pathology Code(s): J44.1 - CHRONIC OBSTRUCTIVE PULMONARY DISEASE W (ACUTE) EXACERBATION (2) Bipolar 1 disorder Assessment/Plan: -Depakote, Zoloft Code(s): F31.9 - BIPOLAR DISORDER, UNSPECIFIED (3) Diabetes Assessment/Plan: -[facility] -[facility] -HgA1c 6.7% -Metformin -Diabetic low sodium diet Code(s): E11.9 - TYPE 2 DIABETES MELLITUS WITHOUT COMPLICATIONS Qualifiers: Diabetes mellitus type: type 2 (4) Essential hypertension Assessment/Plan: -low Na diet -Losartan/HCTZ Code(s): I10 - ESSENTIAL (PRIMARY) HYPERTENSION (5) Methadone maintenance therapy patient Assessment/Plan: -Methadone 100mg daily Code(s): F11.20 - OPIOID DEPENDENCE, UNCOMPLICATED (6) Seizure disorder Assessment/Plan: -Depakote Code(s): G40.909 - EPILEPSY, UNSP, NOT INTRACTABLE, WITHOUT STATUS EPILEPTICUS (7) Acute bronchitis Assessment/Plan: -ID on board -Pulmonary on board -leukocytosis -afebrile -Ceftriaxone -bronchodilators -keep SpO2 >90% -O2 via NC -CXR shows no acute pathology -sputum culture -BC neg Code(s): J20.9 - ACUTE BRONCHITIS, UNSPECIFIED Assessment/Plan see problem list dvt ppx
--- NOTE | 2019-08-03 12:03 | PN ---
Progress Note (short form) - Note Progress Note: PULMONARY Wheezing continues Used PAP last night 03/29 Tolerated well VSS/AFEBRILE Constitutional: Yes: No Distress, Obese Eyes: Yes: Conjunctiva Clear, EOM Intact HENT: Yes: Atraumatic, Normocephalic Neck: Yes: Supple, Trachea Midline Cardiovascular: Yes: Regular Rate and Rhythm Respiratory: Yes: Cough, Diminished, On Nasal O2, Rhonchi, SOB, SOB on Exertion , Tachypnea, Wheezes. No: Accessory Muscle Use, Rales, Stridor ...Inspection: Yes: WNL ...Clubbing: No Gastrointestinal: Yes: Normal Bowel Sounds, Soft, Abdomen, Obese Renal/: Yes: WNL Musculoskeletal: Yes: WNL Extremities: Yes: WNL Edema: No Peripheral Pulses WNL: Yes Integumentary: Yes: WNL Neurological: Yes: WNL, Alert, Oriented ...Motor Strength: WNL Psychiatric: Yes: WNL, Alert, Oriented Labs: NOTED XRAYS REVIEWED Problem List - Problems (1) COPD exacerbation Code(s): J44.1 - CHRONIC OBSTRUCTIVE PULMONARY DISEASE W (ACUTE) EXACERBATION (2) Shortness of breath Code(s): R06.02 - SHORTNESS OF BREATH (3) Acute bronchitis Code(s): J20.9 - ACUTE BRONCHITIS, UNSPECIFIED (4) Bipolar 1 disorder Code(s): F31.9 - BIPOLAR DISORDER, UNSPECIFIED (5) COPD (chronic obstructive pulmonary disease) Code(s): J44.9 - CHRONIC OBSTRUCTIVE PULMONARY DISEASE, UNSPECIFIED (6) Chronic low back pain Code(s): M54.5 - LOW BACK PAIN; G89.29 - OTHER CHRONIC PAIN (7) Diabetes Code(s): E11.9 - TYPE 2 DIABETES MELLITUS WITHOUT COMPLICATIONS Qualifiers: Diabetes mellitus type: type 2 (8) Methadone maintenance therapy patient Code(s): F11.20 - OPIOID DEPENDENCE, UNCOMPLICATED (9) Nicotine dependence Code(s): F17.200 - NICOTINE DEPENDENCE, UNSPECIFIED, UNCOMPLICATED Qualifiers: Nicotine product type: cigarettes Substance use status: uncomplicated Qualified Code(s): F17.210 - Nicotine dependence, cigarettes, uncomplicated (10) Seizure disorder Code(s): G40.909 - EPILEPSY, UNSP, NOT INTRACTABLE, WITHOUT STATUS EPILEPTICUS Assessment/Plan Medrol to continue/increased to QQ6 hours NIPPV as needed BD TX standing and PRN No smoking was counseled Should have sleep screen as an outpatient LDCT Chest as an outpatient VTE prophylaxis Likely to reduce IV medrol tomorrow Will follow Roberta MELGAR MD
[2019-08-03] MEDS: ATORVASTATIN CA 20 MG TABLET (FP) PO SCH (21:54)
[2019-08-04] MEDS: methylPREDNISolone NA SUCC 40 MG/1 ML VIAL IVPUSH SCH ×3 (02:27→17:21)
[2019-08-04] MEDS: INSULIN (LEVEMIR) 100 UNITS/ML UNITS SQ SCH (06:30)
[2019-08-04] MEDS: INSULIN SLIDING SCALE (NOVOLOG) 1 VIAL SQ SCH ×4 (06:31→21:13)
[2019-08-04] MEDS: GABAPENTIN 400 MG CAPSULE PO SCH ×3 (06:32→21:08)
[2019-08-04] MEDS: metFORMIN HCL 500 MG TABLET (FP) PO SCH ×2 (06:32→17:20)
[2019-08-04] MEDS: ALBUTEROL SO4 2.5/IPRATROPIUM 0.5 INH SOL 3 ML VIAL.NEB. NEB SCH ×4 (07:20→19:31)
--- NOTE | 2019-08-04 08:51 | PN ---
Progress Note, Physician - Current Medication List Current Medications: Active Medications Albuterol Sulfate (Ventolin 0.083% Nebulizer Soln -) 1 amp NEB Q1H PRN PRN Reason: SHORT OF BREATH/WHEEZING Albuterol/Ipratropium (Duoneb -) 1 amp NEB RQID [facility] Last Admin: 08/04/19 07:20 Dose: 1 amp Aspirin (Ecotrin -) 81 mg PO DAILY [facility] Last Admin: 08/03/19 10:10 Dose: 81 mg Atorvastatin Calcium (Lipitor -) 20 mg PO HS [facility] Last Admin: 08/03/19 21:54 Dose: 20 mg Budesonide/Formoterol Fumarate (Symbicort 160/4.5mcg -) 2 puff IH BID [facility] Last Admin: 08/03/19 21:56 Dose: 2 puff Divalproex Sodium 500 mg/ (Divalproex Sodium 250 mg) 750 mg PO BID [facility] Last Admin: 08/03/19 22:56 Dose: 750 mg Gabapentin (Neurontin -) 400 mg PO TID [facility] Last Admin: 08/04/19 06:32 Dose: 400 mg Heparin Sodium (Porcine) (Heparin -) 5,000 unit SQ BID [facility] Last Admin: 08/03/19 21:54 Dose: 5,000 unit Hydrochlorothiazide (Hctz -) 12.5 mg PO DAILY [facility] Last Admin: 08/03/19 10:10 Dose: 12.5 mg Ceftriaxone Sodium 1 gm/ (Dextrose) 50 mls @ 200 mls/hr IVPB DAILY [facility]; Protocol Last Admin: 08/03/19 10:13 Dose: 200 mls/hr Insulin Aspart (Novolog Vial Sliding Scale -) 1 vial SQ ACHS [facility]; Protocol Last Admin: 08/04/19 06:31 Dose: 6 units Insulin Detemir (Levemir Vial) 16 units SQ AM [facility] Last Admin: 08/04/19 06:30 Dose: 16 units Losartan Potassium (Cozaar -) 100 mg PO DAILY [facility] Last Admin: 08/03/19 10:09 Dose: 100 mg Metformin HCl (Glucophage -) 500 mg PO BID@0700,1630 [facility] Last Admin: 08/04/19 06:32 Dose: 500 mg Methadone HCl 80 mg/ Methadone (HCl 20 mg) 100 mg PO DAILY [facility] Last Admin: 08/03/19 10:05 Dose: 100 mg Methylprednisolone Sodium Succinate (Solu-Medrol -) 40 mg IVPUSH Q6H-IV [facility] Last Admin: 08/04/19 02:27 Dose: 40 mg Oseltamivir Phosphate (Tamiflu -) 75 mg PO BID [facility] Stop: 08/05/19 21:59 Last Admin: 08/03/19 21:54 Dose: 75 mg Sertraline HCl (Zoloft -) 25 mg PO DAILY [facility] Last Admin: 08/03/19 10:10 Dose: 25 mg - Objective Vital Signs: Vital Signs Temperature 97.7 F 08/04/19 06:00 Pulse Rate 69 08/04/19 06:00 Respiratory Rate 18 08/04/19 06:00 Blood Pressure 145/86 08/04/19 06:00 O2 Sat by Pulse Oximetry (%) 98 08/04/19 08:11 Cardiovascular: Yes: S1, S2 Respiratory: Yes: On Nasal O2, Rhonchi, Wheezes Gastrointestinal: Yes: Normal Bowel Sounds, Soft Edema: No Labs: CBC, BMP 08/01/19 09:00 08/01/19 09:00 INR, PTT INR 1.13 (0.83-1.09) H 07/30/19 21:25 Assessment/Plan 1) COPD exacerbation Assessment/Plan: -Pulmonary on board -bronchodilators -keep SpO2 >90% -O2 via NC prn -Bipap prn -IV Medrol Q6H -CXR shows no acute chest pathology Code(s): J44.1 - CHRONIC OBSTRUCTIVE PULMONARY DISEASE W (ACUTE) EXACERBATION (2) Bipolar 1 disorder Assessment/Plan: -Depakote, Zoloft Code(s): F31.9 - BIPOLAR DISORDER, UNSPECIFIED (3) Diabetes Assessment/Plan: -[facility] -HgA1c 6.7% -Metformin -Diabetic low sodium diet Code(s): E11.9 - TYPE 2 DIABETES MELLITUS WITHOUT COMPLICATIONS Qualifiers: Diabetes mellitus type: type 2 (4) Essential hypertension Assessment/Plan: -low Na diet -Losartan/HCTZ Code(s): I10 - ESSENTIAL (PRIMARY) HYPERTENSION (5) Methadone maintenance therapy patient Assessment/Plan: -Methadone 100mg daily Code(s): F11.20 - OPIOID DEPENDENCE, UNCOMPLICATED (6) Seizure disorder Assessment/Plan: -Depakote Code(s): G40.909 - EPILEPSY, UNSP, NOT INTRACTABLE, WITHOUT STATUS EPILEPTICUS (7) Acute bronchitis Assessment/Plan: -ID on board -Pulmonary on board -leukocytosis -afebrile -Ceftriaxone -bronchodilators -keep SpO2 >90% -O2 via NC -CXR shows no acute pathology -sputum culture -BC neg Code(s): J20.9 - ACUTE BRONCHITIS, UNSPECIFIED
[2019-08-04 09:24] LABS: BASO % 0.3 % (0-2.0); HEMATOCRIT 47.2 % (32.4-45.2); HEMOGLOBIN 15.3 GM/dL (10.7-15.3); LYMPH % 8.8 % (8-40); MCH 26.7 pg (25.7-33.7); MCHC 32.4 g/dl (32.0-36.0); MEAN CELL VOLUME 82.5 fl (80-96); MEAN PLT VOLUME 7.8 fl (7.5-11.1); MONO % 4.5 % (3.8-10.2); NEUT % 86.4 % (42.8-82.8); PLATELET COUNT 327 K/MM3 (134-434); RBC 5.72 M/mm3 (3.60-5.2); RDW 15.6 % (11.6-15.6); WHITE BLOOD COUNT 8.2 K/mm3 (4.0-10.0)
[2019-08-04 10:00] LABS: ALBUMIN 3.4 g/dl (3.4-5.0); BILIRUBIN,TOTAL 0.4 mg/dL (0.2-1); BLOOD UREA NITROGEN 24.5 mg/dL (7-18); CALCIUM 10.5 mg/dL (8.5-10.1); CREATININE 1.1 mg/dL (0.55-1.3); POTASSIUM 5.2 mmol/L (3.5-5.1); TOT PROT 8.1 g/dl (6.4-8.2)
[2019-08-04] MEDS ORDERED: METHADONE HCL 40 MG DISPERSABLE TABLET ONE (10:30)
[2019-08-04] MEDS ORDERED: METHADONE HCL 10 MG TABLET ONE (10:30)
[2019-08-04] MEDS ORDERED: cefTRIAXone SODIUM 1 GM VIAL ONE (10:31)
[2019-08-04] MEDS ORDERED: DEXTROSE 5%-WATER - 50 ML IVPB ONE (10:31)
[2019-08-04] MEDS: CEFTRIAXONE 1 GM in DEXTROSE 5%-WATER - 50 ML IVPB SCH (10:35)
[2019-08-04] MEDS: HYDROCHLOROTHIAZIDE 12.5 MG CAPSULE (FP) PO SCH (10:36)
[2019-08-04] MEDS: SERTRALINE HCL 25 MG TABLET (FP) PO SCH (10:36)
[2019-08-04] MEDS: METHADONE 80 MG, METHADONE 20 MG PO SCH (10:37)
[2019-08-04] MEDS: HEPARIN NA (PORCINE) 5,000 UNITS/ML 1ML VIAL SQ SCH ×2 (10:37→21:08)
[2019-08-04] MEDS: ASPIRIN COATED 81 MG TABLET.EC PO SCH (10:37)
[2019-08-04] MEDS ORDERED: PT OWN MED DRAWER 7, Y5N ONE (10:44)
[2019-08-04] MEDS: DIVALPROEX 500 MG, DIVALPROEX 250 MG PO SCH ×2 (10:47→21:09)
[2019-08-04] MEDS: OSELTAMIVIR PHOSPHATE 75 MG CAPSULE PO SCH ×2 (10:47→21:09)
[2019-08-04] MEDS: BUDESONIDE/FORMETEROL FUMARATE 160/4.5 mcg INHALER IH SCH ×2 (10:49→21:10)
[2019-08-04] MEDS: LOSARTAN POTASSIUM 50 MG TABLET (FP) PO SCH (10:49)
[2019-08-04 11:42] LABS: PLATELET ESTIMATE NORMAL
[2019-08-04] MEDS ORDERED: INSULIN (NOVOLOG) ASPART 100 UNITS/ML 10ML VIAL ONE ×2 (11:43→21:12)
--- NOTE | 2019-08-04 13:11 | PN ---
Progress Note, Physician History of Present Illness: PULMONARY feeling better,less dyspneic,less congested - Current Medication List Current Medications: Active Medications Albuterol Sulfate (Ventolin 0.083% Nebulizer Soln -) 1 amp NEB Q1H PRN PRN Reason: SHORT OF BREATH/WHEEZING Albuterol/Ipratropium (Duoneb -) 1 amp NEB RQID [facility] Last Admin: 08/04/19 11:55 Dose: 1 amp Aspirin (Ecotrin -) 81 mg PO DAILY [facility] Last Admin: 08/04/19 10:37 Dose: 81 mg Atorvastatin Calcium (Lipitor -) 20 mg PO HS [facility] Last Admin: 08/03/19 21:54 Dose: 20 mg Budesonide/Formoterol Fumarate (Symbicort 160/4.5mcg -) 2 puff IH BID [facility] Last Admin: 08/04/19 10:49 Dose: 2 puff Divalproex Sodium 500 mg/ (Divalproex Sodium 250 mg) 750 mg PO BID [facility] Last Admin: 08/04/19 10:47 Dose: 750 mg Gabapentin (Neurontin -) 400 mg PO TID [facility] Last Admin: 08/04/19 06:32 Dose: 400 mg Heparin Sodium (Porcine) (Heparin -) 5,000 unit SQ BID [facility] Last Admin: 08/04/19 10:37 Dose: 5,000 unit Hydrochlorothiazide (Hctz -) 12.5 mg PO DAILY [facility] Last Admin: 08/04/19 10:36 Dose: 12.5 mg Ceftriaxone Sodium 1 gm/ (Dextrose) 50 mls @ 200 mls/hr IVPB DAILY [facility]; Protocol Last Admin: 08/04/19 10:35 Dose: 200 mls/hr Insulin Aspart (Novolog Vial Sliding Scale -) 1 vial SQ ACHS [facility]; Protocol Last Admin: 08/04/19 11:45 Dose: 6 units Insulin Detemir (Levemir Vial) 16 units SQ AM [facility] Last Admin: 08/04/19 06:30 Dose: 16 units Losartan Potassium (Cozaar -) 100 mg PO DAILY [facility] Last Admin: 08/04/19 10:49 Dose: 100 mg Metformin HCl (Glucophage -) 500 mg PO BID@0700,1630 [facility] Last Admin: 08/04/19 06:32 Dose: 500 mg Methadone HCl 80 mg/ Methadone (HCl 20 mg) 100 mg PO DAILY [facility] Last Admin: 08/04/19 10:37 Dose: 100 mg Methylprednisolone Sodium Succinate (Solu-Medrol -) 40 mg IVPUSH Q6H-IV [facility] Last Admin: 08/04/19 10:36 Dose: 40 mg Oseltamivir Phosphate (Tamiflu -) 75 mg PO BID [facility] Stop: 08/05/19 21:59 Last Admin: 08/04/19 10:47 Dose: 75 mg Sertraline HCl (Zoloft -) 25 mg PO DAILY [facility] Last Admin: 08/04/19 10:36 Dose: 25 mg - Objective Vital Signs: Vital Signs Temperature 97.7 F 08/04/19 06:00 Pulse Rate 69 08/04/19 06:00 Respiratory Rate 18 08/04/19 06:00 Blood Pressure 145/86 08/04/19 06:00 O2 Sat by Pulse Oximetry (%) 98 08/04/19 08:11 Constitutional: Yes: Well Nourished, Calm Eyes: Yes: Occular Prosthesis HENT: Yes: WNL Neck: Yes: WNL Cardiovascular: Yes: Regular Rate and Rhythm, S1, S2 Respiratory: Yes: Rhonchi, Wheezes (few scattered wheezes and rhonchi) Gastrointestinal: Yes: Normal Bowel Sounds, Soft Extremities: Yes: WNL Edema: No Labs: CBC, BMP 08/04/19 08:50 08/04/19 08:50 INR, PTT INR 1.13 (0.83-1.09) H 07/30/19 21:25 Assessment/Plan Problem List - Problems (1) COPD exacerbation Code(s): J44.1 - CHRONIC OBSTRUCTIVE PULMONARY DISEASE W (ACUTE) EXACERBATION (2) Shortness of breath Code(s): R06.02 - SHORTNESS OF BREATH (3) Acute bronchitis Code(s): J20.9 - ACUTE BRONCHITIS, UNSPECIFIED (4) Bipolar 1 disorder Code(s): F31.9 - BIPOLAR DISORDER, UNSPECIFIED (5) COPD (chronic obstructive pulmonary disease) Code(s): J44.9 - CHRONIC OBSTRUCTIVE PULMONARY DISEASE, UNSPECIFIED (6) Chronic low back pain Code(s): M54.5 - LOW BACK PAIN; G89.29 - OTHER CHRONIC PAIN (7) Diabetes Code(s): E11.9 - TYPE 2 DIABETES MELLITUS WITHOUT COMPLICATIONS Qualifiers: Diabetes mellitus type: type 2 (8) Methadone maintenance therapy patient Code(s): F11.20 - OPIOID DEPENDENCE, UNCOMPLICATED (9) Nicotine dependence Code(s): F17.200 - NICOTINE DEPENDENCE, UNSPECIFIED, UNCOMPLICATED Qualifiers: Nicotine product type: cigarettes Substance use status: uncomplicated Qualified Code(s): F17.210 - Nicotine dependence, cigarettes, uncomplicated (10) Seizure disorder Code(s): G40.909 - EPILEPSY, UNSP, NOT INTRACTABLE, WITHOUT STATUS EPILEPTICUS Assessment/Plan Medrol taper NIPPV as needed BD TX standing and PRN No smoking was counseled Should have sleep screen as an outpatient LDCT Chest as an outpatient VTE prophylaxis DR LY
[2019-08-04] MEDS: ATORVASTATIN CA 20 MG TABLET (FP) PO SCH (21:08)
[2019-08-04] MEDS ORDERED: INSULIN (LEVEMIR) 100 UNITS/ML UNITS SQ ONE (21:11)
[2019-08-05] MEDS: methylPREDNISolone NA SUCC 40 MG/1 ML VIAL IVPUSH SCH ×3 (01:05→21:29)
[2019-08-05] MEDS: INSULIN SLIDING SCALE (NOVOLOG) 1 VIAL SQ SCH ×5 (06:08→21:29)
[2019-08-05] MEDS: metFORMIN HCL 500 MG TABLET (FP) PO SCH ×2 (06:08→16:55)
[2019-08-05] MEDS: GABAPENTIN 400 MG CAPSULE PO SCH ×3 (06:08→21:27)
[2019-08-05] MEDS: INSULIN (LEVEMIR) 100 UNITS/ML UNITS SQ SCH (06:09)
[2019-08-05] MEDS: ALBUTEROL SO4 2.5/IPRATROPIUM 0.5 INH SOL 3 ML VIAL.NEB. NEB SCH (07:32)
[2019-08-05] MEDS ORDERED: DEXTROSE 5%-WATER - 50 ML IVPB ONE (09:14)
[2019-08-05] MEDS ORDERED: cefTRIAXone SODIUM 1 GM VIAL ONE (09:14)
[2019-08-05] MEDS ORDERED: PT OWN MED DRAWER 7, Y5N ONE (09:14)
[2019-08-05] MEDS ORDERED: METHADONE HCL 10 MG TABLET ONE (09:38)
[2019-08-05] MEDS ORDERED: METHADONE HCL 40 MG DISPERSABLE TABLET ONE (09:38)
[2019-08-05] MEDS: METHADONE 80 MG, METHADONE 20 MG PO SCH (09:40)
[2019-08-05] MEDS: DIVALPROEX 500 MG, DIVALPROEX 250 MG PO SCH ×2 (09:41→21:27)
[2019-08-05] MEDS: OSELTAMIVIR PHOSPHATE 75 MG CAPSULE PO SCH (09:42)
[2019-08-05] MEDS: HYDROCHLOROTHIAZIDE 12.5 MG CAPSULE (FP) PO SCH (09:43)
[2019-08-05] MEDS: HEPARIN NA (PORCINE) 5,000 UNITS/ML 1ML VIAL SQ SCH ×2 (09:43→21:27)
[2019-08-05] MEDS: SERTRALINE HCL 25 MG TABLET (FP) PO SCH (09:43)
[2019-08-05] MEDS: ASPIRIN COATED 81 MG TABLET.EC PO SCH (09:43)
[2019-08-05] MEDS: LOSARTAN POTASSIUM 50 MG TABLET (FP) PO SCH (09:44)
[2019-08-05] MEDS: BUDESONIDE/FORMETEROL FUMARATE 160/4.5 mcg INHALER IH SCH ×2 (09:45→21:29)
--- NOTE | 2019-08-05 11:11 | PN ---
Progress Note, Physician Chief Complaint: SOB COPD exacerbation History of Present Illness: NAD Denies SOB on exertion - Current Medication List Current Medications: Active Medications Albuterol Sulfate (Ventolin 0.083% Nebulizer Soln -) 1 amp NEB Q1H PRN PRN Reason: SHORT OF BREATH/WHEEZING Albuterol/Ipratropium (Duoneb -) 1 amp NEB RQID [facility] Last Admin: 08/05/19 07:32 Dose: 1 amp Aspirin (Ecotrin -) 81 mg PO DAILY [facility] Last Admin: 08/05/19 09:43 Dose: 81 mg Atorvastatin Calcium (Lipitor -) 20 mg PO HS [facility] Last Admin: 08/04/19 21:08 Dose: 20 mg Budesonide/Formoterol Fumarate (Symbicort 160/4.5mcg -) 2 puff IH BID [facility] Last Admin: 08/05/19 09:45 Dose: 2 puff Divalproex Sodium 500 mg/ (Divalproex Sodium 250 mg) 750 mg PO BID [facility] Last Admin: 08/05/19 09:41 Dose: 750 mg Gabapentin (Neurontin -) 400 mg PO TID [facility] Last Admin: 08/05/19 06:08 Dose: 400 mg Heparin Sodium (Porcine) (Heparin -) 5,000 unit SQ BID [facility] Last Admin: 08/05/19 09:43 Dose: 5,000 unit Hydrochlorothiazide (Hctz -) 12.5 mg PO DAILY [facility] Last Admin: 08/05/19 09:43 Dose: 12.5 mg Ceftriaxone Sodium 1 gm/ (Dextrose) 50 mls @ 200 mls/hr IVPB DAILY [facility]; Protocol Last Admin: 08/04/19 10:35 Dose: 200 mls/hr Insulin Aspart (Novolog Vial Sliding Scale -) 1 vial SQ ACHS [facility]; Protocol Last Admin: 08/05/19 06:08 Dose: 6 units Insulin Detemir (Levemir Vial) 16 units SQ AM [facility] Last Admin: 08/05/19 06:09 Dose: 16 units Losartan Potassium (Cozaar -) 100 mg PO DAILY [facility] Last Admin: 08/05/19 09:44 Dose: 100 mg Metformin HCl (Glucophage -) 500 mg PO BID@0700,1630 [facility] Last Admin: 08/05/19 06:08 Dose: 500 mg Methadone HCl 80 mg/ Methadone (HCl 20 mg) 100 mg PO DAILY [facility] Last Admin: 08/05/19 09:40 Dose: 100 mg Methylprednisolone Sodium Succinate (Solu-Medrol -) 40 mg IVPUSH Q8H-IV [facility] Last Admin: 08/05/19 01:05 Dose: 40 mg Oseltamivir Phosphate (Tamiflu -) 75 mg PO BID [facility] Stop: 08/05/19 21:59 Last Admin: 08/05/19 09:42 Dose: 75 mg Sertraline HCl (Zoloft -) 25 mg PO DAILY [facility] Last Admin: 08/05/19 09:43 Dose: 25 mg - Objective Vital Signs: Vital Signs Temperature 98.2 F 08/05/19 06:59 Pulse Rate 71 08/05/19 06:59 Respiratory Rate 20 08/05/19 09:00 Blood Pressure 131/67 08/05/19 06:59 O2 Sat by Pulse Oximetry (%) 94 L 08/05/19 09:00 Constitutional: Yes: Well Nourished, No Distress, Calm Cardiovascular: Yes: Regular Rate and Rhythm Respiratory: Yes: Regular, Wheezes (Mild-diffuse) Gastrointestinal: Yes: Normal Bowel Sounds, Soft Genitourinary: Yes: WNL Musculoskeletal: Yes: WNL Extremities: Yes: WNL Edema: No Peripheral Pulses WNL: Yes Neurological: Yes: Alert, Oriented Psychiatric: Yes: Alert, Oriented Labs: CBC, BMP 08/04/19 08:50 08/04/19 08:50 INR, PTT INR 1.13 (0.83-1.09) H 07/30/19 21:25 Assessment/Plan (1) COPD exacerbation Assessment/Plan: -Pulmonary on board -bronchodilators -keep SpO2 >90% -O2 via NC prn -Bipap prn -IV Medrol tapering dose -CXR shows no acute chest pathology Code(s): J44.1 - CHRONIC OBSTRUCTIVE PULMONARY DISEASE W (ACUTE) EXACERBATION (2) Bipolar 1 disorder Assessment/Plan: -Depakote, Zoloft Code(s): F31.9 - BIPOLAR DISORDER, UNSPECIFIED (3) Diabetes Assessment/Plan: -[facility] -HgA1c 6.7% -Metformin -Diabetic low sodium diet Code(s): E11.9 - TYPE 2 DIABETES MELLITUS WITHOUT COMPLICATIONS Qualifiers: Diabetes mellitus type: type 2 (4) Essential hypertension Assessment/Plan: -low Na diet -Losartan/HCTZ Code(s): I10 - ESSENTIAL (PRIMARY) HYPERTENSION (5) Methadone maintenance therapy patient Assessment/Plan: -Methadone 100mg daily Code(s): F11.20 - OPIOID DEPENDENCE, UNCOMPLICATED (6) Seizure disorder Assessment/Plan: -Depakote Code(s): G40.909 - EPILEPSY, UNSP, NOT INTRACTABLE, WITHOUT STATUS EPILEPTICUS (7) Acute bronchitis Assessment/Plan: -ID on board -Pulmonary on board -leukocytosis -afebrile -Ceftriaxone -bronchodilators -keep SpO2 >90% -O2 via NC -CXR shows no acute pathology -sputum culture -BC neg Code(s): J20.9 - ACUTE BRONCHITIS, UNSPECIFIED Assessment/Plan see problem list dvt ppx
[2019-08-05] MEDS ORDERED: INSULIN (NOVOLOG) ASPART 100 UNITS/ML 10ML VIAL ONE ×2 (11:51→21:21)
[2019-08-05] MEDS: CEFTRIAXONE 1 GM in DEXTROSE 5%-WATER - 50 ML IVPB SCH (11:59)
--- NOTE | 2019-08-05 15:13 | PN ---
Progress Note, Physician History of Present Illness: pulmonary alert,feeling better,less dyspneic,less congested - Current Medication List Current Medications: Active Medications Albuterol Sulfate (Ventolin 0.083% Nebulizer Soln -) 1 amp NEB Q1H PRN PRN Reason: SHORT OF BREATH/WHEEZING Aspirin (Ecotrin -) 81 mg PO DAILY [facility] Last Admin: 08/05/19 09:43 Dose: 81 mg Atorvastatin Calcium (Lipitor -) 20 mg PO HS [facility] Last Admin: 08/04/19 21:08 Dose: 20 mg Budesonide/Formoterol Fumarate (Symbicort 160/4.5mcg -) 2 puff IH BID [facility] Last Admin: 08/05/19 09:45 Dose: 2 puff Divalproex Sodium 500 mg/ (Divalproex Sodium 250 mg) 750 mg PO BID [facility] Last Admin: 08/05/19 09:41 Dose: 750 mg Gabapentin (Neurontin -) 400 mg PO TID [facility] Last Admin: 08/05/19 13:29 Dose: 400 mg Heparin Sodium (Porcine) (Heparin -) 5,000 unit SQ BID [facility] Last Admin: 08/05/19 09:43 Dose: 5,000 unit Hydrochlorothiazide (Hctz -) 12.5 mg PO DAILY [facility] Last Admin: 08/05/19 09:43 Dose: 12.5 mg Ceftriaxone Sodium 1 gm/ (Dextrose) 50 mls @ 200 mls/hr IVPB DAILY [facility]; Protocol Last Admin: 08/05/19 11:59 Dose: 200 mls/hr Insulin Aspart (Novolog Vial Sliding Scale -) 1 vial SQ ACHS [facility]; Protocol Last Admin: 08/05/19 12:00 Dose: 10 units Insulin Detemir (Levemir Vial) 16 units SQ AM [facility] Last Admin: 08/05/19 06:09 Dose: 16 units Losartan Potassium (Cozaar -) 100 mg PO DAILY [facility] Last Admin: 08/05/19 09:44 Dose: 100 mg Metformin HCl (Glucophage -) 500 mg PO BID@0700,1630 [facility] Last Admin: 08/05/19 06:08 Dose: 500 mg Methadone HCl 80 mg/ Methadone (HCl 20 mg) 100 mg PO DAILY [facility] Last Admin: 08/05/19 09:40 Dose: 100 mg Methylprednisolone Sodium Succinate (Solu-Medrol -) 40 mg IVPUSH Q8H-IV [facility] Last Admin: 08/05/19 11:59 Dose: 40 mg Oseltamivir Phosphate (Tamiflu -) 75 mg PO BID [facility] Stop: 08/05/19 21:59 Last Admin: 08/05/19 09:42 Dose: 75 mg Sertraline HCl (Zoloft -) 25 mg PO DAILY [facility] Last Admin: 08/05/19 09:43 Dose: 25 mg - Objective Vital Signs: Vital Signs Temperature 97.5 F L 08/05/19 15:03 Pulse Rate 70 08/05/19 15:03 Respiratory Rate 08/05/19 15:03 Blood Pressure 149/61 08/05/19 15:03 O2 Sat by Pulse Oximetry (%) 94 L 08/05/19 09:00 Constitutional: Yes: Well Nourished, Calm Eyes: Yes: WNL HENT: Yes: WNL Neck: Yes: WNL Cardiovascular: Yes: Regular Rate and Rhythm, S1, S2 Respiratory: Yes: Wheezes (few wheezes) Gastrointestinal: Yes: Normal Bowel Sounds, Soft Extremities: Yes: WNL Edema: No Labs: CBC, BMP 08/04/19 08:50 Assessment/Plan Problem List - Problems (1) COPD exacerbation Code(s): J44.1 - CHRONIC OBSTRUCTIVE PULMONARY DISEASE W (ACUTE) EXACERBATION (2) Shortness of breath Code(s): R06.02 - SHORTNESS OF BREATH (3) Acute bronchitis Code(s): J20.9 - ACUTE BRONCHITIS, UNSPECIFIED (4) Bipolar 1 disorder Code(s): F31.9 - BIPOLAR DISORDER, UNSPECIFIED (5) COPD (chronic obstructive pulmonary disease) Code(s): J44.9 - CHRONIC OBSTRUCTIVE PULMONARY DISEASE, UNSPECIFIED (6) Chronic low back pain Code(s): M54.5 - LOW BACK PAIN; G89.29 - OTHER CHRONIC PAIN (7) Diabetes Code(s): E11.9 - TYPE 2 DIABETES MELLITUS WITHOUT COMPLICATIONS Qualifiers: Diabetes mellitus type: type 2 (8) Methadone maintenance therapy patient Code(s): F11.20 - OPIOID DEPENDENCE, UNCOMPLICATED (9) Nicotine dependence Code(s): F17.200 - NICOTINE DEPENDENCE, UNSPECIFIED, UNCOMPLICATED Qualifiers: Nicotine product type: cigarettes Substance use status: uncomplicated Qualified Code(s): F17.210 - Nicotine dependence, cigarettes, uncomplicated (10) Seizure disorder Code(s): G40.909 - EPILEPSY, UNSP, NOT INTRACTABLE, WITHOUT STATUS EPILEPTICUS Assessment/Plan Medrol taper NIPPV as needed BD TX standing and PRN No smoking was counseled Should have sleep screen as an outpatient LDCT Chest as an outpatient VTE prophylaxis DR LY
--- NOTE | 2019-08-05 16:24 | PN ---
Progress Note (short form) - Note Progress Note: feels improved minimal wheezing feels much better Vital Signs Period Temp Pulse Resp BP Sys/[place] Pulse Ox Last 24 Hr 97.4 F-98.2 F 70-98 19-20 131-149/61-75 90-98 cor-rrr lungs rare wheeze abd soft,nt ext no edema CBC, BMP 08/04/19 08:50 08/04/19 08:50 Microbiology 07/30/19 21:25 Blood - Peripheral Venous Blood Culture - Final NO GROWTH AFTER 5 DAYS INCUBATION 07/30/19 21:25 Blood - Peripheral Venous Blood Culture - Final NO GROWTH AFTER 5 DAYS INCUBATION a/p bronchitis copd exacerbation on home oxygen polysubstance use- on methadone has completeed 7 days antibiotics, will d/c steroids per pulmonary please call back if needed
[2019-08-05] MEDS: ATORVASTATIN CA 20 MG TABLET (FP) PO SCH (21:27)
[2019-08-06] MEDS: methylPREDNISolone NA SUCC 40 MG/1 ML VIAL IVPUSH SCH (00:13)
[2019-08-06] MEDS: metFORMIN HCL 500 MG TABLET (FP) PO SCH (06:12)
[2019-08-06] MEDS: INSULIN (LEVEMIR) 100 UNITS/ML UNITS SQ SCH (06:12)
[2019-08-06] MEDS: INSULIN SLIDING SCALE (NOVOLOG) 1 VIAL SQ SCH ×2 (06:12→11:27)
[2019-08-06] MEDS: GABAPENTIN 400 MG CAPSULE PO SCH (06:12)
[2019-08-06] MEDS ORDERED: INSULIN (NOVOLOG) ASPART 100 UNITS/ML 10ML VIAL ONE ×2 (06:30→11:20)
[2019-08-06 09:49] VITALS: TEMP 98
[2019-08-06] MEDS ORDERED: predniSONE 20 MG TABLET (UD) PO SCH (10:00)
[2019-08-06] MEDS ORDERED: METHADONE HCL 10 MG TABLET ONE (10:08)
[2019-08-06] MEDS ORDERED: METHADONE HCL 40 MG DISPERSABLE TABLET ONE (10:09)
[2019-08-06] MEDS ORDERED: PT OWN MED DRAWER 7, Y5N ONE ×2 (10:11→11:17)
[2019-08-06] MEDS: LOSARTAN POTASSIUM 50 MG TABLET (FP) PO SCH (10:14)
[2019-08-06] MEDS: METHADONE 80 MG, METHADONE 20 MG PO SCH (10:15)
[2019-08-06] MEDS: BUDESONIDE/FORMETEROL FUMARATE 160/4.5 mcg INHALER IH SCH (10:18)
[2019-08-06] MEDS: HEPARIN NA (PORCINE) 5,000 UNITS/ML 1ML VIAL SQ SCH (10:18)
[2019-08-06] MEDS: HYDROCHLOROTHIAZIDE 12.5 MG CAPSULE (FP) PO SCH (10:18)
[2019-08-06] MEDS: SERTRALINE HCL 25 MG TABLET (FP) PO SCH (10:19)
[2019-08-06] MEDS: ASPIRIN COATED 81 MG TABLET.EC PO SCH (10:21)
[2019-08-06] MEDS ORDERED: INSULIN (LEVEMIR) 100 UNITS/ML UNITS SQ SCH ×2 (10:30→22:00)
--- NOTE | 2019-08-06 10:31 | PN ---
Progress Note, Physician Chief Complaint: SOB COPD exacerbation History of Present Illness: NAD Denies SOB on exertion No wheezing has home O2 PRN - Current Medication List Current Medications: Active Medications Albuterol Sulfate (Ventolin 0.083% Nebulizer Soln -) 1 amp NEB Q1H PRN PRN Reason: SHORT OF BREATH/WHEEZING Last Admin: 08/05/19 19:55 Dose: 1 amp Aspirin (Ecotrin -) 81 mg PO DAILY [facility] Last Admin: 08/06/19 10:21 Dose: 81 mg Atorvastatin Calcium (Lipitor -) 20 mg PO HS [facility] Last Admin: 08/05/19 21:27 Dose: 20 mg Budesonide/Formoterol Fumarate (Symbicort 160/4.5mcg -) 2 puff IH BID [facility] Last Admin: 08/06/19 10:18 Dose: 2 puff Divalproex Sodium 500 mg/ (Divalproex Sodium 250 mg) 750 mg PO BID [facility] Last Admin: 08/05/19 21:27 Dose: 750 mg Gabapentin (Neurontin -) 400 mg PO TID [facility] Last Admin: 08/06/19 06:12 Dose: 400 mg Heparin Sodium (Porcine) (Heparin -) 5,000 unit SQ BID [facility] Last Admin: 08/06/19 10:18 Dose: 5,000 unit Hydrochlorothiazide (Hctz -) 12.5 mg PO DAILY [facility] Last Admin: 08/06/19 10:18 Dose: 12.5 mg Insulin Aspart (Novolog Vial Sliding Scale -) 1 vial SQ ACHS [facility]; Protocol Last Admin: 08/06/19 06:12 Dose: 6 units Insulin Detemir (Levemir Vial) 20 units SQ AM [facility] Losartan Potassium (Cozaar -) 100 mg PO DAILY [facility] Last Admin: 08/06/19 10:14 Dose: 100 mg Metformin HCl (Glucophage -) 500 mg PO BID@0700,1630 [facility] Last Admin: 08/06/19 06:12 Dose: 500 mg Methadone HCl 80 mg/ Methadone (HCl 20 mg) 100 mg PO DAILY [facility] Last Admin: 08/06/19 10:15 Dose: 100 mg Prednisone (Deltasone -) 40 mg PO BID [facility] Last Admin: 08/06/19 10:15 Dose: 40 mg Sertraline HCl (Zoloft -) 25 mg PO DAILY [facility] Last Admin: 02/12/20 10:19 Dose: 25 mg - Objective Vital Signs: Vital Signs Temperature 98.0 F 08/06/19 09:15 Pulse Rate 74 08/06/19 09:15 Respiratory Rate 18 08/06/19 09:15 Blood Pressure 128/76 08/06/19 09:15 O2 Sat by Pulse Oximetry (%) 98 08/06/19 04:17 Constitutional: Yes: Well Nourished, No Distress, Calm Cardiovascular: Yes: Regular Rate and Rhythm Respiratory: Yes: Regular, CTA Bilaterally Gastrointestinal: Yes: Normal Bowel Sounds, Soft, Abdomen, Obese Genitourinary: Yes: WNL Musculoskeletal: Yes: WNL Extremities: Yes: WNL Edema: No Peripheral Pulses WNL: Yes Neurological: Yes: Alert, Oriented Psychiatric: Yes: Alert, Oriented Labs: CBC, BMP 08/04/19 08:50 08/04/19 08:50 INR, PTT INR 1.13 (0.83-1.09) H 07/30/19 21:25 Assessment/Plan (1) COPD exacerbation Assessment/Plan: -Pulmonary on board -bronchodilators -keep SpO2 >90% -O2 via NC prn -Bipap prn -IV Medrol tapering dose---changed to PO -CXR shows no acute chest pathology Code(s): J44.1 - CHRONIC OBSTRUCTIVE PULMONARY DISEASE W (ACUTE) EXACERBATION (2) Bipolar 1 disorder Assessment/Plan: -Depakote, Zoloft Code(s): F31.9 - BIPOLAR DISORDER, UNSPECIFIED (3) Diabetes Assessment/Plan: -BGM ACHS -ISS -HgA1c 6.7% -Metformin -Diabetic low sodium diet -Also on Levemir Code(s): E11.9 - TYPE 2 DIABETES MELLITUS WITHOUT COMPLICATIONS Qualifiers: Diabetes mellitus type: type 2 (4) Essential hypertension Assessment/Plan: -low Na diet -Losartan/HCTZ Code(s): I10 - ESSENTIAL (PRIMARY) HYPERTENSION (5) Methadone maintenance therapy patient Assessment/Plan: -Methadone 100mg daily Code(s): F11.20 - OPIOID DEPENDENCE, UNCOMPLICATED (6) Seizure disorder Assessment/Plan: -Depakote Code(s): G40.909 - EPILEPSY, UNSP, NOT INTRACTABLE, WITHOUT STATUS EPILEPTICUS (7) Acute bronchitis Assessment/Plan: -ID on board -Pulmonary on board -leukocytosis -afebrile -Ceftriaxone -bronchodilators -keep SpO2 >90% -O2 via [place] -CXR shows no acute pathology -sputum culture -BC neg Code(s): J20.9 - ACUTE BRONCHITIS, UNSPECIFIED Assessment/Plan see problem list dvt ppx
[2019-08-06] MEDS: DIVALPROEX 500 MG, DIVALPROEX 250 MG PO SCH (11:11)
[2019-08-06 11:21] VITALS: BP 113/83; PULSE 93
== END 2019-08-06 12:19 | disposition home health service (06) | DRG 140 ==
LOC: JER 21:02 → JERBED 22:20 → J6S 07-31 05:12
PROVIDERS: ADMIT Internal Medicine; ATTEND Family Medicine
DX: J44.1 Chronic obstructive pulmonary disease with (acute) exacerbation (principal); J96.01 Acute respiratory failure with hypoxia; Z99.81 Dependence on supplemental oxygen; F11.20 Opioid dependence, uncomplicated; G40.909 Epilepsy, unspecified, not intractable, without status epilepticus; J44.0 Chronic obstructive pulmonary disease with (acute) lower respiratory infection; E78.5 Hyperlipidemia, unspecified; E11.9 Type 2 diabetes mellitus without complications; F10.10 Alcohol abuse, uncomplicated; F14.10 Cocaine abuse, uncomplicated; Z79.4 Long term (current) use of insulin; F17.210 Nicotine dependence, cigarettes, uncomplicated; E66.9 Obesity, unspecified; F31.9 Bipolar disorder, unspecified; Z68.29 Body mass index [BMI] 29.0-29.9, adult; J20.9 Acute bronchitis, unspecified
CPT/HCPCS: 36415; 36600; 71045-TC-FY; 80048; 80053; 80164; 82375; 82550; 82803; 82962; 83036; 83050; 83605; 83880; 84484; 85025; 85027; 85610; 87040; 87633; 87804; 93005; 93010; 94640; 94660; 99283-25; J1644; Q2036

== ENCOUNTER 2022-11-10 01:03 | Emergency (ER) | payer OTHER ==
[2022-11-10 02:15] VITALS: BMI 41.1
[2022-11-10 02:30] LABS: EOS % 2.6 % (0-4.5); HEMATOCRIT 47.9 % (32.4-45.2); HEMOGLOBIN 16.3 GM/dL (10.7-15.3); LYMPH % 33.4 % (8-40); MCH 28.9 pg (25.7-33.7); MEAN PLT VOLUME 8.9 fl (7.5-11.1); MONO % 8.8 % (3.8-10.2); NEUT % 54.2 % (42.8-82.8); PLATELET COUNT 222 10^3/uL (134-434); RBC 5.64 M/mm3 (3.60-5.2); RDW 13.6 % (11.6-15.6); WHITE BLOOD COUNT 8.3 K/mm3 (4.0-10.0)
[2022-11-10 02:32] LABS: VENOUS BASE EXCESS 1.1 mmol/L (-2-2); VENOUS O2 SATURATION 76.2 % (70-80); VENOUS PCO2 56.4 mmHg (38-52); VENOUS PH 7.325 (7.310-7.410)
[2022-11-10 02:44] LABS: POTASSIUM 4.4 mmol/L (3.5-5.1)
[2022-11-10 02:47] LABS: ALBUMIN 3.1 g/dl (3.4-5.0)
[2022-11-10 02:50] LABS: CREATININE 0.6 mg/dL (0.55-1.3); PHOSPHOROUS 3.3 mg/dL (2.5-4.9)
[2022-11-10 02:51] LABS: BILIRUBIN,TOTAL 0.4 mg/dL (0.2-1); TOT PROT 7.1 g/dl (6.4-8.2)
[2022-11-10 02:55] LABS: N-TERMINAL BNP 63.9 pg/ml (5-125)
[2022-11-10] MEDS ORDERED: ALBUTEROL SO4 2.5/IPRATROPIUM 0.5 INH SOL 3 ML VIAL.NEB. NEB ONE ×2 (05:06→05:18)
[2022-11-10] MEDS: ALBUTEROL SO4 2.5/IPRATROPIUM 0.5 INH SOL 3 ML VIAL.NEB. NEB SCH ×3 (05:12→05:32)
[2022-11-10] MEDS ORDERED: methylPREDNISolone NA SUCC 125 MG/2 ML VIAL IVPB ONE (05:25)
[2022-11-10] MEDS ORDERED: methylPREDNISolone NA SUCC 125 MG/2 ML VIAL ONE (05:46)
[2022-11-10] MEDS ORDERED: HEPARIN NA (PORCINE) 5,000 UNITS/ML 1ML VIAL IVPUSH PRN ×2 (05:49)
[2022-11-10] MEDS ORDERED: HEPARIN NA (PORCINE) 5,000 UNITS/ML 1ML VIAL SQ ONE (05:49)
[2022-11-10] MEDS ORDERED: HEPARIN - 25,000 UNIT in SODIUM CHLORIDE 495 ML IV SCH (06:00)
[2022-11-10 07:15] LABS: INR 0.9 (0.83-1.09); PROTHROMBIN TIME (PATIENT) 10.5 SEC (9.7-13.0)
[2022-11-10 07:18] LABS: ACTIVATED PTT 29.5 SECONDS (25.2-36.5)
[2022-11-10] MEDS ORDERED: HEPARIN NA (PORCINE) 5,000 UNITS/ML 1ML VIAL IVPUSH ONE (07:22)
[2022-11-10] MEDS ORDERED: HEPARIN NA (PORCINE) 5,000 UNITS/ML 1ML VIAL ONE ×2 (07:23→10:05)
[2022-11-10] MEDS ORDERED: CEFTRIAXONE 1,000 MG in DEXTROSE 5%-WATER - 50 ML IVPB ONE (07:44)
[2022-11-10] MEDS ORDERED: NITROGLYCERIN SUBLINGUAL 1/150 0.4 MG TAB SL ONE (07:45)
[2022-11-10] MEDS ORDERED: ASPIRIN 325 MG ENTERIC COATED TABLET (FP) PO ONE ×2 (08:57→10:00)
[2022-11-10] MEDS ORDERED: ATORVASTATIN CA 80 MG TABLET (FP) PO ONE (08:57)
[2022-11-10] MEDS ORDERED: ASPIRIN 81 MG CHEWABLE TABLETS PO ONE (09:11)
[2022-11-10] MEDS ORDERED: METOPROLOL TARTRATE 25 MG TABLET (FP) PO ONE (09:45)
[2022-11-10] MEDS ORDERED: TICAGRELOR 90 MG TABLET PO SCH ×2 (10:00)
[2022-11-10] MEDS ORDERED: NITROGLYCERIN 2% OINTMENT - 1GM PACKET TD SCH (10:00)
[2022-11-10] MEDS ORDERED: METOPROLOL TARTRATE 25 MG TABLET (FP) ONE (10:04)
[2022-11-10] MEDS ORDERED: TICAGRELOR 90 MG TABLET PO ONE (10:04)
[2022-11-10] MEDS ORDERED: ATORVASTATIN CA 10 MG TABLET (FP) ONE (10:04)
[2022-11-10] MEDS ORDERED: NITROGLYCERIN 2% OINTMENT - 1GM PACKET TD ONE (10:04)
[2022-11-10] MEDS ORDERED: CEFTRIAXONE 1 GM/50 ML BAG ONE (10:05)
[2022-11-10] MEDS ORDERED: ASPIRIN 325 MG TABLET ONE (10:05)
[2022-11-10 10:31] VITALS: BP 142/76; PULSE 82; TEMP 98
[2022-11-10 10:53] VITALS: RESP 18
== END 2022-11-10 10:30 | disposition short-term general hospital (02) ==
LOC: JER 01:03
PROC: 3E03329 Introduction of Other Anti-infective into Peripheral Vein, Percutaneous Approach (ICD-10-PCS; principal; 2022-11-10)
PROC: 3E033GC Introduction of Other Therapeutic Substance into Peripheral Vein, Percutaneous Approach (ICD-10-PCS; 2022-11-10)
PROC: 3E033GC Introduction of Other Therapeutic Substance into Peripheral Vein, Percutaneous Approach (ICD-10-PCS; 2022-11-10)
PROC: 3E023GC Introduction of Other Therapeutic Substance into Muscle, Percutaneous Approach (ICD-10-PCS; 2022-11-10)
PROC: 3E0F7GC Introduction of Other Therapeutic Substance into Respiratory Tract, Via Natural or Artificial Opening (ICD-10-PCS; 2022-11-10)
DX: R07.9 Chest pain, unspecified (principal); R06.02 Shortness of breath; I21.4 Non-ST elevation (NSTEMI) myocardial infarction; Z20.822 Contact with and (suspected) exposure to COVID-19
CPT/HCPCS: 0241U-QW; 36415; 71045-TC-FY; 80053; 82803; 83735; 83880; 84100; 84484; 85025; 85610; 85730; 93005; 93010; 99285-25; J1644

== ENCOUNTER 2023-07-25 06:53 | Observation (INO) | payer OTHER ==
[2023-07-25] MEDS ORDERED: ACETAMINOPHEN 1000 MG/100 ML BAG IVPB ONE (08:06)
[2023-07-25] MEDS ORDERED: ACETAMINOPHEN INJECTION 100 ML IVPB ONE (09:10)
[2023-07-25 09:25] LABS: BASO % 1.1 % (0-2.0); EOS % 2.6 % (0-4.5); HEMOGLOBIN 15.3 GM/dL (10.7-15.3); LYMPH % 24.8 % (8-40); MCH 27.5 pg (25.7-33.7); MCHC 32.6 g/dl (32.0-36.0); MEAN CELL VOLUME 84.4 fl (80-96); MEAN PLT VOLUME 8.5 fl (7.5-11.1); MONO % 13.4 % (3.8-10.2); NEUT % 58.1 % (42.8-82.8); PLATELET COUNT 221 10^3/uL (134-434); RBC 5.57 M/mm3 (3.60-5.2); RDW 13.6 % (11.6-15.6); WHITE BLOOD COUNT 7.2 K/mm3 (4.0-10.0)
[2023-07-25 09:37] LABS: POTASSIUM 4.5 mmol/L (3.5-5.1)
[2023-07-25 09:39] LABS: CALCIUM 9.3 mg/dL (8.5-10.1)
[2023-07-25 09:40] LABS: ALBUMIN 3.3 g/dl (3.4-5.0); BLOOD UREA NITROGEN 12.2 mg/dL (7-18)
[2023-07-25] MEDS ORDERED: valACYclovir HCL 500 MG TABLET (FP) PO ONE (09:42)
[2023-07-25 09:43] LABS: CREATININE 0.6 mg/dL (0.55-1.3)
[2023-07-25 09:45] LABS: BILIRUBIN,TOTAL 1.2 mg/dL (0.2-1); TOT PROT 7.2 g/dl (6.4-8.2)
[2023-07-25] MEDS ORDERED: valACYclovir HCL 500 MG TABLET (FP) ONE ×3 (10:30→22:19)
[2023-07-25] MEDS ORDERED: ACETAMINOPHEN 325 MG TABLET (FP) PO PRN (13:20)
[2023-07-25 14:13] LABS: CHOLESTEROL 189 mg/dL (50-200); LDL CHOLESTEROL (ONLY SJRH) 127 mg/dL (5-100)
[2023-07-25] MEDS ORDERED: methaDONE HCL 40 MG DISPERSABLE TABLET PO SCH (14:15)
[2023-07-25 14:17] LABS: HDL CHOLESTEROL 25 mg/dL (40-60)
[2023-07-25] MEDS ORDERED: methaDONE HCL 40 MG DISPERSABLE TABLET ONE (15:23)
[2023-07-25] MEDS ORDERED: methaDONE HCL 10 MG TABLET ONE (15:23)
[2023-07-25] MEDS ORDERED: ASPIRIN 81 MG CHEWABLE TABLETS ONE (15:23)
[2023-07-25] MEDS ORDERED: LIDOCAINE 4% PATCH TP ONE (15:23)
[2023-07-25] MEDS: methaDONE 80 MG, methaDONE 20 MG PO SCH (15:24)
[2023-07-25] MEDS: ASPIRIN COATED 81 MG TABLET.EC PO SCH (15:25)
[2023-07-25] MEDS: LIDOCAINE 4% PATCH TP SCH (15:33)
[2023-07-25] MEDS: INSULIN ASPART SLIDING SCALE (NOVOLOG) 1 VIAL SQ SCH ×2 (17:46→22:36)
[2023-07-25] MEDS: valACYclovir HCL 500 MG TABLET (FP) PO SCH ×2 (17:46→22:37)
[2023-07-25] MEDS ORDERED: LIDOCAINE PATCH REMOVAL MC SCH (22:00)
[2023-07-25] MEDS ORDERED: ATORVASTATIN CA 40 MG TABLET (FP) PO SCH (22:00)
[2023-07-25] MEDS ORDERED: ATORVASTATIN CA 40 MG TABLET (FP) ONE (22:20)
[2023-07-25] MEDS ORDERED: ACETAMINOPHEN 325 MG TABLET (FP) ONE (22:41)
[2023-07-26 04:54] LABS: COCAINE, UR NEGATIVE (NEGATIVE); URINE BARBITURATES NEGATIVE (NEGATIVE); URINE BENZODIAZEPINES NEGATIVE (NEGATIVE)
[2023-07-26 04:55] LABS: METHADONE, UR POSITIVE (NEGATIVE); OPIATES, URI POSITIVE (NEGATIVE); PHENCYCLIDINE,URINE NEGATIVE (NEGATIVE); URINE AMPHETAMINES NEGATIVE (NEGATIVE)
[2023-07-26] MEDS: methaDONE 80 MG, methaDONE 20 MG PO SCH (06:02)
[2023-07-26] MEDS: INSULIN ASPART SLIDING SCALE (NOVOLOG) 1 VIAL SQ SCH (06:02)
[2023-07-26 06:54] LABS: HEMATOCRIT 44.1 % (32.4-45.2); HEMOGLOBIN 14.6 GM/dL (10.7-15.3); MCH 27.7 pg (25.7-33.7); MEAN CELL VOLUME 83.8 fl (80-96); MEAN PLT VOLUME 8.2 fl (7.5-11.1); PLATELET COUNT 194 10^3/uL (134-434); RBC 5.26 M/mm3 (3.60-5.2); RDW 13.5 % (11.6-15.6); WHITE BLOOD COUNT 6.4 K/mm3 (4.0-10.0)
[2023-07-26 06:56] VITALS: BP 153/85; PULSE 79; RESP 20; BMI 29.8
[2023-07-26 07:12] LABS: POTASSIUM 4.3 mmol/L (3.5-5.1)
[2023-07-26 07:15] LABS: CALCIUM 9.5 mg/dL (8.5-10.1)
[2023-07-26 07:16] LABS: BLOOD UREA NITROGEN 10.2 mg/dL (7-18); MAGNESIUM 1.9 mg/dL (1.8-2.4)
[2023-07-26 07:19] LABS: CREATININE 0.6 mg/dL (0.55-1.3); PHOSPHOROUS 3.6 mg/dL (2.5-4.9)
[2023-07-26 09:00] VITALS: TEMP 98.2
[2023-07-26] MEDS: LIDOCAINE 4% PATCH TP SCH (09:33)
[2023-07-26] MEDS: ASPIRIN COATED 81 MG TABLET.EC PO SCH (09:34)
== END 2023-07-26 11:05 | disposition home or self-care (01) ==
LOC: JER 06:53 → JERBED 13:15 → J2W 07-26 05:22
PROVIDERS: ADMIT Internal Medicine; ATTEND Internal Medicine
PROC: 3E033NZ Introduction of Analgesics, Hypnotics, Sedatives into Peripheral Vein, Percutaneous Approach (ICD-10-PCS; principal; 2023-07-25)
DX: B02.9 Zoster without complications (principal); J98.11 Atelectasis; I10 Essential (primary) hypertension; E78.5 Hyperlipidemia, unspecified; E11.9 Type 2 diabetes mellitus without complications; J44.9 Chronic obstructive pulmonary disease, unspecified; G40.909 Epilepsy, unspecified, not intractable, without status epilepticus; F19.99 Other psychoactive substance use, unspecified with unspecified psychoactive substance-induced disorder; R07.9 Chest pain, unspecified; R21 Rash and other nonspecific skin eruption; R07.89 Other chest pain; R06.02 Shortness of breath; F17.200 Nicotine dependence, unspecified, uncomplicated
CPT/HCPCS: 36415; 71046-TC-FY; 72131-TC; 80048; 80053; 80061; 80307; 82962; 83036; 83735; 84100; 84443; 84484; 85025; 85027; 87086; 87186; 93005; 93010; 96374; 99285-25; G0378; J0131